=== PATIENT | female | born 1975 | race Caucasian/White ===

== ENCOUNTER 2018-05-05 20:33 | Emergency (ER) | payer MEDICAID ==
[~2018-05-05] VITALS: Ht 177.8 cm; Wt 131.5 kg
[~2018-05-05 20:33] MED LIST: AGM875T PO; AMOX-358 PO; AZAT50TA PO; CIPR-225 PO; DESO15OI TOP; DOCU100C37 PO; ERGO50006 PO; FURO80TA3 PO; FURO80TA83 PO; GABA-488 PO; HYDR-34 PO; HYDR-3714 PO; HYDR200T46 PO; IBP800T PO; IBUP-1773 PO; INSU100I10 SC; INSU100I14 SQ; INSU100V6 SQ; LABE100T2 PO; LEVE1U SQ; LIRA0.6P SQ; LISI10TA PO; LISI10TA2 PO; LISI20TA PO; LORA-405 PO; LORA10TA76 PO; METF-380 PO; METO10TA3 PO; MTP50T PO; MYCO500T3 PO; NF-NOR777T PO; OMEP-10 PO; ONDA4TAB11 PO; OXYC-12 PO; OXYC-529 PO; OXYC30TA77 PO; PANT40TA3 PO; PHEN37.555 PO; PRD20T PO; SERT50TA2 PO; SIME80TA16 PO; SPIR50TA4 PO; TR1O15 TOP; [UNRECOGNIZED DRUG - OTHER]
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
--- OUTSIDE RECORDS SUMMARY | 2018-05-05 20:55 | XMS REPORT | Encounter Summary ---
Author Author [facility] Organization [facility] Address Unknown Phone Unavailable Care Team Providers Care Fishing Vessel Mate Name Role Phone KaranMiquel Unavailable Jonatan Vázquez MD Unavailable Sandy Gonsalves MD Unavailable Estephania Breaux MD Unavailable Hugo Ta MD [id number] Khoi Kaminski MD Unavailable Ruben Dozier MD Unavailable Suzette Ramesh PHARMACIST IN CHARGE-C Unavailable Saroj Allan MD Unavailable Dana Duran PHARMACIST IN CHARGE Unavailable Geo Treviño MD Unavailable Gallito Lopez MD PCP Unavailable Iris Devine MD Unavailable Dick Hagan DO 21 Unavailable Valente Gutierrez OD Unavailable Arlin Weber PHARMACIST IN CHARGE Unavailable Evelin Youssef PHARMACIST IN CHARGE-FRAMING MECHANIC 7 Encounter Details Care Team Description Date Type Department Gala Vilchis LPN 05/03/2018 Orders Only The [facility] [address] [place] [address] Social History Date Tobacco Use Types Packs/Day Years Used Quit: 04/12/2015 Former Smoker Cigarettes 0.5 15 Smokeless Tobacco: Never Used Comments: Quit 04-12-2015 Alcohol Use Drinks/Week oz/Week Comments No 0 Standard 0.0 Heavy EtOH use during weekends for approximately drinks or 10 years in patient's 20's equivalent Sex Assigned at Date Recorded Not on file Industry Job Start Date Occupation Not on file Not on file Not on file Travel End Travel History Travel Start No recent travel history available. documented as of this encounter Functional Status Date of Assessment Functional Status Response 04/11/2018 Does the patient have a hearing impairment: No 04/11/2018 Does the patient have a visual impairment: Yes 04/11/2018 Does the patient have impaired ambulation: Yes 04/11/2018 Does the patient have an activity of daily living No (ADL) impairment: 04/11/2018 Does the patient have an instrumental activity of No daily living (IADL) impairment: Date of Assessment Cognitive Status Response 04/11/2018 Does the patient have a cognitive impairment: No documented as of this encounter Plan of Treatment Care Team Description Date Type Specialty Janelle Bell MD [address] [place] [address] [phone] Esophageal varices in cirrhosis (HCC) 05/27/2018 Hospital Encounter Janelle Bell MD [address] [address] [phone] ESOPHAGOGASTRODUODENOSCOPY 05/27/2018 Surgery documented as of this encounter Visit Diagnoses Not on filedocumented in this encounter
--- OUTSIDE RECORDS SUMMARY | 2018-05-05 20:56 | XMS REPORT | Encounter Summary ---
Author Author [facility] Organization [facility] Address Unknown Phone Unavailable Care Team Providers Care Air Transport Professionals Name Role Phone Karan Miquel Unavailable Jonatan Vázquez MD Unavailable Sandy Gonsalves MD Unavailable Estephania Breaux MD Unavailable Hugo Ta MD [id number] Khoi Kaminski MD Unavailable Ruben Dozier MD Unavailable Suzette Ramesh FREIGHT SOLICITOR-C Unavailable Saroj Allan MD Unavailable Dana Duran FREIGHT SOLICITOR Unavailable Geo Treviño MD Unavailable Gallito Lopez MD PCP Unavailable Iris Devine MD Unavailable Dick Hagan DO 21 Unavailable Valente Gutierrez OD Unavailable Arlin Weber FREIGHT SOLICITOR Unavailable Evelin Youssef FREIGHT SOLICITOR-SKIN CARE SPECIALIST 7 Reason for Visit * Reason Comments Results Encounter Details Care Team Description Date Type Department Sandy Gonsalves MD [address] [facility] [place] [address] [place] [address] [phone] Results 04/12/2018 Telephone [facility] [address] [place] [id number] Social History Date Tobacco Use Types Packs/Day [...] impairment: No documented as of this encounter Miscellaneous Notes * Telephone Encounter - Marilyn De La O LPN - 04/12/2018 8:53 AM MAINTENANCE GROUNDMAN Pt notified via [employer]. TENANCE GROUNDMAN * Telephone Encounter - Marilyn De La O LPN - 04/12/2018 8:53 AM MAINTENANCE GROUNDMAN ----- Message from Sandy Gonsalves MD sent at 04/11/2018 3:12 PM MAINTENANCE GROUNDMAN ----- Please let her know that labs are stable. TENANCE GROUNDMAN documented in this encounter Plan of Treatment Care Team Description Date Type Specialty Janelle Bell MD [address] [address] [phone] Esophageal varices in cirrhosis (HCC) 05/27/2018 Hospital Encounter Janelle Bell MD [address] [phone] ESOPHAGOGASTRODUODENOSCOPY 05/27/2018 Surgery documented as of this encounter Visit Diagnoses Not on filedocumented in this encounter
--- OUTSIDE RECORDS SUMMARY | 2018-05-05 20:56 | XMS REPORT | Encounter Summary ---
Author Author [facility] Organization [facility] Address Unknown Phone Unavailable Care Team Providers Care Hospice/Home Health Aide Name Role Phone KaranMiquel Unavailable Jonatan Vázquez MD Unavailable Sandy Gonsalves MD Unavailable Estephania Breaux MD Unavailable Hugo Ta MD [id number] Khoi Kaminski MD Unavailable Ruben Dozier MD Unavailable Suzette Ramesh DECORATOR LIGHTING FIXTURES-C Unavailable Saroj Allan MD Unavailable Dana Duran DECORATOR LIGHTING FIXTURES Unavailable Geo Treviño MD Unavailable Gallito Lopez MD PCP Unavailable Iris Devine MD Unavailable Dick Hagan DO 21 Unavailable Valente Gutierrez OD Unavailable Arlin Weber DECORATOR LIGHTING FIXTURES Unavailable Evelin Youssef DECORATOR LIGHTING FIXTURES-ASSOCIATE PRODUCER 7 Encounter Details Care Team Description Date Type Department Jackie Villa MD [address] Ortho/Med [address] [place] [address] [phone] 05/01/2018 Orders Only The [facility] [address] [place] [address] Social History Date Tobacco Use Types Packs/Day [...] Date Type Specialty Janelle Bell MD [address] [phone] Esophageal varices in cirrhosis (HCC) 05/27/2018 Hospital Encounter Janelle Bell MD [address] [phone] ESOPHAGOGASTRODUODENOSCOPY 05/27/2018 Surgery documented as of this encounter Procedures Comments Procedure Name Priority Date/Time Associated Diagnosis FERRITIN 05/01/2018 4:30 PM CDT BASIC METABOLIC PANEL 05/01/2018 4:30 PM CDT documented in this encounter Results * FERRITIN (05/01/2018 4:30 PM CDT) Pathologist [facility] Ferritin 143 10 - 232 ng/mL [facility] Comment: DIAGNOSTICS REPORT COMMENT: FASTING:NO Test Performed at: [employer] [address] [facility] [place], [id number] ARNOLDO MCGINNIS DO,MPH Performing Organization Address [facility] Phone Number [employer] [address] [place] [address] * BASIC METABOLIC PANEL (05/01/2018 4:30 PM CDT) Pathologist [facility] Glucose 343 (H) 65 - 139 mg/dL [facility] Comment: DIAGNOSTICS Non-fasting reference interval Blood Urea 20 7 - 25 mg/dL [facility] Nitrogen [facility] Creatinine 0.88 0.50 - 1.10 mg/dL [facility] eGFR Non 81 > OR=60 [facility] mL/min/1.73m2 DIAGNOSTICS [place] eGFR 94 > OR=60 [facility] [place] mL/min/1.73m2 DIAGNOSTICS BUN/Creatinine NOT APPLICABLE 6 - 22 (calc) [facility] Ratio [facility] Sodium 135 135 - 146 mmol/L [facility] Potassium 4.2 3.5 - 5.3 mmol/L [facility] Chloride 100 98 - 110 mmol/L [facility] CO2 25 20 - 32 mmol/L [facility] Calcium 8.9 8.6 - 10.2 mg/dL [facility] Comment: DIAGNOSTICS Test Performed at: [employer] [address] [facility] [place] and love and you, [id number] ARNOLDO MCGININS DO,MPH Performing Organization Address [facility] Phone Number [employer] [address] [place] [address] documented in this encounter Visit Diagnoses Not on filedocumented in this encounter
--- OUTSIDE RECORDS SUMMARY | 2018-05-05 20:56 | XMS REPORT | Encounter Summary ---
Author Author [facility] Organization [facility] Address Unknown Phone Unavailable Care Team Providers Care Shop Superintendent Name Role Phone Karan Miquel Unavailable Jonatan Vázquez MD Unavailable Sandy Gonsalves MD Unavailable Estephania Breaux MD Unavailable Hugo Ta MD [id number] Khoi Kaminski MD Unavailable Ruben Dozier MD Unavailable Suzette Ramesh REGISTERED DIETICIAN-C Unavailable Saroj Allan MD Unavailable Dana Duran REGISTERED DIETICIAN Unavailable Geo Treviño MD Unavailable Gallito Lopez MD PCP Unavailable Iris Devine MD Unavailable Dick Hagan DO 21 Unavailable Valente Gutierrez OD Unavailable Arlin Weber REGISTERED DIETICIAN Unavailable Evelin Youssef REGISTERED DIETICIAN-PLANT SAFETY ENGINEER 7 Reason for Visit * Reason Comments Medication Refill Encounter Details Care Team Description Date Type Department Geo Treviño MD [address] [facility] [place] [address] [phone] 04/18/2018 Refill The [facility] [address] [place] [phone] Social History Date Tobacco Use Types Packs/Day [...] encounter Miscellaneous Notes * Telephone Encounter - Rita Batista RN - 04/18/2018 8:55 AM CDT Pharmacy is requesting a refill of prednisone. Pt last seen 01/22/18. Last labs were drawn 04/11/18. Pt scheduled for follow up on 07/29/18. Per last OV "Continue prednisone 15mg daily for now" Routing to Dr. Treviño for approval. 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
--- OUTSIDE RECORDS SUMMARY | 2018-05-05 20:56 | XMS REPORT | Encounter Summary ---
Author Author [facility] Organization [facility] Address Unknown Phone Unavailable Care Team Providers Care Plumber Supervisor Name Role Phone Karan Miquel Unavailable Jonatan Vázquez MD Unavailable Sandy Gonsalves MD Unavailable Estephania Breaux MD Unavailable Hugo Ta MD [id number] Khoi Kaminski MD Unavailable Ruben Dozier MD Unavailable Suzette Ramesh STARS SPECIALIST-C Unavailable Saroj Allan MD Unavailable Dana Duran STARS SPECIALIST Unavailable Geo Treviño MD Unavailable Gallito Lopez MD PCP Unavailable Iris Devine MD Unavailable Dick Hagan DO 21 Unavailable Valente Gutierrez OD Unavailable Arlin Weber STARS SPECIALIST Unavailable Evelin Youssef STARS SPECIALIST-FRUIT OR NUT GROWER 7 Reason for Referral * Durable Medical Equipment Referred By Contact Referred To Contact Status Reason Specialty Diagnoses / Procedures Jackie Villa MD 1999 [facility] [address] [place] [id number] New Request Specialty Services Diagnoses Required MARLENI (obstructive sleep apnea) Reason for Visit * Reason Comments Obstructive sleep apnea * Consult, Test & Treat (Routine) Referred By Contact Referred To Contact Status Reason Specialty Diagnoses / Procedures Arlin Weber, STARS SPECIALIST 4000 [facility] [id number] [place] [address] [facility] [address] [place] [address] Closed Pulmonology Diagnoses MARLENI (obstructive sleep apnea) Encounter Details Care Team Description Date Type Department Jackie Villa MD 1999 [facility] [address] [place] [address] [id number] MARLENI (obstructive sleep apnea) (Primary Dx); PLMD (periodic limb movement disorder); Snoring; BMI 40.0-44.9, adult (HCC); Exercise-induced asthma 04/29/2018 Office Visit [facility] [address] [place] [address] Social History Date Tobacco Use Types Packs/Day [...] history available. documented as of this encounter Last Filed Vital Signs Time Taken Vital Sign Reading 04/29/2018 11:30 AM CDT Blood Pressure 121/81 04/29/2018 11:30 AM CDT Pulse 96 04/29/2018 11:30 AM CDT Temperature 36.5 C (97.7 F) 04/29/2018 11:30 AM CDT Respiratory Rate 18 04/29/2018 11:30 AM CDT Oxygen Saturation 97% - Inhaled Oxygen - Concentration 04/29/2018 11:30 AM CDT Weight 133.8 kg (295 lb) 04/29/2018 11:30 AM CDT Height 177.8 cm (5' 10") 04/29/2018 11:30 AM CDT Body Mass Index 42.33 documented in this encounter Functional Status Date of Assessment [...] impairment: No documented as of this encounter Patient Instructions * Patient Instructions* Yamileth García LPN - 04/29/2018 11:30 AM CDT A new CPAP or BiPAP machine has been ordered for you. We will send the order to a medical supply company (aka [employer] or [email or web address]). Once they received the order, they will run it through your insurance company for authorization. They will contact you once this is completed, usually 7-10 days after the order is placed. They will go over all financial information with you and schedule an appointment to get you set up with your equipment. If you have any questions, or if you don't hear from your DME within this timeframe, please call my nurse Yamileth @ [phone] Most insurances are requiring patients to meet 'CPAP compliance guidelines' which require 4 hours of use a night. This will require you to use your CPAP at least 4 hours a night over a period of 30 days. You have 90 days from the date you receive your machine to meet these guidelines. If this is the case you will also be required to have a follow-up appt within this time frame as well. If you do not meet compliance, your insurance may discontinue payment for your CPAP. Most insurance plans allow a 30 day window from date of setup to try different masks. If you need to schedule an appointment, you can call [phone]. documented in this encounter Progress Notes * Jackie Villa MD - 04/29/2018 11:30 AM CDT Subjective: History of Present Illness Sherrie Doe is a 42 y.o. female with past medical history of exercise induced asthma, lupus, diabetes mellitus, Jones, hyperlipidemia, lupus nephritis , proximal myotonic myopathy, fibromyalgia, hypertension and obesity is here to be evaluated for sleep apnea. She said her boyfriend said that she is snores and stops breathing at night. She said she has had the symptoms for several years. She does not have any choking episodes at night. She sometimes wakes up with headaches in the morning. She does not feel refreshed in the morning. She wakes up multiple times at night. She does not have any trouble falling asleep or trouble staying asleep. She goes to bed around 9:30 PM and wakes up at 6:30 AM. She said it takes 30 minutes to an hour to fall asleep. She does not take any sleep aids. She does not have any sleep paralysis. She has sleep- related hallucinations where she wakes up hearing somebody calling her name at least once or twice per month. She is gained nearly 40 pounds in October. She does not smoke or drink alcohol. She quit smoking in 2015. She said she smoked for nearly 25 years at least 1-2 packs/day. She has shortness of breath mostly with exertion. She sometimes wheezes during daytime. She does not have any chest pain. She has gastroesophageal reflux disease. She said she moves her legs often at night and. She is often. She said her feet if she does, often in the morning. Also her boyfriend complained that she kicks him often. She had a sleep study done on 10/26/2017 which showed mild sleep apnea with AHI of 5.4. Time with saturation less than or equal to 88% for 8 minutes. Periodic limb movement disorder index was 35/h with arousal index of 13/h. ESS 14/24. Review of Systems All ten systems were reviewed and negative except for those in HPI. Objective: albuterol (PROAIR HFA, VENTOLIN HFA, OR PROVENTIL HFA) 90 mcg/actuation inhaler Inhale two puffs by mouth into the lungs every 6 hours as needed for Wheezing or Shortness of Breath. Shake well before use. albuterol 0.5% (PROVENTIL; VENTOLIN) 2.5 mg/0.5 mL nebulizer solution Inhale 2.5 mg solution by nebulizer as directed every 6 hours as needed for Shortness of Breath or Wheezing. belimumab (BENLYSTA) 200 mg/mL atIn Inject 200 mg under the skin every 7 days. BIOTIN PO Take 1 tablet by mouth daily. Calcium-Cholecalciferol (D3) (CALCIUM WITH VITAMIN D) 600 mg(1,500mg) -400 unit tab Take 1 Tab by mouth daily. carvedilol (COREG) 12.5 mg tablet Take 1.5 tablets by mouth twice daily with meals. Take with food. ciprofloxacin (CIPRO) 500 mg tablet Take one tablet by mouth daily. cyclobenzaprine (FLEXERIL) 10 mg tablet Take 10 mg by mouth three times daily as needed for Muscle Cramps. diclofenac(+) (VOLTAREN) 1 % topical gel Apply to hands and knees 3-4 times daily ergocalciferol (VITAMIN D-2) 50,000 unit capsule Take 1 Cap by mouth every 7 days. Indications: VITAMIN D DEFICIENCY fish oil /omega-3 fatty acids (SEA-OMEGA) 340/1000 mg capsule Take 1 capsule by mouth daily. fluticasone (FLONASE) 50 mcg/actuation nasal spray Apply 2 sprays to each nostril as directed as Needed. Shake bottle gently before using. furosemide (LASIX) 40 mg tablet Take one tablet by mouth every 48 hours. hydrocortisone 2.5% (ANUSOL-HC) 2.5 % rectal cream Use as needed. hydroxychloroquine (PLAQUENIL) 200 mg tablet TAKE ONE TABLET BY MOUTH TWICE DAILY imiquimod(+) (ALDARA) 5 % topical cream at least 3 times/week on alternative days prior to bedtime. Remove by washing with mild soap and water.You may use a vaginal applicator insulin aspart U-100 (NOVOLOG FLEXPEN) 100 unit/mL injection PEN Up to 50 units/ day insulin glargine U-300 conc (TOUJEO MAX U-300 SOLOSTAR) 300 unit/mL (3 mL) inpn Inject 30 Units under the skin daily. lactulose 10 gram/15 mL oral solution Take 30 mL by mouth as Needed. Titrate to 3-4 bowel movements per day. Indications: HYPERAMMONEMIA, hold lactulose if >2 bowel movement/ day loratadine (CLARITIN) 10 mg tablet Take 10 mg by mouth daily. LORazepam (ATIVAN) 0.5 mg tablet Take 1 tablet by mouth every 12 hours as needed for Nausea. Magnesium Gluconate 30 mg (550 mg) tab Take 1 tablet by mouth twice daily. metFORMIN-XR(+) (GLUCOPHAGE XR) 500 mg extended release tablet Take four tablets by mouth daily with dinner. mycophenolate mofetil (CELLCEPT) 500 mg tablet Take 2 tablets by mouth twice daily. Take on an empty stomach. (Patient taking differently: Take 1,000 mg by mouth daily. Take on an empty stomach.) ondansetron hcl (ZOFRAN) 4 mg tablet Take 1 Tab by mouth every 6 hours as needed for Nausea. pantoprazole DR (PROTONIX) 40 mg tablet Take 1 tablet by mouth twice daily. (Patient taking differently: Take 40 mg by mouth daily.) pravastatin (PRAVACHOL) 20 mg tablet Take 2 tablets by mouth at bedtime daily. prednisone (DELTASONE) 5 mg tablet TAKE 3 TABLETS BY MOUTH ONCE DAILY WITH BREAKFAST rOPINIRole (REQUIP) 0.5 mg tablet Take one tablet by mouth at bedtime daily. spironolactone (ALDACTONE) 25 mg tablet Take 1 tablet by mouth twice daily. traMADol (ULTRAM) 50 mg tablet Take 100 mg by mouth every 6 hours as needed for Pain. triamcinolone acetonide (KENALOG) 0.1 % topical cream Apply to affected lower legs twice daily as directed (Patient taking differently: as Needed. Apply to affected lower legs twice daily as directed) vitamins, multiple cap Take 1 capsule by mouth daily. warfarin (COUMADIN) 5 mg tablet Take 10 mg by mouth daily. XIFAXAN 550 mg tablet TAKE ONE TABLET BY MOUTH TWICE DAILY Vitals: 04/29/18 1130 BP: 121/81 Pulse: 96 Resp: 18 Temp: 36.5 C (97.7 F) TempSrc: Oral SpO2: 97% Weight: 133.8 kg (295 lb) Height: 177.8 cm (70") Body mass index is 42.33 kg/m. Physical Exam Constitutional: She is oriented to person, place, and time. She appears well- developed. HENT: Head: Normocephalic and atraumatic. Eyes: Conjunctivae and EOM are normal. Pupils are equal, round, and reactive to light. Neck: Normal range of motion. Neck supple. Cardiovascular: Normal rate, regular rhythm, normal heart sounds and intact distal pulses. Pulmonary/Chest: Effort normal and breath sounds normal. Abdominal: Soft. Bowel sounds are normal. Musculoskeletal: Normal range of motion. Neurological: She is alert and oriented to person, place, and time. She has normal reflexes. Skin: Skin is warm and dry. Psychiatric: She has a normal mood and affect. Nursing note and vitals reviewed. Assessment and Plan: Problem Bmi 40.0-44.9, Adult (Hcc) BMI 42 Marleni (Obstructive Sleep Apnea) Witnessed apneas and daytime sleepiness. Sleep study done on 10/26/2017 which showed mild sleep apnea with AHI of 5.4. Time with saturation less than or equal to 88% for 8 minutes. Periodic limb movement disorder index was 35/h with arousal index of 13/h Exercise-Induced Asthma She wheezes and has cough with exercise. Plmd (Periodic Limb Movement Disorder) Periodic limb movement disorder index was 35/h with arousal index of 13/h. MARLENI (obstructive sleep apnea) Her symptoms are highly suspicious for obstructive [...] oral appliance in conjunction with weight loss. BMI 40.0-44.9, adult (HCC) Class I (BMI ?30 to 35), class II (BMI ?35 to 40), and class III (BMI ?40). She comes under class 111. Advised her to exercise on a regular basis and watch her diet. I educated her about the importance of losing weight. Exercise-induced asthma We will start her on albuterol MDI q 4hrs prn SOB. We will also check complete PFT's to evaluate her symptoms further. PLMD (periodic limb movement disorder) Discussed the pathophysiology of PLMD. We will check ferritin level. We will start Requip 0.5 mg qhs. RTC in 2-3 months. documented in this encounter Plan of Treatment Care Team Description Date Type Specialty Janelle Bell MD [address] [id number] Esophageal varices in cirrhosis (HCC) 05/27/2018 Hospital Encounter Janelle Bell MD [address] [id number] ESOPHAGOGASTRODUODENOSCOPY 05/27/2018 Surgery Order Schedule Name Priority Associated Diagnoses Expected: 04/29/2018 (Approximate), Expires: 04/30/2019 FERRITIN Routine PLMD (periodic limb movement disorder) Ordered: 04/29/2018 PFT COMPLETE PULM FUNCTION Routine Exercise-induced asthma Order Schedule Name Priority Associated Diagnoses Ordered: 04/29/2018 AMB REFERRAL TO HOME CARE Routine MARLENI (obstructive sleep apnea) documented as of this encounter Visit Diagnoses Diagnosis MARLENI (obstructive sleep apnea) - Primary Obstructive sleep apnea (adult) (pediatric) PLMD (periodic limb movement disorder) Periodic limb movement disorder Snoring Other dyspnea and respiratory abnormality BMI 40.0-44.9, adult (HCC) Body Mass Index 40.0-44.9, adult Exercise-induced asthma Exercise induced bronchospasm * Assessment & Plan Note - Jackie Villa MD - 04/29/2018 3:40 PM CDT Associated Problem(s): PLMD (periodic limb movement disorder) Discussed the pathophysiology of PLMD. We will check ferritin level. We will start Requip 0.5 mg qhs. * Assessment & Plan Note - Jackie Villa MD - 04/29/2018 3:38 PM CDT Associated Problem(s): Exercise-induced asthma We will start her on albuterol MDI q 4hrs prn SOB. We will also check complete PFT's to evaluate her symptoms further. * Assessment & Plan Note - Jackie Villa MD - 04/29/2018 3:35 PM CDT Associated Problem(s): BMI 40.0-44.9, adult (HCC) Class I (BMI ?30 to 35), class II (BMI ?35 to 40), and class III (BMI ?40). She comes under class 111. Advised her to exercise on a regular basis and watch her diet. I educated her about the importance of losing weight. * Assessment & Plan Note - Jackie Villa MD - 04/29/2018 3:32 PM CDT Associated Problem(s): MARLENI (obstructive sleep apnea) Her symptoms are highly suspicious for obstructive [...] oral appliance in conjunction with weight loss. documented in this encounter
--- OUTSIDE RECORDS SUMMARY | 2018-05-05 20:56 | XMS REPORT | Encounter Summary ---
Author Author [facility] Organization [facility] Address Unknown Phone Unavailable Care Team Providers Care Drywall Installer Name Role Phone Karan Miquel Unavailable Jonatan Vázquez MD Unavailable Sandy Gonsalves MD Unavailable Estephania Breaux MD Unavailable Hugo Ta MD [id number] Khoi Kaminski MD Unavailable Ruben Dozier MD Unavailable Suzette Ramesh COMMISSIONING AGENT-C Unavailable Saroj Allan MD Unavailable Dana Duran COMMISSIONING AGENT Unavailable Geo Treviño MD Unavailable Gallito Lopez MD PCP Unavailable Iris Devine MD Unavailable Dick Hagan DO 21 Unavailable Valente Gutierrez OD Unavailable Arlin Weber COMMISSIONING AGENT Unavailable Evelin Youssef COMMISSIONING AGENT-MOLDER INFLATED BALL 7 Reason for Visit * Reason Comments DME Follow Up AutoPAP set up Encounter Details Care Team Description Date Type Department Jackie Villa MD [address] [facility] [address] [place] [address] [phone] DME Follow Up (AutoPAP set up ) 04/29/2018 Telephone [facility] [address] [place] [address] Social History Date Tobacco Use Types Packs/Day [...] encounter Miscellaneous Notes * Telephone Encounter - Dafne Geronimo MA,CCC-RECEPTION CENTRE MANAGER - 04/30/2018 5:28 PM CDT New order faxed on 04/30/18 to [facility] for AutoPAP set up 5-15cm H2O. Fax confirmation received from our machine. * Telephone Encounter - Yamileth García LPN - 04/29/2018 1:14 PM CDT Order for AutoPAP 5-15cm H2O placed as discussed per office note on 04/29/18. DME: [facility] Message routed to LESLIE Leos to continue follow up and order packet given to Dafne to fax. documented in this encounter Plan of Treatment Care Team Description Date Type Specialty Janelle Bell MD [address] [place] [address] Esophageal varices in cirrhosis (HCC) 05/27/2018 Hospital Encounter Janelle Bell MD [address] [place] [address] ESOPHAGOGASTRODUODENOSCOPY 05/27/2018 Surgery documented as of this encounter Visit Diagnoses Not on filedocumented in this encounter
--- OUTSIDE RECORDS SUMMARY | 2018-05-05 20:56 | XMS REPORT | Encounter Summary ---
Author Author [facility] Organization [facility] Address Unknown Phone Unavailable Care Team Providers Care Solution Mixer Name Role Phone Karan Miquel Unavailable Jonatan Vázquez MD Unavailable Sandy Gonsalves MD Unavailable Estephania Breaux MD Unavailable Hugo Ta MD [id number] Khoi Kaminski MD Unavailable Ruben Dozier MD Unavailable Suzette Ramesh HEALTHCARE APPLICATIONS ANALYST-C Unavailable Saroj Allan MD Unavailable Dana Duran HEALTHCARE APPLICATIONS ANALYST Unavailable Geo Treviño MD Unavailable Gallito Lopez MD PCP Unavailable Iris Devine MD Unavailable Dick Hagan DO 21 Unavailable Valente Gutierrez OD Unavailable Arlin Weber HEALTHCARE APPLICATIONS ANALYST Unavailable Evelin Youssef HEALTHCARE APPLICATIONS ANALYST-CUTTER TENDER 7 Reason for Visit * Reason Comments Heart Failure 3 month follow up Encounter Details Care Team Description Date Type Department Janelle Bell MD 4000 [facility] [id number] [place] [address] [phone] Arlin Weber APRN 4000 [facility] MOA[address] [place] [address] [phone] Heart Failure (3 month follow up ) 04/29/2018 Office Visit [facility] [address] [place] [address] Social History Date Tobacco Use Types Packs/Day [...] 130/84 04/29/2018 1:17 PM CDT Pulse 82 - Temperature - - Respiratory Rate - 04/29/2018 1:17 PM CDT Oxygen Saturation 97% - Inhaled Oxygen - Concentration 04/29/2018 1:17 PM CDT Weight 133.8 kg (294 lb 14.4 oz) 04/29/2018 1:17 PM CDT Height 177.8 cm (5' 10") 04/29/2018 1:17 PM CDT Body Mass Index 42.31 documented in this encounter Functional Status Date [...] this encounter Patient Instructions * Patient Instructions* Arlin Weber APRN - 04/29/2018 1:30 PM CDT -Your home weight is up 37 lbs since we met in December. As we discussed, some of your medications make is more difficult to lose weight. Exercise alone will not accomplish weight loss, a low calorie diet will be needed. -Let's schedule a visit with our railways assistant the next time your are at . She can be seen in the heart failure clinic ([facility], 1st floor) Make an appointment at [phone], ask for a railways assistant appointment. You can also schedule a visit at the [facility]. -Have lab tests with the orders provided to recheck your potassium on the lower dose of lasix with spironolactone. You can have the ferritin for the sleep doctor as well. -We are reviewing all of your risk factors for heart disease and stroke. You do need aggressive treatment of the blood pressure, cholesterol levels, and your diabetes. Other recommendations may be made. documented in this encounter Plan of Treatment Care Team Description Date Type Specialty Janelle Bell MD [address] [address] [phone] Esophageal varices in cirrhosis (HCC) 05/27/2018 Hospital Encounter Janelle Bell MD [address] [address] [phone] ESOPHAGOGASTRODUODENOSCOPY 05/27/2018 Surgery Order Schedule Name Priority Associated Diagnoses Expected: 04/29/2018 (Approximate), Expires: 04/29/2019 BASIC METABOLIC PANEL Routine Essential hypertension CANO (nonalcoholic steatohepatitis) Dyslipidemia Poorly controlled diabetes mellitus (HCC) Mild MARLENI with increased leg movements Weight gain Pulmonary hypertension (HCC) Coronary artery calcification Cardiovascular risk factor documented as of this encounter Visit Diagnoses Diagnosis Essential hypertension - Primary Unspecified essential hypertension CANO (nonalcoholic steatohepatitis) Other chronic nonalcoholic liver disease Dyslipidemia Other and unspecified hyperlipidemia Poorly controlled diabetes mellitus (HCC) Type II or unspecified type diabetes mellitus without mention of complication , not stated as uncontrolled Mild MARLENI with increased leg movements Obstructive sleep apnea (adult) (pediatric) Weight gain Abnormal weight gain Pulmonary hypertension (HCC) Other chronic pulmonary heart diseases Coronary artery calcification Coronary atherosclerosis of unspecified type of vessel, [place] or graft Cardiovascular risk factor Other specified personal history presenting hazards to health documented in this encounter
--- OUTSIDE RECORDS SUMMARY | 2018-05-05 20:57 | XMS REPORT | Encounter Summary ---
Author Author [facility] Organization [facility] Address Unknown Phone Unavailable Care Team Providers Care Creeler Name Role Phone Karan Miquel Unavailable Jonatan Vázquez MD Unavailable Sandy Gonsalves MD Unavailable Estephania Breaux MD Unavailable Hugo Ta MD [id number] Khoi Kaminski MD Unavailable Ruben Dozier MD Unavailable Suzette Ramesh PRINTING PRESSMAN-C Unavailable Saroj Allan MD Unavailable Dana Duran PRINTING PRESSMAN Unavailable Geo Treviño MD Unavailable Gallito Lopez MD PCP Unavailable Iris Devine MD Unavailable Dick Hagan DO 21 Unavailable Valente Gutierrez OD Unavailable Arlin Weber PRINTING PRESSMAN Unavailable Evelin Youssef PRINTING PRESSMAN-TIMBER SIZER 7 Reason for Visit * Reason Comments Results Encounter Details Care Team Description Date Type Department Sandy Gonsalves MD 1999 [facility] [address] [place] [address] [phone] Results 04/10/2018 Telephone [facility] [address] [place] [phone] Social History Date Tobacco Use Types Packs/Day [...] Status Date of Assessment Functional Status Response 02/15/2018 Does the patient have a hearing impairment: No 02/15/2018 Does the patient have a visual impairment: Yes 02/15/2018 Does the patient have impaired ambulation: Yes 02/15/2018 Does the patient have an activity of daily living No (ADL) impairment: 02/15/2018 Does the patient have an instrumental activity of No daily living (IADL) impairment: Date of Assessment Cognitive Status Response 02/15/2018 Does the patient have a cognitive impairment: Yes documented as of this encounter Miscellaneous Notes * Telephone Encounter - Marilyn De La O LPN - 04/10/2018 3:09 PM PIPING DESIGN SPECIALIST Pt notified via [employer]. NG DESIGN SPECIALIST * Telephone Encounter - Marilyn De La O LPN - 04/10/2018 2:52 PM PIPING DESIGN SPECIALIST ----- Message from Sandy Gonsalves MD sent at 04/10/2018 2:06 PM PIPING DESIGN SPECIALIST ----- Please let her know urine test was okay. Rheumatology note says to decrease cellcept to 500mg twice daily after she starts the benlysta. I think she is still taking 1000mg twice daily. Please have her check with rheumatology and decrease the dose NG DESIGN SPECIALIST documented in this encounter Plan of Treatment Care Team Description Date Type Specialty Janelle Bell MD [address] [address] Esophageal varices in cirrhosis (HCC) 05/27/2018 Hospital Encounter Janelle Bell MD [address] [address] ESOPHAGOGASTRODUODENOSCOPY 05/27/2018 Surgery documented as of this encounter Visit Diagnoses Not on filedocumented in this encounter
--- OUTSIDE RECORDS SUMMARY | 2018-05-05 20:57 | XMS REPORT | Encounter Summary ---
Author Author [facility] Organization [facility] Address Unknown Phone Unavailable Care Team Providers Care Drum Stenciler Name Role Phone Karan Miquel Unavailable Jonatan Vázquez MD Unavailable Sandy Gonsalves MD Unavailable Estephania Breaux MD Unavailable [place] [id number] Khoi Kaminski MD Unavailable Ruben Dozier MD Unavailable Suzette Ramesh TAG STRINGER-C Unavailable Saroj Allan MD Unavailable Dana Duran TAG STRINGER Unavailable Geo Treviño MD Unavailable Gallito Lopez MD PCP Unavailable Iris Devine MD Unavailable Dick Hagan DO 21 Unavailable Valente Gutierrez OD Unavailable Arlin Weber TAG STRINGER Unavailable Evelin Youssef TAG STRINGER-MARKET EDITOR 7 Reason for Visit * Reason Comments Cirrhosis Encounter Details Care Team Description Date Type Department Janelle Bell MD 4000 [facility] [place] [id number] [place], [place] [id number] Cirrhosis of liver without ascites, unspecified hepatic cirrhosis type (HCC) (Primary Dx) 04/11/2018 Office Visit [facility] [address] [address] Social History Date Tobacco Use Types Packs/Day [...] Vital Signs Time Taken Vital Sign Reading 04/11/2018 10:28 AM SIGNAL REPAIRER Blood Pressure 126/80 04/11/2018 10:28 AM SIGNAL REPAIRER Pulse 88 04/11/2018 10:28 AM SIGNAL REPAIRER Temperature 36.5 C (97.7 F) 04/11/2018 10:28 AM SIGNAL REPAIRER Respiratory Rate 16 04/11/2018 10:28 AM SIGNAL REPAIRER Oxygen Saturation 95% - Inhaled Oxygen - Concentration 04/11/2018 10:28 AM SIGNAL REPAIRER Weight 130.5 kg (287 lb 9.6 oz) 04/11/2018 10:28 AM SIGNAL REPAIRER Height 177.8 cm (5' 10") 04/11/2018 10:28 AM SIGNAL REPAIRER Body Mass Index 41.27 documented in this encounter Functional Status Date [...] this encounter Patient Instructions * Patient Instructions* Abida Sheriff, RN - 04/11/2018 10:00 AM SIGNAL REPAIRER Schedule: 1. Have labs drawn Patient Information: 1. Your EGD is scheduled 05/27 at 0630. It is located in the [facility], ground floor. Stop in admissions and they will direct you to the endoscopy clinic. General Instructions: How to reach us: Please send a [email or web address] message to the General Hepatology clinic or call [phone], option 2. How to get a medication refill: Please use the [email or web address] Refill request or contact your pharmacy directly to request medication refills. Please allow 48 hours. This clinic does not prescribe pain medications. How to receive your test results: If you have signed up for [email or web address], you will receive your test results and messages from me this way. Otherwise, you will get a phone call or letter. If you are expecting results and have not heard from my office within 2 weeks of your testing, please send a [email or web address] message or call my office. Appointment Reminders on your cell phone: Make sure we have your cell phone number, and Text [facility] to [phone]. Support groups for many chronic illnesses are available through [facility]: [email or web address] or [phone]. Thank you for allowing us to participate in your care. If you have any concerns , call , option 2. Your liver team is Dr. Bell, Abida Jerome APRN MSN, RN and Isabella PACHECO. Upper GI Endoscopy During endoscopy, a long, flexible tube is used to view the inside of your upper GI tract. Upper GI endoscopy allows your healthcare provider to look directly into the beginning of your gastrointestinal (GI) tract. The esophagus, stomach, and duodenum (the first part of the small intestine) make up the upper GI tract. Before the exam Follow these and any other instructions you are given before your endoscopy. If you dont follow the healthcare providers instructions carefully, the test may need to be canceled or done over: Don't eat or drink anything after midnight the night before your exam. If your exam is in the afternoon, drink only clear liquids in the morning. Don't eat or drink anything for8 hours before the exam. In some cases, you may be able to take medicines with sips of water until 2 hours before the procedure. Speak with your healthcare provider about this. Bring your X-rays and any other test results you have. Because you will be sedated, arrange for an adult to drive you home after the exam. Tell your healthcare provider before the exam if you are taking any medicines or have any medical problems. The procedure Here is what to expect: You will lie on the endoscopy table. Usually patients lie on the left side. You will be monitored and given oxygen. Your throat may be numbed with a spray or gargle. You are given medicine through an intravenous (IV) line that will help you relax and remain comfortable. You may be awake or asleep during the procedure. The healthcare provider will put the endoscope in your mouth and down your esophagus.Itis thinner than most pieces of food that you swallow. It will not affect your breathing. The medicine helps keep you from gagging. Air is put into your GI tract to expand it. It can make you burp. During the procedure, the healthcare provider can take biopsies (tissue samples), remove abnormalities, such as polyps, or treat abnormalities through a variety of devices placed through the endoscope. You will not feel this. The endoscope carries images of your upper GI tract to a video screen. If you are awake, you may be able to look at the images. After the procedure is done, you will rest for a time. An adult must drive you home. When to call your healthcare provider Contact your healthcare provider if you have: Black or tarry stools, or blood in your stool Fever Pain in your belly that does not go away Nausea and vomiting, or vomiting blood Date Last Reviewed: 08/06/201519992685-[address] [place] [address]. All rights reserved. This information is not intended as a substitute for professional medical care. Always follow your healthcare professional's instructions. AL REPAIRER documented in this encounter Plan of Treatment Care Team Description Date Type Specialty Janelle Bell MD [address] [place] [id number] [phone] Esophageal varices in cirrhosis (HCC) 05/27/2018 Hospital Encounter Janelle Bell MD 4000 [facility] [place], [place] [id number] ESOPHAGOGASTRODUODENOSCOPY 05/27/2018 Surgery documented as of this encounter Results * PROTIME INR (PT) (04/11/2018 11:30 AM SIGNAL REPAIRER) INR 1.6 (H) 0.8 - 1.2 [facility] Specimen Blood Performing Organization Address City[facility] [address] [place] [address] * COMPREHENSIVE METABOLIC PANEL (04/11/2018 11:30 AM SIGNAL REPAIRER) Sodium 131 (L) 137 - 147 MMOL/L [...] >60 >60 mL/min [facility] Comment: Faroese The eGFR is not validated for use in drug dosing adjustments.Continue to use estimated creatinine clearance per dosing reference text.Please contact the Clinical Pharmacist for questions. eGFR >60 >60 mL/min [facility] [place]ese Comment: The eGFR is not validated for use in drug dosing adjustments.Continue to use estimated creatinine clearance per dosing reference text.Please contact the Clinical Pharmacist for questions. Specimen Blood Performing Organization Address City/[facility]/Zipcode Phone Number MAIN LAB [address] [place] [address] * 25-OH VITAMIN D (D2 + D3) (04/11/2018 11:30 AM SIGNAL REPAIRER) Vitamin 29.7 (L) 30 - 80 NG/ML MAIN [facility] D(25-OH)Total Specimen Blood Performing Organization Address City/State/Zipcode Phone Number MAIN LAB [address] [place] [address] documented in this encounter Visit Diagnoses Diagnosis Cirrhosis of liver without ascites, unspecified hepatic cirrhosis type (HCC) - Primary documented in this encounter
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
--- OUTSIDE RECORDS SUMMARY | 2018-05-05 20:57 | XMS REPORT | Encounter Summary ---
Author Author [facility] Organization [facility] Address Unknown Phone Unavailable Care Team Providers Care Freezer Tunnel Operator Name Role Phone KaranMiquel Unavailable Jonatan Vázquez MD Unavailable Sandy Gonsalves MD Unavailable Estephania Breaux MD Unavailable Hugo Ta MD [id number] Khoi Kaminski MD Unavailable Ruben Dozier MD Unavailable Suzette Ramesh BLENDING TANK TENDER HELPER-C Unavailable Saroj Allan MD Unavailable Dana Duran BLENDING TANK TENDER HELPER Unavailable Geo Treviño MD Unavailable Gallito Lopez MD PCP Unavailable Iris Devine MD Unavailable Dick Hagan DO 21 Unavailable Valente Gutierrez OD Unavailable Arlin Weber BLENDING TANK TENDER HELPER Unavailable Evelin Youssef BLENDING TANK TENDER HELPER-LINE SERVICE TECHNICIAN 7 Encounter Details Care Team Description Date Type Department Sandy Gonsalves MD 1999 [place] [facility] Lvl [address] [place] [id number] 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 [address] [address] Social History Date Tobacco Use Types Packs/Day [...] impairment: Yes documented as of this encounter Medications at Time of Discharge Start Date End Date Medication Sig Dispensed Refills albuterol 0.5% Inhale 2.5 mg 0 (PROVENTIL; VENTOLIN) 2.5 solution by mg/0.5 mL nebulizer nebulizer as solution directed every 6 hours as needed for Shortness of Breath or Wheezing. 01/22/2018 belimumab (BENLYSTA) 200 Inject 200 mg 4 mL 5 mg/mL atIn under the skin every 7 days. BIOTIN PO Take 1 tablet 0 by mouth daily. Calcium-Cholecalciferol Take 1 Tab by 0 (D3) (CALCIUM WITH mouth daily. VITAMIN D) 600 mg(1,500mg) -400 unit tab 03/07/2017 carvedilol (COREG) 12.5 Take 1.5 90 tablet 5 mg tablet tablets by mouth twice daily with meals. Take with food. cyclobenzaprine Take 10 mg by 0 (FLEXERIL) 10 mg tablet mouth three times daily as needed for Muscle Cramps. 11/09/2016 diclofenac(+) (VOLTAREN) Apply to 500 g 1 1 % topical gel hands and knees 3-4 times daily 10/01/2015 ergocalciferol (VITAMIN Take 1 Cap by 4 Cap 1 D-2) 50,000 unit capsule mouth every 7 days. Indications: VITAMIN D DEFICIENCY fish oil /omega-3 fatty Take 1 0 acids (SEA-OMEGA) capsule by 340/1000 mg capsule mouth daily. fluticasone (FLONASE) 50 Apply 2 0 mcg/actuation nasal spray sprays to each nostril as directed as Needed. Shake bottle gently before using. 04/10/2018 furosemide (LASIX) 40 mg Take one 90 tablet 3 tablet tablet by mouth every 48 hours. 10/01/2015 hydrocortisone 2.5% Use as 28.35 g 0 (ANUSOL-HC) 2.5 % rectal needed. cream 10/23/2017 hydroxychloroquine TAKE ONE 180 tablet 1 (PLAQUENIL) 200 mg tablet TABLET BY MOUTH TWICE DAILY 04/26/2017 imiquimod(+) (ALDARA) 5 % at least 3 30 packet 5 topical cream times/week on alternative days prior to bedtime. Remove by washing with mild soap and water.You may use a vaginal applicator 04/04/2018 insulin aspart U-100 Up to 50 50 mL 3 (NOVOLOG FLEXPEN) 100 units/ day unit/mL injection PENIndications: type 2 diabetes mellitus 02/27/2017 lactulose 10 gram/15 mL Take 30 mL by 946 mL 0 oral solutionIndications: mouth as hyperammonemia, hold Needed. lactulose if >2 bowel Titrate to movement/ day 3-4 bowel movements per day. Indications: HYPERAMMONEMI A, hold lactulose if >2 bowel movement/ day loratadine (CLARITIN) 10 Take 10 mg by 0 mg tablet mouth daily. LORazepam (ATIVAN) 0.5 mg Take 1 tablet 0 tablet by mouth every 12 hours as needed for Nausea. 03/07/2017 Magnesium Gluconate 30 mg Take 1 tablet 60 tablet 11 (550 mg) tab by mouth twice daily. 04/04/2018 metFORMIN-XR(+) Take four 360 tablet 3 (GLUCOPHAGE XR) 500 mg tablets by extended release mouth daily tabletIndications: type 2 with dinner. diabetes mellitus 02/27/2017 mycophenolate mofetil Take 2 120 tablet 0 (CELLCEPT) 500 mg tablet tablets by mouth twice daily. Take on an empty stomach. 10/01/2015 ondansetron hcl (ZOFRAN) Take 1 Tab by 60 Tab 0 4 mg tablet mouth every 6 hours as needed for Nausea. 02/27/[address] Take 1 tablet 60 tablet 0 (PROTONIX) 40 mg tablet by mouth twice daily. 05/28/2017 pravastatin (PRAVACHOL) Take 2 60 tablet 11 20 mg tablet tablets by mouth at bedtime daily. 05/28/2017 spironolactone Take 1 tablet 180 tablet 2 (ALDACTONE) 25 mg tablet by mouth twice daily. traMADol (ULTRAM) 50 mg Take 100 mg 0 tablet by mouth every 6 hours as needed for Pain. 10/01/2015 triamcinolone acetonide Apply to 45 g 0 (KENALOG) 0.1 % topical affected cream lower legs twice daily as directed vitamins, multiple cap Take 1 0 capsule by mouth daily. warfarin (COUMADIN) 5 mg Take 10 mg by 0 tablet mouth daily. 03/19/2018 XIFAXAN 550 mg tablet TAKE ONE 60 tablet 11 TABLET BY MOUTH TWICE DAILY 04/04/2018 05/03/2018 insulin glargine U-300 Inject 30 15 mL 3 conc (TOUJEO MAX U-300 Units under SOLOSTAR) 300 unit/mL (3 the skin mL) inpnIndications: type daily. 2 diabetes mellitus 08/10/2017 04/29/2018 prednisone (DELTASONE) 5 40 mg 2 days. 316 tablet 0 mg tablet Then 30mg 3 days. Then 20mg 3 days. Then 15mg daily. documented as of this encounter Plan of Treatment Care Team Description Date Type Specialty Janelle Bell MD [address] [address] Esophageal varices in cirrhosis (HCC) 05/27/2018 Hospital Encounter Janelle Bell MD [address] [id number] ESOPHAGOGASTRODUODENOSCOPY 05/27/2018 Surgery documented as of this encounter Procedures Comments Procedure Name Priority Date/Time Associated Diagnosis PROTEIN/CR RATIO,UR RAN Routine 04/10/2018 Lupus nephritis (HCC) 7:42 AM COMPUTER INFORMATION SCIENCE PROFESSOR documented in this encounter Results * PROTEIN/CR RATIO,UR RAN (04/10/2018 7:42 AM COMPUTER INFORMATION SCIENCE PROFESSOR) Protein, Random 15 MG/DL [facility] Creatinine, 19 MG/DL [facility] Random Protein/CR 0.8 [facility] ratio Specimen Urine - Urine Performing Organization Address City/State/Zipcode Phone Number [facility] [address] [place] [address] documented in this encounter Visit Diagnoses Diagnosis Lupus nephritis (HCC) Systemic lupus erythematosus documented in this encounter
--- OUTSIDE RECORDS SUMMARY | 2018-05-05 20:57 | XMS REPORT | Encounter Summary ---
Author Author [facility] Organization [facility] Address Unknown Phone Unavailable Care Team Providers Care Oyster Fisherman Name Role Phone KaranMiquel Unavailable Jonatan Vázquez MD Unavailable Sandy Gonsalves MD Unavailable Estephania Breaux MD Unavailable Hugo Ta MD [id number] Khoi Kaminski MD Unavailable Ruben Dozier MD Unavailable Suzette Ramesh FREELANCE COURT REPORTER-C Unavailable Saroj Allan MD Unavailable Dana Duran FREELANCE COURT REPORTER Unavailable Geo Treviño MD Unavailable Gallito Lopez MD PCP Unavailable Iris Devine MD Unavailable Dick Hagan DO 21 Unavailable Valente Gutierrez OD Unavailable Arlin Weber FREELANCE COURT REPORTER Unavailable Evelin Youssef FREELANCE COURT REPORTER-WAIST FITTER 7 Encounter Details Care Team Description Date Type Department Janelle Bell MD 4000 [facility] [id number] [place] [address] [phone] Unspecified cirrhosis of liver (HCC) 04/11/2018 [facility] [address] [address] Social History Date Tobacco Use Types Packs/Day [...] impairment: No documented as of this encounter Medications at [...] tablet 11 TABLET BY MOUTH TWICE DAILY 04/11/2018 05/03/2018 ciprofloxacin (CIPRO) 500 Take one 30 tablet 11 mg tablet tablet by mouth daily. 04/04/2018 05/03/2018 insulin glargine U-300 Inject 30 [...] Date Type Specialty Janelle Bell MD [address] [address] Esophageal varices in cirrhosis (HCC) 05/27/2018 Hospital Encounter Janelle Bell MD [address] [id number] ESOPHAGOGASTRODUODENOSCOPY 05/27/2018 Surgery documented as of this encounter Procedures Comments Procedure Name Priority Date/Time Associated Diagnosis 25-OH VITAMIN D (D2 + D3) Routine 04/11/2018 Cirrhosis of liver 11:30 AM ELECTRICAL ENGINEERING DESIGNER without ascites, unspecified hepatic cirrhosis type (HCC) PROTIME INR (PT) Routine 04/11/2018 Cirrhosis of liver 11:30 AM ELECTRICAL ENGINEERING DESIGNER without ascites, unspecified hepatic cirrhosis type (HCC) CBC AND DIFF Routine 04/11/2018 Other systemic lupus 11:30 AM ELECTRICAL ENGINEERING DESIGNER erythematosus with pericarditis (HCC) C3 COMPLEMENT 3 Routine 04/11/2018 Other systemic lupus 11:30 AM ELECTRICAL ENGINEERING DESIGNER erythematosus with pericarditis (HCC) C4 COMPLEMENT 4 Routine 04/11/2018 Other systemic lupus 11:30 AM ELECTRICAL ENGINEERING DESIGNER erythematosus with pericarditis (HCC) PHOSPHORUS Routine 04/11/2018 Other systemic lupus 11:30 AM ELECTRICAL ENGINEERING DESIGNER erythematosus with pericarditis (HCC) COMPREHENSIVE METABOLIC Routine 04/11/2018 Cirrhosis of liver PANEL 11:30 AM ELECTRICAL ENGINEERING DESIGNER without ascites, unspecified hepatic cirrhosis type (HCC) documented in this encounter Results * 25-OH VITAMIN D (D2 + D3) (04/11/2018 11:30 AM ELECTRICAL ENGINEERING DESIGNER) Vitamin 29.7 (L) 30 - 80 NG/ML [facility] D(25-OH)Total Specimen Blood Performing Organization Address City/State/Zipcode Phone Number [facility] [address] [place] [address] * COMPREHENSIVE METABOLIC PANEL (04/11/2018 11:30 AM ELECTRICAL ENGINEERING DESIGNER) Sodium 131 (L) 137 - 147 MMOL/L [...] >60 >60 mL/min [facility] Comment: [place]ian The eGFR is not validated for use in drug dosing adjustments.Continue to use estimated creatinine clearance per dosing reference text.Please contact the Clinical Pharmacist for questions. eGFR >60 >60 mL/min [facility] [place]ian Comment: The eGFR is not validated for use in drug dosing adjustments.Continue to use estimated creatinine clearance per dosing reference text.Please contact the Clinical Pharmacist for questions. Specimen Blood Performing Organization Address City/[facility]/Zipcode Phone Number [facility] [address] [place] [address] * PROTIME INR (PT) (04/11/2018 11:30 AM ELECTRICAL ENGINEERING DESIGNER) Pathologist [facility] INR 1.6 (H) 0.8 - 1.2 [facility] Specimen Blood Performing Organization Address City/[facility]/Zipcode Phone Number [facility] [address] [place] [address] * CBC AND DIFF (04/11/2018 11:30 AM ELECTRICAL ENGINEERING DESIGNER) Pathologist [facility] White Blood 7.1 4.5 - 11.0 K/UL [facility] Cells RBC 5.13 (H) 4.0 - 5.0 M/UL [facility] Hemoglobin 13.6 12.0 - 15.0 GM/DL [facility] Hematocrit 41.6 36 - 45 % MAIN LAB MCV 81.1 80 - 100 FL [facility] MCH 26.6 26 - 34 PG [facility] MCHC 32.8 32.0 - 36.0 G/DL [facility] RDW 16.8 (H) 11 - 15 [...] Basophil Count Specimen Blood Performing Organization Address City/[facility]/Zipcode Phone Number [facility] [address] [place] [address] * PHOSPHORUS (04/11/2018 11:30 AM ELECTRICAL ENGINEERING DESIGNER) Phosphorus 3.7Comment: NOTE NEW REFERENCE 2.0 - 4.5 MG/DL [facility] RANGES Specimen Blood Performing Organization Address City/[facility] Phone Number [facility] [address] [place] [address] * C3 COMPLEMENT 3 (04/11/2018 11:30 AM ELECTRICAL ENGINEERING DESIGNER) Complemnt C3 128.0 88 - 200 MG/DL [facility] Specimen Blood Performing Organization Address [facility] Phone [facility] [address] [place] [address] * C4 COMPLEMENT 4 (04/11/2018 11:30 AM ELECTRICAL ENGINEERING DESIGNER) Complemnt C4 28.0 10 - 49 MG/DL [facility] Specimen Blood Performing Organization Address [facility] Phone Number [facility] [address] [place] [address] documented in this encounter Visit Diagnoses Diagnosis Other systemic lupus erythematosus with pericarditis (HCC) Cirrhosis of liver without ascites, unspecified hepatic cirrhosis type (HCC) documented in this encounter
--- OUTSIDE RECORDS SUMMARY | 2018-05-05 20:58 | XMS REPORT | Encounter Summary ---
Author Author [facility] Organization [facility] Address Unknown Phone Unavailable Care Team Providers Care Social Media Analyst Name Role Phone Karan Miquel Unavailable Jonatan Vázquez MD Unavailable Sandy Gonsalves MD Unavailable Estephania Breaux MD Unavailable Hugo Ta MD [id number] Khoi Kaminski MD Unavailable Ruben Dozier MD Unavailable Suzette Ramesh HANSARD REPORTER-C Unavailable Saroj Allan MD Unavailable Dana Duran HANSARD REPORTER Unavailable Geo Treviño MD Unavailable Gallito Lopez MD PCP Unavailable Iris Devine MD Unavailable Dick Hagan DO 21 Unavailable Valente Gutierrez OD Unavailable Arlin Weber HANSARD REPORTER Unavailable Evelin Youssef HANSARD REPORTER-SUPERVISOR PIPE FINISHING 7 Reason for Visit * Reason Comments Medication Question Encounter Details Care Team Description Date Type Department Philly Brown APRN 1999 Count Includes [facility] [address] [place] [address] [phone] Medication Question 04/05/2018 Telephone [facility] [address] [place] [address] Social History Date Tobacco Use Types Packs/Day [...] encounter Miscellaneous Notes * Telephone Encounter - Gala Vilchis LPN - 04/05/2018 9:41 AM YARD CRANE OPERATOR Per patient authorization left message asking patient to verify whether she has an allergy to Metformin or not. CRANE OPERATOR * Telephone Encounter - Gala Vilchis LPN - 04/05/2018 7:38 AM YARD CRANE OPERATOR Received phone call from patients [facility] pharmacy that they have documented that patient is allergic to metformin, which was prescribed at last visit with Philly Brown. There is no metformin listed as allergy in O2. CRANE OPERATOR documented in this encounter Plan of Treatment Care Team Description Date Type Specialty Janelle Bell MD [address] [id number] Esophageal varices in cirrhosis (HCC) 05/27/2018 Hospital Encounter Janelle Bell MD [address] [address] [phone] ESOPHAGOGASTRODUODENOSCOPY 05/27/2018 Surgery documented as of this encounter Visit Diagnoses Not on filedocumented in this encounter
--- OUTSIDE RECORDS SUMMARY | 2018-05-05 20:58 | XMS REPORT | Encounter Summary ---
Author Author [facility] Organization [facility] Address Unknown Phone Unavailable Care Team Providers Care Electrifier Operator Name Role Phone Karan Miquel Unavailable Jonatan Vázquez MD Unavailable Sandy Gonsalves MD Unavailable Estephania Breaux MD Unavailable Hugo Ta MD [id number] Khoi Kaminski MD Unavailable Ruben oDzier MD Unavailable Suzette Ramesh CARDIAC REHABILITATION PROGRAM DIRECTOR-C Unavailable Saroj Allan MD Unavailable Dana Duran CARDIAC REHABILITATION PROGRAM DIRECTOR Unavailable Geo Treviño MD Unavailable Gallito Lopez MD PCP Unavailable Iris Devine MD Unavailable Dick Hagan DO 21 Unavailable Valente Gutierrez OD Unavailable Arlin Weber CARDIAC REHABILITATION PROGRAM DIRECTOR Unavailable Evelin Youssef CARDIAC REHABILITATION PROGRAM DIRECTOR-NUMERICAL TOOL PROGRAMMER 7 Reason for Visit * Reason Comments Appointment Question Encounter Details Care Team Description Date Type Department Janelle Bell MD [address] [address] [phone] Appointment Question 04/08/2018 Telephone [facility] [address] [address] Social History Date Tobacco Use Types Packs/Day [...] impairment: Yes documented as of this encounter Plan of Treatment Care Team Description Date Type Specialty Janelle Bell MD [address] [address] [phone] Esophageal varices in cirrhosis (HCC) 05/27/2018 Hospital Encounter Janelle Bell MD [address] [phone] ESOPHAGOGASTRODUODENOSCOPY 05/27/2018 Surgery documented as of this encounter Visit Diagnoses Not on filedocumented in this encounter
--- OUTSIDE RECORDS SUMMARY | 2018-05-05 20:58 | XMS REPORT | Encounter Summary ---
Author Author [facility] Address Unknown Phone Unavailable Care Team Providers Care Assisted Living Executive Director Name Role Phone Miquel Russo DO Unavailable Jonatan Vázquez MD Unavailable Sandy Gonsalves MD Unavailable Estephania Breaux MD Unavailable Hugo Ta MD [id number] Khoi Kaminski MD Unavailable Ruben Dozier MD Unavailable Suzette Ramesh FINANCE ASSOCIATE-C Unavailable Saroj Allan MD Unavailable Dana Duran FINANCE ASSOCIATE Unavailable Geo Treviño MD Unavailable Gallito Lopez MD PCP Unavailable Iris Devine MD Unavailable Dick Hagan DO 21 Unavailable Valente Gutierrez OD Unavailable Arlin Weber FINANCE ASSOCIATE Unavailable Evelin Youssef FINANCE ASSOCIATE-CLERICAL OFFICE 7 Encounter Details Care Team Description Date Type Department RogerDana stephens APRN 4000 [facility] [address] [place], [place] [phone] CANO (nonalcoholic steatohepatitis) (Primary Dx); Insulin-requiring or dependent type II diabetes mellitus (HCC); Immunosuppression (HCC); Cirrhosis of liver without ascites, unspecified hepatic cirrhosis type (HCC) 04/04/2018 Orders Only [facility] [address] [address] Social History Date Tobacco Use [...] Date Type Specialty Janelle Bell MD [address] [phone] Esophageal varices in cirrhosis (HCC) 05/27/2018 Hospital Encounter Janelle Bell MD [address] [place] [address] ESOPHAGOGASTRODUODENOSCOPY 05/27/2018 Surgery Order Schedule Name Priority Associated Diagnoses Expected: 04/04/2018, Expires: 04/04/2019 CBC AND DIFF Routine CANO (nonalcoholic steatohepatitis) Insulin-requiring or dependent type II diabetes mellitus (HCC) Immunosuppression (HCC) Cirrhosis of liver without ascites, unspecified hepatic cirrhosis type (HCC) Expected: 04/04/2018, Expires: 04/04/2019 COMPREHENSIVE METABOLIC PANEL Routine CANO (nonalcoholic steatohepatitis) Insulin-requiring or dependent type II diabetes mellitus (HCC) Immunosuppression (HCC) Cirrhosis of liver without ascites, unspecified hepatic cirrhosis type (HCC) Expected: 04/04/2018, Expires: 04/04/2019 PROTIME INR (PT) Routine CANO (nonalcoholic steatohepatitis) Insulin-requiring or dependent type II diabetes mellitus (HCC) Immunosuppression (HCC) Cirrhosis of liver without ascites, unspecified hepatic cirrhosis type (HCC) Expected: 04/04/2018, Expires: 04/04/2019 ALPHA FETO PROTEIN (AFP) Routine CANO (nonalcoholic steatohepatitis) Insulin-requiring or dependent type II diabetes mellitus (HCC) Immunosuppression (HCC) Cirrhosis of liver without ascites, unspecified hepatic cirrhosis type (HCC) documented as of this encounter Visit Diagnoses Diagnosis CANO (nonalcoholic steatohepatitis) - Primary Other chronic nonalcoholic liver disease Insulin-requiring or dependent type II diabetes mellitus (HCC) Type II or unspecified type diabetes mellitus without mention of complication , not stated as uncontrolled Immunosuppression (HCC) Unspecified disorder of immune mechanism Cirrhosis of liver without ascites, unspecified hepatic cirrhosis type (HCC) documented in this encounter
--- OUTSIDE RECORDS SUMMARY | 2018-05-05 20:58 | XMS REPORT | Encounter Summary ---
Author Author [facility] Organization [facility] Address Unknown Phone Unavailable Care Team Providers Care Diplomatic Officer Name Role Phone Miquel Russo DO Unavailable Jonatan Vázquez MD Unavailable Sandy Gonsalves MD Unavailable Estephania Breaux MD Unavailable Hugo Ta MD [id number] Khoi Kaminski MD Unavailable Ruben Dozier MD Unavailable Suzette Ramesh TELECOMMUNICATIONS SALES REPRESENTATIVE-C Unavailable Saroj Allan MD Unavailable Dana Duran TELECOMMUNICATIONS SALES REPRESENTATIVE Unavailable Geo Treviño MD Unavailable Gallito Lopez MD PCP Unavailable Iris Devine MD Unavailable Dick Hagan DO 21 Unavailable Valente Gutierrez OD Unavailable Arlin Weber TELECOMMUNICATIONS SALES REPRESENTATIVE Unavailable Evelin Youssef TELECOMMUNICATIONS SALES REPRESENTATIVE-BOAT CANVAS INSTALLER 7 Encounter Details Care Team Description Date Type Department Dana Duran, TELECOMMUNICATIONS SALES REPRESENTATIVE 4000 [facility] [address] [place] [address] [phone] 04/04/2018 [facility] [address] [address] Social History Date Tobacco Use Types Packs/Day [...] as Needed. Shake bottle gently before using. 10/01/2015 hydrocortisone 2.5% Use as 28.35 g [...] tablet 11 TABLET BY MOUTH TWICE DAILY 10/22/2017 04/10/2018 furosemide (LASIX) 40 mg Take one 90 tablet 3 tablet tablet by mouth every morning. 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 US [...] limitations B: Moderate limitations C: Severe limitations [email or web address] Finalized by Deja Forman M.D. on 04/04/2018 [...] Interface, Radiant Results - 04/04/2018 10:56 AM ANIMAL TECH Ultrasound of the abdomen with doppler. Clinical [...] limitations B: Moderate limitations C: Severe limitations [email or web address] Finalized by Deja Forman M.D. on 04/04/2018 10:53 AM. Dictated by Deja Forman M.D. on 04/04/2018 10:46 AM. Performing Organization Address City/State/Zipcode Phone Number [facility] RESULTS * US DOPPLER ABD PELV RETROPER COMP (04/04/2018 10:39 AM ANIMAL TECH) Impressions Performed At 1.LI-RADS US-1, negative. US [...] limitations B: Moderate limitations C: Severe limitations [email or web address]-[email or web address] Finalized by Deja Forman M.D. on 04/04/2018 [...] Interface, Radiant Results - 04/04/2018 10:56 AM ANIMAL TECH Ultrasound of the abdomen with doppler. Clinical [...] limitations B: Moderate limitations C: Severe limitations [email or web address] Finalized by Deja Forman M.D. on 04/04/2018 10:53 AM. Dictated by Deja Forman M.D. on 04/04/2018 10:46 AM. 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
--- OUTSIDE RECORDS SUMMARY | 2018-05-05 20:58 | XMS REPORT | Encounter Summary ---
Author Author [facility] Organization [facility] Address Unknown Phone Unavailable Care Team Providers Care Flower Grader Name Role Phone Karan Miquel Unavailable Jonatan Vázquez MD Unavailable Sandy Gonsalves MD Unavailable Estephania Breaux MD Unavailable Hugo Ta MD [id number] Khoi Kaminski MD Unavailable Ruben Dozier MD Unavailable Suzette Ramesh INDUSTRIAL ROOF PLUMBER-C Unavailable Saroj Allan MD Unavailable Dana Duran INDUSTRIAL ROOF PLUMBER Unavailable Geo Treviño MD Unavailable Gallito Lopez MD PCP Unavailable Iris Devine MD Unavailable Dick Hagan DO 21 Unavailable Valente Gutierrez OD Unavailable Arlin Weber INDUSTRIAL ROOF PLUMBER Unavailable Evelin Youssef INDUSTRIAL ROOF PLUMBER-SEISMOGRAPHER 7 Reason for Visit * Reason Comments Prior Authorization Tomaria elena Encounter Details Care Team Description Date Type Department Philly Brown APRN 1999 [facility] [address] [place] [address] [phone] Prior Authorization (Duarte) 04/08/2018 Telephone [facility] [address] [place] [address] Social History Date Tobacco Use Types Packs/Day [...] Telephone Encounter - Gala Vilchis LPN - 04/09/2018 9:20 AM ASSISTANT STATISTICIAN Received approval for Toujeo U-300 (4.5 mL per 31 days) for 12 months. Notified pharmacy. They were able to run the prescription. STANT STATISTICIAN * Telephone Encounter - Gala Vilchis LPN - 04/08/2018 11:48 AM ASSISTANT STATISTICIAN Completed PA for Toujeo via Cover My Meds. Received the following response: Your request has been successfully sent to [employer] for review. STANT STATISTICIAN documented in this encounter Plan of Treatment Care Team Description Date Type Specialty Janelle Bell MD [address] [address] Esophageal varices in cirrhosis (HCC) 05/27/2018 Hospital Encounter Janelle Bell MD [address] [address] ESOPHAGOGASTRODUODENOSCOPY 05/27/2018 Surgery documented as of this encounter Visit Diagnoses Not on filedocumented in this encounter
--- OUTSIDE RECORDS SUMMARY | 2018-05-05 20:58 | XMS REPORT | Encounter Summary ---
Author Author [facility] Organization [facility] Address Unknown Phone Unavailable Care Team Providers Care Help Desk Operator Name Role Phone Karan Miquel Unavailable Jonatan Vázquez MD Unavailable Sandy Gonsalves MD Unavailable Estephania Breaux MD Unavailable Hugo Ta MD [id number] Khoi Kaminski MD Unavailable Ruben Dozier MD Unavailable Suzette Ramesh STEM TEACHER-C Unavailable Saroj Allan MD Unavailable Dana Duran STEM TEACHER Unavailable Geo Treviño MD Unavailable Gallito Lopez MD PCP Unavailable Iris Devine MD Unavailable Dick Hagan DO 21 Unavailable Valente Gutierrez OD Unavailable Arlin Weber STEM TEACHER Unavailable Evelin Youssef STEM TEACHER-HEARING AID ASSEMBLY SUPERVISOR 7 Reason for Referral * Radiology Services (Routine) Referred By Contact Referred To Contact Status Reason Specialty Diagnoses / Procedures Dana Duran APRN [address] [address] New Request Radiology Diagnoses CANO (nonalcoholic steatohepatitis) Cirrhosis of liver without ascites, unspecified hepatic cirrhosis type (HCC) P rocedures MRI ABD WO/W CONTRAST Encounter Details Care Team Description Date Type Department Dana Duran APRN [address] [address] [phone] CANO (nonalcoholic steatohepatitis) (Primary Dx); Cirrhosis of liver without ascites, unspecified hepatic cirrhosis type (HCC) 04/08/2018 Orders Only The [address] [address] Social History Date Tobacco [...] Date Type Specialty Janelle Bell MD 4000 [facility] [id number] [place] [address] Esophageal varices in cirrhosis (HCC) 05/27/2018 Hospital Encounter Janelle Bell MD [address] [address] [phone] ESOPHAGOGASTRODUODENOSCOPY 05/27/2018 Surgery Order Schedule Name Priority Associated Diagnoses Expected: 10/09/2018 (Approximate), Expires: 10/10/2019 MRI ABD WO/W CONTRAST Routine CANO (nonalcoholic steatohepatitis) Cirrhosis of liver without ascites, unspecified hepatic cirrhosis type (HCC) documented as of this encounter Visit Diagnoses Diagnosis CANO (nonalcoholic steatohepatitis) - Primary Other chronic nonalcoholic liver disease Cirrhosis of liver without ascites, unspecified hepatic cirrhosis type (HCC) documented in this encounter
--- OUTSIDE RECORDS SUMMARY | 2018-05-05 20:58 | XMS REPORT | Encounter Summary ---
Author Author [facility] Organization [facility] Address Unknown Phone Unavailable Care Team Providers Care Brick Off Bearer Name Role Phone Karan Miquel Unavailable Jonatan Vázquez MD Unavailable Sandy Gonsalves MD Unavailable Estephania Breaux MD Unavailable Hugo Ta MD [id number] Khoi Kaminski MD Unavailable Ruben Dozier MD Unavailable Suzette Ramesh BLACKSMITH HAMMER OPERATOR-C Unavailable Saroj Allan MD Unavailable Dana Duran BLACKSMITH HAMMER OPERATOR Unavailable Geo Treviño MD Unavailable Gallito Lopez MD PCP Unavailable Iris Devine MD Unavailable Dick Hagan DO 21 Unavailable Valente Gutierrez OD Unavailable Arlin Weber BLACKSMITH HAMMER OPERATOR Unavailable Evelin Youssef BLACKSMITH HAMMER OPERATOR-CHIEF DEPUTY CLERK/BAILIFF 7 Reason for Visit * Reason Comments Chronic Kidney Disease Encounter Details Care Team Description Date Type Department Brina, Sri, MD 1999 [facility] [address]C [place], [place] [id number] Other systemic lupus erythematosus with pericarditis (HCC) ( Primary Dx); Lupus nephritis (HCC); Essential hypertension; CANO (nonalcoholic steatohepatitis) 04/09/2018 Office Visit The [facility] [address] [place] [address] Social History Date Tobacco Use [...] Vital Signs Time Taken Vital Sign Reading 04/09/2018 2:11 PM OVERHAULER HELPER Blood Pressure 157/100 04/09/2018 2:11 PM OVERHAULER HELPER Pulse 107 04/09/2018 2:09 PM OVERHAULER HELPER Temperature 36.4 C (97.6 F) - Respiratory Rate - - Oxygen Saturation - - Inhaled Oxygen - Concentration 04/09/2018 2:09 PM OVERHAULER HELPER Weight 130.5 kg (287 lb 9.6 oz) - Height - 04/04/2018 1:39 PM OVERHAULER HELPER Body Mass Index 41.27 documented in this [...] impairment: Yes documented as of this encounter Progress Notes * Sandy Gonsalves MD - 04/09/2018 2:20 PM OVERHAULER HELPER History CC: CHUY, hospital follow up HPI: Sherrie Doe is a 42 y.o. female with multiple comorbidities including SLE, liver disease from CANO, DM, recurrent hospitalizations here for follow up of her lupus nephritis She is doing well. She started the benlysta injections and feels like it is helping her. Medication HOME MEDS albuterol 0.5% (PROVENTIL; VENTOLIN) 2.5 mg/0.5 mL [...] daily with meals. Take with food. cyclobenzaprine (FLEXERIL) 10 mg tablet Take 10 [...] tablet Take one tablet by mouth every morning. hydrocortisone 2.5% (ANUSOL-HC) 2.5 % rectal cream [...] TAKE ONE TABLET BY MOUTH TWICE DAILY Review of Systems Constitutional: fatigue Eyes: negative Ears, nose, mouth, throat, and face: negative Respiratory: negative Cardiovascular: negative Gastrointestinal: negative Genitourinary:negative Integument/breast: negative Hematologic/lymphatic: negative Musculoskeletal:negative Neurological: negative Endocrine: negative Physical Exam Vitals: 03/05/19 1409 04/09/18 1411 BP: (!) 151/99 (!) 157/100 Pulse: 96 107 Temp: 36.4 C (97.6 F) TempSrc: Oral Weight: 130.5 kg (287 lb 9.6 oz) Body mass index is 41.27 kg/m. Gen: Alert and oriented HEENT: Sclera normal CV: no JVD, S1 and S2 normal, no rubs, murmurs or gallops Pulm: Clear to auscultation bilateral GI : non-distended, non-tender to palpation Neuro: Grossly normal, moving all extremities, speech intact Ext: no edema bilaterally Skin: no rashes Assessment and Plan Sherrie Doe is a 42 y.o. female SLE nephritis 3 - initially requiring dialysis (02/2013) had recovered and off HD 04/2013 and later with normal renal function - in the past, treated with Cellcept developed cytopenias and was changed to imuran. - patient underwent a repeat kidney biopsy in August 2015 showing class 4 lupus nephritis - was placed on cellcept, plaquenil and steroids - now on benlysta, but has not decreased the dose of cellcept to 500mg twice daily - have asked her to check with rheumatology - has no hematuria, but has proteinuria on urinalysis - no RBC casts seen on the sediment on the day of visit - urine was sent for quantitation of protein and she had 800mg of protein -have given her a requisition to do a BMP, CBC and complements -she will do them in [place] HTN -high today -she reports normal readings when she was seen at Dr. Lopez's office -have asked her to check at home and call if high DM - on insulin - has glucosuria on urinalysis -discussed better glycemic control CANO - follows with hepatology Edema - Have asked her to decrease lasix to every other day RTC 4 months Sandy Gonsalves MD Pager [phone] HAULER HELPER documented in this encounter Plan of Treatment Care Team Description Date Type Specialty Janelle Bell MD [address] [place] [address] [phone] Esophageal varices in cirrhosis (HCC) 05/27/2018 Hospital Encounter Janelle Bell MD [address] [place] [address] [phone] ESOPHAGOGASTRODUODENOSCOPY 05/27/2018 Surgery documented as of this encounter Procedures Comments Procedure Name Priority Date/Time Associated Diagnosis POC URINE DIPSTICK AUTO Routine 04/09/2018 Lupus nephritis (HCC) READ documented in this encounter Results * C4 COMPLEMENT 4 (04/11/2018 11:30 AM OVERHAULER HELPER) Complemnt C4 28.0 10 - 49 MG/DL [facility] Specimen Blood Performing Organization Address [facility] Phone Number MAIN LAB [address] [place] [address] * C3 COMPLEMENT 3 (04/11/2018 11:30 AM OVERHAULER HELPER) Complemnt C3 128.0 88 - 200 MG/DL [facility] Specimen Blood Performing Organization Address [facility] Phone Number [facility] [address] [place] [address] * PHOSPHORUS (04/11/2018 11:30 AM OVERHAULER HELPER) Phosphorus 3.7Comment: NOTE NEW REFERENCE 2.0 - 4.5 MG/DL [facility] RANGES Specimen Blood Performing Organization Address [facility] Phone Number MAIN LAB [address] [place] [address] * CBC AND DIFF (04/11/2018 11:30 AM OVERHAULER HELPER) White Blood 7.1 4.5 - 11.0 K/UL [facility] Cells RBC 5.13 (H) 4.0 - 5.0 M/UL [facility] Hemoglobin 13.6 12.0 - 15.0 GM/DL [facility] Hematocrit 41.6 36 - 45 % [facility] MCV 81.1 80 - 100 FL [facility] MCH 26.6 26 - 34 [...] Basophil Count Specimen Blood Performing Organization Address [facility] Phone Number [facility] [address] [place] [address] * PROTEIN/CR RATIO,UR RAN (04/10/2018 7:42 AM OVERHAULER HELPER) Protein, Random 15 MG/DL [facility] Creatinine, 19 MG/DL [facility] Random Protein/CR 0.8 [facility] ratio Specimen Urine - Urine Performing Organization Address [facility] Phone Number MAIN LAB [address] [place] [address] * POC URINE DIPSTICK AUTO READ (04/09/2018) Urine Glucose >1000 (A) IN CLINIC POC Urine Bilirubin neg IN CLINIC POC Urine Ketone neg IN CLINIC POC Urine Specific 1.005 IN CLINIC [place] POC Urine Blood POC trace (A) IN CLINIC Urine PH POC 6.5 IN CLINIC Urine Protein trace (A) IN CLINIC POC Urine norm IN CLINIC Urobilinogen POC Urine Nitrite neg IN CLINIC POC Urine neg IN CLINIC Leukocytes POC Color,UA IN CLINIC Turbidity,UA IN CLINIC Specimen Urine - Urine Performing Organization Address [facility] Phone Number [facility]IC documented in this encounter Visit Diagnoses Diagnosis Other systemic lupus erythematosus with pericarditis (HCC) - Primary Lupus nephritis (HCC) Systemic lupus erythematosus Essential hypertension Unspecified essential hypertension CANO (nonalcoholic steatohepatitis) Other chronic nonalcoholic liver disease documented in this encounter
--- OUTSIDE RECORDS SUMMARY | 2018-05-05 20:59 | XMS REPORT | Encounter Summary ---
Author Author [facility] Organization [facility] Address Unknown Phone Unavailable Care Team Providers Care Inspector And Hand Packager Name Role Phone Karan Miquel Unavailable Jonatan Vázquez MD Unavailable Sandy Gonsalves MD Unavailable Estephania Breaux MD Unavailable [place] [id number] Khoi Kaminski MD Unavailable Ruben Dozier MD Unavailable Suzette Ramesh STRETCH MACHINE OPERATOR-C Unavailable Saroj Allan MD Unavailable Dana Duran STRETCH MACHINE OPERATOR Unavailable Geo Treviño MD Unavailable Gallito Lopez MD PCP Unavailable Iris Devine MD Unavailable Dick Hagan DO 21 Unavailable Valente Gutierrez OD Unavailable Arlin Weber STRETCH MACHINE OPERATOR Unavailable Evelin Youssef STRETCH MACHINE OPERATOR-CLAIMS CORRESPONDENCE CLERK 7 Reason for Visit * Reason Comments Prior Authorization Encounter Details Care Team Description Date Type Department Dana Duran, STRETCH MACHINE OPERATOR [address] [id number] Prior Authorization 03/26/2018 Telephone The [facility] [address] [phone] Social History Date Tobacco Use Types Packs/Day [...] encounter Miscellaneous Notes * Telephone Encounter - Isabella Pena LPN - 03/26/2018 11:54 AM AUXILIARY POWERPLANT OPERATOR PA for Xifaxan 550mg bid approved. [facility] ran claim and approved. Pt notified. LIARY POWERPLANT OPERATOR * Telephone Encounter - Isabella Pena LPN - 03/26/2018 8:23 AM AUXILIARY POWERPLANT OPERATOR Pt called in, having trouble getting Xifaxan 550mg bid from [facility]. PA initiated on CoverMyMeds, will await decision. Also transferred pt to Endoscopy scheduling to reschedule EGD appt for today due to transportation. LIARY POWERPLANT OPERATOR documented in this encounter Plan of Treatment Care Team Description Date Type Specialty Janelle Bell MD [address] [address] Esophageal varices in cirrhosis (HCC) 05/27/2018 Hospital Encounter Janelle Bell MD [address] [address] ESOPHAGOGASTRODUODENOSCOPY 05/27/2018 Surgery documented as of this encounter Visit Diagnoses Not on filedocumented in this encounter
--- OUTSIDE RECORDS SUMMARY | 2018-05-05 20:59 | XMS REPORT | Encounter Summary ---
Author Author [facility] Organization [facility] Address Unknown Phone Unavailable Care Team Providers Care Enterprise Resource Planner Name Role Phone Karan Miquel Unavailable Jonatan Vázquez MD Unavailable Sandy Gonsalves MD Unavailable Estephania Breaux MD Unavailable Hugo Ta MD [id number] Khoi Kaminski MD Unavailable Ruben Dozier MD Unavailable Suzette Ramesh TRANSMISSION SPECIALIST-C Unavailable Saroj Allan MD Unavailable Dana Duran TRANSMISSION SPECIALIST Unavailable Geo Treviño MD Unavailable Gallito Lopez MD PCP Unavailable Iris Devine MD Unavailable Dick Hagan DO 21 Unavailable Valente Gutierrez OD Unavailable Arlin Weber TRANSMISSION SPECIALIST Unavailable Evelin Youssef TRANSMISSION SPECIALIST-VETERINARY PARASITOLOGIST 7 Reason for Visit * Reason Comments Medication Refill Encounter Details Care Team Description Date Type Department Dana Duran APRN [address] [id number] 03/19/2018 Refill The [facility] [address] [address] Social History Date Tobacco Use [...] Type Specialty Janelle Bell MD [address] [address] [phone] Esophageal varices in cirrhosis (HCC) 05/27/2018 Hospital Encounter Janelle Bell MD [address] [id number] ESOPHAGOGASTRODUODENOSCOPY 05/27/2018 Surgery documented as of this encounter Visit Diagnoses Not on filedocumented in this encounter
--- OUTSIDE RECORDS SUMMARY | 2018-05-05 20:59 | XMS REPORT | Encounter Summary ---
Author Author [facility] Organization [facility] Address Unknown Phone Unavailable Care Team Providers Care Boiling House Oiler Name Role Phone Karan Miquel Unavailable Jonatan Vázquez MD Unavailable Sandy Gonsalves MD Unavailable Estephania Breaux MD Unavailable Hugo Ta MD [id number] Khoi Kaminski MD Unavailable Ruben Dozier MD Unavailable Suzette Ramesh RAG SORTER-C Unavailable Saroj Allan MD Unavailable Dana Duran RAG SORTER Unavailable Goe Treviño MD Unavailable Gallito Lopez MD PCP Unavailable Iris Devine MD Unavailable Dick Hagan DO 21 Unavailable Valente Gutierrez OD Unavailable Arlin Weber RAG SORTER Unavailable Evelin Youssef RAG SORTER-FUEL DOCK ATTENDANT 7 Reason for Referral * Consult, Test & Treat (Routine) Referred By Contact Referred To Contact Status Reason Specialty Diagnoses / Procedures Anila Fuller APRN [address] [place] [address] New Request Specialty Services Diagnoses Required Tear of left rotator cuff, unspecified tear extent Pain in joint of left shoulder Decreased range of motion of left shoulder * Consult, Test & Treat (Routine) Referred By Contact Referred To Contact Status Reason Specialty Diagnoses / Procedures Anila Fuller APRN [address] [place] [address] New Request Specialty Services Diagnoses Required Tear of left rotator cuff, unspecified tear extent Pain in joint of left shoulder Decreased range of motion of left shoulder * Consult, Test & Treat (Routine) Referred By Contact Referred To Contact Status Reason Specialty Diagnoses / Procedures Anila Fuller APRN [address] [place] [address] Lv Petit MD [address] [facility] [address] [address] No Auth Needed Specialty Services Orthopedic Diagnoses Required Surgery Tear of left rotator cuff, unspecified tear extent Pain in joint of left shoulder Decreased range of motion of left shoulder Reason for Visit * Reason Comments Referral Physical Therapy Encounter Details Care Team Description Date Type Department Anila Fuller APRN [address] [place] [address] [phone] Referral (Physical Therapy) 02/18/2018 Telephone The [facility] [address] [place] [phone] Social History Date Tobacco Use Types Packs/Day [...] encounter Miscellaneous Notes * Telephone Encounter - Abi James RN - 03/12/2018 8:[address] MAGISTRATE Faxed referral to number provided below. T MAGISTRATE * Addendum Note - Anila Fuller APRN - 03/04/2018 6:[address] MAGISTRATE Addended by: ANILA FULLER on: 03/04/2018 06:59 AM Modules accepted: Orders T MAGISTRATE * Telephone Encounter - Anila Fuller APRN - 03/04/2018 6:[address] MAGISTRATE That is fine with me. I put in the OT referral just now. Thanks! Anila Fuller APRN, [employer] T MAGISTRATE * Telephone Encounter - Abi James RN - 03/01/2018 11:[address] MAGISTRATE Received vm from Mary with [facility] requesting an order for OT in lieu of PT as their patient's with shoulder issues are being seen with OT. Received request as well for pt's face sheet to be sent again. Routing to Little Fuller APRN for OT referral, if okay with this plan. T MAGISTRATE * Telephone Encounter - Abi James RN - 02/20/2018 11:[address] MAGISTRATE Sherrie Doe Patient Medical Advice Request Pool 13 minutes ago (11:01 AM) I went down to rehab.. their new name.is [facility]. Number is [phone] and fax for them is [phone]. [phone] lab fax. Faxed referral and lab orders to numbers given above. T MAGISTRATE * Telephone Encounter - Abi James RN - 02/19/2018 11:[address] MAGISTRATE [facility] in [place] is no longer in operation. Messaged pt where she would like to have labs and PT. Will await response. T MAGISTRATE * Telephone Encounter - Anila Fuller APRN - 02/18/2018 11:[address] MAGISTRATE I've placed the orthopedics and PT referral. It looks like the urine tests are ordered, but they are under my name and not Dr. Treviño's. Little Fuller FUEL DOCK ATTENDANT T MAGISTRATE * Telephone Encounter - Abi James RN - 02/18/2018 10:[address] MAGISTRATE Regarding: Visit Follow-Up Question Contact: ----- Message from [employer] sent at 02/18/2018 10:[address] MAGISTRATE ----- [employer] [facility] I think is what it's called. It's in the [facility]. T MAGISTRATE * Telephone Encounter - Abi James RN - 02/18/2018 10:[address] MAGISTRATE Regarding: Referral Question Contact: ----- Message from [employer] sent at 02/18/2018 10:[address] MAGISTRATE ----- Can u please send urine test order to [facility] please. Dr Treviño ordered it last month but they didn't have it ordered when I was up last week. Thanks! T MAGISTRATE * Telephone Encounter - Abi James RN - 02/18/2018 10:[address] MAGISTRATE Routing to Little Fuller APRN for PT referral. Will then fax to pt's preferred location in [facility] [place]. T MAGISTRATE * Telephone Encounter - Abi James RN - 02/18/2018 10:[address] MAGISTRATE Regarding: RE: Results Contact: ----- Message from Livia Ramos sent at 02/18/2018 10:[address] MAGISTRATE ----- That's fine w me. I would prefer physical therapy set up down in [place] though please. ----- Message ----- From: NURSE Abi Sevilla Sent: 02/15/18 9:23 AM To: Sherrie Doe Subject: Results Little Henley NP is wanting to know if you are willing to go to physical therapy and orthopedics based on your results? We can place the referral to both if you are okay with it. 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) 05/27/2018 Hospital Encounter Janelle Bell MD [address] [id number] ESOPHAGOGASTRODUODENOSCOPY 05/27/2018 Surgery Order Schedule Name Priority Associated Diagnoses Ordered: 02/18/2018 AMB REFERRAL TO ORTHOPEDICS Routine Tear of left rotator cuff, unspecified tear extent Pain in joint of left shoulder Decreased range of motion of left shoulder Ordered: 02/18/2018 AMB REFERRAL TO PHYSICAL THERAPY Routine Tear of left rotator cuff, unspecified tear extent Pain in joint of left shoulder Decreased range of motion of left shoulder Ordered: 03/04/2018 AMB REFERRAL TO OCCUPATIONAL THERAPY Routine Tear of left rotator cuff, unspecified tear extent Pain in joint of left shoulder Decreased range of motion of left shoulder documented as of this encounter Visit Diagnoses Diagnosis Tear of left rotator cuff, unspecified tear extent - Primary Pain in joint of left shoulder Pain in joint, shoulder region Decreased range of motion of left shoulder documented in this encounter
--- OUTSIDE RECORDS SUMMARY | 2018-05-05 20:59 | XMS REPORT | Encounter Summary ---
Author Author [facility] [place] [facility] Organization [facility] [place] [facility] Address Unknown Phone Unavailable Care Team Providers Care Bindery Cutter Operator Name Role Phone Karan Miquel Unavailable Jonatan Vázquez MD Unavailable Sandy Gonsalves MD Unavailable Estephania Breaux MD Unavailable Hugo Ta MD [id number] Khoi Kaminski MD Unavailable Ruben Doizer MD Unavailable Suzette Ramesh HOSPITAL PHARMACIST-C Unavailable Saroj Allan MD Unavailable Dana Duran HOSPITAL PHARMACIST Unavailable Geo Treviño MD Unavailable Gallito Lopez MD PCP Unavailable Iris Devine MD Unavailable Dikc Hagan DO 21 Unavailable Valente Gutierrez OD Unavailable Arlin Weber HOSPITAL PHARMACIST Unavailable Evelin Youssef HOSPITAL PHARMACIST-MANAGER PRICING 7 Reason for Visit * Reason Comments Diabetes Encounter Details Care Team Description Date Type Department Philly Brown APRN [address] [facility] [address] [place] [address] [phone] Insulin-requiring or dependent type II diabetes mellitus ( HCC) (Primary Dx) 04/04/2018 Office Visit [facility] [place] [facility] [address] [place] [address] Social History Date Tobacco Use [...] Vital Signs Time Taken Vital Sign Reading 04/04/2018 1:39 PM METAL PICKLING EQUIPMENT OPERATOR Blood Pressure 133/80 04/04/2018 1:39 PM METAL PICKLING EQUIPMENT OPERATOR Pulse 108 - Temperature - - Respiratory Rate - - Oxygen Saturation - - Inhaled Oxygen - Concentration 04/04/2018 1:39 PM METAL PICKLING EQUIPMENT OPERATOR Weight 134.1 kg (295 lb 9.6 oz) 04/04/2018 1:39 PM METAL PICKLING EQUIPMENT OPERATOR Height 177.8 cm (5' 10") 04/04/2018 1:39 PM METAL PICKLING EQUIPMENT OPERATOR Body Mass Index 42.41 documented in this encounter Functional Status Date [...] impairment: Yes documented as of this encounter Patient Instructions * Patient Instructions* Philly Brown APRN - 04/04/2018 2:30 PM METAL PICKLING EQUIPMENT OPERATOR It was nice to see you today! Goals we discussed today: Check blood sugar before meals and at bedtime Take metformin XR 500 mg daily with your largest meal. Avoid eating fatty or fried foods. If you are tolerating well with no nausea or diarrhea, may increase dose weekly as below until you are taking full 2000 mg daily. 2nd week, 2 tabs daily 3rd week, 3 tabs daily 4th week and beyond, 4 tabs daily Do not split these tablets in 1/2. If difficult to swallow, take with applesauce or yogurt. Start Toujeo/ Lantus 30 units each night Start taking Novolog 10 units with meals + correction scale For glucose of , take units of Novolog with meals, 4 hours apart. 70-150 0 units 151-200 2 units 201-250 4 units 251-300 6 units 301-350 8 units 351-400 10 units 401 or more 12 units Please contact [facility] for any questions or abnormal glucose values (above 300 or less than 70 repeatedly). [phone] My nurse, Mony, can be reached at [phone] Health goals for a person with diabetes to avoid complications are: Check your FingerStick blood glucose: Each time you take medications for your glucose, goals are: Fasting and pre-meal glucose: 70-130 mg/dl Bedtime blood glucose: 90-180 mg/dl LDL Cholesterol: <100 mg/dl Triglycerides: <150 mg/dl HDL >40 for men, >50 for women Blood pressure: Less than 130/90 mm HG Maintain a Healthy Weight , Exercise: 30 minutes 5 times per week Foot care: Take good care of your feet. Never cut your nails close to the tips of the toes. Promptly call your doctor if you have an infection, ulcer or cut anywhere on your feet. Wear shoes with a wide toe box and that fit comfortably. Avoid walking barefoot. Your recent lab values: Glucose, POC Date/Time Value Ref Range Status 04/04/2018 02:01 PM 368 Final Cholesterol Date/Time Value Ref Range Status 08/06/2017 04:38 AM 107 <200 MG/DL Final HDL Date/Time Value Ref Range Status 08/06/2017 04:38 AM 15 (L) >40 MG/DL Final LDL Date/Time Value Ref Range Status 08/06/2017 04:38 AM 63 <100 MG/DL Final Triglycerides Date/Time Value Ref Range Status 08/06/2017 04:38 AM 172 (H) <150 MG/DL Final Diabetes Support Group Monthly DM Support Group facilitated by MARIA LUISA. There is no fee or Registration required for attendance. Meets the first Sunday of each month from 6-7:30pm at the [facility], [address], [address], [place] [address]. [facility] Diabetes Classes and Education Opportunities To schedule Diabetes Education please call , Option 3 Contact your insurance company to determine coverage for diabetes education. L PICKLING EQUIPMENT OPERATOR documented in this encounter Progress Notes * Pihlly Brown APRN - 04/04/2018 2:30 PM METAL PICKLING EQUIPMENT OPERATOR Date of Service: 04/04/2018 Subjective: Sherrie Doe is a 42 y.o. female. History of Present Illness The patient presents to diabetes clinic for ongoing evaluation and management of diabetes mellitus. Has has a history of lupus- requiring steroids, lupus nephritis, anemia of chronic disease, stroke of unknown cause, CANO, obesity, dyslipidemia, pericardial effusion, pneumonia, cardiomyopathy, CHF, DVT and pancreatitis Type 2 Diabetes mellitus Dx: Gestational 14 years ago with son, had Type 2 dx 5 years ago prior to with daughter Current treatment: Levemir 10 at night and Novolog 2 units for every 40 > 180 Past treatment: Metformin, Toujeo, Lantus, Number of glucose checks per day: 2-3 times/ day Hyperglycemia: global Hypoglycemia: none Meals per day: 1-2 Largest meal: dinner, sandwich or piece of chicken, breakfast slim fast Snacks: no Exercise: No, does do arm raises and leg raises Shortness of breath or Chest pain with exertion: yes, has CHF DM related hospitalizations: no Complications of DM: CAD: No CVA: Yes, 3 mini strokes in 2016 PVD: No Amputations: No Retinopathy: No Gastropathy: Yes Nephropathy: No, has 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 Neuropathy: Yes, left hand Depression: Yes, takes Zoloft Chronic wounds / delayed healing: Yes DM related medications: Statin: Yes, pravastatin 20 mg SENTHIL-I: No ASA: No DM-related Routine Health Maintenance: Last dilated eye exam (recommended q 12 months): Jun, 2017 Last dental exam (recommended q 6 months): Due Last lipid panel (recommended annually): 05/25/17 Last urine microalbumin (recommended annually): Due, previously ordered has not completed Last foot exam (recommended annually): June 2017 Last meeting with museum educator (recommended annually): declined visit Last meeting with note keeper: Can the patient afford diabetes medications and supplies? Yes The patient brings self blood glucose monitoring values. These were downloaded from the meter and may be found scanned into the electronic medical record. The patient is checking at 2 different times of the day, with a total of 7 tests over the last 5 days. The mean of all blood glucose values during that time was 406, +/-150. The lowest value was 177, the highest value was 600. Based on the time of day, pre-breakfast mean was 242, and bedtime 500 The patient's BG Target is 70-180. Glucose is at goal 14% of the time. It above this range 86% of the time and in the hypoglycemic range 0% of the time. Hemoglobin A1c today is 13.3%, previously 6.8% August 2017 Fingerstick blood sugar today is 368 mg/dL. Review of Systems Positive: night sweats, hot flashes, weight gain, heat and cold sensitivity, fatigue, weakness, skin rash, excessive sweating, change in hair/nails, non healing wounds, excessive facial hair, ringing in ears, decreased hearing, neck swelling, persistent hoarseness, sore throat, SOB, chest pain/ discomfort, swelling of hands/ feet, nausea/ vomiting, rectal bleeding, chronic constipation , numbness/ tingling, memory loss, anxiety, headaches, depression, sleep disturbance, back pain, muscle cramps/ spasms, joint pain, swollen joints, often feels overwhelmed by her diseases Immunization History Administered Date(s) Administered Flu Vaccine=>3 YO (Historical) 11/11/2014 Flu Vaccine=>6 Months Quadrivalent PF 10/27/2016 Pneumococcal Vaccine(13-[facility]/immunocompromised adult) 07/13/2015 Objective: albuterol 0.5% (PROVENTIL; VENTOLIN) 2.5 mg/0.5 [...] may use a vaginal applicator insulin aspart (NOVOLOG FLEXPEN) 100 unit/mL injection PEN Inject 0-14 Units into area(s) as directed before meals and at bedtime. (Patient taking differently: Inject under the skin three times daily. Uses' sliding scale only. 2 units for every 40 mg/dL over 140 mg/dL. Inject based on sliding scale) lactulose 10 gram/15 mL oral solution Take 30 mL by mouth as Needed. Titrate to 3-4 bowel movements per day. Indications: HYPERAMMONEMIA, hold lactulose if >2 bowel movement/ day LANTUS SOLOSTAR U-100 INSULIN 100 unit/mL (3 mL) injection PEN Inject 25 Units under the skin daily. loratadine (CLARITIN) 10 mg tablet Take 10 mg by mouth daily. LORazepam (ATIVAN) 0.5 mg tablet Take 1 tablet by mouth every 12 hours as needed for Nausea. Magnesium Gluconate 30 mg (550 mg) tab Take 1 tablet by mouth twice daily. mycophenolate mofetil (CELLCEPT) 500 mg tablet Take [...] ONE TABLET BY MOUTH TWICE DAILY Vitals: 04/04/18 1339 BP: 133/80 Pulse: 108 Weight: 134.1 kg (295 lb 9.6 oz) Height: 177.8 cm (70") Body mass index is 42.41 kg/m. Physical Exam Constitutional: She is oriented to person, place, and time. She appears well- developed and well-nourished. Eyes: Pupils are equal, round, and reactive to light. Neck: Normal range of motion. Cardiovascular: Normal rate and regular rhythm. Pulses: Dorsalis pedis pulses are 2+ on the right side, and 2+ on the left side. Pulmonary/Chest: Effort normal and breath sounds normal. Abdominal: Soft. She exhibits no distension. Musculoskeletal: Right foot: There is normal range of motion. Neurological: She is alert and oriented to person, place, and time. Skin: Skin is warm. Capillary refill takes less than 2 seconds. Psychiatric: She has a normal mood and affect. Her behavior is normal. Judgment and thought content normal. Assessment and Plan: Diabetes mellitus type 2, controlled A1c 13.3% in clinic today, previously 7.3% in August 2017 Target A1c < 7% without hypoglycemia Currently on Lantus 25 units at night and Novolog 2 units for every 40 > 180 Complicated by: Nephropathy,Peripheral neuropathy, Gastropathy/Delayed gastric emptying, CVA Pt has gained 50 lbs since her last visit in Jun, 2017 at which time she was experiencing unintentional weight loss. Plan: Glucose significantly uncontrolled since her last visit with me in June 2017. Having global hyperglycemia, significantly post prandial She notes polyuria, polydipsia, and polyphagia Start metformin XR 500 mg daily after dinner, titrate to 2000 mg daily Increase Lantus then change to Toujeo, 30 units daily, reviewed treat to target, provided magnet Start taking 10 units of Novolog with meals Change correction to 2 units for every 50 > 150 I'd like to be able to transition her to an SGLT2 in the future, not safe until BG is better controlled Not a candidate for GLP1 with hx of pancreatitis Diabetic complication assessment: Annual Dilated eye exam: Due Jun, 2018 Annual labs (electrolytes and renal function): Reviewed, last done 05/25/17 Annual Urine microalbumin/Cr: Due, previously ordered but hasn't completed Foot exam / monofilament exam (recommended annually): June 2017 Supportive care for diabetes: Child Psychologist (recommended annually): declined visit, feels she understands caring for her diabetes French Binding Folder: Lipids: Hyperlipidemia Recommendations for Statin treatment in diabetes: 40-75 yo: No risk factors CVD risk factors include obesity Currently on a statin: Pravastatin 20 mg Annual fasting lipid panel due: 05/25/18 Blood pressure: Controlled SENTHIL-I or ARB: no RTC in 4 weeks Total time 40 minutes. Estimated counseling time 30 minutes. Counseled patient regarding diabetes management. Orders Placed This Encounter GLUCOSE METER DOWNLOAD TSH WITH FREE T4 REFLEX MICROALB/CR RATIO-URINE RANDOM POC GLUCOSE QUANTITATIVE BLOOD POC HEMOGLOBIN A1C insulin glargine U-300 conc (TOUJEO MAX U-300 SOLOSTAR) 300 unit/mL (3 mL) inpn metFORMIN-XR(+) (GLUCOPHAGE XR) 500 mg extended release tablet insulin aspart U-100 (NOVOLOG FLEXPEN) 100 unit/mL injection PEN Patient Instructions It was nice to see you today! Goals we discussed today: Check blood sugar before meals and at bedtime Take metformin XR 500 mg daily with your largest meal. Avoid eating fatty or fried foods. If you are tolerating well with no nausea or diarrhea, may increase dose weekly as below until you are taking full 2000 mg daily. 2nd week, 2 tabs daily 3rd week, 3 tabs daily 4th week and beyond, 4 tabs daily Do not split these tablets in 1/2. If difficult to swallow, take with applesauce or yogurt. Start Toujeo/ Lantus 30 units each night Start taking Novolog 10 units with meals + correction scale For glucose of , take units of Novolog with meals, 4 hours apart. 70-150 0 units 151-200 2 units 201-250 4 units 251-300 6 units 301-350 8 units 351-400 10 units 401 or more 12 units Please contact [facility] for any questions or abnormal glucose values (above 300 or less than 70 repeatedly). [phone] My nurse, Mony, can be reached at [phone] Health goals for a person with diabetes to avoid complications are: Check your FingerStick blood glucose: Each time you take medications for your glucose, goals are: Fasting and pre-meal glucose: 70-130 mg/dl Bedtime blood glucose: 90-180 mg/dl LDL Cholesterol: <100 mg/dl Triglycerides: <150 mg/dl HDL >40 for men, >50 for women Blood pressure: Less than 130/90 mm HG Maintain a Healthy Weight , Exercise: 30 minutes 5 times per week Foot care: Take good care of your feet. Never cut your nails close to the tips of the toes. Promptly call your doctor if you have an infection, ulcer or cut anywhere on your feet. Wear shoes with a wide toe box and that fit comfortably. Avoid walking barefoot. Your recent lab values: Glucose, POC Date/Time Value Ref Range Status 04/04/2018 02:01 PM 368 Final Cholesterol Date/Time Value Ref Range Status 08/06/2017 04:38 AM 107 <200 MG/DL Final HDL Date/Time Value Ref Range Status 08/06/2017 04:38 AM 15 (L) >40 MG/DL Final LDL Date/Time Value Ref Range Status 08/06/2017 04:38 AM 63 <100 MG/DL Final Triglycerides Date/Time Value Ref Range Status 08/06/2017 04:38 AM 172 (H) <150 MG/DL Final Diabetes Support Group Monthly DM Support Group facilitated by CDE. There is no fee or Registration required for attendance. Meets the first Sunday of each month from 6-7:30pm at the [facility], [address], [address], [place] [address]. [facility] Diabetes Classes and Education Opportunities To schedule Diabetes Education please call , Option 3 Contact your insurance company to determine coverage for diabetes education. Future Appointments Date Time Provider Department Center 04/09/2018 2:20 PM Sandy Gonsalves MD IMNEPHRO IM 04/11/2018 10:00 AM Janelle Bell MD CFT GEN HEP CFT KU 04/11/2018 12:00 PM Lv Petit MD ORTHOCL Ortho Sports 04/29/2018 11:30 AM Jackie Villa MD KUMWPUL IM 05/10/2018 10:00 AM Tasneem Munoz APRN MACHFC CVM Exam 05/10/2018 2:30 PM Philly Brown APRN QVIMDIAB IM 07/29/2018 2:00 PM Geo Treviño MD KCMORH IM 10/10/2018 10:45 AM SONOGRAPHY-[facility]B [facility] MOB Radiolog 10/10/2018 11:20 AM Khalif Pratt MD ENTCL ENT 11/28/2018 12:30 PM Dana Duran APRN CFT GEN HEP CFT KU 02/21/2019 9:30 AM Humaira Goff PA [id number] Exam L PICKLING EQUIPMENT OPERATOR * Gala Vilchis LPN - 04/04/2018 2:30 PM METAL PICKLING EQUIPMENT OPERATOR Patient brought meter for download. She's only had a couple of days. 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) 05/27/2018 Hospital Encounter Janelle Bell MD [address] [address] [phone] ESOPHAGOGASTRODUODENOSCOPY 05/27/2018 Surgery Order Schedule Name Priority Associated Diagnoses Expected: 04/04/2018 (Approximate), Expires: 04/03/2019 TSH WITH FREE T4 REFLEX Routine Insulin-requiring or dependent type II diabetes mellitus (HCC) Expected: 04/04/2018 (Approximate), Expires: 04/03/2019 MICROALB/CR RATIO-URINE RANDOM Routine Insulin-requiring or dependent type II diabetes mellitus (HCC) documented as of this encounter Procedures Comments Procedure Name Priority Date/Time Associated Diagnosis POC GLUCOSE QUANTITATIVE Routine 04/04/2018 Insulin-requiring or BLOOD 2:01 PM METAL PICKLING EQUIPMENT OPERATOR dependent type II diabetes mellitus (HCC) POC HEMOGLOBIN A1C Routine 04/04/2018 Insulin-requiring or 2:01 PM METAL PICKLING EQUIPMENT OPERATOR dependent type II diabetes mellitus (HCC) GLUCOSE METER DOWNLOAD Routine 04/04/2018 Insulin-requiring or dependent type II diabetes mellitus (HCC) documented in this encounter Results * POC HEMOGLOBIN A1C (04/04/2018 2:01 PM METAL PICKLING EQUIPMENT OPERATOR) Poc Hemoglobin 13.3 % IN CLINIC A1C Specimen Blood, capillary - Blood Performing Organization Address [facility] * POC GLUCOSE QUANTITATIVE BLOOD (04/04/2018 2:01 PM METAL PICKLING EQUIPMENT OPERATOR) Glucose, POC 368 IN CLINIC Specimen Blood, capillary Performing Organization Address City/State/Zipcode Phone Number IN CLINIC documented in this encounter Visit Diagnoses Diagnosis Insulin-requiring or dependent type II diabetes mellitus (HCC) - Primary Type II or unspecified type diabetes mellitus without mention of complication , not stated as uncontrolled documented in this encounter
--- OUTSIDE RECORDS SUMMARY | 2018-05-05 20:59 | XMS REPORT | Encounter Summary ---
Author Author [facility] Organization [facility] Address Unknown Phone Unavailable Care Team Providers Care Deputy Assessor Name Role Phone Karan Miquel Unavailable Jonatan Vázquez MD Unavailable Sandy Gonsalves MD Unavailable Estephania Breaux MD Unavailable [place] MD [id number] Khoi Kaminski MD Unavailable Ruben Dozier MD Unavailable Suzette Ramesh ADMINISTRATIVE LIBRARY ASSISTANT-C Unavailable Saroj Allan MD Unavailable Dana Duran ADMINISTRATIVE LIBRARY ASSISTANT Unavailable Geo Treviño MD Unavailable Gallito Lopez MD PCP Unavailable Iris Devine MD Unavailable Dick Hagan DO 21 Unavailable Valente Gutierrez OD Unavailable Arlin Weber ADMINISTRATIVE LIBRARY ASSISTANT Unavailable Evelin Youssef ADMINISTRATIVE LIBRARY ASSISTANT-SECTION LEADER 7 Reason for Visit * Reason Comments Results pap smear results Encounter Details Care Team Description Date Type Department Jc Miles MD [address] [facility] [place] [address] [phone] Results (pap smear results) 02/22/[address] [facility] [address] [place] [address] Social History Date Tobacco Use Types Packs/Day [...] encounter Miscellaneous Notes * Telephone Encounter - Huong Crowe RN - 02/22/2018 3:39 PM CREAM TESTER Attempted to call patient to review pap smear results over the phone. Patient did not answer. Voicemail box was full, so unable to leave a VM. Will send a [employer] message, as patient's chart indicates she is active on [employer]. 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 No change in plan. Fu 12 mths. 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
--- OUTSIDE RECORDS SUMMARY | 2018-05-05 20:59 | XMS REPORT | Encounter Summary ---
Author Author [facility] Organization [facility] Address Unknown Phone Unavailable Care Team Providers Care Lens Dotter Name Role Phone Karan Miquel Unavailable Jonatan Vázquez MD Unavailable Sandy Gonsalves MD Unavailable Estephania Breaux MD Unavailable Hugo Ta MD [id number] Khoi Kaminski MD Unavailable Ruben Dozier MD Unavailable Suzette Ramesh RESAWYER-C Unavailable Saroj Allan MD Unavailable Dana Duran RESAWYER Unavailable Geo Treviño MD Unavailable Gallito Lopez MD PCP Unavailable Iris Devine MD Unavailable Dick Hagan DO 21 Unavailable Valente Gutierrez OD Unavailable Arlin Weber RESAWYER Unavailable Evelin Youssef RESAWYER-COMMERCIAL MANAGEMENT ACCOUNTANT 7 Reason for Visit * Reason Comments Medication Follow-up Benlysta Reassessment Encounter Details Care Team Description Date Type Department Katja Tam PHARMD Medication Follow-up (Benlysta Reassessment) 03/05/2018 Telephone [facility] [id number] [place] [address] Social History Date Tobacco Use Types Packs/Day [...] as of this encounter Progress Notes * Katja Tam, RAE - 03/05/2018 4:15 PM CLINIC ASSISTANT Pharmacy Medication Reassessment Appropriateness of Therapy belimumab (Benlysta) is being used for the appropriate indication of SLE. The regimen of 200mg SC weekly is planned to continue which is appropriate for Sherrie Doe. The medication(s) have been appropriately dosed based on the patients renal and/ or hepatic function. At this time the there is no planned dose titration. Response to Therapy -Patient Assessments -Subjective clinical assessment: on a scale of 1 to 10 (1 being the worst and 10 being the best), the patient rates they are feeling 9 out of 10 while on treatment. -Subjective Quality of Life Measurement: Sherrie Doe was able to complete all normal daily activities over the past 30 days. -Disease Activity Level of disease activity: much improved Current therapy: Benlysta, HCQ, Cellcept Previous agents: none Steroid use in the last 30 days: none Additional considerations/co-morbidities: PMH of anxiety and depression As the patient is achieving therapeutic benefit from this therapy and the plan is to continue. Adverse Effects Sherrie Doe is having the following adverse effect(s) increased anxiety and depression. The following strategies were discussed with the patient to mitigate the adverse effect(s) : patient has previously been on anti-anxiety medications. Patient would prefer to stay on Benlysta because of the benefit so she will talk to her PCP about re-initiating these agents.. The adverse effect(s ) were not severe enough to interfere with adherence. Injection concerns: denies Adherence Refill and adherence history were reviewed with the patient. The patient is adherent with refills and is meeting their refill goal. They report no missed doses over the past 30 days. The patient is meeting their adherence goal. The patient was reminded about the refill process and re-educated on the importance of adherence. Medication Reconciliation A medication history and reconciliation were performed (including prescription medications, supplements, over the counter, and herbal products). The medication list was updated and the patients current medication list is included below. Home Medications Medication Sig albuterol 0.5% (PROVENTIL; VENTOLIN) 2.5 mg/0.5 mL nebulizer solution Inhale 2.5 mg solution by nebulizer as directed every 6 hours as needed for Shortness of Breath or Wheezing. amoxicillin/K clavulanate (AUGMENTIN) 875/125 mg tablet Take 1 tablet by mouth every 12 hours. Take with food. atovaquone (MEPRON) 750 mg/5 mL oral suspension Take 10 mL by mouth daily with breakfast. belimumab (BENLYSTA) 200 mg/mL atIn Inject 200 mg under the skin every 7 days. BIOTIN PO Take 1 tablet by mouth daily. Calcium-Cholecalciferol (D3) (CALCIUM WITH VITAMIN D) 600 mg(1,500mg) -400 unit tab Take 1 Tab by mouth daily. carvedilol (COREG) 12.5 mg tablet Take 1.5 tablets by mouth twice daily with meals. Take with food. diclofenac(+) (VOLTAREN) 1 % topical gel Apply [...] as directed before meals and at bedtime. Patient taking differently: Inject 15 Units under the skin three times daily. 2 units for every 40 mg/dL over 140 mg/dL. Inject based on sliding scale insulin detemir(+) (LEVEMIR FLEXTOUCH) 100 unit/mL (3 mL) injection pen Inject 20 Units under the skin at bedtime daily. lactulose 10 gram/15 mL oral solution Take 30 mL by mouth as Needed. Titrate to 3-4 bowel movements per day. Indications: HYPERAMMONEMIA, hold lactulose if >2 bowel movement/ day LANTUS SOLOSTAR U-100 INSULIN 100 unit/mL (3 mL) injection PEN Inject 20 Units under the skin daily. loratadine (CLARITIN) 10 mg tablet Take 10 mg by mouth daily. Magnesium Gluconate 30 mg (550 mg) tab Take 1 tablet by mouth twice daily. mycophenolate mofetil (CELLCEPT) 500 mg tablet Take 2 tablets by mouth twice daily. Take on an empty stomach. ondansetron hcl (ZOFRAN) 4 mg tablet Take 1 Tab by mouth every 6 hours as needed for Nausea. pantoprazole DR (PROTONIX) 40 mg tablet Take 1 tablet by mouth twice daily. Patient taking differently: Take 40 mg by mouth daily. pravastatin (PRAVACHOL) 20 mg tablet Take 2 tablets by mouth at bedtime daily. prednisone (DELTASONE) 10 mg tablet 15 mg. prednisone (DELTASONE) 5 mg tablet 40 mg 2 days. Then 30mg 3 days. Then 20mg 3 days. Then 15mg daily. Patient taking differently: 15 mg daily with breakfast. quinacrine HCl (QUINACRINE (BULK)) powd Take 100 mg by mouth daily. rifAXIMin (XIFAXAN) 550 mg tablet Take 1 tablet by mouth twice daily. Indications: HEPATIC ENCEPHALOPATHY sertraline (ZOLOFT) 100 mg tablet Take 100 mg by mouth daily. spironolactone (ALDACTONE) 25 mg tablet Take 1 tablet by mouth twice daily. traMADol (ULTRAM) 50 mg tablet Take 100 mg by mouth every 6 hours as needed for Pain. triamcinolone acetonide (KENALOG) 0.1 % topical cream Apply to affected lower legs twice daily as directed Patient taking differently: as Needed. Apply to affected lower legs twice daily as directed vitamins, multiple cap Take 1 capsule by mouth daily. warfarin (COUMADIN) 5 mg tablet Take 10 mg by mouth daily. Drug-drug and drug-food interactions between the patients specialty medication and their medication list were assessed and reviewed with the patient. The patient was instructed to speak with their health care provider before starting any new drug, including prescription or over the counter, natural / herbal products, or vitamins. No new significant drug-drug or drug-food interactions were identified. Their regimen can be taken with or without food. Allergies Allergies Allergen Reactions Latex RASH Morphine MENTAL [...] have reacted with Hives in the past. Levofloxacin HIVES Demerol [Meperidine] HIVES Fentanyl RASH Developed rash after receiving IV Fentanyl Vaccination Status Immunization History Administered Date(s) Administered Flu Vaccine=>3 YO (Historical) 11/11/2014 Flu Vaccine=>6 Months Quadrivalent PF 10/27/2016 Pneumococcal Vaccine(13-[facility]/immunocompromised adult) 07/13/2015 Vaccine history reviewed with patient. Patient reminded about the importance of receiving an annual influenza vaccine as well as the pneumococcal and shingles vaccines if indicated. Laboratory Monitoring NA status status was assessed and determined to be: Female, not of child- bearing potential: education not applicable. Risk Evaluation and Mitigation Strategy (REMS) Assessment No REMS are required for any of the prescribed medications for this patient. Follow-up Plan Sherrie Doe was given the opportunity to ask questions and did not have any questions at this time.. The patient was encouraged to call with questions. The patient will be contacted to complete another reassessment within 3 months. 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
--- OUTSIDE RECORDS SUMMARY | 2018-05-05 21:00 | XMS REPORT | Clinical Summary ---
Author Author [facility] Organization [facility] Address Unknown Phone Unavailable Care Team Providers Care Tuber Helper Name Role Phone PCP Unavailable Allergies Not on File Current Medications Not on file Active Problems Not on file Social History Tobacco Use Types Packs/Day Years Used Date Never Assessed Sex Assigned at Date Recorded Not on file Last Filed Vital Signs Not on file Plan of Treatment Not on file Results Not on filefrom Last 3 Months
--- OUTSIDE RECORDS SUMMARY | 2018-05-05 21:00 | XMS REPORT | Encounter Summary ---
Author Author [facility] Organization [facility] Address Unknown Phone Unavailable Care Team Providers Care Staff Assistant Name Role Phone Karan Miquel Unavailable Jonatan Vázquez MD Unavailable Sandy Gonsalves MD Unavailable Estephania Breaux MD Unavailable Huog Ta MD [id number] Khoi Kaminski MD Unavailable Ruben Dozier MD Unavailable Suzette Ramesh PLUMBING WAREHOUSE HELPER-C Unavailable Saroj Allan MD Unavailable Dana Duran PLUMBING WAREHOUSE HELPER Unavailable Geo Treviño MD Unavailable Gallito Lopez MD PCP Unavailable Iris Devine MD Unavailable Dick Hagan DO 21 Unavailable Valente Gutierrez OD Unavailable Arlin Weber PLUMBING WAREHOUSE HELPER Unavailable Evelin Youssef PLUMBING WAREHOUSE HELPER-ASSESSMENT SPECIALIST 7 Reason for Referral * (Routine) Referred By Contact Referred To Contact Status Reason Specialty Diagnoses / Procedures Stephan Friedman MD [address] [address] New Request Procedures REQUEST FOR CARDIOLOGY APPOINTMENT * Consult, Test & Treat (Routine) Referred By Contact Referred To Contact Status Reason Specialty Diagnoses / Procedures Arlin Weber APRN [address] [address] [place] [address] [facility] [address] [address] No Auth Needed Cardiology Procedures REQUEST FOR CARDIOLOGY APPOINTMENT Reason for Visit * Reason Comments Follow Up 2 month * Consult, Test & Treat (Routine) Referred By Contact Referred To Contact Status Reason Specialty Diagnoses / Procedures Arlin Weber APRN [address] [address] [place] [address] [facility] [address] [address] No Auth Needed Cardiology Procedures REQUEST FOR CARDIOLOGY APPOINTMENT Encounter Details Care Team Description Date Type Department Arlin Weber APRN [address] [address] [phone] Stephan Friedman MD [address] [address] [phone] Follow Up (2 month ) 02/13/2018 Office [address] [facility] [address] [place] [id number] Social History Date Tobacco Use Types Packs/Day [...] Vital Signs Time Taken Vital Sign Reading 02/13/2018 9:39 AM DEBONING TEAM LEADER Blood Pressure 122/80 02/13/2018 9:39 AM DEBONING TEAM LEADER Pulse 95 - Temperature - - Respiratory Rate - 02/13/2018 9:39 AM DEBONING TEAM LEADER Oxygen Saturation 97% - Inhaled Oxygen - Concentration 02/13/2018 9:39 AM DEBONING TEAM LEADER Weight 123.7 kg (272 lb 12.8 oz) 02/13/2018 9:39 AM DEBONING TEAM LEADER Height 177.8 cm (5' 10") 02/13/2018 9:39 AM DEBONING TEAM LEADER Body Mass Index 39.14 documented in this encounter Functional Status Date of Assessment Functional Status Response 01/22/2018 Does the patient have a hearing impairment: No 01/22/2018 Does the patient have a visual impairment: Yes 01/22/2018 Does the patient have impaired ambulation: No 01/22/2018 Does the patient have an activity of daily living No (ADL) impairment: 01/22/2018 Does the patient have an instrumental activity of No daily living (IADL) impairment: Date of Assessment Cognitive Status Response 01/22/2018 Does the patient have a cognitive impairment: No documented as of this encounter Patient Instructions * Patient Instructions* Stephan Friedman MD - 02/13/2018 9:30 AM DEBONING TEAM LEADER 1. No change in medication. 2. Follow up with Arlin Weber in 3 months. Heart Failure Education Summary You have been diagnosed with heart failure. The termheart failuresounds scary because it suggests the heart is no longer working. But it actually means the heart isn't doing its job as well as it should. Heart failure happens when your heart muscle can't keep up with your body's need for blood flow. Symptoms of heart failure can be controlled by changes in your lifestyle and by following your doctor's advice. Additional education resources are available. Please contact your nurse if you would like more information. Home care Activity Ask your health care provider about an exercise program. You can benefit from simple activities such as walking or gardening. Exercising most days of the week can make you feel better. Don't be discouraged if your progress is slow at first. Rest as needed and stop activity if you develop symptoms such as chest pain, lightheadedness, or significant shortness of breath. Diet Follow a heart healthy diet. And make sure to limit the salt (sodium) in your diet. Salt causes your body to hold water. This makes your heart work harder. Limit your salt by doing the following: Limit canned, dried, packaged, and fast foods. Don't add salt to your food. Season foods with herbs instead of salt. Watch how much liquids you drink. Drinking too much can make heart failure worse. Talk with your health care provider about how much you should drink each day. Limit the amount of alcohol you drink. It may harm your heart. Women should have no more than 1 drink a day and men should have no more than two. Tobacco If you smoke, you'll need to quit. Smoking increases your chances of having a heart attack, which makes heart failure worse. Quitting smoking is the number one thing you can do to improve your health. Enroll in a stop-smoking program to improve your chances of success. Talk with your health care providerabout medicines or nicotine replacement therapy to help you quit smoking. Medicine Take your medicines exactly as prescribed. Learn the names and purpose of each of your medicines. Keep an accurate medicine list and current dosages with you at all times. Don't skip doses. If you miss a dose of your medicine, take it as soon as you remember. If you miss a dose andit's almost time for your next dose, just wait and take your next dose at the normal time. Don't take a double dose. If you are unsure, call your doctor's office. Beta-blockers (examples: carvedilol, metoprolol XL, bisoprolol) These medicines help reduce heart rate and blood pressure. Taking a beta- hemant long-term may reduce the harmful effects of heart failure and may stop it from getting worse. Possible side effects: Fatigue, low blood pressure, dizziness, feeling lightheaded How to take: Take carvedilol (Coreg) with food. All others may be taken without regards to meals Angiotensin-converting enzyme inhibitors (SENTHIL inhibitors examples: lisinopril, ramipril, fosinopril) or Angiotensin-receptor blockers (ARBs examples: losartan, valsartan, olmesartan) They help to decrease blood pressure and block certain hormones that can put stress on the heart. Like beta-blockers, taking an SENTHIL inhibitor or an ARB may reduce the harmful effects of heart failure and may prevent heart failure from getting worse. Possible side effects: Dry cough, low blood pressure, dizziness How to take: Take captopril and moexipril on an empty stomach. All others may be taken without regards to meals. Vasodilators (examples: hydralazine, nitrates) These medicines open up blood vessels in the body. This makes it easier for the heart to pump blood. These medicines improve heart failure symptoms and may prevent your heart failure from getting worse. Hydralazine and a nitrate may be used when an SENTHIL inhibitor or ARB cannot be taken. Possible side effects: Headache, dizziness, low blood pressure How to take: Do not crush or chew. Imdur and Isordil may be cut in half. Take with a full glass of water Digoxin Digoxin is a medicine that helps the heart pump. It can help patients with heart failure stay out of the hospital. It may also help improve heart failure symptoms. Possible side effects: nausea, vomiting, blurred vision, low heart rate, dizziness How to take: Take without regards to meals. Diuretics (examples: furosemide, bumetanide, torsemide) Also known as water pills, these medications help to rid the body of extra water and salt. They can also reduce swelling. Diuretics make it easier for your heart to pump, because there is less fluid in your body that the heart has to pump. Possible side effects: Increased urination, headache, muscle cramps, dizziness, photosensitivity How to take: Take early in the day, with or without food. Aldosterone Antagonists (examples: spironolactone, eplerenone) Aldosterone antagonists work by blocking certain hormones that can put stress on the heart. Possible side effects: rash, muscle cramps, dizziness, enlarged or tender breasts How to take: Spironolactone should be taken with food to increase absorption. Eplerenone can be taken without regards to meals. Weight monitoring Weigh yourself every day. A sudden weight gain can mean your heart failure is getting worse. Weigh yourself at the same time of day and in the same kind of clothes. Ideally, weigh yourself first thing in the morning after you empty your bladder, but before you eat breakfast. Your health care provider will show you how to track your weight. He or she will also discuss with you when you should call if you have a sudden, unexpected increase in your weight. In general your health care provider may ask you to report if your weight goes up by more than3 pounds in 1 day or 5 pounds in 1 week, or whatever weight gain you were told by your doctor. This is a sign that you are retaining more fluid than you should be. Follow-up care Make a follow-up appointment as directed. Depending on the type and severity of heart failure you have, you may need follow-up as early as 7 days from hospital discharge. Keep appointments for checkups and lab tests that are needed to check your medicines and condition. Recognize that your health and even survival depend on your following medical recommendations. Symptoms Heart failure can cause a variety of symptoms, including: Shortness of breath Difficulty breathing at night Swelling in the legs and feet or in the belly (abdomen) Becoming easily fatigued Irregular or rapid heartbeat Weakness or lightheadedness It is important to know what to do if symptoms get worse or if you develop signs of worsening heart failure. When to call your doctor Call your doctor right away if you have any of these signs of worsening heart failure: Sudden weight gain (more than3 pounds in 1 day or 5pounds in 1 week, or whatever weight gain you were told to report by your doctor) Trouble breathing not related to being active New or increased swelling of your legs or ankles Swelling or pain in your abdomen Breathing trouble at night (waking up short of breath, needing more pillows to breathe) Frequent coughing that doesn't go away Feeling much more tired than usual When to seek emergency medical attention Call 911 right away if you have: Severe shortness of breath, such that you can't catch your breath even while resting Severe shortness of breath Severe chest pain that does not resolve with rest or nitroglycerin [place], foamy mucus with cough and shortness of breath A continuous rapid or irregular heartbeat Passing out or fainting Stroke symptoms such as sudden numbness or weakness on one side of your face , arm, or leg or sudden confusion, trouble speaking or vision changes Heart Failure NING TEAM LEADER documented in this encounter Progress Notes * Stephan Friedman MD - 02/13/2018 9:30 AM DEBONING TEAM LEADER Date of Service: 02/13/2018 Sherrie Doe is a 42 y.o. female. HPI 42-year-old female Ms. Doe is been a patient of Arlin Weber. She was recently admitted in the hospital for acute renal failure in the setting of lower extremity edema. Her lower extremity edema is possibly related to her previous DVT was restarted on Coumadin leg elevation She appears to have a reasonable weight with goal weight of 245 pounds or less. She continues to feel reasonably well. She reported dystonia and tardive dyskinesia on Reglan therefore that was discontinued Ms. Doe has history of lupus with stage IV lupus nephritis as well as history of cirrhosis with Jones, diabetes mellitus type 2 and history of morbid obesity now BMI in the range of 35. For her lupus she is currently on immunosuppressive therapy with Mepron 1500 mg daily also on CellCept 500 mg twice daily. In October 2016 she had diagnoses of low ejection fraction in the setting of possibly stress cardiomyopathy with pulmonary edema, she was diuresed from approximately 280 pounds and currently she is 245 pounds range. She also had history of C. 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 Regarding her cardiac failure, she has heart failure with preserved ejection fraction, she had coronary angiography without any obstructive coronary artery disease when she had low ejection fraction of 30% suggestive of stress cardiomyopathy otherwise she is being managed with 40 mg of p.o. Lasix and spironolactone of 25 mg daily. On visit on 02/13/2017 Seeing her almost a year later, she has gained some calorie weight and currently her dry weight is close to 272 pounds. She has not gained any fluid weight over the past 6 months. She was recently started on Benlysta for lupus. Vitals: 02/13/18 0939 BP: 122/80 Pulse: 95 SpO2: 97% Weight: 123.7 kg (272 lb 12.8 oz) Height: 1.778 m (5' 10") Body mass index is 39.14 kg/m. 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) 02/14/2016 Priority: High Mild MARLENI with increased leg movements 10/26/2017 10/26/17 sleep study with mild MARLENI & elevated PLMS, 260 leg movements, 35.1 per hour of sleep for a total arousal index 13.2/hr of sleep 12/20/17 Referred back to sleep specialty to address PLMS/RLS-Mouthpiece handout provided Hypoxia 08/05/2017 Thyroid nodule 06/28/2017 Tenderness of head and neck 06/28/2017 Pulmonary Artery Pressure Sensor (CardioMEMs) Primary Screening 04/16/2017 CardioMEMS Primary Screening Date: 04/16/17 Heart failure admission within last 12 months Date: -11/02/16 Yes NYHA HF Class III Yes Able [...] disease or mechanical right heart valve No OIL FURNACE INSTALLER device implanted within last 3 months? Date [...] deep vein thrombosis (DVT) of femoral vein (HCC) 02/14/2017 Idiopathic acute pancreatitis without infection or necrosis 02/14/2017 RSV (respiratory syncytial virus pneumonia) 02/12/2017 Sepsis due to undetermined organism (HCC) 02/11/2017 Epigastric pain 02/11/2017 Added automatically from request for surgery [id number] Dilated cardiomyopathy (HCC) 10/26/2016 C. difficile colitis 10/25/2016 Acute respiratory failure with hypoxemia (HCC) 10/25/2016 Varices, esophageal (HCC) 09/21/2016 Added automatically from request for surgery [id number] Chronic combined systolic and diastolic CHF (congestive heart failure) (HCC ) 01/18/2016 Essential hypertension 01/18/2016 Volume overload 10/29/2015 Paroxysmal atrial fibrillation (HCC) 10/05/2015 Pleural effusion associated with hepatic disorder 09/21/2015 Hepatic encephalopathy (HCC) 09/15/2015 Streptococcal sepsis (HCC) 09/05/2015 NSVT (nonsustained ventricular tachycardia) (HCC) 09/05/2015 Lupus (systemic lupus erythematosus) (HCC) 09/05/2015 Cirrhosis (HCC) 09/04/2015 SBP (spontaneous bacterial peritonitis) (HCC) 09/04/2015 Stroke of unknown cause (HCC) 09/01/2015 Pancytopenia (HCC) 08/25/2015 Septic shock ([facility]) 08/24/2015 Obesity (BMI 30-39.9) 06/16/2015 Insulin-requiring or dependent type II diabetes mellitus ([facility]) 06/15/2015 Pneumonia due to infectious organism 06/15/2015 Iron deficiency 05/14/2015 Anemia of chronic disease 05/14/2015 Pleural effusion, right 04/23/2015 Fibromyalgia 01/21/2015 Chronic pansinusitis 05/19/2014 CT and MRI head OK 2015; 03/06/2013 CT maxillofacial 2013 [facility] SLE (systemic lupus erythematosus) ([facility]) 06/06/2013 Poorly controlled diabetes mellitus ([facility]) 05/22/2013 Immunosuppression ([facility]) 05/22/2013 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 HENT: Negative. Eyes: Negative. Cardiovascular: Negative. Respiratory: Negative. Endocrine: Negative. Hematologic/Lymphatic: Negative. Skin: Negative. Musculoskeletal: Negative. Gastrointestinal: Negative. Genitourinary: Negative. Neurological: Negative. Psychiatric/Behavioral: Negative. Allergic/Immunologic: Negative. Physical Exam General Appearance: no acute distress Neck Veins: Neck veins are not distended Extremities: Normal bilateral pedal pulses.No pedal edema. Carotid Arteries: normal carotid upstroke bilaterally, no bruits Cardiac Rhythm: regular rhythm and normal rate Cardiac Auscultation: Normal S1 & S2, no S3 or S4, no rub, no cardiac murmurs Chest Inspection: chest is normal in appearance Auscultation/Percussion: lungs clear to auscultation, no rales, rhonchi Skin: warm, moist, no ulcers HENT: Moist oral mucosa. Eyes; Pupils are round and reactive. No icterus Abdominal Exam: soft, non-tender, no masses, bowel sounds normal no organomegaly Neurologic Exam: neurological assessment grossly intact Cardiovascular Studies Problems Addressed Today No diagnosis found. Assessment and Plan 1. History of stress cardiomyopathy with reduced ejection fraction is 35% with improvement and normal ejection fraction in October 2016 2. Systemic lupus erythematous with lupus nephritis stage IV on immunosuppressive therapy 3. 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 History of liver cirrhosis and Jones associated 5. History of DVT currently on anticoagulation 6. DM type II I Ms. Doe is doing well, her weight is stationary, she has gained weight however this calorie, I do not see any evidence of fluid. I did not make any changes in the medications at this time. She continues to remain NYHA class II-III, her kidney functions are normal currently, her fluid status is normal, if she struggles with fluid in future, cardiograms can be considered. Current Medications (including today's revisions) albuterol 0.5% (PROVENTIL; VENTOLIN) 2.5 mg/0.5 mL [...] and at bedtime. (Patient taking differently: Inject 15 Units under the skin three times daily. 2 units for every 40 mg/dL over 140 mg/dL. Inject based on sliding scale) insulin detemir(+) (LEVEMIR FLEXTOUCH) 100 unit/mL (3 [...] taking differently: 15 mg daily with breakfast.) quinacrine HCl (QUINACRINE (BULK)) powd Take 100 [...] tablet Take 10 mg by mouth daily. NING TEAM LEADER documented in this encounter Plan of Treatment Care Team Description Date Type Specialty Janelle Bell MD [address] [address] [phone] Esophageal varices in cirrhosis (HCC) 05/27/2018 Hospital Encounter Janelle Bell MD [address] [address] [phone] ESOPHAGOGASTRODUODENOSCOPY 05/27/2018 Surgery documented as of this encounter Visit Diagnoses Diagnosis Chronic combined systolic and diastolic CHF (congestive heart failure) (HCC) - Primary Chronic combined systolic and diastolic heart failure Other cirrhosis of liver (HCC) Systemic lupus erythematosus with glomerular disease, unspecified SLE type ( HCC) documented in this encounter
--- OUTSIDE RECORDS SUMMARY | 2018-05-05 21:00 | XMS REPORT | Encounter Summary ---
Author Author [facility] Organization [facility] Address Unknown Phone Unavailable Care Team Providers Care Business Info Consultant Name Role Phone Karan Miquel Unavailable Jonatan Vázquez MD Unavailable Sandy Gonsalves MD Unavailable Estephania Breaux MD Unavailable Hugo Ta MD [id number] Khoi Kmainski MD Unavailable Ruben Dozier MD Unavailable Suzette Ramesh RN ORTHOPAEDICS-C Unavailable Saroj Allan MD Unavailable Dana Duran RN ORTHOPAEDICS Unavailable Geo Treviño MD Unavailable Gallito Lopez MD PCP Unavailable Iris Devine MD Unavailable Dick Hagan DO 21 Unavailable Valente Gutierrez OD Unavailable Arlin Weber RN ORTHOPAEDICS Unavailable Evelin Youssef RN ORTHOPAEDICS-MATERIAL HANDLER 1ST SHIFT 7 Reason for Visit * Reason Comments Heme/Onc Care Encounter Details Care Team Description Date Type Department Jc Miles MD [address] 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) ( Primary Dx) 02/15/2018 Office Visit [facility] [address] [place] [address] Social History Date Tobacco Use Types Packs/Day [...] Vital Signs Time Taken Vital Sign Reading 02/15/2018 10:08 AM MANUFACTURING SCHEDULER Blood Pressure 127/79 02/15/2018 10:08 AM MANUFACTURING SCHEDULER Pulse 95 02/15/2018 10:08 AM MANUFACTURING SCHEDULER Temperature 36.3 C (97.3 F) 02/15/2018 10:08 AM MANUFACTURING SCHEDULER Respiratory Rate 16 02/15/2018 10:08 AM MANUFACTURING SCHEDULER Oxygen Saturation 97% - Inhaled Oxygen - Concentration 02/15/2018 10:08 AM MANUFACTURING SCHEDULER Weight 123.8 kg (273 lb) 02/15/2018 10:08 AM MANUFACTURING SCHEDULER Height 177.8 cm (5' 10") 02/15/2018 10:08 AM MANUFACTURING SCHEDULER Body Mass Index 39.17 documented in this encounter Functional Status Date [...] as of this encounter Progress Notes * Jc Miles MD - 02/15/2018 9:45 AM MANUFACTURING SCHEDULER Subjective GYNECOLOGIC ONCOLOGY EVALUATION Name:Sherrie Doe Date: 02/15/18 Diagnosis & Reason for Visit: VAIN II at vaginal cuff, evaluate and treat. Physician Info: ? Referring Physician: Dr. Dick Hagan PCP: Dr. Gallito Lopez Other: Nephrology, Dr. Sandy Gonsalves, rheumatology, Dr. Geo Treviño, Cardiology, Jocelyn Lou PA-C History of Present Illness: 42 y.o.with VAIN II Patient seen by NETWORK PRICING CONSULTANT on 12/02/15 for annual exam. Pap smear of vaginal cuff obtained 12/02/15 showed LGSIL, HPV effect present. 12/24/15 she then proceeded with a biopsy at 9:00 of vag cuff. After the biopsy it was noted that bowel was extruding through the biopsy site. One simple interrupted suture was used to close the site. 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 Fu pap 08/2016 VAIN I, HPV 16+ Treating with Aldara once weekly Pap 07/2017 LGSIL HPV + Today, feeling well overall. Since her last visit, she reports no significant changes in her health except for some weight gain and occasional abdominal pain. For the past three weeks, she has been experiencing sharp, sudden onset abdominal pain alternating between her right and left lower quadrants that occurs at rest and is alleviated by position changes. Denies bleeding, discharge, changes in bowel or urinary habits. Using Aldara now ~1x per week. Significant History: History of lupus with stage IV lupus nephritis as well as history of cirrhosis with Jones, diabetes mellitus type 2 and history of morbid obesity now BMI in the range of 35. In October 2016 she had diagnoses of low ejection fraction in the setting of possibly stress cardiomyopathy with pulmonary edema, she was diuresed from approximately 280 pounds Reproductive History Menstrual Hx LMP: 02/2015 Having Periods: No Age at first period: 11 History of abnormal paps: Yes, at least twice, (do not know results and when) Surgical Hx Surgery/Year: Tubal ligation 09/2011, Hysterectomy and salpingectomy 02/2015 for dysmenorrhia, x 2, 2003 and 2011. Last colonoscopy:10/2008 Last mammogram: not yet Hx: , x2 Age of first live : 28 Number of live births: 2 Number of pregnancies: 4 Did you breastfeed: No If Yes, how long? N/A Oral Control: Yes Years: < 5 years Infertility Medication: No Year/Med Name: N/A Menopausal Hx Age of last period: 40 Hormone Replacement Therapy: No Years: N/A Advanced Directive: No Health Care POA: Yes, May migdalia (sister) [phone]. Past Medical History: Past Medical History: Diagnosis Date Anxiety disorder Arthritis Asthma As child. Currently quiescent Cephalgia Cervical dysplasia s/p cryo surgery Complication of anesthesia DM (diabetes mellitus), type 2 (HCC) 2009 Insulin dependent. Dyslipidemia Enterocutaneous fistula 1997 Heart disease chronic diastolic heart failure High cholesterol HTN (hypertension) Liver disease Lumbar disc disease s/p back surg X 2 (both in 1998) Migraines Pericardial effusion 2015 PUD (peptic ulcer disease) 2010 Seasonal allergic reaction Seizure, febrile (HCC) As child. No recurrence Stroke (HCC) Surgical wound infection at lumbar back surgery site. Required second surgery and wound vac Unspecified peritonitis 10/04/11 Occurred after tubal ligation surgery Past Surgical History: Past Surgical History: Procedure Laterality Date OVARIAN CYST SURGERY 1993 HX SURGERY 1997 Repair of enteroccutaneous fistula SECTION 01/09/04 UPPER GASTROINTESTINAL ENDOSCOPY 2008 COLONOSCOPY 10/26/08 SECTION 08/03/11 TUBAL LIGATION 10/04/11 LAP CHOLECYSTECTOMY 01/06/13 HYSTERECTOMY 2016 hysterectomy with salpingectomy BACK SURGERY X 2, 1998 CERVIX LESION DESTRUCTION COLONOSCOPY EAR SURGERY HX EAR TUBES PARACENTESIS multiple times DC ESOPHAGOSCOPY FLEXIBLE TRANSORAL DIAGNOSTIC TONSIL AND ADENOIDECTOMY As child WISDOM TEETH EXTRACTION Medications: Current Outpatient Medications: albuterol 0.5% (PROVENTIL; VENTOLIN) 2.5 mg/0.5 mL nebulizer solution, Inhale 2.5 mg solution by nebulizer as directed every 6 hours as needed for Shortness of Breath or Wheezing., Disp: , Rfl: amoxicillin/K clavulanate (AUGMENTIN) 875/125 mg tablet, Take 1 tablet by mouth every 12 hours. Take with food., Disp: , Rfl: atovaquone (MEPRON) 750 mg/5 mL oral suspension, Take 10 mL by mouth daily with breakfast., Disp: 300 mL, Rfl: 1 belimumab (BENLYSTA) 200 mg/mL atIn, Inject 200 mg under the skin every 7 days., Disp: 4 mL, Rfl: 5 BIOTIN PO, Take 1 tablet by mouth daily., Disp: , Rfl: Calcium-Cholecalciferol (D3) (CALCIUM WITH VITAMIN D) 600 mg(1,500mg) -400 unit tab, Take 1 Tab by mouth daily., Disp: , Rfl: carvedilol (COREG) 12.5 mg tablet, Take 1.5 tablets by mouth twice daily with meals. Take with food., Disp: 90 tablet, Rfl: 5 diclofenac(+) (VOLTAREN) 1 % topical gel, Apply to hands and knees 3-4 times daily, Disp: 500 g, Rfl: 1 ergocalciferol (VITAMIN D-2) 50,000 unit capsule, Take 1 Cap by mouth every 7 days. Indications: VITAMIN D DEFICIENCY, Disp: 4 Cap, Rfl: 1 fish oil /omega-3 fatty acids (SEA-OMEGA) 340/1000 mg capsule, Take 1 capsule by mouth daily., Disp: , Rfl: fluticasone (FLONASE) 50 mcg/actuation nasal spray, Apply 2 sprays to each nostril as directed as Needed. Shake bottle gently before using., Disp: , Rfl: furosemide (LASIX) 40 mg tablet, Take one tablet by mouth every morning., Disp: 90 tablet, Rfl: 3 hydrocortisone 2.5% (ANUSOL-HC) 2.5 % rectal cream, Use as needed., Disp: 28.35 g, Rfl: 0 hydroxychloroquine (PLAQUENIL) 200 mg tablet, TAKE ONE TABLET BY MOUTH TWICE DAILY, Disp: 180 tablet, Rfl: 1 imiquimod(+) (ALDARA) 5 % topical cream, at least 3 times/week on alternative days prior to bedtime. Remove by washing with mild soap and water.You may use a vaginal applicator, Disp: 30 packet, Rfl: 5 insulin aspart (NOVOLOG FLEXPEN) 100 unit/mL injection PEN, Inject 0-14 Units into area(s) as directed before meals and at bedtime. (Patient taking differently: Inject 15 Units under the skin three times daily. 2 units for every 40 mg/dL over 140 mg/dL. Inject based on sliding scale), Disp: 3 Package, Rfl: 3 insulin detemir(+) (LEVEMIR FLEXTOUCH) 100 unit/mL (3 mL) injection pen, Inject 20 Units under the skin at bedtime daily., Disp: , Rfl: lactulose 10 gram/15 mL oral solution, Take 30 mL by mouth as Needed. Titrate to 3-4 bowel movements per day. Indications: HYPERAMMONEMIA, hold lactulose if >2 bowel movement/ day, Disp: 946 mL, Rfl: 0 LANTUS SOLOSTAR U-100 INSULIN 100 unit/mL (3 mL) injection PEN, Inject 20 Units under the skin daily., Disp: , Rfl: loratadine (CLARITIN) 10 mg tablet, Take 10 mg by mouth daily., Disp: , Rfl : Magnesium Gluconate 30 mg (550 mg) tab, Take 1 tablet by mouth twice daily. , Disp: 60 tablet, Rfl: 11 mycophenolate mofetil (CELLCEPT) 500 mg tablet, Take 2 tablets by mouth twice daily. Take on an empty stomach., Disp: 120 tablet, Rfl: 0 ondansetron hcl (ZOFRAN) 4 mg tablet, Take 1 Tab by mouth every 6 hours as needed for Nausea., Disp: 60 Tab, Rfl: [address] (PROTONIX) 40 mg tablet, Take 1 tablet by mouth twice daily. (Patient taking differently: Take 40 mg by mouth daily.), Disp: 60 tablet , Rfl: 0 pravastatin (PRAVACHOL) 20 mg tablet, Take 2 tablets by mouth at bedtime daily., Disp: 60 tablet, Rfl: 11 prednisone (DELTASONE) 10 mg tablet, 15 mg., Disp: , Rfl: prednisone (DELTASONE) 5 mg tablet, 40 mg 2 days. Then 30mg 3 days. Then 20mg 3 days. Then 15mg daily. (Patient taking differently: 15 mg daily with breakfast.), Disp: 316 tablet, Rfl: 0 quinacrine HCl (QUINACRINE (BULK)) powd, Take 100 mg by mouth daily., Disp : 3 g, Rfl: 2 rifAXIMin (XIFAXAN) 550 mg tablet, Take 1 tablet by mouth twice daily. Indications: HEPATIC ENCEPHALOPATHY, Disp: 60 tablet, Rfl: 11 sertraline (ZOLOFT) 100 mg tablet, Take 100 mg by mouth daily., Disp: , Rfl : spironolactone (ALDACTONE) 25 mg tablet, Take 1 tablet by mouth twice daily., Disp: 180 tablet, Rfl: 2 traMADol (ULTRAM) 50 mg tablet, Take 100 mg by mouth every 6 hours as needed for Pain., Disp: , Rfl: triamcinolone acetonide (KENALOG) 0.1 % topical cream, Apply to affected lower legs twice daily as directed (Patient taking differently: as Needed. Apply to affected lower legs twice daily as directed), Disp: 45 g, Rfl: 0 vitamins, multiple cap, Take 1 capsule by mouth daily., Disp: , Rfl: warfarin (COUMADIN) 5 mg tablet, Take 10 mg by mouth daily., Disp: , Rfl: Current Facility-Administered Medications: ACETIC ACID 0.25 % IR SOLN (Cabinet Override), , , NOW, Allergies: Allergies Allergen Reactions Latex RASH Morphine MENTAL [...] RASH Developed rash after receiving IV Fentanyl Social History: Social History Socioeconomic History Marital status: Single Spouse name: Not on file Number of children: 4 Years of education: Not on file Highest education level: Not on file Social Needs Financial resource strain: Not on file Food insecurity - worry: Not on file Food insecurity - inability: Not on file Transportation needs - medical: Not on file Transportation needs - non-medical: Not on file Occupational History Not on file Tobacco Use Smoking status: Former Smoker Packs/day: 0.50 Years: 15.00 Pack years: 7.50 Types: Cigarettes Last attempt to quit: 04/12/2015 Years since quittin.8 Smokeless tobacco: Never Used Tobacco comment: Quit 04-12-2015 Substance and Sexual Activity Alcohol use: No Alcohol/week: 0.0 oz Comment: Heavy EtOH use during weekends for approximately 10 years in patient' s 20's Drug use: Yes Comment: Past use of marijuana, meth (snorted/smoked) in patient's 20's. 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 Single with 2 children. Family History: Family History Problem Relation Age of Onset [...] Hx Cancer-Thyroid Neg Hx Cancer-Uterine Neg Hx REVIEW OF SYSTEMS: CONSTITUTIONAL: Negative unless stated in HPI EYES: Negative unless stated in HPI ENT: Negative unless stated in HPI RESPIRATORY: Negative unless stated in HPI CARDIOVASCULAR: Negative unless stated in HPI GI: Negative unless stated in HPI : Negative unless stated in HPI MUSCULO-SKELETAL: Negative unless stated in HPI SKIN: Negative unless stated in HPI ECOG 2 Physical Exam: BP 127/79 (BP Source: Arm, Left Upper, Patient Position: Sitting) | Pulse 95 | Temp 36.3 C (97.3 F) (Oral) | Resp 16 | Ht 177.8 cm (70") | Wt 123.8 kg (273 lb) | LMP 02/05/2015 | SpO2 97% | BMI 39.17 kg/m GENERAL APPEARANCE: Appears healthy. Alert; in no acute distress. Pleasant. HEENT: Unremarkable. No tenderness or masses noted. NECK: Neck supple. No tenderness. No adenopathy. LUNGS: Chest symmetrical. Good diaphragmatic excursion. Lungs clear; normal breath sounds. CARDIOVASCULAR: RRR. Heart sounds normal. ABDOMEN: Abdomen soft, non-tender. No masses or hernia. No clinical evidence of ascites. PELVIC: External genitalia,urethral meatus, urethra, bladder and vagina normal. No lesions noted at vag cuff. Cervix, uterus adnexae surgically absent. No defects noted in vaginal cuff. Anus and perineum normal. Bimanual without masses or nodularity on the pelvic floor. Exam chaperoned by nurse EXTREMITIES: Extremities normal. No joint deformities, edema, or skin discoloration. Station and gait normal. SKIN: Skin color, texture, turgor normal. Easy bruising, No rashes or lesions. LYMPH NODES: No palpable lymph nodes ASSESSMENT/PLAN: Sherrie Doe is a 42 y.o. female with history of VAIN II No evidence of cancer today, persistent low grade dysplasia Discussed treatment options of laser ablation of vag cuff vs Aldara treatment. Due to medical comorbidities, did not recommend laser ablation as it would require anesthesia. We did review that chronic immunosuppression will make it likely that the dysplasia will be a chronic condition that we will need to monitor and treat Surgical removal will not be recommended treatment as the likelihood that dysplasia will recur in another location of vagina is very high Can cont with prn Aldara use as tolerated to manage. Reviewed that her visits with myself are for VAIN screening. She still needs well women exams, but can defer pelvic exam as we are performing that. RV 12 mths for fu pap. 

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
--- OUTSIDE RECORDS SUMMARY | 2018-05-05 21:00 | XMS REPORT | Encounter Summary ---
Author Author [facility] Organization [facility] Address Unknown Phone Unavailable Care Team Providers Care Porcelain Technician Name Role Phone KaranMiquel Unavailable Jonatan Vázquez MD Unavailable Sandy Gonsalves MD Unavailable Estephania Breaux MD Unavailable Hugo Ta MD [id number] Khoi Kaminski MD Unavailable Ruben Dozier MD Unavailable Suzette Ramesh RIVET PASSER-C Unavailable Saroj Allan MD Unavailable Dana Duran RIVET PASSER Unavailable Geo Treviño MD Unavailable Gallito Lopez MD PCP Unavailable Iris Devine MD Unavailable Dick Hagan DO 21 Unavailable Valente Gutierrez OD Unavailable Arlin Weber RIVET PASSER Unavailable Evelin Youssef RIVET PASSER-SOW MANAGER 7 Encounter Details Care Team Description Date Type Department Jc Miles MD [address] [facility] [place] [place] [address] [phone] Moderate vaginal dysplasia 02/15/2018 [facility] [address] [address] Social History Date Tobacco Use Types Packs/Day [...] Description Date Type Specialty Janelle Bell MD [address] [place] [address] [phone] Esophageal varices in cirrhosis (HCC) 05/27/2018 Hospital Encounter Janelle Bell MD [address] [address] [phone] ESOPHAGOGASTRODUODENOSCOPY 05/27/2018 Surgery documented as of this encounter Procedures Comments Procedure Name Priority Date/Time Associated Diagnosis PAP THIN PREP 02/15/2018 3:21 PM MUCK OPERATOR documented in this encounter Results * PAP THIN PREP (02/15/2018 3:21 PM MUCK OPERATOR) Cytology [facility] [email or web address] Department of Pathology and Laboratory Medicine [address] [place] [address]. Office:[phone] CYTOLOGY REPORT NAME: SHERRIE DOE CYTOLOGY #: [id number] MR #: [id number] ALT ID #: BILLING #: [id number] LOCATION: [address] DATE OF PROCEDURE: 02/15/2018 15:21 AGE:42 SEX: [...] testing results. Comment HPV, High Risk: Positive Expanite Gen-Probe APTIMA HR-HPV Assay is a FDA [...] Department of Pathology and Laboratory Medicine at [facility] using Expanite Gen-PassportParkingher System. HPV, High Risk, Reflex to Genotyping: [...] conjunction with history and clinical findings.Reported using [employer] terminology. ############################## ############################## ############ Performing Organization Address City/State/Zipcode Phone Number [facility] [address] [place] [address] documented in this encounter Visit Diagnoses Not on filedocumented in this encounter
--- OUTSIDE RECORDS SUMMARY | 2018-05-05 21:01 | XMS REPORT ---
Author Author LINDA BABCOCK [facility] eClinicalWorks Address Unknown Phone Unavailable Care Team Providers Care It Teacher Name Role Phone LINDA BABCOCK Unavailable Allergies No Known Allergies Problems Problem Type Condition Code Onset Dates Condition Status Problem Renal failure N19 Active Problem Hypercholesterolemia E78.0 Active Problem Kidney failure N19 Active Problem GERD (gastroesophageal reflux disease) K21.9 Active Problem CAD (coronary artery disease) I25.10 Active Problem HTN (hypertension) I10 Active Problem Lupus M32.9 Active Problem Type 2 diabetes mellitus with other circulatory complications E11.59 Active Problem Neuropathy G62.9 Active Problem Dysfunctional uterine bleeding N93.8 Active Medications No Known Medications Results No Known Results Summary Purpose eClinicalWorks Submission
--- OUTSIDE RECORDS SUMMARY | 2018-05-05 21:01 | XMS REPORT ---
Author Author LINDA BABCOCK [facility] eClinicalWorks Address Unknown Phone Unavailable Care Team Providers Care Hot Wire Glass Tube Cutter Name Role Phone LINDA BABCOCK Unavailable Allergies No Known Allergies Problems Problem Type Condition Code Onset Dates Condition Status Problem Renal failure N19 Active Problem Hypercholesterolemia E78.0 Active Problem Kidney failure N19 Active Assessment Systemic lupus erythematosus M32.9 Active Problem GERD (gastroesophageal reflux disease) K21.9 [...]
--- OUTSIDE RECORDS SUMMARY | 2018-05-05 21:01 | XMS REPORT ---
Author Author Migration, Doctor Organization [facility] Address Unknown Phone Unavailable Care Team Providers Care Wallpaper Remover Steam Name Role Phone Migration, Doctor Unavailable Unavailable PROBLEMS Type Condition ICD9-CM Code FCM05-WE Code Onset Dates Condition Status SNOMED Code Problem Routine gynecological examination Z01.419 June, 0 [id number] Problem Hyperammonemia E72.20 Aug, 0 3416110 Problem Anemia of chronic disease D63.8 May, 0 025037734 Problem Hepatic encephalopathy K72.90 Sep, 0 00088701 Problem Morbid obesity E66.01 Sep, 0 731916166 Problem CAD (coronary artery disease) I25.10 Active 75060835 Problem Atrial fibrillation 427.31 Aug, 0 15590827 Problem HTN (hypertension) I10 Active 21975678 Problem Acute pancreatitis 577.0 Apr, 0 210976500 Problem Morbid obesity 278.01 Sep, 0 327490344 Problem Essential hypertension, benign 401.1 Sep, 0 8446440 Problem Atrial fibrillation I48.91 Aug, 0 94641295 Problem Pure hypercholesterolemia 272.0 Sep, 0 224680815 Problem Hepatic encephalopathy 572.2 Sep, 0 08331582 Problem Pleural effusion associated with hepatic disorder K76.9 Sep, 0 43657795 Problem Hepatic cirrhosis K74.60 Aug, 0 95921614 Problem Hepatic cirrhosis 571.5 Aug, 0 57525100 Problem Lupus nephritis M32.14 June, 0 82956849 Problem Lupus nephritis 710.0 June, 0 54552248 Problem Tobacco use Z72.0 Oct, 0 768602229 Problem Renal insufficiency N28.9 Feb, 0 735270356 Problem 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 Aug, 0 344196195 Problem Hypomagnesemia E83.42 Aug, 0 564519321 Problem Pleural effusion associated with hepatic disorder 511.89 Sep, 0 09057356 Problem Diabetes mellitus type 2, controlled, without complications E11.9 07 Sep, 2014 0 139390305 Problem Acute pancreatitis K85.90 11 Apr, 2013 0 369420262 Problem Moderate episode of recurrent major depressive disorder 296.32 Sep, 0 06464266 Problem Type 2 diabetes with stage 3 chronic kidney disease GFR 30-59 E11.22 07 Apr, 2017 0 038258211 Problem Type 2 diabetes with stage 3 chronic kidney disease GFR 30-59 250.40 Apr, 0 649749753 Problem Pure hypercholesterolemia E78.00 Sep, 0 952048948 Problem 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 Aug, 0 09259884 Problem Lupus L93.0 May, 0 270943086 Problem Lupus 695.4 May, 0 880444186 Problem Fibrous histiocytoma D23.9 Apr, 0 56174425 Problem Fibrous histiocytoma 216.9 Apr, 0 52696155 Problem Essential hypertension, benign I10 Sep, 0 1796796 Problem Diabetes mellitus without complication E11.9 Aug, 0 352082742 Problem Hypercholesterolemia E78.0 Active 81403969 Problem Abdominal pain, generalized R10.84 Feb, 0 976925232 Problem Lupus M32.9 Active 69679797 Problem Renal insufficiency 593.9 Feb, 0 981092495 Problem Type 2 diabetes mellitus with other circulatory complications E11.59 Active 632519367 Problem Tobacco use 305.1 Oct, 0 257338876 Problem Neuropathy G62.9 Active 974395124 Problem Abdominal pain, generalized 789.07 Feb, 0 266809876 Problem Renal failure N19 Active 38935965 Problem Routine gynecological examination V72.31 June, 0 228030758665455 Problem GERD (gastroesophageal reflux disease) K21.9 Active 750842334 Problem Thrombocytopenia D69.6 Active 973270594 Problem Leukopenia D72.819 Active 74862549 Problem CANO (nonalcoholic steatohepatitis) K75.81 Active 108558518 Problem Dermatofibroma D23.9 Apr, 0 50670260 Problem Hyperammonemia 270.6 Aug, 0 3276565 Problem Anxiety F41.9 Active 22206303 Problem Moderate episode of recurrent major depressive disorder F33.1 Sep, 0 57967192 Problem Diabetes mellitus without complication 250.00 Aug, 0 808518033 Problem Diabetes mellitus type 2, controlled, without complications 250.00 Sep, 0 711927517 Problem Menometrorrhagia N92.1 Nov, 0 526390715 Problem Menometrorrhagia 626.2 Nov, 0 698218581 Problem 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 65259552 Problem Dermatofibroma 216.9 Apr, 0 36654259 Problem Chronic pain syndrome G89.4 Active 738148023 Problem Anemia of chronic disease 285.29 May, 0 655557076 Problem Chronic lupus nephritis M32.14 Active 44213067 Problem Mild episode of recurrent major depressive disorder F33.0 Active 479682473 Problem Hypomagnesemia 275.2 Aug, 0 443011803 ALLERGIES No Information ENCOUNTERS Encounter Location Date Diagnosis [address] [address] Apr, Thrombocytopenia D69.[address] [address] Apr, Anxiety F41.[address] [address] Mar, [facility] [address] [place] [address] Mar, Thrombocytopenia D69.[address] [address] Mar, Thrombocytopenia D69.6 [facility] [address] [place] [address] Mar, Thrombocytopenia D69.6 [facility] [address] [address] Mar, [facility] [id number] [place] [address] Mar, [address] [address] Mar, Anxiety F41.9 [facility] [address] [address] Feb, [facility] [id number] [address] Jan, [facility] [address] [address] [address] Jan, [facility] [address] [address] Jan, [facility] [id number] [address] Jan, [facility] [address] [address] Dec, [facility] [address] [address] Aug, [facility] [address] [address] Aug, [facility] [address] [address] Apr, [facility] [address] [address] Mar, Chronic lupus nephritis M32.14 ; Drug rash L27.0 ; CANO ( nonalcoholic steatohepatitis) K75.81 ; Pancytopenia D61.818 ; Mild episode of recurrent major depressive disorder F33.0 ; Diabetes type 2, uncontrolled E11.65 and Chronic pain syndrome G89.4 [facility] [id number] [address] Mar, [facility] [id number] [address] Mar, Kidney failure N19 ; 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 ; Leukopenia D72.819 and Thrombocytopenia D69.6 [facility] [id number] [address] Mar, Systemic lupus erythematosus M32.9 [facility] [address] [address] Feb, [facility] [id number] [place] [address] Feb, Systemic lupus erythematosus M32.9 [facility] [id number] [place] [address] Feb, [facility] [id number] [place] [address] Feb, Lupus M32.9 ; Dysfunctional uterine bleeding N93.8 ; Hypercholesterolemia E78.0 ; Kidney failure N19 ; Renal failure N19 ; HTN ( hypertension) I10 ; CAD (coronary artery disease) I25.10 ; GERD ( gastroesophageal reflux disease) K21.9 ; Neuropathy G62.9 ; Type 2 diabetes mellitus with other circulatory complications E11.59 and Anxiety F41.9 [facility] [id number] [place] [address] Feb, Sinusitis J32.9 [facility] [id number] [place] [address] 14 May, 2014 [facility] [id number] [place] [address] May, [facility] [address] [address] Apr, [facility] [id number] [place] [address]- [address] 15 Apr, 2012 [facility] [id number] [place] [address]- [address] 14 Apr, 2012 [facility] [id number] [place] [address]- [address] 19 Mar, 2012 [facility] [id number] [place] [address]- [address] 18 Mar, 2012 [facility] [id number] [address] Mar, [facility] [address] [id number] [place] [address] Feb, [facility] [address] [id number] [place] [address] 5056 Feb, [facility] [address] [id number] [place] [address]- 8[address] Jan, [facility] [address] [id number] [place] [address]- 3585 Jan, [facility] [address] [id number] [place] [address]- 7852 Jan, [facility] [address] [id number] [place] [address]- 9335 Jan, [facility] [address] [id number] [place] [address]- 0402 Jan, [facility] [address] [id number] [place] [address]- 2013 Dec, [facility] [address] [id number] [place] [address]- 7992 Dec, [facility] [address] [id number] [place] [address]- 2715 Dec, [facility] [address] [id number] [place] [address]- 9985 Dec, [facility] [address] [id number] [place] [address]- 5855 Dec, [facility] [place] [facility] [address] [id number] [place] [address]- 2470 Dec, [facility] [address] [id number] [place] [address]- 6704 Dec, [facility] [address] [id number] [place] [address]- 1028 Dec, [facility] [place] [facility] [address] [id number] [place] [address]- 0621 15 Nov, 2011 [facility] [place] [facility] [address] [id number] [place] [address]- 2786 15 Nov, 2011 [facility] [place] [facility] [address] [id number] [place] [address]- 3778 Nov, [facility] [place] [facility] [address] [id number] [place] [address]- 1093 Nov, [facility] [place] [facility] [address] [id number] [place] [address]- 1892 Nov, [facility] [place] [facility] [address] [id number] [place] [address]- 4796 Nov, [facility] [place] [facility] [address] [id number] [place] [address]- 1676 Nov, [facility] [place] [facility] [address] [id number] [place] [address]- 0601 Apr, [facility] [place] [facility] [address] [id number] [place] [address]- 0577 Mar, [facility] [place] [facility] [address] [id number], [place] [address]- 1626 Feb, [facility] [place] [facility] [address] [id number], [place] [address]- 5648 Feb, [facility] [place] [facility] [address] [id number] [address]- 2719 Feb, [facility] [place] [facility] [address] [id number] [place] [address]- 2961 Feb, [facility] [place] [facility] [address] [id number], [place] [address]- 0486 Feb, [facility] [place] [facility] [address] [facility] [id number], [place] [address]- 4266 Feb, [facility] [place] [facility] [address] [id number], [place] [address]- 6162 03 Feb, 2011 [facility] [address] [id number] [place] [address]- 5431 31 Jan, 2011 [facility] [address] [id number] [place] [address]- 2836 30 Jan, 2011 [facility] [address] [id number] [place] [address]- 3196 29 Jan, 2011 [facility] [address] [id number] [place] [address]- 8038 23 Jan, 2011 [facility] [address] [id number] [place] [address]- 7877 22 Jan, 2011 [facility] [address] [id number] [place] [address]- 0530 21 Jan, 2011 [facility] [address] [id number] [place] [address]- 7076 20 Jan, 2011 [facility] [address] [id number] [place] [address]- 8377 19 Jan, 2011 [facility] [address] [id number] [place] [address]- 6972 19 Jan, 2011 [facility] [address] [id number] [place] [address]- 3521 16 Jan, 2011 [facility] [address] [id number] [place] [address]- 5079 16 Jan, 2011 [facility] [place] [facility] [address] [id number] [place] [address]- 3183 14 Jan, 2011 [facility] [place] [facility] [address] [id number] [place] [address]- 3752 13 Jan, 2011 [facility] [place] [facility] [address] [id number] [place] [address]- 1533 12 Jan, 2011 [facility] [place] [facility] [address] [facility] [id number] [place] [address]- 5573 09 Jan, 2011 [facility] [place] [facility] [address] [id number] [place] [address]- 2979 Jan, [facility] [place] [facility] [address] [id number] [place] [address]- 7051 Jan, [facility] [place] [facility] [address] [id number] [place] [address]- 2546 Jan, [facility] [place] [facility] [address] [id number] [place] [address]- 4594 Dec, [facility] [place] [facility] [address] [id number] [place] [address]- 9894 Dec, [facility] [place] [facility] [address] [id number] [place] [address]- 7190 Dec, [facility] [place] [facility] [address] [id number] [place] [address]- 8227 Dec, [facility] [place] [facility] [address] [id number] [place] [address]- 1762 Dec, [facility] [place] [facility] [address] [id number] [place] [address]- 8890 Dec, [facility] [place] [facility] [address] [id number] [place] [address]- 2708 Dec, [facility] [place] [facility] [address] [id number] [place] [address]- 8904 Dec, [facility] [place] [facility] [address] [id number] [place] [address]- 2921 Dec, [facility] [place] [facility] [address] [id number] [place] [address]- 2542 Dec, [facility] [place] [facility] [address] [id number] [place] [address]- 3694 Dec, [facility] [place] [facility] [address] [id number] [place] [address]- 2549 16 Dec, 2010 [facility] [place] [facility] [address] [id number] [place] [address]- 4870 Dec, [facility] [address] [facility] [id number], [place] [address]- 8291 Dec, [facility] [address] [facility] [id number], [place] [address]- 3170 Dec, [facility] [address] [facility] [id number], [place] [address]- 6956 Dec, [facility] [address] [facility] [id number], [place] [address]- 2721 Dec, [facility] [address] [facility] [id number], [place] [address]- 4488 Dec, [facility] [address] [facility] [id number], [place] [address]- 4313 Dec, [facility] [address] [facility] [id number], [place] [address]- 4466 Dec, [facility] [address] [facility] [id number], [place] [address]- 2339 Dec, [facility] [address] [facility] [id number], [place] [address]- 8106 Nov, [facility] [address] [facility] [id number], [place] [address]- 4297 Nov, [facility] [address] [facility] [id number], [place] [address]- 9485 Nov, [facility] [address] [facility] [id number], [place] [address]- 7813 Nov, [facility] [address] [facility] [id number], [place] [address]- 3392 Nov, [facility] [address] [facility] [id number], [place] [address]- 6419 Nov, [facility] [address] [facility] [id number], [place] [address]- 3952 June, IMMUNIZATIONS No Known Immunizations SOCIAL HISTORY Never Assessed REASON FOR VISIT EMR-[facility] PLAN OF CARE VITAL SIGNS MEDICATIONS Unknown Medications RESULTS No Results PROCEDURES No Known procedures INSTRUCTIONS MEDICATIONS ADMINISTERED No Known Medications MEDICAL (GENERAL) HISTORY Type Description Date Medical History diabetes type II Medical History Lupus Medical History fibromyalgia Medical History migraines Medical History CANO Surgical History back x 2 Surgical History tonsillectomy and adnoidectomy Surgical History tubal ligation Surgical History cysts on ovaries Surgical History umbilica fiscula Surgical History fluid removal from body for kidney and liver failure Surgical History cholecystecomy Surgical History x 2 Surgical History hysterectomy 2015 Hospitalization History multi-system failure([facility]) Hospitalization History surgeries Hospitalization History Lupus [facility] 03/2015
--- OUTSIDE RECORDS SUMMARY | 2018-05-05 21:01 | XMS REPORT ---
Author Author LINDA BABCOCK Organization [employer] Address Unknown Phone Unavailable Care Team Providers Care Production Team Member Name Role Phone LINDA BABCOCK CP Unavailable Allergies, Adverse Reactions, Alerts Substance Reaction Event Type Latex Info Not Available Drug Allergy Morphine Sulfate Info Not Available Drug Allergy Demerol Info Not Available Drug Allergy Benadryl Info Not Available Drug Allergy IV contrast Info Not Available Non Drug Allergy Problems Problem Type Condition Code Onset Dates Condition Status Problem Type 2 diabetes mellitus with other circulatory complications E11.59 Active Problem Hypercholesterolemia E78.0 Active Problem Lupus M32.9 Active Assessment Sinusitis J32.9 Active Problem Kidney failure N19 Active Problem Renal failure N19 Active Medications Medication Code System Code Instructions Start Date End Date Status Dosage Mucinex D [facility] [address]-91 120-1200 MG Orally every 12 hrs Feb 17, 2015 1 tablet as needed Augmentin [facility] [address]-12 875-125 MG Orally every 12 hrs Feb 17, 2015 Feb 27, 2015 1 tablet Lisinopril [facility] [address]-49 10 MG Orally 1 TAB orally once a day Dec 14, 2011 1 tablet by Oral route 1 time per day Flonase NDC 0 50 mcg/actuation 2 spray(s) intranasally 2 times a day Mar 01, 2012 1 sprays by Nasal route 2 times per dayin each nostril Levemir Flexpen NDC 0 100 unit/mL subcutaneous twice a day Mar 26, 2012 25 Units by Subcutaneous route 1 time per day Procedures Procedure Coding System Code Date Office Visit, Est Pt., Level 3 CPT-4 36404 Feb 17, 2015 Vital Signs Date/Time: Feb 17, 2015 Temperature 97.3 F Weight 250 lbs Height 70 in BMI 35.87 Index Blood Pressure Diastolic 88 mmHg Blood Pressure Systolic 148 mmHg Cardiac Monitoring Heart Rate 88 bpm Results No Known Results Summary Purpose [employer]Clinical[employer] Submission
--- OUTSIDE RECORDS SUMMARY | 2018-05-05 21:01 | XMS REPORT ---
Author Author LIDNA BABCOCK [facility] [employer] Address Unknown Phone Unavailable Care Team Providers Care Social Group Worker Name Role Phone LINDA BABCOCK Unavailable Allergies No Known Allergies Problems Problem Type Condition Code Onset Dates Condition Status Problem CAD (coronary artery disease) I25.10 Active Problem HTN (hypertension) I10 Active Problem GERD (gastroesophageal reflux disease) K21.9 Active Problem CANO (nonalcoholic steatohepatitis) K75.81 Active Problem Mild episode of recurrent major depressive disorder F33.0 Active Problem Chronic lupus nephritis M32.14 Active Problem Leukopenia D72.819 Active Problem Thrombocytopenia D69.6 Active Problem Chronic pain syndrome G89.4 Active 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
--- OUTSIDE RECORDS SUMMARY | 2018-05-05 21:04 | XMS REPORT | Continuity of Care Document ---
Author Author Formerly [facility] Address Unknown Phone Unavailable Allergies Active Description Code Type Severity Reaction Onset Reported/Identified Relationship to Patient Clinical Status Yes Benadryl Drug Allergy 06/16/2008 Yes Demerol Drug Allergy 06/16/2008 Yes morphine Drug Allergy 06/16/2008 Yes diphenhydramine HCl [id number] Drug Allergy Unknown N/A 10/06/2011 Yes latex [id number] Drug Allergy Unknown N/A 10/06/2011 Yes meperidine HCl [id number] Drug Allergy Unknown N/A 10/06/2011 Yes morphine [id number] Drug Allergy Unknown N/A 10/06/2011 Yes vancomycin [id number] Drug Allergy Unknown N/A 10/06/2011 Yes fentanyl [id number] Drug Allergy Unknown N/A 03/04/2015 Medications There is no data. Problems Date Dx Coded Attending Type Code Diagnosis Diagnosed By 06/16/2008 GABRIEL RILEY DO 719.47 Ankle Joint Pain 06/16/2008 GABRIEL RILEY DO 719.47 Ankle Joint Pain 06/16/2008 719.47 Ankle Joint Pain 06/16/2008 GABRIEL RILEY DO 719.47 Ankle Joint Pain 06/16/2008 IGOR HERRERA PA-C 719.47 Ankle Joint Pain 10/25/2010 GABRIEL RILEY DO 112.3 Candidiasis Of The Skin 10/25/2010 GABRIEL RILEY DO 250.02 DIABETES MELLITUS TYPE 2 - UNCOMPLICATED, UNCONTROLLED 10/25/2010 GARBIEL RILEY DO 461.9 Sinusitis Acute 10/25/2010 GABRIEL RILEY DO 112.3 Candidiasis Of The Skin 10/25/2010 GABRIEL RILEY DO 250.02 DIABETES MELLITUS TYPE 2 - UNCOMPLICATED, UNCONTROLLED 10/25/2010 GABRIEL RILEY DO 461.9 Sinusitis Acute 10/25/2010 112.3 Candidiasis Of The Skin 10/25/2010 250.02 DIABETES MELLITUS TYPE 2 - UNCOMPLICATED, UNCONTROLLED 10/25/2010 461.9 Sinusitis Acute 10/25/2010 RILEY DO, GABRIEL K 112.3 Candidiasis Of The Skin 10/25/2010 RILEY DO, GABRIEL K 250.02 DIABETES MELLITUS TYPE 2 - UNCOMPLICATED, UNCONTROLLED 10/25/2010 RILEY DO, GABRIEL K 461.9 Sinusitis Acute 10/25/2010 IGOR HERRERA PA-C 112.3 Candidiasis Of The Skin 10/25/2010 IGOR HERRERA PA-C 250.02 DIABETES MELLITUS TYPE 2 - UNCOMPLICATED, UNCONTROLLED 10/25/2010 IGOR HERRERA PA-C 461.9 Sinusitis Acute 11/15/2010 RILEY DO, GABRIEL K V04.81 Flu Dx (3 Yrs And Above, Im) 11/15/2010 RILEY DO, GABRIEL K V04.81 Flu Dx (3 Yrs And Above, Im) 11/15/2010 V04.81 Flu Dx (3 Yrs And Above, Im) 11/15/2010 RILEY DO, GABRIEL K V04.81 Flu Dx (3 Yrs And Above, Im) 11/15/2010 IGOR HERRERA PA-C V04.81 Flu Dx (3 Yrs And Above, Im) 11/25/2010 RILEY DO, GABRIEL K 401.1 HYPERTENSION, BENIGN ESSENTIAL 11/25/2010 RILEY DO, GABRIEL K 782.3 Edema 11/25/2010 RILEY DO, GABRIEL K V03.82 Ppv23 (pneumovax) Dx 11/25/2010 RILEY DO, GABRIEL K 401.1 HYPERTENSION, BENIGN ESSENTIAL 11/25/2010 RILEY DO, GABRIEL K 782.3 Edema 11/25/2010 RILEY DO, GABRIEL K V03.82 Ppv23 (pneumovax) Dx 11/25/2010 401.1 HYPERTENSION, BENIGN ESSENTIAL 11/25/2010 782.3 Edema 11/25/2010 V03.82 Ppv23 ( pneumovax) Dx 11/25/2010 RILEY DO, GABREIL K 401.1 HYPERTENSION, BENIGN ESSENTIAL 11/25/2010 RILEY DO, GABRIEL K 782.3 Edema 11/25/2010 RILEY DO, GABRIEL K V03.82 Ppv23 (pneumovax) Dx 11/25/2010 IGOR HERRERA PA-C 401.1 HYPERTENSION, BENIGN ESSENTIAL 11/25/2010 IGOR HERRERA PA-C 782.3 Edema 11/25/2010 IGOR HERRERA PA-C V03.82 Ppv23 (pneumovax) Dx 12/01/2010 AINSLEY RILEY DOA K 250.00 DIABETES MELLITUS TYPE 2 12/01/2010 RILEY DO, GABRIEL K 724.2 Lumbago 12/01/2010 RILEY DO, GABRIEL K 250.00 DIABETES MELLITUS TYPE 2 12/01/2010 RILEY DO, GABRIEL K 724.2 Lumbago 12/01/2010 250.00 DIABETES MELLITUS TYPE 2 12/01/2010 724.2 Lumbago 12/01/2010 RILEY DO, GABRIEL K 250.00 DIABETES MELLITUS TYPE 2 12/01/2010 RILEY DO, GABRIEL K 724.2 Lumbago 12/01/2010 IGOR HERRERA PA-C 250.00 DIABETES MELLITUS TYPE 2 12/01/2010 IGOR HERRERA PA-C 724.2 Lumbago 12/14/2010 AINSLEY RILEY DOA K 788.1 Dysuria 12/14/2010 AINSLEY RILEY DOA K 788.1 Dysuria 12/14/2010 788.1 Dysuria 12/14/2010 RILEY DO, GABRIEL K 788.1 Dysuria 12/14/2010 IGOR HERRERA PA-C 788.1 Dysuria 12/21/2010 GABRIEL RILEY DO V23.82 Supervision Of High-risk With Elderly Multigravida 12/21/2010 GABRIEL RILEY DO V72.42 Examination Or Test Positive Result 12/21/2010 GABRIEL RILEY DO V23.82 Supervision Of High-risk With Elderly Multigravida 12/21/2010 GABRIEL RILEY DO V72.42 Examination Or Test Positive Result 12/21/2010 V23.82 Supervision Of High-risk With Elderly Multigravida 12/21/2010 V72.42 Examination Or Test Positive Result 12/21/2010 GABRIEL RILEY DO V23.82 Supervision Of High-risk With Elderly Multigravida 12/21/2010 GABRIEL RILEY DO V72.42 Examination Or Test Positive Result 12/21/2010 IGOR HERRERA PA-C V23.82 Supervision Of High-risk With Elderly Multigravida 12/21/2010 IGOR HERRERA PA-C V72.42 Examination Or Test Positive Result 01/02/2011 GABRIEL RILEY DO 642.00 BENIGN ESSENTIAL HYPERTENSION COMPLICATING CHILDBIRTH AND THE PUERPERIUM UNSPECIFIED TO EPISODE OF CARE 01/02/2011 GABRIEL RILEY DO 646.60 Compl Of - Uti 01/02/2011 GABRIEL RILEY DO 648.00 DIABETES MELLITUS OF MOTHER COMPLICATING CHILDBIRTH OR THE PUERPERIUM UNSPECIFIED TO EPISODE OF CARE 01/02/2011 GABRIEL RILEY DO 642.00 BENIGN ESSENTIAL HYPERTENSION COMPLICATING CHILDBIRTH AND THE PUERPERIUM UNSPECIFIED TO EPISODE OF CARE 01/02/2011 GABRIEL RILEY DO 646.60 Compl Of - Uti 01/02/2011 GABRIEL RILEY DO 648.00 DIABETES MELLITUS OF MOTHER COMPLICATING CHILDBIRTH OR THE PUERPERIUM UNSPECIFIED TO EPISODE OF CARE 01/02/2011 642.00 BENIGN ESSENTIAL HYPERTENSION COMPLICATING CHILDBIRTH AND THE PUERPERIUM UNSPECIFIED TO EPISODE OF CARE 01/02/2011 646.60 Compl Of - Uti 01/02/2011 648.00 DIABETES MELLITUS OF MOTHER COMPLICATING CHILDBIRTH OR THE PUERPERIUM UNSPECIFIED TO EPISODE OF CARE 01/02/2011 GABRIEL RILEY DO 642.00 BENIGN ESSENTIAL HYPERTENSION COMPLICATING CHILDBIRTH AND THE PUERPERIUM UNSPECIFIED TO EPISODE OF CARE 01/02/2011 GABRIEL RILEY DO 646.60 Compl Of - Uti 01/02/2011 GABRIEL RILEY DO 648.00 DIABETES MELLITUS OF MOTHER COMPLICATING CHILDBIRTH OR THE PUERPERIUM UNSPECIFIED TO EPISODE OF CARE 01/02/2011 IGOR HERRERA PA-C 642.00 BENIGN ESSENTIAL HYPERTENSION COMPLICATING CHILDBIRTH AND THE PUERPERIUM UNSPECIFIED TO EPISODE OF CARE 01/02/2011 IGOR HERRERA PA-C 646.60 Compl Of - Uti 01/02/2011 IGOR HERRERA PA-C 648.00 DIABETES MELLITUS OF MOTHER COMPLICATING CHILDBIRTH OR THE PUERPERIUM UNSPECIFIED TO EPISODE OF CARE 01/04/2011 GABRIEL RILEY DO 786.50 Chest Pain 01/04/2011 GABRIEL RILEY DO 786.50 Chest Pain 01/04/2011 786.50 Chest Pain 01/04/2011 GABRIEL RILEY DO 786.50 Chest Pain 01/04/2011 IGOR HERRERA PA-C 786.50 Chest Pain 01/13/2011 RILEY GABRIEL ZELAYA 641.90 Compl Of - Bleeding 01/13/2011 ROSEMARY GABRIEL ZELAYA V61.10 Rl Relation Couns 01/13/2011 ROSEMARY ZELAYAGABRIEL 641.90 Compl Of - Bleeding 01/13/2011 ROSEMARY ZELAYAGABRIEL V61.10 Rl Relation Couns 01/13/2011 641.90 Compl Of - Bleeding 01/13/2011 V61.10 Rl Relation Couns 01/13/2011 GABRIEL RILEY DO 641.90 Compl Of - Bleeding 01/13/2011 GABRIEL RILEY DO V61.10 Rl Relation Couns 01/13/2011 IGOR HERRERA PA-C 641.90 Compl Of - Bleeding 01/13/2011 IGOR HERRERA PA-C V61.10 Rl Relation Couns 02/13/2011 GABRIEL RILEY DO K 112.3 Candidiasis Of Skin And Nails 02/13/2011 GABRIEL RILEY DO 599.0 Urinary Tract Infection 02/13/2011 GABRIEL RILEY DO 112.3 Candidiasis Of Skin And Nails 02/13/2011 GABRIEL RILEY DO 599.0 Urinary Tract Infection 02/13/2011 112.3 Candidiasis Of Skin And Nails 02/13/2011 599.0 Urinary Tract Infection 02/13/2011 GABRIEL RILEY DO 112.3 Candidiasis Of Skin And Nails 02/13/2011 GABRIEL RILEY DO 599.0 Urinary Tract Infection 02/13/2011 IGOR HERRERA PA-C 112.3 Candidiasis Of Skin And Nails 02/13/2011 IGOR HERRERA PA-C 599.0 Urinary Tract Infection 10/08/2011 Ot 250.00 10/08/2011 Ot 401.9 10/08/2011 Ot 682.2 10/08/2011 Ot 998.59 11/20/2011 GABRIEL RILEY DO 461.9 Sinusitis Acute 11/20/2011 GABRIEL RILEY DO 682.9 Cellulitis And Abscess Of Unspecified Sites 11/20/2011 GABRIEL RILEY DO 461.9 Sinusitis Acute 11/20/2011 GABRIEL RILEY DO 682.9 Cellulitis And Abscess Of Unspecified Sites 11/20/2011 461.9 Sinusitis Acute 11/20/2011 682.9 Cellulitis And Abscess Of Unspecified Sites 11/20/2011 GABRIEL RILEY DO 461.9 Sinusitis Acute 11/20/2011 RILEY GABRIEL ZELAYA 682.9 Cellulitis And Abscess Of Unspecified Sites 11/20/2011 IGOR HERRERA PA-C 461.9 Sinusitis Acute 11/20/2011 IGOR HERRERA PA-C 682.9 Cellulitis And Abscess Of Unspecified Sites 12/14/2011 GABRIEL RILEY DO 787.02 NAUSEA ALONE 12/14/2011 GABRIEL RILEY DO K 787.91 DIARRHEA 12/14/2011 GABRIEL RILEY DO K 789.00 ABDOMINAL PAIN UNSPECIFIED SITE 12/14/2011 GABRIEL RILEY DO K 787.02 NAUSEA ALONE 12/14/2011 GABRIEL RILEY DO K 787.91 DIARRHEA 12/14/2011 GABRIEL RILEY DO K 789.00 ABDOMINAL PAIN UNSPECIFIED SITE 12/14/2011 787.02 NAUSEA ALONE 12/14/2011 787.91 DIARRHEA 12/14/2011 789.00 ABDOMINAL PAIN UNSPECIFIED SITE 12/14/2011 GABRIEL RILEY DO K 787.02 NAUSEA ALONE 12/14/2011 RILEY GABRIEL ZELAYA K 787.91 DIARRHEA 12/14/2011 GABRIEL RILEY DO 789.00 ABDOMINAL PAIN UNSPECIFIED SITE 12/14/2011 IGOR HERRERA PA-C 787.02 NAUSEA ALONE 12/14/2011 IGOR HERRERA PA-C 787.91 DIARRHEA 12/14/2011 IGOR HERRERA PA-C 789.00 ABDOMINAL PAIN UNSPECIFIED SITE 01/22/2012 GABRIEL RILEY DO 461.9 SINUSITIS ACUTE 01/22/2012 GABRIEL RILEY DO 599.0 URINARY TRACT INFECTION 01/22/2012 461.9 SINUSITIS ACUTE 01/22/2012 599.0 URINARY TRACT INFECTION 01/22/2012 GABRIEL RILEY DO 461.9 SINUSITIS ACUTE 01/22/2012 RILEY DO, GABRIEL K 599.0 URINARY TRACT INFECTION 01/22/2012 IGOR HERRERA PA-C 461.9 SINUSITIS ACUTE 01/22/2012 IGOR HERRERA PA-C 599.0 URINARY TRACT INFECTION 02/07/2012 Ot 535.50 UNSP GASTRITIS GASTRODUODENITIS W/O ME 02/07/2012 Ot 789.06 ABDOMINAL PAIN, EPIGASTRIC 03/01/2012 ROSEMARY ZELAYAGABRIEL K 461.9 SINUSITIS ACUTE 03/01/2012 ROSEMARY ZELAYAGABRIEL K 530.81 GERD 03/01/2012 ROSEMARY ZELAYAGABRIEL K 599.0 URINARY TRACT INFECTION 03/01/2012 IGOR HERRERA PA-C 461.9 SINUSITIS ACUTE 03/01/2012 IGOR HERRERA PA-C 530.81 GERD 03/01/2012 GIOR HERRERA PA-C 599.0 URINARY TRACT INFECTION 04/18/2012 IGOR HERRERA PA-C 790.4 ABNORMAL LFT (ELEVATED) 02/16/2015 Ot V28.89 02/16/2015 Ot 648.63 02/16/2015 Ot 786.50 02/16/2015 Ot 640.03 02/16/2015 Ot 641.93 02/16/2015 Ot 789.00 02/16/2015 Ot 789.06 02/16/2015 Ot V72.84 02/16/2015 Ot V28.89 02/16/2015 Ot 648.63 02/16/2015 Ot 786.50 02/16/2015 Ot 640.03 02/16/2015 Ot 641.93 02/16/2015 Ot 789.00 02/16/2015 Ot 789.06 02/16/2015 Ot V72.84 03/03/2015 FENECH DO, EL S Ot N92.0 03/03/2015 FENECH DO, EL S Ot R10.2 03/05/2015 FENECH DO, EL S Ot F17.210 03/05/2015 FENECH DO, EL S Ot I10 03/05/2015 FENECH DO, EL S Ot L93.0 03/05/2015 FENECH DO, EL S Ot N80.3 03/05/2015 FENECH DO, EL S Ot N87.9 03/10/2015 FENECH DO, EL S Ot M32.9 03/10/2015 FENECH DO, EL S Ot N94.6 03/10/2015 FENECH DO, EL S Ot Z01.812 03/10/2015 FENECH DO, EL S Ot Z11.2 03/13/2015 RIAN TORRES, IGOR T Ot E11.9 03/13/2015 RIAN TORRES, IGOR T Ot G89.18 03/13/2015 RIAN TORRES, IGOR T Ot K76.0 03/13/2015 RIAN TORRES, IGOR T Ot N39.0 03/13/2015 RIAN TORRES, IGOR T Ot R16.1 03/13/2015 RIAN TORRES, IGOR T Ot R50.82 03/13/2015 RIAN TORRES, IGOR T Ot Z79.4 03/13/2015 RIAN TORRES, IGOR T Ot Z90.710 03/18/2015 Ot V28.89 03/18/2015 Ot 648.63 03/18/2015 Ot 786.50 03/18/2015 Ot 640.03 03/18/2015 Ot 641.93 03/18/2015 Ot 789.00 03/18/2015 Ot 789.06 03/18/2015 Ot V72.84 03/18/2015 FENECH DO, EL S Ot N92.0 03/18/2015 FENECH DO, EL S Ot R10.2 03/18/2015 FENECH DO, EL S Ot M32.9 03/18/2015 FENECH DO, EL S Ot N94.6 03/18/2015 FENECH DO, EL S Ot Z01.812 03/18/2015 FENECH DO, EL S Ot Z11.2 03/18/2015 TING TORRES, ALFREDO Villareal Ot D72.810 03/18/2015 TING TORRES, ALFREDO Villareal Ot K75.81 03/18/2015 TING TORRES, ALFREDO Villareal Ot L93.0 03/18/2015 TING TORRES, ALFREDO Villareal Ot M79.7 03/18/2015 TING TORRES, ALFREDO Villareal Ot N39.0 03/18/2015 TING TORRES, ALFREDO Villareal Ot R16.1 03/18/2015 TING TORRES, ALFREDO Villareal Ot Z79.899 03/18/2015 LUIS MIGUEL TORRES, BHUPENDRA Villareal Ot F17.210 03/18/2015 LUIS MIGUEL TORRES, BHUPENDRA Villareal Ot M32.9 03/18/2015 LUIS MIGUEL TORRES, BHUPENDRA Villareal Ot R21 03/18/2015 LUIS MIGUEL TORRES, BHUPENDRA Villareal Ot Z79.899 03/18/2015 LUIS MIGUEL TORRES, BHUPENDRA Villareal Ot Z98.89 04/21/2015 TING TORRES, ALFREDO Villareal Ot D72.810 04/21/2015 TING TORRES, ALFREDO Villareal Ot K75.81 04/21/2015 TING TORRES, ALFREDO Villareal Ot L93.0 04/21/2015 TING TORRES, ALFREDO Villareal Ot M79.7 04/21/2015 TING TORRES, ALFREDO Villareal Ot N39.0 04/21/2015 TING TORRES, ALFREDO Villareal Ot R16.1 04/21/2015 TING TORRES, ALFREDO Villareal Ot Z79.899 04/22/2015 Ot V28.89 04/22/2015 Ot 648.63 04/22/2015 Ot 786.50 04/22/2015 Ot 640.03 04/22/2015 Ot 641.93 04/22/2015 Ot 789.00 04/22/2015 Ot 789.06 04/22/2015 Ot V72.84 04/22/2015 FENECH DO, EL S Ot N92.0 04/22/2015 FENECH DO, EL S Ot R10.2 04/22/2015 FENECH DO, EL Cisneros Ot M32.9 04/22/2015 FENECH DO, EL S Ot N94.6 04/22/2015 FENECH DO, EL S Ot Z01.812 04/22/2015 FENECH DO, EL S Ot Z11.2 04/22/2015 TING TORRES, ALFREDO Villareal Ot D72.810 04/22/2015 TING TORRES, ALFREDO Villareal Ot K75.81 04/22/2015 TING TORRES, ALFREDO Villareal Ot L93.0 04/22/2015 TING TORRES, ALFREDO Villareal Ot M79.7 04/22/2015 TING TORRES, ALFREDO Villareal Ot N39.0 04/22/2015 TING TORRES, ALFREDO Villareal Ot R16.1 04/22/2015 TING TORRES, ALFREDO Villareal Ot Z79.899 04/23/2015 KEISHA TORRES, BILL Urias Ot A41.9 SEPSIS, UNSPECIFIED ORGANISM 04/23/2015 BILL VALDES MD Ot D69.6 THROMBOCYTOPENIA, UNSPECIFIED 04/23/2015 BILL VALDES MD Ot E11.9 TYPE 2 DIABETES MELLITUS WITHOUT COMPLIC 04/23/2015 BILL VALDES MD Ot E83.42 HYPOMAGNESEMIA 04/23/2015 BILL VALDES MD Ot F17.210 NICOTINE DEPENDENCE, CIGARETTES, UNCOMPL 04/23/2015 BILL VALDES MD Ot F32.9 MAJOR DEPRESSIVE DISORDER, SINGLE EPISOD 04/23/2015 BILL VALDES MD Ot F41.9 ANXIETY DISORDER, UNSPECIFIED 04/23/2015 BILL VALDES MD Ot G89.29 OTHER CHRONIC PAIN 04/23/2015 BILL VALDES MD Ot I12.9 HYPERTENSIVE CHRONIC KIDNEY DISEASE W ST 04/23/2015 BILL VALDES MD Ot I48.91 UNSPECIFIED ATRIAL FIBRILLATION 04/23/2015 BILL VALDES MD Ot I48.92 UNSPECIFIED ATRIAL FLUTTER 04/23/2015 BILL VALDES MD Ot I50.9 HEART FAILURE, UNSPECIFIED 04/23/2015 BILL VALDES MD Ot J18.9 PNEUMONIA, UNSPECIFIED ORGANISM 04/23/2015 BILL VALDES MD Ot J44.9 CHRONIC OBSTRUCTIVE PULMONARY DISEASE, U 04/23/2015 BILL VALDES MD Ot J96.01 ACUTE RESPIRATORY FAILURE WITH HYPOXIA 04/23/2015 BILL VALDES MD Ot K72.90 HEPATIC FAILURE, UNSPECIFIED WITHOUT COM 04/23/2015 BILL VALDES MD Ot K75.81 NONALCOHOLIC STEATOHEPATITIS (CANO) 04/23/2015 BILL VALDES MD Ot 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 SYSTEMIC LUPUS SARITHA 04/23/2015 BILL VALDES MD Ot N17.9 ACUTE KIDNEY FAILURE, UNSPECIFIED 04/23/2015 BILL VALDES MD Ot N18.9 CHRONIC KIDNEY DISEASE, UNSPECIFIED 04/23/2015 BILL VALDES MD Ot N39.0 URINARY TRACT INFECTION, SITE NOT SPECIF 04/23/2015 BILL VALDES MD Ot R65.20 SEVERE SEPSIS WITHOUT SEPTIC SHOCK 04/23/2015 IBLL VALDES MD Ot Z79.4 PENITENTIARY (CURRENT) USE OF INSULIN 06/14/2015 ALFREDO MAGUIRE MD, Ot D72.810 LYMPHOCYTOPENIA 06/14/2015 ALFREDO MAGUIRE MD, Ot K75.81 NONALCOHOLIC STEATOHEPATITIS (CANO) 06/14/2015 ALFREDO MAGUIRE MD, Ot 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 06/14/2015 ALFREDO MAGUIRE MD, Ot M79.7 FIBROMYALGIA 06/14/2015 ALFREDO MAGUIRE MD, Ot N39.0 URINARY TRACT INFECTION, SITE NOT SPECIF 06/14/2015 ALFREDO MAGUIRE MD, Ot R16.1 SPLENOMEGALY, NOT ELSEWHERE CLASSIFIED 06/14/2015 ALFREDO MAGUIRE MD, Ot Z79.899 OTHER PENITENTIARY (CURRENT) DRUG THERAPY Procedures Code Description [place] [address] HIDA SCAN 12/14/2011 Solomon Wright 12/14/2011 31434 H PYLORI (IN-HOUSE) 12/14/2011 53321 US GALLBLADDER 01/08/2012 64713 US GALLBLADDER 02/19/2012 31692 UA W/ CULTURE IF INDICATED 03/01/2012 45417 ROUTINE VENIPUNCTURE 04/18/2012 12392 MICRO ALBUMIN-IN HOUSE 04/18/2012 07810 A1C (IN-HOUSE) 04/18/2012 43044 CMP 04/19/2012 [id number] GFR CALC (RESULT ONLY) 04/19/2012 60417 MICROALBUMIN 04/19/2012 [id number] 04/22/2015 [id number] 04/22/2015 Results There is no data. Encounters ACCT No. Visit Date/Time Discharge Status Pt. Type Provider Facility Loc./Unit Complaint [id number] 04/18/2012 17:30:00 04/18/2012 23:59:59 CLS Outpatient IGOR HERRERA PA-C [id number] 03/01/2012 16:27:00 03/01/2012 23:59:59 CLS Outpatient GABRIEL RILEY DO [id number] 02/19/2012 10:21:00 02/19/2012 23:59:59 CLS Outpatient [id number] 01/22/2012 18:24:00 01/22/2012 23:59:59 [place] [id number] 12/14/2011 07:55:00 12/14/2011 23:59:59 CLS Outpatient GABRIEL RILEY DO [id number] 06/15/2015 00:08:00 06/15/2015 23:59:59 CLS Preadmit TING TORRES, ALFREDO Villareal [facility] ONC [id number] 04/09/2015 10:47:00 06/14/2015 00:01:00 DIS Outpatient ALFREDO MAGUIRE MD [facility] ONC [id number] 04/22/2015 05:00:00 04/23/2015 12:20:00 DIS Inpatient KEISHA TORRES, BILL Urias [facility] ICU [id number] 03/18/2015 11:26:00 03/18/2015 18:15:00 DIS Emergency LUIS MIGUEL TORRES, BHUPENDRA Villareal [facility] ER [id number] 03/12/2015 22:17:00 03/13/2015 02:53:00 DIS Emergency RIAN TORRES, IGOR Lombardo [facility] ER [id number] 03/04/2015 06:12:00 03/05/2015 10:25:00 DIS Outpatient EL SWIFT DO S [facility] SDC [id number] 02/24/2015 11:38:00 02/24/2015 23:59:59 CLS Outpatient EL SWIFT DO S [facility] PREOP [id number] 02/16/2015 13:11:00 02/16/2015 23:59:59 CLS Outpatient EL SWIFT DO S [facility] RAD [id number] 02/07/2012 12:13:00 Document Registration [id number] 02/01/2012 07:20:00 Document Registration [id number] 01/09/2012 08:23:00 Document Registration [id number] 12/18/2011 08:09:00 Document Registration [id number] 10/06/2011 13:19:00 Document Registration [id number] 02/06/2011 13:00:00 Document Registration [id number] 01/18/2011 15:56:00 Document Registration [id number] 01/11/2011 08:56:00 Document Registration [id number] 12/23/2010 14:13:00 Document Registration [id number] 04/29/2018 16:45:00 04/29/2018 23:59:59 [facility] Out[facility]
--- NOTE | 2018-05-05 21:19 | ED Lower Extremity ---
General Chief Complaint: Lower Extremity Stated Complaint: RIGHT LEG PAIN Source: patient Exam Limitations: no limitations History of Present Illness Date Seen by Provider: May 05, 2018 Time Seen by Provider: 09:07 Initial Comments 42-year-old insulin dependent diabetic presents with some inflamed lesions on her right calf. She's been somewhat fatigued today. No other systemic symptoms. No fever or chills reported. She does not recall any injury to the affected area. Works her blood sugars been fairly well controlled for her having been in the low 200s. No respiratory other associated complaints. Allergies and Home Medications Allergies Coded Allergies: diphenhydramine HCl (Verified Allergy, Unknown, 10/06/11) fentanyl (Verified Allergy, Unknown, 03/04/15) latex (Verified Allergy, Unknown, 10/06/11) meperidine HCl (Verified Allergy, Unknown, 10/06/11) morphine (Verified Allergy, Unknown, 10/06/11) vancomycin (Verified Allergy, Unknown, 10/06/11) Home Medications Desonide 15 Gm Oint...g., TOP BID, (Reported) APPLY TO FACE Ergocalciferol (Vitamin D2) 50,000 Unit Capsule, 50,000 UNITS PO WEEKLY, ( Reported) Furosemide 80 Mg Tablet, 40 MG PO BID, (Reported) TAKES 1/2 (80MG) TABLET Hydroxychloroquine Sulfate 200 Mg Tablet, 200 MG PO BID, (Reported) Insulin Glargine,Hum.rec.anlog 100 Unit/1 Ml Insuln.pen, 28 UNITS SC HS, ( Reported) Lisinopril 10 Mg Tablet, 20 MG PO BID, (Reported) TAKES 2 (10MG) TABLETS Lorazepam 1 Mg Tablet, 1 MG PO Q6H PRN for ANXIETY, (Reported) Mycophenolate Mofetil 500 Mg Tablet, PO UD, (Reported) FILLED #180 03-27-15 TAKE 1 (500MG) TABLET DAILY UNTIL 03-30-15 THEN TAKE 1 TWICE DAILY X 7 DAYS THEN TAKE 2 AM AND 1 EVENING X 7 DAYS THEN TAKE 2 TWICE DAILY X 7 DAYS THEN TAKE 3 AM AND 2 EVENING X 7 DAYS THEN TAKE 3 TWICE DAILY Ondansetron 4 Mg Tab.rapdis, 4 MG PO Q8H PRN for NAUSEA, (Reported) Oxycodone HCl 5 Mg Tablet, 5 MG PO Q6H PRN for PAIN, (Reported) Oxycodone HCl 30 Mg Tab.er.12h, 30 MG PO BID, (Reported) Pantoprazole Sodium 40 Mg Tablet.dr, 40 MG PO DAILY, (Reported) Prednisone 20 Mg Tab, PO UD, (Reported) TAKE 3 (20MG) TABLETS DAILY X 14 DAYS THEN TAKE 2.5 (20MG) TABLETS DAILY X 14 DAYS THEN TAKE 1 (20MG) TABLET DAILY X 28 DAYS FILLED #77 03-26-15 - FILLED AGAIN 04-19-15 BUT HAS NOT PICKED UP YET Triamcinolone Acet 15 Gm Oint, TOP BID, (Reported) Patient Home Medication List Home Medication List Reviewed: Yes Review of Systems Constitutional: malaise EENTM: no symptoms reported Respiratory: no symptoms reported Cardiovascular: no symptoms reported Gastrointestinal: no symptoms reported Genitourinary: no symptoms reported Musculoskeletal: no symptoms reported Skin: see HPI Psychiatric/Neurological: No Symptoms Reported Past Hcihzit-Fetfmu-Ezuzuj Hx Past Med/Social Hx: Reviewed Nursing Past Med/Soc Hx Patient Social History Recent Foreign Travel: No Contact w/Someone Who Travel: No Immunizations Up To Date Date of Pneumonia Vaccine: Feb 24, 2013 Date of Influenza Vaccine: Nov 24, 2014 Seasonal Allergies Seasonal Allergies: No Past Medical History Abdominal, Gallbladder, Hysterectomy, Orthopedic, Tonsillectomy, Tubal Ligation Currently Using CPAP: No Currently Using BIPAP: No Hypertension Headaches /Migraines Reproductive Disorders: Yes Female Reproductive Disorders: Menstrual Problems, Endometriosis, Ovarian Cyst 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 Heart Disease, Cancer, Diabetes, Hypertension Physical Exam Vital Signs Vital Signs - First Documented 05/05/18 21:07 Temp 98.9 Pulse 125 Resp 20 B/P (MAP) 169/106 (127) Pulse Ox 96 O2 Delivery Room Air Capillary Refill : Height, Weight, BMI Height: 5'10.00" Weight: 289lbs. 0.0oz. [id number]; 40.03 BMI Method:Estimated General Appearance: WD/WN, no apparent distress HEENT: PERRL/EOMI, normal ENT inspection Neck: non-tender, full range of motion, supple, normal inspection Cardiovascular: regular rate, rhythm, no gallop, no murmur Respiratory: chest non-tender, lungs clear, normal breath sounds, no respiratory distress, no accessory muscle use Gastrointestinal: normal bowel sounds, non tender, soft Back: no CVA tenderness Hips: bilateral hip non-tender, bilateral hip normal inspection, bilateral hip normal range of motion Legs: left leg non-tender, left leg normal inspection; right leg normal range of motion; left leg other (small red lesions noted lateral right calf. No vesicles are seen. Does not appear to be in a dermatomal pattern.) Knees: bilateral knee non-tender, bilateral knee normal inspection, bilateral knee normal range of motion Ankles: bilateral ankle non-tender, bilateral ankle normal inspection, bilateral ankle normal range of motion Feet: bilateral foot non-tender, bilateral foot normal inspection, bilateral foot normal range of motion Neurologic/Tendon: normal sensation, normal motor functions Neurologic/Psychiatric: no motor/sensory deficits, alert, oriented x 3 Skin: normal color, warm/dry, rash (we'll follicular-appearing lesions on right lower leg. No dermatomal pattern. No vesicles seen. The lesions on the lateral posterior calf are tender to palpation without surrounding induration. No venous cords are present.) Lymphatic: no adenopathy Progress/Results/Core Measures Results/Orders Lab Results Laboratory Tests Test 05/05/18 21:35 Range/Units Sodium Level 134 L 135-145 MMOL/L Potassium Level 4.0 3.6-5.0 MMOL/L Chloride Level 96 L 98-107 MMOL/L Carbon Dioxide Level 23 21-32 MMOL/L Anion Gap 15 H 5-14 MMOL/L Blood Urea Nitrogen 10 7-18 MG/DL Creatinine 0.74 0.60-1.30 MG/DL Estimat Glomerular Filtration Rate > 60 BUN/Creatinine Ratio 14 Glucose Level 436 *H 70-105 MG/DL Calcium Level 8.9 8.5-10.1 MG/DL My Orders Orders - ALBERT FERMIN MD Basic Metabolic Panel (05/05/18 21:14) Cbc With Automated Diff (05/05/18 21:14) Vital Signs/I&O 05/05/18 21:07 Temp 98.9 Pulse 125 Resp 20 B/P (MAP) 169/106 (127) Pulse Ox 96 O2 Delivery Room Air Progress Progress Note : Time: 22:07 Progress Note We discussed her lab results including her blood sugar 436. She states she is very comfortable managing that at home without any intervention here. She understands the risks associated with her decision. We'll place on antibiotics, both topical and systemic. Follow-up with primary care. Departure Impression Primary Impression: Diabetes mellitus Qualified Codes: E10.9 - Type 1 diabetes mellitus without complications Additional Impression: Folliculitis Disposition: 01 HOME, SELF-CARE Condition: Stable Departure-Patient Inst. Decision time for Depature: 22:10 Referrals: [facility] [place] (PCP/Family) Primary Care Physician 1-2 days Patient Instructions: Folliculitis (DC) Add. Discharge Instructions: Please manage your blood sugar with extra insulin as you state that you have been instructed. Return to the ER if you have worsening or other concerns. All discharge instructions reviewed with patient and/or family. Voiced understanding. Scripts Cephalexin (Keflex) 500 Mg Capsule 500 MG PO TID, #30 CAP Prov: ALBERT FERMIN MD 05/05/18 ALBERT FERMIN MD May 05, 2018 21:18
[2018-05-05 22:00] LABS: BUN/CREATININE RATIO 14; CARBON DIOXIDE 23 MMOL/L (21-32); CHLORIDE 96 MMOL/L (98-107); CREATININE SERUM 0.74 MG/DL (0.60-1.30); GFR ESTIMATED > 60; SODIUM 134 MMOL/L (135-145)
[2018-05-05 22:01] LABS: CALCIUM 8.9 MG/DL (8.5-10.1); GLUCOSE 436 MG/DL (70-105)
[2018-05-05] MEDS ORDERED: CEPH-507 PO (22:13)
[2018-05-05] MEDS ORDERED: CEPHALEXIN 250 MG (KEFLEX) CAP PO ONE ×2 (22:15→22:16)
[2018-05-05] MEDS ORDERED: MUPIROCIN 2% OINT 22 GM (BACTROBAN) TUBE ONE (22:16)
[2018-05-05 22:19] LABS: HEMATOCRIT 44 % (35-52); MEAN CORPUSCULAR HEMOGLOBIN 26 PG (25-34); MEAN CORPUSCULAR HGB CONC 32 G/DL (32-36); MEAN CORPUSCULAR VOLUME 83 FL (80-99); PLATELET COUNT 187 10^3/uL (130-400); RED CELL DISTRIBUTION WIDTH 14.3 % (10.0-14.5); WHITE BLOOD COUNT 4.3 10^3/uL (4.3-11.0)
[2018-05-05 22:20] LABS: BASOPHILS % (AUTO) 1 % (0-10); EOSINOPHILS # (AUTO) 0.1 10^3/uL (0.0-0.3); EOSINOPHILS % (AUTO) 2 % (0-10); LYMPHOCYTES # (AUTO) 0.9 X 10^3 (1.0-4.0); LYMPHOCYTES % (AUTO) 20 % (12-44); MONOCYTES # (AUTO) 0.2 X 10^3 (0.0-1.0); MONOCYTES % (AUTO) 6 % (0-12); NEUTROPHILS # (AUTO) 3.1 X 10^3 (1.8-7.8); NEUTROPHILS % (AUTO) 71 % (42-75)
[2018-05-05 22:24] VITALS: BP 128/92
[2018-05-06] MEDS ORDERED: MUPIROCIN 2% OINT 22 GM (BACTROBAN) TUBE NSEACH SCH (09:00)
== END 2018-05-05 22:24 | disposition home or self-care (01) ==
LOC: EDUNIT# 20:33 → ER FS 20:36
DX: E11.22 Type 2 diabetes mellitus with diabetic chronic kidney disease (principal); I12.0 Hypertensive chronic kidney disease with stage 5 chronic kidney disease or end stage renal disease; N18.6 End stage renal disease; L73.9 Follicular disorder, unspecified; K21.9 Gastro-esophageal reflux disease without esophagitis; G43.909 Migraine, unspecified, not intractable, without status migrainosus; M32.9 Systemic lupus erythematosus, unspecified; F41.9 Anxiety disorder, unspecified; F32.9 Major depressive disorder, single episode, unspecified; K58.9 Irritable bowel syndrome, unspecified; Z87.440 Personal history of urinary (tract) infections; Z82.49 Family history of ischemic heart disease and other diseases of the circulatory system; Z87.19 Personal history of other diseases of the digestive system; Z99.2 Dependence on renal dialysis; Z79.4 Long term (current) use of insulin; Z88.8 Allergy status to other drugs, medicaments and biological substances; Z91.040 Latex allergy status; Z88.5 Allergy status to narcotic agent; Z88.1 Allergy status to other antibiotic agents; Z79.52 Long term (current) use of systemic steroids; Z90.89 Acquired absence of other organs; Z98.51 Tubal ligation status; Z98.890 Other specified postprocedural states
CPT/HCPCS: 36415; 80048; 85025; 99283

== ENCOUNTER 2018-05-19 14:07 | Emergency (ER) | payer MEDICAID ==
[~2018-05-19] VITALS: Ht 177.8 cm; Wt 136.1 kg
[~2018-05-19 14:07] MED LIST changes: +CEPH-507 PO
--- NOTE | 2018-05-19 14:19 | ED General ---
General Stated Complaint: NECK PAIN/SWOLLEN - BUG BITES ON ARM/NECK History of Present Illness Date Seen by Provider: May 19, 2018 Time Seen by Provider: 14:19 Initial Comments Patient presenting to ED for evaluation of neck pain, swelling sensation, stiffness, headache, n,v, fevers, chills. She says that the pain and swelling sensation started appx 24 hours ago. The n,v started today, appx 3 episodes. Pain is primarly on R posterior neck but radiates to the L and to the head as well. Fever not measured at home. Afebrile here. She is able to put her chin to her chest but she says it hurts to do so. She says she has had the exact same pain before in the past that was diagnosed as lymphadenopathy. She has some further testing with an ENT and then was cleared. She has a quite very complex medical history including lupus, DM, morbid obesity, afib (on coumadin) , liver disease. renal insufficiency, anemia, tobacco use(quit 3 years ago). She is in nad with normal VS, other than slight tachycardia at this time. Allergies and Home Medications Allergies Coded Allergies: diphenhydramine HCl (Verified Allergy, Unknown, 10/06/11) fentanyl (Verified Allergy, Unknown, 03/04/15) latex (Verified Allergy, Unknown, 10/06/11) meperidine HCl (Verified Allergy, Unknown, 10/06/11) morphine (Verified Allergy, Unknown, 10/06/11) vancomycin (Verified Allergy, Unknown, 10/06/11) iodine (Unverified Adverse Reaction, Intermediate, rash from IV contrast, 05/19/18) clindamycin (Unverified Adverse Reaction, Unknown, 05/19/18) gabapentin (Unverified Adverse Reaction, Unknown, 05/19/18) levofloxacin (Unverified Adverse Reaction, Unknown, 05/19/18) metformin (Unverified Adverse Reaction, Unknown, 05/19/18) metoclopramide (Unverified Adverse Reaction, Unknown, 05/19/18) Home Medications Cephalexin 500 Mg Capsule, 500 MG PO TID Prescribed by: ALBERT FERMIN on 05/05/18 2215 Desonide 15 Gm Oint...g., TOP BID, (Reported) APPLY TO FACE Ergocalciferol (Vitamin D2) 50,000 Unit Capsule, 50,000 UNITS PO WEEKLY, ( Reported) Furosemide 80 Mg Tablet, 40 MG PO BID, (Reported) TAKES 1/2 (80MG) TABLET Hydroxychloroquine Sulfate 200 Mg Tablet, 200 MG PO BID, (Reported) Insulin Glargine,Hum.rec.anlog 100 Unit/1 Ml Insuln.pen, 28 UNITS SC HS, ( Reported) Lisinopril 10 Mg Tablet, 20 MG PO BID, (Reported) TAKES 2 (10MG) TABLETS Lorazepam 1 Mg Tablet, 1 MG PO Q6H PRN for ANXIETY, (Reported) Mycophenolate Mofetil 500 Mg Tablet, PO UD, (Reported) FILLED #180 03-27-15 TAKE 1 (500MG) TABLET DAILY UNTIL 03-30-15 THEN TAKE 1 TWICE DAILY X 7 DAYS THEN TAKE 2 AM AND 1 EVENING X 7 DAYS THEN TAKE 2 TWICE DAILY X 7 DAYS THEN TAKE 3 AM AND 2 EVENING X 7 DAYS THEN TAKE 3 TWICE DAILY Ondansetron 4 Mg Tab.rapdis, 4 MG PO Q8H PRN for NAUSEA, (Reported) Oxycodone HCl 5 Mg Tablet, 5 MG PO Q6H PRN for PAIN, (Reported) Oxycodone HCl 30 Mg Tab.er.12h, 30 MG PO BID, (Reported) Pantoprazole Sodium 40 Mg Tablet.dr, 40 MG PO DAILY, (Reported) Prednisone 20 Mg Tab, PO UD, (Reported) TAKE 3 (20MG) TABLETS DAILY X 14 DAYS THEN TAKE 2.5 (20MG) TABLETS DAILY X 14 DAYS THEN TAKE 1 (20MG) TABLET DAILY X 28 DAYS FILLED #77 03-26-15 - FILLED AGAIN 04-19-15 BUT HAS NOT PICKED UP YET Triamcinolone Acet 15 Gm Oint, TOP BID, (Reported) Patient Home Medication List Home Medication List Reviewed: Yes Review of Systems Review of Systems Constitutional: chills, fever EENTM: ear pain Respiratory: No cough, No short of breath Cardiovascular: No chest pain Gastrointestinal: No abdominal pain, No diarrhea; nausea, other Genitourinary: No dysuria Musculoskeletal: neck pain Skin: other (bites on R forearm) Psychiatric/Neurological: Headache; Denies Numbness, Denies Paresthesia All Other Systems Reviewed Negative Unless Noted: Yes Past Ftjejwu-Ydqbfe-Cwlirc Hx Patient Social History Recent Foreign Travel: No (N) Contact w/Someone Who Travel: No (N) Immunizations Up To Date Date of Pneumonia Vaccine: Feb 24, 2013 Date of Influenza Vaccine: Nov 24, 2014 Seasonal Allergies Seasonal Allergies: No Past Medical History Abdominal, Gallbladder, Hysterectomy, Orthopedic, Tonsillectomy, Tubal Ligation Currently Using CPAP: No Currently Using BIPAP: No Hypertension Headaches /Migraines Reproductive Disorders: Yes Female Reproductive Disorders: Menstrual Problems, Endometriosis, Ovarian Cyst 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 Heart Disease, Cancer, Diabetes, Hypertension Physical Exam Vital Signs Vital Signs - First Documented 05/19/18 14:12 Temp 98.2 Pulse 113 Resp 20 B/P (MAP) 124/102 (109) Pulse Ox 95 O2 Delivery Room Air Capillary Refill : Height, Weight, BMI Height: 5'10.00" Weight: 290lbs. 0oz. [id number]; 40.03 BMI Method:Stated General Appearance: No Apparent Distress, Chronically ill HEENT: PERRL/EOMI, TMs Normal, Normal ENT Inspection, Pharynx Normal Neck: Other (BL posterior paraspinal ttp. No obvious swelling, erythema, skin changes to suggest cellulitis or abscess. Mild cervical adenopathy with ttp noted. ) Respiratory: Chest Non Tender, Lungs Clear Cardiovascular: Irregularly Irregular, Tachycardia Gastrointestinal: Non Tender Neurologic/Psychiatric: Alert, Oriented x3, No Motor/Sensory Deficits Skin: Normal Color, Warm/Dry Progress/Results/Core Measures Suspected Sepsis SIRS Temperature: Pulse: Respiratory Rate: Laboratory Tests 05/19/18 14:35: White Blood Count 4.8 Blood Pressure / Mean: Laboratory Tests 05/19/18 14:35: Creatinine 0.76, INR Comment 3.1H, Platelet Count 223, Total Bilirubin 0.3 Results/Orders Lab Results Laboratory Tests Test 05/19/18 14:35 Range/Units White Blood Count 4.8 4.3-11.0 10^3/uL Red Blood Count 5.01 4.35-5.85 10^6/uL Hemoglobin 13.5 11.5-16.0 G/DL Hematocrit 41 35-52 % Mean Corpuscular Volume 82 80-99 FL Mean Corpuscular Hemoglobin 27 25-34 PG Mean Corpuscular Hemoglobin Concent 33 32-36 G/DL Red Cell Distribution Width 14.5 10.0-14.5 % Platelet Count 223 130-400 10^3/uL Mean Platelet Volume 9.6 7.4-10.4 FL Neutrophils (%) (Auto) 67 42-75 % Lymphocytes (%) (Auto) 25 12-44 % Monocytes (%) (Auto) 6 0-12 % Eosinophils (%) (Auto) 2 0-10 % Basophils (%) (Auto) 0 0-10 % Neutrophils # (Auto) 3.2 1.8-7.8 X 10^3 Lymphocytes # (Auto) 1.2 1.0-4.0 X 10^3 Monocytes # (Auto) 0.3 0.0-1.0 X 10^3 Eosinophils # (Auto) 0.1 0.0-0.3 10^3/uL Basophils # (Auto) 0.0 0.0-0.1 10^3/uL Prothrombin Time 33.1 H 12.2-14.7 SEC INR Comment 3.1 H 0.8-1.4 Activated Partial Thromboplast Time 73 H 24-35 SEC Sodium Level 136 135-145 MMOL/L Potassium Level 4.2 3.6-5.0 MMOL/L Chloride Level 97 L 98-107 MMOL/L Carbon Dioxide Level 22 21-32 MMOL/L Anion Gap 17 H 5-14 MMOL/L Blood Urea Nitrogen 12 7-18 MG/DL Creatinine 0.76 0.60-1.30 MG/DL Estimat Glomerular Filtration Rate > 60 BUN/Creatinine Ratio 16 Glucose Level 221 H 70-105 MG/DL Calcium Level 8.9 8.5-10.1 MG/DL Corrected Calcium 9.1 8.5-10.1 MG/DL Total Bilirubin 0.3 0.1-1.0 MG/DL Aspartate Amino Transf (AST/SGOT) 24 5-34 U/L Alanine Aminotransferase (ALT/SGPT) 18 0-55 U/L Alkaline Phosphatase 69 40-136 U/L Total Protein 7.1 6.4-8.2 GM/DL Albumin 3.7 3.2-4.5 GM/DL My Orders Orders - BRITTNI PLASENCIA DO Cbc With Automated Diff (05/19/18 14:27) Comprehensive Metabolic Panel (05/19/18 14:27) Ondansetron Injection (Zofran Injectio (05/19/18 14:30) Hydrocodone/Apap 5/325 Tablet (Lortab 5 (05/19/18 14:30) Ceftriaxone For Iv Use (Rocephin For I (05/19/18 14:30) Protime With Inr (05/19/18 14:39) Partial Thromboplastin Time (05/19/18 14:39) Ondansetron Injection (Zofran Injectio (05/19/18 15:30) Medications Given in ED Current Medications Medications Dose Ordered Sig/Lo Route Start Time Stop Time Status Last Admin Dose Admin Acetaminophen/ Hydrocodone Bitart 2 tab ONCE ONCE PO 05/19/18 14:30 05/19/18 14:32 DC 05/19/18 14:42 2 TAB Ceftriaxone Sodium 2000 mg/ Sterile Water 20 ml @ 240 mls/hr ONCE ONCE IV 05/19/18 14:30 05/19/18 14:34 DC 05/19/18 14:45 240 MLS/HR Ondansetron HCl 4 mg ONCE ONCE IVP 05/19/18 14:30 05/19/18 14:32 DC 05/19/18 14:42 4 MG Vital Signs/I&O 05/19/18 14:12 Temp 98.2 Pulse 113 Resp 20 B/P (MAP) 124/102 (109) Pulse Ox 95 O2 Delivery Room Air Capillary Refill : Progress Note : Progress Note With constellation of symptoms she presents with meningitis has to be considered. She does not appear acutely ill but she is quite complex medically. With her morbid obesity and coagulopathy as she is on coumadin I told her that I am not comfortable doing an LP here as complication rate could be quite high and would need to transfer her to another hospital to obtain proper workup. She says she does not want to do that at this time. She wants to try being put on abx as she was when she had lymphadenopathy last time. She is A+Ox3 and can make her own medical decisions. I told her that she could have high morbidity and mortality from meningitis and she verbalized understanding and accepted these risks by not getting full workup. Patient's labs ok, spoke to her again about getting full workup. Daughter has awards ceremony at 4, very much wanting to leave. Patient will follow primary care provider within 1-2 days and come back to the ED sooner if worsening pain fevers vomiting vaginal concerns. Patient aware and agreeable with plan for discharge and verbalized understanding of the above instructions. She'll be discharged on Augmentin Zofran Williams. Patient released in stable condition and she emanated out of the emergency department under her own power. Departure Impression Primary Impression: Neck pain Additional Impression: Nausea & vomiting Disposition: 01 HOME, SELF-CARE Condition: Stable Departure-Patient Inst. Decision time for Depature: 15:21 Referrals: SHRUTI CLEANING MD (PCP/Family) Primary Care Physician Patient Instructions: Lymphadenitis (DC), Nausea and Vomiting, Adult (DC) Scripts Hydrocodone/Acetaminophen (Williams 5-325 Tablet) 1 Each Tablet 1 TAB PO Q6H for Pain MDD 10 TABS, #10 TAB Prov: BRITTNI PLASENCIA DO 05/19/18 Ondansetron (Ondansetron Odt) 4 Mg Tab.rapdis 4 MG PO TID PRN for NAUSEA/VOMITING-1ST LINE, #14 TAB Prov: BRITTNI PLASENCIA DO 05/19/18 Amoxicillin/Potassium Clav (Augmentin 875-125 Tablet) 1 Each Tablet 1 EACH PO BID, #14 TAB 0 Refills Prov: BRITTNI PLASENCIA DO 05/19/18 BRITTNI PLASENCIA DO May 19, 2018 14:19
[2018-05-19] MEDS ORDERED: cefTRIAXone FOR IV USE 2,000 MG in WATER (STERILE) FOR INJECTION 20 ML IV ONE (14:30)
[2018-05-19] MEDS ORDERED: ONDANSETRON 4 MG/2 ML (SDV) Z0FRAN IVP ONE ×2 (14:30→15:30)
[2018-05-19] MEDS ORDERED: HYDROcodone/APAP 5 MG/325 MG (LORTAB) TAB PO ONE (14:30)
[2018-05-19 14:49] LABS: BASOPHILS % (AUTO) 0 % (0-10); EOSINOPHILS % (AUTO) 2 % (0-10); HEMATOCRIT 41 % (35-52); HEMOGLOBIN 13.5 G/DL (11.5-16.0); MEAN CORPUSCULAR HEMOGLOBIN 27 PG (25-34); MEAN CORPUSCULAR HGB CONC 33 G/DL (32-36); MEAN CORPUSCULAR VOLUME 82 FL (80-99); MEAN PLATELET VOLUME 9.6 FL (7.4-10.4); MONOCYTES % (AUTO) 6 % (0-12); PLATELET COUNT 223 10^3/uL (130-400); RED CELL DISTRIBUTION WIDTH 14.5 % (10.0-14.5); WHITE BLOOD COUNT 4.8 10^3/uL (4.3-11.0)
[2018-05-19 14:50] LABS: EOSINOPHILS # (AUTO) 0.1 10^3/uL (0.0-0.3); LYMPHOCYTES # (AUTO) 1.2 X 10^3 (1.0-4.0); LYMPHOCYTES % (AUTO) 25 % (12-44); MONOCYTES # (AUTO) 0.3 X 10^3 (0.0-1.0); NEUTROPHILS # (AUTO) 3.2 X 10^3 (1.8-7.8); NEUTROPHILS % (AUTO) 67 % (42-75)
[2018-05-19 15:03] LABS: INR 3.1 (0.8-1.4); PROTHROMBIN TIME PATIENT 33.1 SEC (12.2-14.7)
[2018-05-19 15:12] LABS: ALANINE AMINOTRANSFERASE 18 U/L (0-55); ALBUMIN 3.7 GM/DL (3.2-4.5); ALKALINE PHOSPHATASE 69 U/L (40-136); BILIRUBIN,TOTAL 0.3 MG/DL (0.1-1.0); BUN/CREATININE RATIO 16; CALCIUM 8.9 MG/DL (8.5-10.1); CARBON DIOXIDE 22 MMOL/L (21-32); CHLORIDE 97 MMOL/L (98-107); CREATININE SERUM 0.76 MG/DL (0.60-1.30); GFR ESTIMATED > 60; GLUCOSE 221 MG/DL (70-105); POTASSIUM 4.2 MMOL/L (3.6-5.0); SODIUM 136 MMOL/L (135-145); TOTAL PROTEIN 7.1 GM/DL (6.4-8.2)
[2018-05-19] MEDS ORDERED: BELI200A (15:20)
[2018-05-19] MEDS ORDERED: INSU300I (15:20)
[2018-05-19] MEDS ORDERED: LORA0.5T (15:20)
[2018-05-19] MEDS ORDERED: METF500T8 (15:20)
[2018-05-19] MEDS ORDERED: INSU100I14 (15:20)
[2018-05-19] MEDS ORDERED: PRAV20TA3 (15:20)
[2018-05-19] MEDS ORDERED: LORA10TA7 (15:20)
[2018-05-19] MEDS ORDERED: WARF10TA44 (15:20)
[2018-05-19] MEDS ORDERED: ROPI0.5T2 (15:20)
[2018-05-19] MEDS ORDERED: RIFA550T (15:20)
[2018-05-19] MEDS ORDERED: ONDA4TAB11 PO (15:22)
[2018-05-19] MEDS ORDERED: AMOX-358 PO (15:22)
[2018-05-19] MEDS ORDERED: HYDR-4226 PO (15:22)
[2018-05-19 15:25] VITALS: BP 116/98
--- NOTE | 2018-05-19 15:25 | NUR ---
Pt discharged ambulatory after verbalization of home instructions reviewed with her.
== END 2018-05-19 15:25 | disposition home or self-care (01) ==
LOC: EDUNIT# 14:07 → ER FS 14:09
DX: M54.2 Cervicalgia (principal); R11.2 Nausea with vomiting, unspecified; E66.01 Morbid (severe) obesity due to excess calories; I48.91 Unspecified atrial fibrillation; D64.9 Anemia, unspecified; G43.909 Migraine, unspecified, not intractable, without status migrainosus; E11.22 Type 2 diabetes mellitus with diabetic chronic kidney disease; I12.0 Hypertensive chronic kidney disease with stage 5 chronic kidney disease or end stage renal disease; N18.6 End stage renal disease; M32.9 Systemic lupus erythematosus, unspecified; K21.9 Gastro-esophageal reflux disease without esophagitis; F41.9 Anxiety disorder, unspecified; F32.9 Major depressive disorder, single episode, unspecified; M79.7 Fibromyalgia; K58.9 Irritable bowel syndrome, unspecified; Z87.448 Personal history of other diseases of urinary system; Z87.891 Personal history of nicotine dependence; Z87.19 Personal history of other diseases of the digestive system; Z79.01 Long term (current) use of anticoagulants; Z82.49 Family history of ischemic heart disease and other diseases of the circulatory system; Z88.8 Allergy status to other drugs, medicaments and biological substances; Z91.040 Latex allergy status; Z88.5 Allergy status to narcotic agent; Z88.1 Allergy status to other antibiotic agents; Z79.4 Long term (current) use of insulin; Z79.52 Long term (current) use of systemic steroids; Z90.710 Acquired absence of both cervix and uterus; Z98.890 Other specified postprocedural states; Z98.51 Tubal ligation status; W57.XXXA Bitten or stung by nonvenomous insect and other nonvenomous arthropods, initial encounter
CPT/HCPCS: 36415; 80053; 85025; 85610; 85730; 96374; 96375; 96376

== ENCOUNTER 2019-02-05 11:42 | Emergency (ER) | payer MEDICAID ==
[~2019-02-05] VITALS: Ht 175 cm; Wt 149.0 kg
[~2019-02-05 11:42] MED LIST changes: +BELI200A; +HYDR-4226 PO; +INSU100I14; +INSU300I; +LORA0.5T; +LORA10TA7; +METF500T8; +PRAV20TA3; +RIFA550T; +ROPI0.5T2; +WARF10TA44
--- NOTE | 2019-02-05 12:07 | ED Lower Extremity ---
General Chief Complaint: Foreign Body Stated Complaint: LT FOOT FOREIGN OBJECT Nursing Triage Note: pt states one month ago started having some foot pain on bottom of left foot and thought she had stepped on something. The pain got better, and then started having more severe pain last night and can barely walk on her foot this morning. Has small calloused area on bottom of left foot that she points to as the source of her pain. Source: patient Exam Limitations: no limitations History of Present Illness Date Seen by Provider: Feb 05, 2019 Time Seen by Provider: 11:50 Initial Comments 43-year-old female presents with concern for something in the bottom of her left foot. She reports that about a month ago she had some pain like she stepped on something that got better. She reports that last night got worse and that she started having difficulty bearing weight because of the pain. She does have a small area which they feel like this may be a piece of glass or some other foreign body in it. She has no other injuries or complaints at this time Allergies and Home Medications Allergies Coded Allergies: diphenhydramine HCl (Verified Allergy, Unknown, 10/06/11) fentanyl (Verified Allergy, Unknown, 03/04/15) latex (Verified Allergy, Unknown, 10/06/11) meperidine HCl (Verified Allergy, Unknown, 10/06/11) morphine (Verified Allergy, Unknown, 10/06/11) vancomycin (Verified Allergy, Unknown, 10/06/11) iodine (Unverified Adverse Reaction, Intermediate, rash from IV contrast, 05/19/18) clindamycin (Unverified Adverse Reaction, Unknown, 05/19/18) gabapentin (Unverified Adverse Reaction, Unknown, 05/19/18) levofloxacin (Unverified Adverse Reaction, Unknown, 05/19/18) metformin (Unverified Adverse Reaction, Unknown, 05/19/18) metoclopramide (Unverified Adverse Reaction, Unknown, 05/19/18) Home Medications Amoxicillin/Potassium Clav 1 Each Tablet, 1 EACH PO BID Prescribed by: BRITTNI PLASENCIA on 05/19/18 1522 Desonide 15 Gm Oint...g., TOP BID, (Reported) APPLY TO FACE Ergocalciferol (Vitamin D2) 50,000 Unit Capsule, 50,000 UNITS PO WEEKLY, (Reported) Furosemide 80 Mg Tablet, 40 MG PO BID, (Reported) TAKES 1/2 (80MG) TABLET Hydrocodone/Acetaminophen 1 Each Tablet, 1 TAB PO Q6H Prescribed by: BRITTNI PLASENCIA on 05/19/18 1522 Hydroxychloroquine Sulfate 200 Mg Tablet, 200 MG PO BID, (Reported) Insulin Glargine,Hum.rec.anlog 100 Unit/1 Ml Insuln.pen, 28 UNITS SC HS, (Repo rted) Lisinopril 10 Mg Tablet, 20 MG PO BID, (Reported) TAKES 2 (10MG) TABLETS Lorazepam 1 Mg Tablet, 1 MG PO Q6H PRN for ANXIETY, (Reported) Mycophenolate Mofetil 500 Mg Tablet, PO UD, (Reported) FILLED #180 03-27-15 TAKE 1 (500MG) TABLET DAILY UNTIL 03-30-15 THEN TAKE 1 TWICE DAILY X 7 DAYS THEN TAKE 2 AM AND 1 EVENING X 7 DAYS THEN TAKE 2 TWICE DAILY X 7 DAYS THEN TAKE 3 AM AND 2 EVENING X 7 DAYS THEN TAKE 3 TWICE DAILY Ondansetron 4 Mg Tab.rapdis, 4 MG PO Q8H PRN for NAUSEA, (Reported) Ondansetron 4 Mg Tab.rapdis, 4 MG PO TID PRN for NAUSEA/VOMITING-1ST LINE Prescribed by: BRITTNI PLASENCIA on 05/19/18 152 Oxycodone HCl 5 Mg Tablet, 5 MG PO Q6H PRN for PAIN, (Reported) Oxycodone HCl 30 Mg Tab.er.12h, 30 MG PO BID, (Reported) Pantoprazole Sodium 40 Mg Tablet.dr, 40 MG PO DAILY, (Reported) Triamcinolone Acet 15 Gm Oint, TOP BID, (Reported) Patient Home Medication List Home Medication List Reviewed: Yes Review of Systems Constitutional: No chills, No fever, No weakness Respiratory: no symptoms reported Cardiovascular: no symptoms reported Gastrointestinal: no symptoms reported Musculoskeletal: see HPI Skin: see HPI Past Tmysaox-Nzoddu-Mhxlwn Hx Patient Social History Alcohol Use: Denies Use Recreational Drug Use: No Smoking Status: Former Smoker Type Used: Cigarettes Former Smoker, Quit: Apr 06, 2015 2nd Hand Smoke Exposure: No Recent Foreign Travel: No Recent Hopitalizations: No Physical Abuse: No Sexual Abuse: No Mistreated: No Fear: No Immunizations Up To Date Date of Pneumonia Vaccine: Feb 24, 2013 Date of Influenza Vaccine: Nov 24, 2017 Seasonal Allergies Seasonal Allergies: No Past Medical History Surgeries: Yes (PARACENTESIS, BACK SURGERY, C/S X 2, COLONOSCOPY, LAPAROTOMY) Abdominal, Section, Gallbladder, Hysterectomy, Orthopedic, Tonsillectomy, Tubal Ligation Respiratory: Yes (? MARLENI, ) Asthma Currently Using CPAP: No Currently Using BIPAP: No 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)) Atrial Fibrillation, High Cholesterol, Hypertension, Irregular Heartbeat Neurological: Yes (febrile seizures as child, hx hepatic encephalopathy) Headaches /Migraines Reproductive Disorders: Yes Female Reproductive Disorders: Menstrual Problems, Endometriosis, Ovarian Cyst MEDIA JOB TITLES History: Hysterectomy Sexually Transmitted Disease: No HIV/AIDS: No Genitourinary: Yes (CKD Stage 3, Lupus nephritis, Renal insufficiency) Renal Failure, Dialysis Gastrointestinal: Yes (CANO-(nonalcoholic steatohepatitis)) Gastroesophageal Reflux, Liver Disease/Jaundice, Pancreatitis, Irritable Bowel Musculoskeletal: Yes Arthritis, Fibromyalgia, Chronic Back Pain Endocrine: Yes (Hypomagnesium Hx) Diabetes, Insulin dep, Lupus HEENT: Yes (has glasses) Loss of Vision: Bilateral Hearing Impairment: Denies Cancer: No Psychosocial: Yes Anxiety, Depression Integumentary: Yes (reports bug bites) Recent Skin Changes Blood Disorders: No Adverse Reaction/Blood Tranf: No Family Medical History Patient reports no known family medical history. Heart Disease, Cancer, Diabetes, Hypertension Physical Exam Vital Signs Capillary Refill : Height, Weight, BMI Height: 5'10.00" Weight: 300lbs. 0oz. [id number]; 40.03 BMI Method:Stated General Appearance: WD/WN Cardiovascular: normal peripheral pulses, regular rate, rhythm Respiratory: lungs clear, normal breath sounds Feet: left foot soft tissue tenderness Skin: other (small area that appears be like a callus or small abscess with what appears to be a small black foreign bodies such as a small splinter superficially) Procedures/Interventions I&D : Blade Size: 18-gauge needle I & D Procedure: betadine prep Progress A small black foreign body that appears to be splinter was removed with a small amount of purulent discharge. Patient tolerated well. It was superficial. Patient had no immediate complications Departure Impression Primary Impression: Superficial foreign body of left foot Qualified Codes: S90.852A - Superficial foreign body, left foot, initial encounter Disposition: 01 HOME, SELF-CARE Condition: Stable Departure-Patient Inst. Referrals: SHRUTI CLEANING MD (PCP/Family) Primary Care Physician Patient Instructions: Foreign Body in Skin Add. Discharge Instructions: Keep clean with warm soapy water Epson salt soak Emergency department focuses on treating and ruling out life-threatening diseases. Whenever possible, a diagnosis is given. However, most patients are given an impression based on their history, physical exam, and workup during your brief time in the ER. Information about probable diagnosis and other educational material has been provided. Please take the time to read and understand this information. It is very important that you follow up with a physician as discussed during the visit today. Failure to adhere to your follow-up instructions may lead to severe disability, injury, or so please make sure to keep your appointments or obtain one as requested. Please keep in mind the emergency department is not designed to your primary care or "family doctor" and nonurgent issues are best evaluated by an outpatient physician All discharge instructions reviewed with patient and/or family. Voiced understanding. CARLOS ABARCA DO Feb 05, 2019 12:07
[2019-02-05 12:13] VITALS: BP 159/83
== END 2019-02-05 12:20 | disposition home or self-care (01) ==
LOC: EDUNIT# 11:42 → ER FS 11:43
DX: S90.852A Superficial foreign body, left foot, initial encounter (principal); J45.909 Unspecified asthma, uncomplicated; I48.91 Unspecified atrial fibrillation; E78.00 Pure hypercholesterolemia, unspecified; E11.22 Type 2 diabetes mellitus with diabetic chronic kidney disease; I12.9 Hypertensive chronic kidney disease with stage 1 through stage 4 chronic kidney disease, or unspecified chronic kidney disease; N18.3 Chronic kidney disease, stage 3 (moderate); F41.9 Anxiety disorder, unspecified; F32.9 Major depressive disorder, single episode, unspecified; G43.909 Migraine, unspecified, not intractable, without status migrainosus; K21.9 Gastro-esophageal reflux disease without esophagitis; K58.9 Irritable bowel syndrome, unspecified; M79.7 Fibromyalgia; Z88.5 Allergy status to narcotic agent; Z99.2 Dependence on renal dialysis; Z91.040 Latex allergy status; Z88.8 Allergy status to other drugs, medicaments and biological substances; Z88.1 Allergy status to other antibiotic agents; Z79.4 Long term (current) use of insulin; Z87.891 Personal history of nicotine dependence; Z90.710 Acquired absence of both cervix and uterus; Z90.89 Acquired absence of other organs; Z98.51 Tubal ligation status; Z82.49 Family history of ischemic heart disease and other diseases of the circulatory system; W45.8XXA Other foreign body or object entering through skin, initial encounter

== ENCOUNTER → 2019-02-26 | Outpatient (CLI) | payer MEDICAID ==
[~2019-02-26] MED LIST changes: +METF500T19; -METF500T8
--- NOTE | 2019-02-26 14:19 | Diagnostic Imaging Report ---
INDICATION: Left foot pain 3 views of left foot show no fracture or dislocation. There is a small linear radiopaque object 4 mm in length projecting over the soft tissues in the pad of the foot. It resembles a fractured needle. IMPRESSION: There is a small metal fragment in the soft tissues of the heel pad. This is approximately 5 mm from the skin surface. Dictated by: Dictated on workstation # [id number]
== END ==
LOC: RAD FS 14:04
PROVIDERS: ATTEND Family Medicine
DX: M79.672 Pain in left foot (principal)
CPT/HCPCS: 73630

== ENCOUNTER → 2019-06-02 | Outpatient (CLI) | payer MEDICAID ==
[~2019-06-02] MED LIST changes: -OXYC-529 PO; +OXYC5TAB96 PO; -ROPI0.5T2; +ROPI0.5T4
[2019-06-02 12:15] LABS: INR 1.5 (0.8-1.4); PROTHROMBIN TIME PATIENT 18.3 SEC (12.2-14.7)
== END ==
LOC: LAB FS 11:38
PROVIDERS: ATTEND Family Medicine
DX: E11.22 Type 2 diabetes mellitus with diabetic chronic kidney disease (principal); D69.6 Thrombocytopenia, unspecified; E11.59 Type 2 diabetes mellitus with other circulatory complications; N18.9 Chronic kidney disease, unspecified
CPT/HCPCS: 36415; 82947; 84156; 84681; 85610

== ENCOUNTER → 2019-06-02 | Outpatient (CLI) | payer MEDICAID ==
[2019-06-02 11:58] LABS: HEMATOCRIT 42 % (35-52); HEMOGLOBIN 13.3 G/DL (11.5-16.0); LYMPHOCYTES % (AUTO) 30 % (12-44); MEAN CORPUSCULAR HEMOGLOBIN 26 PG (25-34); MEAN CORPUSCULAR HGB CONC 31 G/DL (32-36); MEAN CORPUSCULAR VOLUME 82 FL (80-99); MEAN PLATELET VOLUME 10.3 FL (7.4-10.4); NEUTROPHILS % (AUTO) 58 % (42-75); PLATELET COUNT 165 10^3/uL (130-400); RED CELL DISTRIBUTION WIDTH 14.1 % (10.0-14.5); WHITE BLOOD COUNT 4.6 10^3/uL (4.3-11.0)
[2019-06-02 11:59] LABS: BASOPHILS % (AUTO) 0 % (0-10); EOSINOPHILS # (AUTO) 0.2 10^3/uL (0.0-0.3); EOSINOPHILS % (AUTO) 4 % (0-10); LYMPHOCYTES # (AUTO) 1.4 X 10^3 (1.0-4.0); MONOCYTES # (AUTO) 0.4 X 10^3 (0.0-1.0); MONOCYTES % (AUTO) 8 % (0-12); NEUTROPHILS # (AUTO) 2.7 X 10^3 (1.8-7.8)
[2019-06-02 12:41] LABS: ALANINE AMINOTRANSFERASE 20 U/L (0-55); ALBUMIN 3.7 GM/DL (3.2-4.5); ALKALINE PHOSPHATASE 76 U/L (40-136); BILIRUBIN,TOTAL 0.3 MG/DL (0.1-1.0); BUN/CREATININE RATIO 14; CALCIUM 8.6 MG/DL (8.5-10.1); CARBON DIOXIDE 25 MMOL/L (21-32); CHLORIDE 103 MMOL/L (98-107); CREATININE SERUM 0.66 MG/DL (0.60-1.30); GFR ESTIMATED > 60; GLUCOSE 178 MG/DL (70-105); POTASSIUM 3.7 MMOL/L (3.6-5.0); SODIUM 141 MMOL/L (135-145); TOTAL PROTEIN 6.8 GM/DL (6.4-8.2)
== END ==
LOC: LAB FS 11:00
PROVIDERS: ATTEND Nurse Practitioner Family
DX: Z00.00 Encounter for general adult medical examination without abnormal findings (principal); K75.81 Nonalcoholic steatohepatitis (NASH); K74.60 Unspecified cirrhosis of liver; E66.01 Morbid (severe) obesity due to excess calories; Z68.41 Body mass index [BMI] 40.0-44.9, adult
CPT/HCPCS: 36415; 80053; 82105; 85025

== ENCOUNTER 2019-11-22 13:42 | Emergency (ER) | payer MEDICARE, MEDICAID ==
[~2019-11-22 13:42] MED LIST changes: +METF-865; -METF500T19; +OXC5T PO; -OXYC5TAB96 PO; -PANT40TA3 PO; +PANT40TA52 PO; -WARF10TA44; +WRF10T
[2019-11-22] MEDS ORDERED: ONDANSETRON 4 MG (ZOFRAN) ORAL DISSOLVE TAB PO STA (14:11)
[2019-11-22] MEDS ORDERED: ACET/BUTAL/CAFF (FIORICET) TAB PO STA (14:12)
[2019-11-22] MEDS ORDERED: HYDROcodone/APAP 10 MG/325 MG (LORTAB) TAB PO ONE (14:15)
--- NOTE | 2019-11-22 14:26 | ED Headache ---
General Chief Complaint: Head/Cervical Problems Stated Complaint: HEADACHE, SINUS INFECTION FOR 2-3 WKS Nursing Triage Note: Got medication for a sinus infection yesterday from pcp. States she got a steroid shot, prednisone and z-pack. Headache has worsened overnight. Has taken tylenol for pain with no relief. Pain is located on the R side of forehead and rated at 9/10. Nursing Sepsis Screen: No Definite Risk Source: patient Exam Limitations: no limitations History of Present Illness Date Seen by Provider: Nov 22, 2019 Time Seen by Provider: 13:45 Initial Comments Patient is a 44-year-old female who presents to the emergency room today with a chief complaint of right-sided headache. Patient states that she has been having a sinus infection for the last 2 weeks. She saw her primary care p chad yesterday was started on a Medrol Dosepak, got a steroid shot in the office and started on antibiotics. She states after her steroid shot she felt okay but her headache gradually came on and increased in severity last night. Patient states her head hurt so bad that she could not sleep last night. She presents to the emergency department holding the right side of her head stating that it is a throbbing headache. Laying down makes her head hurt worse. she has photophobia. No nausea or vomiting. She currently rates her headache as "a 9". She denies fever. She complains of runny nose, congestion, sinus infection symptoms. Patient has a history of lupus, remote history of kidney and liver failure as well as a stroke. She is a diabetic. All other review of systems reviewed negative except as stated. Timing/Duration: 24 hours Severity/Quality: severe, achy, pressure, throbbing Location: frontal, temporal (right) Prior Headaches/Recent Trauma: occasional headaches Associated Symptoms: facial pain, nasal congestion, nasal drainage, sinus infection Allergies and Home Medications Allergies Coded Allergies: diphenhydramine HCl (Verified Allergy, Unknown, 10/06/11) fentanyl (Verified Allergy, Unknown, 03/04/15) latex (Verified Allergy, Unknown, 10/06/11) meperidine HCl (Verified Allergy, Unknown, 10/06/11) morphine (Verified Allergy, Unknown, 10/06/11) vancomycin (Verified Allergy, Unknown, 10/06/11) iodine (Unverified Adverse Reaction, Intermediate, rash from IV contrast, 05/19/18) clindamycin (Unverified Adverse Reaction, Unknown, 05/19/18) gabapentin (Unverified Adverse Reaction, Unknown, 05/19/18) levofloxacin (Unverified Adverse Reaction, Unknown, 05/19/18) metformin (Unverified Adverse Reaction, Unknown, 05/19/18) metoclopramide (Unverified Adverse Reaction, Unknown, 05/19/18) Home Medications Amoxicillin/Potassium Clav 1 Each Tablet, 1 EACH PO BID Prescribed by: BRITTNI PLASENCIA on 05/19/181521 Desonide 15 Gm Oint...g., TOP BID, (Reported) APPLY TO FACE Ergocalciferol (Vitamin D2) 50,000 Unit Capsule, 50,000 UNITS PO WEEKLY, (Reported) Furosemide 80 Mg Tablet, 40 MG PO BID, (Reported) TAKES 1/2 (80MG) TABLET Hydrocodone/Acetaminophen 1 Each Tablet, 1 TAB PO Q6H Prescribed by: BRITTNI PLASENCIA on 05/19/181521 Hydroxychloroquine Sulfate 200 Mg Tablet, 200 MG PO BID, (Reported) Insulin Glargine,Hum.rec.anlog 100 Unit/1 Ml Insuln.pen, 28 UNITS SC HS, (Reported) Lisinopril 10 Mg Tablet, 20 MG PO BID, (Reported) TAKES 2 (10MG) TABLETS Lorazepam 1 Mg Tablet, 1 MG PO Q6H PRN for ANXIETY, (Reported) Mycophenolate Mofetil 500 Mg Tablet, PO UD, (Reported) FILLED #180 03-27-15 TAKE 1 (500MG) TABLET DAILY UNTIL 03-30-15 THEN TAKE 1 TWICE DAILY X 7 DAYS THEN TAKE 2 AM AND 1 EVENING X 7 DAYS THEN TAKE 2 TWICE PIERRE LY X 7 DAYS THEN TAKE 3 AM AND 2 EVENING X 7 DAYS THEN TAKE 3 TWICE DAILY Ondansetron 4 Mg Tab.rapdis, 4 MG PO Q8H PRN for NAUSEA, (Reported) Ondansetron 4 Mg Tab.rapdis, 4 MG PO TID PRN for NAUSEA/VOMITING-1ST LINE Prescribed by: BRITTNI PLASENCIA on 05/19/181521 Oxycodone HCl 30 Mg Tab.er.12h, 30 MG PO BID, (Reported) Oxycodone Hcl 5 Mg Tablet, 5 MG PO Q6H PRN for PAIN, (Reported) Pantoprazole Sodium 40 Mg Tablet.dr, 40 MG PO DAILY, (Reported) Triamcinolone Acet 15 Gm Oint, TOP BID, (Reported) Patient Home Medication List Home Medication List Reviewed: Yes Review of Systems Review of Systems Constitutional: malaise Eyes: Photophobia Ears, Nose, Mouth, Throat: nose discharge, epistaxis (reported last night) Respiratory: cough (Occasional); No short of breath Gastrointestinal: no symptoms reported Genitourinary: no symptoms reported Musculoskeletal: no symptoms reported Skin: no symptoms reported Psychiatric/Neurological: Headache; Denies Numbness, Denies Weakness All Other Systems Reviewed Negative Unless Noted: Yes Past Nglsuhs-Koktjl-Ptaevo Hx Patient Social History Alcohol Use: Denies Use Recreational Drug Use: No Smoking Status: Former Smoker Type Used: Cigarettes Former Smoker, Quit: Apr 06, 2015 2nd Hand Smoke Exposure: No Recent Foreign Travel: No Contact w/Someone Who Travel: No Recent Infectious Disease Expo: No Recent Hopitalizations: No Immunizations Up To Date Date of Pneumonia Vaccine: Feb 24, 2013 Date of Influenza Vaccine: Nov 24, 2017 Seasonal Allergies Seasonal Allergies: No Past Medical History Surgeries: Yes (PARACENTESIS, BACK SURGERY, C/S X 2, COLONOSCOPY, LAPAROTOMY) Abdominal, Section, Gallbladder, Hysterectomy, Orthopedic, Tonsillectomy, Tubal Ligation Respiratory: Yes (? 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 Sexually Transmitted Disease: No HIV/AIDS: No Genitourinary: Yes (CKD Stage 3, Lupus nephritis, Renal insufficiency) Renal Failure, Dialysis Gastrointestinal: Yes (CANO-(nonalcoholic steatohepatitis)) Gastroesophageal Reflux, Liver Disease/Jaundice, Pancreatitis, Irritable Bowel Musculoskeletal: Yes Arthritis, Fibromyalgia, Chronic Back Pain Endocrine: Yes (Hypomagnesium Hx) Diabetes, Insulin dep, Lupus HEENT: Yes (has glasses) Loss of Vision: Bilateral Hearing Impairment: Denies Cancer: No Psychosocial: Yes Anxiety, Depression Integumentary: No Recent Skin Changes Blood Disorders: No Adverse Reaction/Blood Tranf: No Family Medical History Patient reports no known family medical history. Heart Disease, Cancer, Diabetes, Hypertension Physical Exam Vital Signs Vital Signs - First Documented 11/22/19 13:50 Temp 36.6 Pulse 84 Resp 18 B/P (MAP) 184/115 (138) Pulse Ox 98 Capillary Refill : Less Than 3 Seconds Height, Weight, BMI Height: 5'10.00" Weight: 300lbs. 0oz. 136.605152qd; 48.00 BMI Method:Stated General Appearance: WD/WN, moderate distress HEENT: PERRL/EOMI, pharynx normal, TM abnormal (R) (Effusion noted) Neck: non-tender, full range of motion, supple, normal inspection, other (No meningismus) Cardiovascular: regular rate, rhythm, no murmur Respiratory: chest non-tender, no respiratory distress, no accessory muscle use Extremities: normal range of motion, normal inspection, no pedal edema Psychiatric: alert, oriented x 3 Crainal Nerves: normal hearing, normal speech, PERRL Motor/Sensory: no motor deficit, no sensory deficit Skin: normal color, warm/dry Lymphatic: no adenopathy Progress/Results/Core Measures Results/Orders My Orders Orders - KING CONN MD Ondansetron Oral Dissolve Tab (Zofran (11/22/19 14:11) Hydrocodone/Apap 10/325 Tablet (Lortab 1 (11/22/19 14:15) Butalbital/Apap/Caffeine Tab (Fioricet T (11/22/19 14:12) Vital Signs/I&O 11/22/19 13:50 Temp 36.6 Pulse 84 Resp 18 B/P (MAP) 184/115 (138) Pulse Ox 98 Blood Pressure Mean: 138 Progress Progress Note : Time: 14:28 Progress Note Patient seen and examined by me, 44-year-old with a chief complaint of right- sided headache. Onset 24 hours prior. Patient states headache was not thunderclap in origin. Has gradually worsened throughout the night and day. No nausea or vomiting. She does have photophobia. Currently being treated for si nusitis. Low index of suspicion for acute subarachnoid hemorrhage however it would be on the differential. Patient has no evidence of meningismus. I do not think that the patient has meningitis. She is not febrile, she is not toxic appearing. Patient has intolerance to NSAIDs therefore Toradol not be given for her headache which she says has worked before. I am going to treat her with some Zofran and some Fioricet and watch her for about 30 minutes to see if she starts getting some relief. The patient is comfortable with this plan of care. All questions are sought and answered 1509 experiencing some relief and is eager for discharge. Departure Impression Primary Impression: Migraine Qualified Codes: G43.009 - Migraine without aura, not intractable, without status migrainosus Disposition: HOME, SELF-CARE Condition: Stable Departure-Patient Inst. Referrals: SHRUTI CLEANING MD (PCP/Family) Primary Care Physician Add. Discharge Instructions: Drink plenty of fluids to stay well hydrated. You can continue to take tylenol as needed for headache/ pain. Follow up with your Primary Care doctor this next week. Return to the Emergency Room for any worsening symptoms, new concerns. All discharge instructions reviewed with patient and/or family. Voiced understanding. Scripts Butalb/Acetaminophen/Caffeine (Uerwignm-Wjtbbiltrdjel-Bxct Cp) 1 Each Capsule 1 EACH PO Q8H PRN for headache, #10 CAP Prov: KING CONN MD 11/22/19 Ondansetron (Ondansetron Odt) 4 Mg Tab.rapdis 4 MG PO Q8H PRN for nausea, #10 TAB Prov: KING CONN MD 11/22/19 KING CONN MD Nov 22, 2019 14:26
[2019-11-22] MEDS ORDERED: ONDA4TAB11 PO (15:14)
[2019-11-22 15:16] VITALS: BP 151/100
[2019-11-22] MEDS ORDERED: BUTA1CAP37 PO (15:16)
== END 2019-11-22 15:16 | disposition home or self-care (01) ==
LOC: EDUNIT# 13:42 → ER FS 13:44
DX: G43.909 Migraine, unspecified, not intractable, without status migrainosus (principal); E11.22 Type 2 diabetes mellitus with diabetic chronic kidney disease; I12.9 Hypertensive chronic kidney disease with stage 1 through stage 4 chronic kidney disease, or unspecified chronic kidney disease; N18.30 Chronic kidney disease, stage 3 unspecified; K21.9 Gastro-esophageal reflux disease without esophagitis; F41.9 Anxiety disorder, unspecified; J45.909 Unspecified asthma, uncomplicated; G89.29 Other chronic pain; M54.9 Dorsalgia, unspecified; Z79.4 Long term (current) use of insulin; Z82.49 Family history of ischemic heart disease and other diseases of the circulatory system; Z83.3 Family history of diabetes mellitus; Z80.9 Family history of malignant neoplasm, unspecified; Z87.891 Personal history of nicotine dependence; Z91.040 Latex allergy status; Z88.5 Allergy status to narcotic agent; Z91.041 Radiographic dye allergy status; Z88.1 Allergy status to other antibiotic agents; Z88.8 Allergy status to other drugs, medicaments and biological substances; Z79.891 Long term (current) use of opiate analgesic
CPT/HCPCS: 99283

== ENCOUNTER → 2020-06-04 | Outpatient (CLI) | payer MEDICARE, MEDICAID ==
[~2020-06-04] MED LIST changes: +ACHD5005 PO; +BACL10TA PO; +BUTA1CAP37 PO; -LISI10TA2 PO; +LISI10TA25 PO
--- NOTE | 2020-06-04 18:05 | Diagnostic Imaging Report ---
INDICATION: Left foot pain. AP, oblique, and lateral views of the left foot are obtained and compared with 02/26/2019. No fracture or acute bony abnormality seen. Joint spaces are unremarkable. There is plantar calcaneal spurring. IMPRESSION: Negative left foot. The small foreign body in the soft tissues seen on the prior study of 02/26/2019 is no longer apparent. Dictated by: Dictated on workstation # [id number]
== END ==
LOC: RAD FS 16:18
PROVIDERS: ATTEND Nurse Practitioner Family
DX: S99.922A Unspecified injury of left foot, initial encounter (principal)
CPT/HCPCS: 73630

== ENCOUNTER 2020-07-07 16:31 | Emergency (ER) | payer MEDICARE, MEDICAID ==
[~2020-07-07] VITALS: Ht 177 cm; Wt 125.0 kg
--- NOTE | 2020-07-07 16:47 | ED Abdominal Pain ---
General Chief Complaint: Abdominal/GI Problems Stated Complaint: LLQ PAIN History of Present Illness Date Seen by Provider: Jul 07, 2020 Time Seen by Provider: 16:42 Initial Comments 45-year-old female presents with left-sided abdominal pain. She reports that started this morning. She describes it as a throbbing pain, and the pain has been constant since it started.. It gets better if she lays on her left side. She has some mild radiation of the pain into the right side. The pain is in the mid abdomen. She denies any nausea or vomiting. She denies any urinary symptoms. No reports of fevers or chills. Allergies and Home Medications Allergies Coded Allergies: diphenhydramine HCl (Verified Allergy, Unknown, 10/06/11) fentanyl (Verified Allergy, Unknown, 03/04/15) latex (Verified Allergy, Unknown, 10/06/11) meperidine HCl (Verified Allergy, Unknown, 10/06/11) morphine (Verified Allergy, Unknown, 10/06/11) vancomycin (Verified Allergy, Unknown, 10/06/11) iodine (Unverified Adverse Reaction, Intermediate, rash from IV contrast, 05/19/18) clindamycin (Unverified Adverse Reaction, Unknown, 05/19/18) gabapentin (Unverified Adverse Reaction, Unknown, 05/19/18) levofloxacin (Unverified Adverse Reaction, Unknown, 05/19/18) metformin (Unverified Adverse Reaction, Unknown, 05/19/18) metoclopramide (Unverified Adverse Reaction, Unknown, 05/19/18) Home Medications Amoxicillin/Potassium Clav 1 Each Tablet, 1 EACH PO BID Prescribed by: BRITTNI PLASENCIA on 05/19/18 1522 Baclofen 10 Mg Tablet, 10 MG PO TID PRN for MUSCLE SPASMS Prescribed by: SEBASTIÁN COX on 02/20/20 0050 Butalb/Acetaminophen/Caffeine 1 Each Capsule, 1 EACH PO Q8H PRN for headache Prescribed by: KING CONN on 11/22/19 1516 Desonide 15 Gm Oint...g., TOP BID, (Reported) APPLY TO FACE Ergocalciferol (Vitamin D2) 50,000 Unit Capsule, 50,000 UNITS PO WEEKLY, (Reported) Furosemide 80 Mg Tablet, 40 MG PO BID, (Reported) TAKES 1/2 (80MG) TABLET Hydrocodone/Acetaminophen 1 Each Tablet, 1 TAB PO Q6H Prescribed by: BRITTNI PLASENCIA on 05/19/18 1522 Hydrocodone/Acetaminophen 1 Each Tablet, 1 EACH PO Q4H PRN for PAIN-SEVERE (8- 10) Prescribed by: SEBASTIÁN COX on 02/20/20 0051 Hydroxychloroquine Sulfate 200 Mg Tablet, 200 MG PO BID, (Reported) Insulin Glargine,Hum.rec.anlog 100 Unit/1 Ml Insuln.pen, 28 UNITS SC HS, (Reported) Lisinopril 10 Mg Tablet, 20 MG PO BID, (Reported) TAKES 2 (10MG) TABLETS Lorazepam 1 Mg Tablet, 1 MG PO Q6H PRN for ANXIETY, (Reported) Mycophenolate Mofetil 500 Mg Tablet, PO UD, (Reported) FILLED #180 03-27-15 TAKE 1 (500MG) TABLET DAILY UNTIL 03-30-15 THEN TAKE 1 TWICE DAILY X 7 DAYS THEN TAKE 2 AM AND 1 EVENING X 7 DAYS THEN TAKE 2 TWICE DAILY X 7 DAYS THEN TAKE 3 AM AND 2 EVENING X 7 DAYS THEN TAKE 3 TWICE DAILY Ondansetron 4 Mg Tab.rapdis, 4 MG PO Q8H PRN for NAUSEA, (Reported) Ondansetron 4 Mg Tab.rapdis, 4 MG PO TID PRN for NAUSEA/VOMITING-1ST LINE Prescribed by: BRITTNI PLASENCIA on 05/19/18 152 Ondansetron 4 Mg Tab.rapdis, 4 MG PO Q8H PRN for nausea Prescribed by: KING CONN on 11/22/19 1514 Oxycodone HCl 30 Mg Tab.er.12h, 30 MG PO BID, (Reported) Oxycodone Hcl 5 Mg Tablet, 5 MG PO Q6H PRN for PAIN, (Reported) Pantoprazole Sodium 40 Mg Tablet.dr, 40 MG PO DAILY, (Reported) Triamcinolone Acet 15 Gm Oint, TOP BID, (Reported) Patient Home Medication List Home Medication List Reviewed: Yes Review of Systems Review of Systems Constitutional: No chills, No fever EENTM: No Symptoms Reported Respiratory: Denies Cough, Denies Shortness of Air Cardiovascular: Denies Chest Pain, Denies Irregular Heart Rate, Denies Lightheadedness Gastrointestinal: Abdominal Pain; Denies Diarrhea, Denies Nausea, Denies Vo miting Genitourinary: Denies Burning Musculoskeletal: no symptoms reported Skin: no symptoms reported Psychiatric/Neurological: No Symptoms Reported Endocrine: No Symptoms Reported Past Cxaevwp-Kylvqj-Dbqzby Hx Past Med/Social Hx: Reviewed Nursing Past Med/Soc Hx Patient Social History Type Used: Cigarettes Former Smoker, Quit: Apr 06, 2015 2nd Hand Smoke Exposure: No Recent Hopitalizations: No Immunizations Up To Date Date of Pneumonia Vaccine: Feb 24, 2013 Date of Influenza Vaccine: Nov 24, 2017 Seasonal Allergies Seasonal Allergies: No Past Medical History Surgeries: Yes (PARACENTESIS, BACK SURGERY, C/S X 2, COLONOSCOPY, LAPAROTOMY) Abdominal, Section, Gallbladder, Hysterectomy, Orthopedic, Tonsillectomy, Tubal Ligation Respiratory: Yes Asthma Currently Using CPAP: No Currently Using BIPAP: No 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)) Atrial Fibrillation, High Cholesterol, Hypertension, Irregular Heartbeat Neurological: Yes (febrile seizures as child, hx hepatic encephalopathy) Headaches /Migraines Reproductive Disorders: Yes Female Reproductive Disorders: Menstrual Problems, Endometriosis, Ovarian Cyst 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 Sexually Transmitted Disease: No HIV/AIDS: No Genitourinary: Yes (CKD Stage 3, Lupus nephritis, Renal insufficiency) Renal Failure, Dialysis Gastrointestinal: Yes (CANO-(nonalcoholic steatohepatitis)) Gastroesophageal Reflux, Liver Disease/Jaundice, Pancreatitis, Irritable Bowel Musculoskeletal: Yes Arthritis, Fibromyalgia, Chronic Back Pain Endocrine: Yes (Hypomagnesium Hx) Diabetes, Insulin dep, Lupus HEENT: Yes (has glasses) Loss of Vision: Bilateral Hearing Impairment: Denies Cancer: No Psychosocial: Yes Anxiety, Depression Integumentary: No Recent Skin Changes Blood Disorders: No Adverse Reaction/Blood Tranf: No Family Medical History Patient reports no known family medical history. Heart Disease, Cancer, Diabetes, Hypertension Physical Exam Vital Signs Vital Signs - First Documented 07/07/20 16:54 Temp 35.6 Pulse 98 Resp 20 B/P (MAP) 159/118 (132) Pulse Ox 97 O2 Delivery Room Air Capillary Refill : Height/Weight/BMI Height: 5'10.00" Weight: 300lbs. 0oz. 136.367149ho; 48.00 BMI Method:Stated General Appearance: mild distress, obese HEENT: PERRL/EOMI Neck: full range of motion Respiratory: lungs clear, normal breath sounds Cardiovascular: normal peripheral pulses, regular rate, rhythm Gastrointestinal: soft, tenderness (Mid left abdomen) Extremities: normal inspection, no pedal edema Back: CVA tenderness (L) Neurologic/Psychiatric: alert, normal mood/affect, oriented x 3 Skin: normal color, warm/dry Progress/Results/Core Measures Results/Orders Lab Results Laboratory Tests Test 07/07/20 16:43 07/07/20 16:50 Range/Units Urine Color YELLOW Urine Clarity CLEAR Urine pH 6.0 5-9 Urine Specific [place] <=1.005 1.016-1.022 Urine Protein 1+ H NEGATIVE Urine Glucose (UA) 3+ H NEGATIVE Urine Ketones NEGATIVE NEGATIVE Urine Nitrite NEGATIVE NEGATIVE Urine Bilirubin NEGATIVE NEGATIVE Urine Urobilinogen 0.2 < = 1.0 MG/DL Urine Leukocyte Esterase NEGATIVE NEGATIVE Urine RBC (Auto) TRACE H NEGATIVE Urine RBC 0-2 /HPF Urine WBC RARE /HPF Urine Squamous Epithelial Cells 0-2 /HPF Urine Crystals NONE /LPF Urine Bacteria NEGATIVE /HPF Urine Casts NONE /LPF Urine Mucus NEGATIVE /LPF Urine Culture Indicated NO Urine Test NEGATIVE NEGATIVE White Blood Count 5.2 4.3-11.0 10^3/uL Red Blood Count 5.12 4.35-5.85 10^6/uL Hemoglobin 13.7 11.5-16.0 G/DL Hematocrit 42 35-52 % Mean Corpuscular Volume 82 80-99 FL Mean Corpuscular Hemoglobin 27 25-34 PG Mean Corpuscular Hemoglobin Concent 33 32-36 G/DL Red Cell Distribution Width 14.1 10.0-14.5 % Platelet Count 209 130-400 10^3/uL Mean Platelet Volume 10.3 7.4-10.4 FL Immature Granulocyte % (Auto) 1 % Neutrophils (%) (Auto) 68 42-75 % Lymphocytes (%) (Auto) 21 12-44 % Monocytes (%) (Auto) 8 0-12 % Eosinophils (%) (Auto) 1 0-10 % Basophils (%) (Auto) 0 0-10 % Neutrophils # (Auto) 3.5 1.8-7.8 X 10^3 Lymphocytes # (Auto) 1.1 1.0-4.0 X 10^3 Monocytes # (Auto) 0.4 0.0-1.0 X 10^3 Eosinophils # (Auto) 0.1 0.0-0.3 10^3/uL Basophils # (Auto) 0.0 0.0-0.1 10^3/uL Immature Granulocyte # (Auto) 0.0 0.0-0.1 10^3/uL Sodium Level 135 135-145 MMOL/L Potassium Level 3.4 L 3.6-5.0 MMOL/L Chloride Level 102 98-107 MMOL/L Carbon Dioxide Level 23 21-32 MMOL/L Anion Gap 10 5-14 MMOL/L Blood Urea Nitrogen 6 L 7-18 MG/DL Creatinine 0.64 0.60-1.30 MG/DL Estimat Glomerular Filtration Rate > 60 BUN/Creatinine Ratio 9 Glucose Level 304 H 70-105 MG/DL Calcium Level 8.7 8.5-10.1 MG/DL Corrected Calcium 9.0 8.5-10.1 MG/DL Total Bilirubin 0.3 0.1-1.0 MG/DL Aspartate Amino Transf (AST/SGOT) 34 5-34 U/L Alanine Aminotransferase (ALT/SGPT) 22 0-55 U/L Alkaline Phosphatase 71 40-136 U/L C-Reactive Protein 2.04 H <0.50 MG/DL Total Protein 6.6 6.4-8.2 GM/DL Albumin 3.6 3.2-4.5 GM/DL Lipase 25 8-78 U/L My Orders Orders - ABARCA,CARLOS L DO Cbc With Automated Diff (07/07/20 16:48) Comprehensive Metabolic Panel (07/07/20 16:48) Hcg,Qualitative Urine (07/07/20 16:48) Lipase (07/07/20 16:48) Ua Culture If Indicated (07/07/20 16:48) Crp Fs (07/07/20 16:48) Ct Abdomen/Pelvis Wo (07/07/20 16:48) Ketorolac Injection (Toradol Injection) (07/07/20 16:48) Orphenadrine Inj (Ed Only) (Norflex Inje (07/07/20 17:30) Pepcid 20 Mg Iv (07/07/20 17:32) Vital Signs/I&O 07/07/20 16:54 Temp 35.6 Pulse 98 Resp 20 B/P (MAP) 159/118 (132) Pulse Ox 97 O2 Delivery Room Air Progress Progress Note : Progress Note Patient with negative CT exam. Patient with significant lab abnormalities. Patient does have elevated blood sugar and is noted to have elevated blood sugar. She has a slightly elevated CRP but negative white count I once again no CT findings. Discussed with her that if her symptoms continue she needs to follow-up with her primary care provider and possibly see a GI specialist. Patient should use Tylenol and ibuprofen as needed for pain. Patient stable and discharged Diagnostic Imaging Diagonstic Imaging: CT Plain Films/CT/US/NM/MRI: abdomen Comments Date of Exam:07/07/20 CT ABDOMEN/PELVIS WO PROCEDURE: CT abdomen and pelvis without contrast. TECHNIQUE: Multiple contiguous axial images were obtained through the abdomen and pelvis without the use of intravenous contrast. Auto Exposure Controls were utilized during the CT exam to meet ALARA standards for radiation dose reduction. INDICATION: Left flank pain. FINDINGS: The lung bases are clear. The liver is normal in size and without focal lesions. The gallbladder is surgically absent. There is no biliary ductal dilatation. The spleen is normal. The pancreas and adrenal glands are unremarkable. The kidneys are normal in appearance. The aorta is nonaneurysmal. There is no evidence of nephrolithiasis or obstructive uropathy. The bowel gas pattern is nonspecific. There is no free air. There is no ascites. There are no focal inflammatory changes. Bladder is normal. There is no pelvic mass, adenopathy or free fluid. There are degenerative changes in the spine. IMPRESSION: No evidence of nephrolithiasis or obstructive uropathy. Gallbladder is surgically absent. There is no CT evidence of appendicitis. Additionally there are no focal inflammatory changes. Reviewed: Reviewed/Discussed Departure Impression Primary Impression: Abdominal pain Qualified Codes: R10.32 - Left lower quadrant pain Disposition: 01 HOME, SELF-CARE Condition: Stable Departure-Patient Inst. Referrals: SHRUTI CLEANING MD (PCP/Family) Primary Care Physician Patient Instructions: Severe Abdominal Pain, Adult (DC), Gastritis (DC) Add. Discharge Instructions: Tylenol or ibuprofen as needed for pain Follow-up with your primary care provider in 1 to 2 days if symptoms or not improving and consider evaluation by GI specialist All discharge instructions reviewed with patient and/or family. Voiced understanding. CARLOS ABARCA DO Jul 07, 2020 16:47
[2020-07-07] MEDS ORDERED: KETOROLAC 30 MG/ML VIAL IVP STA (16:48)
[2020-07-07 17:06] LABS: WHITE BLOOD COUNT 5.2 10^3/uL (4.3-11.0)
[2020-07-07 17:07] LABS: BASOPHILS % (AUTO) 0 % (0-10); EOSINOPHILS % (AUTO) 1 % (0-10); HEMATOCRIT 42 % (35-52); HEMOGLOBIN 13.7 G/DL (11.5-16.0); LYMPHOCYTES # (AUTO) 1.1 X 10^3 (1.0-4.0); LYMPHOCYTES % (AUTO) 21 % (12-44); MEAN CORPUSCULAR HEMOGLOBIN 27 PG (25-34); MEAN CORPUSCULAR HGB CONC 33 G/DL (32-36); MEAN CORPUSCULAR VOLUME 82 FL (80-99); MEAN PLATELET VOLUME 10.3 FL (7.4-10.4); MONOCYTES % (AUTO) 8 % (0-12); NEUTROPHILS # (AUTO) 3.5 X 10^3 (1.8-7.8); NEUTROPHILS % (AUTO) 68 % (42-75); PLATELET COUNT 209 10^3/uL (130-400)
[2020-07-07 17:08] LABS: EOSINOPHILS # (AUTO) 0.1 10^3/uL (0.0-0.3); MONOCYTES # (AUTO) 0.4 X 10^3 (0.0-1.0)
--- NOTE | 2020-07-07 17:13 | Diagnostic Imaging Report ---
PROCEDURE: CT abdomen and pelvis without contrast. TECHNIQUE: Multiple contiguous axial images were obtained through the abdomen and pelvis without the use of intravenous contrast. Auto Exposure Controls were utilized during the CT exam to meet ALARA standards for radiation dose reduction. INDICATION: Left flank pain. FINDINGS: The lung bases are clear. The liver is normal in size and without focal lesions. The gallbladder is surgically absent. There is no biliary ductal dilatation. The spleen is normal. The pancreas and adrenal glands are unremarkable. The kidneys are normal in appearance. The aorta is nonaneurysmal. There is no evidence of nephrolithiasis or obstructive uropathy. The bowel gas pattern is nonspecific. There is no free air. There is no ascites. There are no focal inflammatory changes. Bladder is normal. There is no pelvic mass, adenopathy or free fluid. There are degenerative changes in the spine. IMPRESSION: No evidence of nephrolithiasis or obstructive uropathy. Gallbladder is surgically absent. There is no CT evidence of appendicitis. Additionally there are no focal inflammatory changes. Dictated by: Dictated on workstation # [id number]
[2020-07-07 17:16] LABS: CLARITY,URINE CLEAR; COLOR,URINE YELLOW; GLUCOSE, URINE (UA) 3+ (NEGATIVE); PROTEIN,URINE 1+ (NEGATIVE)
[2020-07-07 17:17] LABS: BACTERIA,URINE NEGATIVE /HPF; BILIRUBIN,URINE NEGATIVE (NEGATIVE); KETONES,URINE NEGATIVE (NEGATIVE); LEUKOCYTE ESTERASE ,URINE NEGATIVE (NEGATIVE); NITRITE,URINE NEGATIVE (NEGATIVE); RBC,URINE 0-2 /HPF; SQUAMOUS EPITHELIAL CELL,UR 0-2 /HPF; WBC,URINE RARE /HPF
[2020-07-07 17:19] LABS: ALANINE AMINOTRANSFERASE 22 U/L (0-55); ALKALINE PHOSPHATASE 71 U/L (40-136); BILIRUBIN,TOTAL 0.3 MG/DL (0.1-1.0); BUN/CREATININE RATIO 9; CALCIUM 8.7 MG/DL (8.5-10.1); CARBON DIOXIDE 23 MMOL/L (21-32); CHLORIDE 102 MMOL/L (98-107); CREATININE SERUM 0.64 MG/DL (0.60-1.30); GFR ESTIMATED > 60; GLUCOSE 304 MG/DL (70-105); POTASSIUM 3.4 MMOL/L (3.6-5.0); SODIUM 135 MMOL/L (135-145); TOTAL PROTEIN 6.6 GM/DL (6.4-8.2)
[2020-07-07 17:20] LABS: ALBUMIN 3.6 GM/DL (3.2-4.5); LIPASE 25 U/L (8-78)
[2020-07-07] MEDS ORDERED: ORPHENADRINE 60 MG/2 ML (NORFLEX) AMP (ED ONLY) IV ONE (17:30)
[2020-07-07] MEDS ORDERED: FAMOTIDINE 20MG/2ML IV (PEPCID) IV STA (17:32)
[2020-07-07 17:41] VITALS: BP 134/72
== END 2020-07-07 17:42 | disposition home or self-care (01) ==
LOC: EDUNIT# 16:31 → ER FS 16:32
DX: R10.32 Left lower quadrant pain (principal); I12.9 Hypertensive chronic kidney disease with stage 1 through stage 4 chronic kidney disease, or unspecified chronic kidney disease; E11.22 Type 2 diabetes mellitus with diabetic chronic kidney disease; N18.30 Chronic kidney disease, stage 3 unspecified; J45.909 Unspecified asthma, uncomplicated; G89.29 Other chronic pain; M54.9 Dorsalgia, unspecified; M79.7 Fibromyalgia; K21.9 Gastro-esophageal reflux disease without esophagitis; E66.9 Obesity, unspecified; Z87.891 Personal history of nicotine dependence; Z68.42 Body mass index [BMI] 45.0-49.9, adult; Z99.2 Dependence on renal dialysis; Z79.891 Long term (current) use of opiate analgesic; Z79.4 Long term (current) use of insulin; Z79.899 Other long term (current) drug therapy
CPT/HCPCS: 36415; 74176; 80053; 81000; 83690; 84703; 85025; 86141

== ENCOUNTER 2020-09-11 10:41 | Emergency (ER) | payer MEDICARE, MEDICAID ==
[~2020-09-11] VITALS: Ht 175.2 cm; Wt 155.5 kg
[2020-09-11] MEDS ORDERED: TRAM50TA3 (10:56)
[2020-09-11] MEDS ORDERED: methylPREDNISolone 125 MG (Solu-MEDROL) VIAL IM ONE (11:00)
[2020-09-11] MEDS ORDERED: ACHD5005 PO (11:00)
[2020-09-11] MEDS ORDERED: CYCL10TA9 PO (11:00)
--- NOTE | 2020-09-11 11:01 | ED Back Pain ---
General Chief Complaint: Back Problems Stated Complaint: LOW BACK/LEG PAIN Source of Information: Patient History of Present Illness Date Seen by Provider: Sep 11, 2020 Time Seen by Provider: 10:55 Initial Comments 45-year-old female with past medical history significant for chronic back pain, fibromyalgia, lupus and degenerative disc disease......... presents with what she calls a "flare of her lupus" having pain all over including her back. States she has had similar episodes in the past without any precipitating cause. Denies any injury or fall. Denies any loss of bowel or bladder control, weakness of lower extremities or paresthesia. Allergies and Home Medications Allergies Coded Allergies: diphenhydramine HCl (Verified Allergy, Unknown, 10/06/11) fentanyl (Verified Allergy, Unknown, 03/04/15) latex (Verified Allergy, Unknown, 10/06/11) meperidine HCl (Verified Allergy, Unknown, 10/06/11) morphine (Verified Allergy, Unknown, 10/06/11) vancomycin (Verified Allergy, Unknown, 10/06/11) iodine (Unverified Adverse Reaction, Intermediate, rash from IV contrast, 05/19/18) clindamycin (Unverified Adverse Reaction, Unknown, 05/19/18) gabapentin (Unverified Adverse Reaction, Unknown, 05/19/18) levofloxacin (Unverified Adverse Reaction, Unknown, 05/19/18) metformin (Unverified Adverse Reaction, Unknown, 05/19/18) metoclopramide (Unverified Adverse Reaction, Unknown, 05/19/18) Home Medications Amoxicillin/Potassium Clav 1 Each Tablet, 1 EACH PO BID Prescribed by: BRITTNI PLASENCIA on 05/19/18 1522 Baclofen 10 Mg Tablet, 10 MG PO TID PRN for MUSCLE SPASMS Prescribed by: SEBASTIÁN COX on 02/20/20 0050 Butalb/Acetaminophen/Caffeine 1 Each Capsule, 1 EACH PO Q8H PRN for headache Prescribed by: KING CONN on 11/22/19 1516 Cyclobenzaprine HCl 10 Mg Tablet, 10 MG PO Q8H PRN for SPASMS Prescribed by: KATIA GARCIA on 09/11/20 1100 Desonide 15 Gm Oint...g., TOP BID, (Reported) APPLY TO FACE Ergocalciferol (Vitamin D2) 50,000 Unit Capsule, 50,000 UNITS PO WEEKLY, (Reported) Furosemide 80 Mg Tablet, 40 MG PO BID, (Reported) TAKES 1/2 (80MG) TABLET Hydrocodone/Acetaminophen 1 Each Tablet, 1 EACH PO Q4H Prescribed by: KATIA GARCIA on 09/11/20 1101 Hydroxychloroquine Sulfate 200 Mg Tablet, 200 MG PO BID, (Reported) Insulin Glargine,Hum.rec.anlog 100 Unit/1 Ml Insuln.pen, 28 UNITS SC HS, (Repor jeanette) Lisinopril 10 Mg Tablet, 20 MG PO BID, (Reported) TAKES 2 (10MG) TABLETS Lorazepam 1 Mg Tablet, 1 MG PO Q6H PRN for ANXIETY, (Reported) Mycophenolate Mofetil 500 Mg Tablet, PO UD, (Reported) FILLED #180 03-27-15 TAKE 1 (500MG) TABLET DAILY UNTIL 03-30-15 THEN TAKE 1 TWICE DAILY X 7 DAYS THEN TAKE 2 AM AND 1 EVENING X 7 DAYS THEN TAKE 2 TWICE DAILY X 7 DAYS THEN TAKE 3 AM AND 2 EVENING X 7 DAYS THEN TAKE 3 TWICE DAILY Ondansetron 4 Mg Tab.rapdis, 4 MG PO Q8H PRN for NAUSEA, (Reported) Ondansetron 4 Mg Tab.rapdis, 4 MG PO TID PRN for NAUSEA/VOMITING-1ST LINE Prescribed by: BRITTNI PLASENCIA on 05/19/18 1522 Ondansetron 4 Mg Tab.rapdis, 4 MG PO Q8H PRN for nausea Prescribed by: KING CONN on 11/22/19 1514 Oxycodone HCl 30 Mg Tab.er.12h, 30 MG PO BID, (Reported) Oxycodone Hcl 5 Mg Tablet, 5 MG PO Q6H PRN for PAIN, (Reported) Pantoprazole Sodium 40 Mg Tablet.dr, 40 MG PO DAILY, (Reported) Triamcinolone Acet 15 Gm Oint, TOP BID, (Reported) Patient Home Medication List Home Medication List Reviewed: Yes Review of Systems Constitutional: see HPI; No chills, No fever; malaise; No weakness Respiratory: no symptoms reported Cardiovascular: no symptoms reported Gastrointestinal: No abdominal pain, No constipation, No diarrhea, No loss of appetite, No nausea, No vomiting Musculoskeletal: see HPI, back pain, muscle pain, muscle stiffness, muscle cramps; No muscle weakness Skin: No change in color Psychiatric/Neurological: Denies Numbness, Denies Paresthesia, Denies Tingling, Denies Tremors, Denies Weakness Past Cmmhwel-Fwslmh-Qkzurr Hx Patient Social History Tobacco Use?: No Seasonal Allergies Seasonal Allergies: No Past Medical History Surgeries: Yes (PARACENTESIS, BACK SURGERY, C/S X 2, COLONOSCOPY, LAPAROTOMY) Abdominal, Section, Gallbladder, Hysterectomy, Orthopedic, Tonsillectomy, Tubal Ligation Respiratory: Yes Asthma Currently Using CPAP: No Currently Using BIPAP: No 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)) Atrial Fibrillation, High Cholesterol, Hypertension, Irregular Heartbeat Neurological: Yes (febrile seizures as child, hx hepatic encephalopathy) Headaches /Migraines Reproductive Disorders: Yes Female Reproductive Disorders: Menstrual Problems, Endometriosis, 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 Sexually Transmitted Disease: No HIV/AIDS: No Genitourinary: Yes (CKD Stage 3, Lupus nephritis, Renal insufficiency) Renal Failure, Dialysis Gastrointestinal: Yes (CANO-(nonalcoholic steatohepatitis)) Gastroesophageal Reflux, Liver Disease/Jaundice, Pancreatitis, Irritable Bowel Musculoskeletal: Yes Arthritis, Fibromyalgia, Chronic Back Pain Endocrine: Yes (Hypomagnesium Hx) Diabetes, Insulin dep, Lupus HEENT: Yes (has glasses) Loss of Vision: Bilateral Hearing Impairment: Denies Cancer: No Psychosocial: Yes Anxiety, Depression Integumentary: No Recent Skin Changes Blood Disorders: No Adverse Reaction/Blood Tranf: No Family Medical History Patient reports no known family medical history. Heart Disease, Cancer, Diabetes, Hypertension Physical Exam Vital Signs Capillary Refill : Height, Weight, BMI Height: 5'10.00" Weight: 300lbs. 0oz. 136.496433ss; 39.00 BMI Method:Stated General Appearance: No Apparent Distress, WD/WN Cardiovascular: Regular Rate, Rhythm, No Edema Respiratory: Chest Non Tender, Lungs Clear Gastrointestinal: Non Tender, Soft Back: Normal Inspection, No Vertebral Tenderness, Decreased Range of Motion, Muscle Spasm (all over, no matter where she it touched on her back) Progress/Results/Core Measures Results/Orders My Orders Orders - ROVENSTINE,KATIA L DO Methylprednisolone Sod Succ (Solu-Medrol (09/11/20 11:00) Departure Impression Primary Impression: Back strain Qualified Codes: S39.012A - Strain of muscle, fascia and tendon of lower back, initial encounter Additional Impression: Chronic back pain Qualified Codes: M54.5 - Low back pain; G89.29 - Other chronic pain Disposition: 01 HOME, SELF-CARE Condition: Stable Departure-Patient Inst. Decision time for Depature: 10:58 Referrals: SHRUTI CLEANING MD (PCP/Family) Primary Care Physician Patient Instructions: Back Muscle Strain (DC), MANAGING YOUR CHRONIC PAIN Add. Discharge Instructions: Follow up with Dr Cleaning in 3 to 5 days. All discharge instructions reviewed with patient and/or family. Voiced understanding. Scripts Hydrocodone/Acetaminophen (Hydrocodone-Acetamin 5-325 mg) 1 Each Tablet 1 EACH PO Q4H for Abdominal Pain, #10 TAB Prov: KATIA GARCIA DO 09/11/20 Cyclobenzaprine HCl (Cyclobenzaprine HCl) 10 Mg Tablet 10 MG PO Q8H PRN for SPASMS, #15 TAB 0 Refills Prov: KATIA GARCIA DO 09/11/20 KATIA GARCIA DO Sep 11, 2020 11:01
[2020-09-11] MEDS ORDERED: methylPREDNISolone 125 MG (Solu-MEDROL) VIAL ONE (11:07)
== END 2020-09-11 11:10 | disposition home or self-care (01) ==
LOC: EDUNIT# 10:41 → ER FS 10:44
DX: S39.012A Strain of muscle, fascia and tendon of lower back, initial encounter (principal); G89.29 Other chronic pain; J45.909 Unspecified asthma, uncomplicated; I10 Essential (primary) hypertension; K21.9 Gastro-esophageal reflux disease without esophagitis; F41.9 Anxiety disorder, unspecified; E11.9 Type 2 diabetes mellitus without complications; Z79.891 Long term (current) use of opiate analgesic; Z79.899 Other long term (current) drug therapy; Z79.4 Long term (current) use of insulin; X58.XXXA Exposure to other specified factors, initial encounter
CPT/HCPCS: 96372; 99284

== ENCOUNTER 2020-09-27 16:04 | Emergency (ER) | payer MEDICARE, MEDICAID ==
[~2020-09-27] VITALS: Ht 175.2 cm; Wt 149.3 kg
[~2020-09-27 16:04] MED LIST changes: +CYCL10TA9 PO; +TRAM50TA3
[2020-09-27] MEDS ORDERED: ONDANSETRON 4 MG (ZOFRAN) ORAL DISSOLVE TAB SL STA (16:28)
[2020-09-27] MEDS ORDERED: DIPHENOXYLATE/ATROPINE 2.5MG/0.025MG (LOMOTIL) TAB PO STA (16:28)
--- NOTE | 2020-09-27 16:31 | ED Abdominal Pain ---
General Chief Complaint: Abdominal/GI Problems Stated Complaint: UNCONTROLLABLE BOWEL MOVEMENTS,FEVER Source of Information: Patient Exam Limitations: No Limitations History of Present Illness Date Seen by Provider: Sep 27, 2020 Time Seen by Provider: 16:08 Initial Comments 45-year-old female coming in due to 2 days of fever and nonbloody diarrhea. She states she is constantly on the toilet having diarrhea. She has not taken any antibiotics recently. Unsure if she has been around anyone Covid positive, but is not vaccinated. Denies any chest pain, shortness of breath, abdominal pain, weakness, numbness, or any other concerns. Is endorsing some nausea without vomiting. Allergies and Home Medications Allergies Coded Allergies: diphenhydramine HCl (Verified Allergy, Unknown, 10/06/11) fentanyl (Verified Allergy, Unknown, 03/04/15) latex (Verified Allergy, Unknown, 10/06/11) meperidine HCl (Verified Allergy, Unknown, 10/06/11) morphine (Verified Allergy, Unknown, 10/06/11) vancomycin (Verified Allergy, Unknown, 10/06/11) iodine (Unverified Adverse Reaction, Intermediate, rash from IV contrast, 05/19/18) clindamycin (Unverified Adverse Reaction, Unknown, 05/19/18) gabapentin (Unverified Adverse Reaction, Unknown, 05/19/18) levofloxacin (Unverified Adverse Reaction, Unknown, 05/19/18) metformin (Unverified Adverse Reaction, Unknown, 05/19/18) metoclopramide (Unverified Adverse Reaction, Unknown, 05/19/18) Home Medications Amoxicillin/Potassium Clav 1 Each Tablet, 1 EACH PO BID Prescribed by: BRITTNI PLASENCIA on 05/19/18 1522 Baclofen 10 Mg Tablet, 10 MG PO TID PRN for MUSCLE SPASMS Prescribed by: SEBASTIÁN COX on 02/20/20 0050 Butalb/Acetaminophen/Caffeine 1 Each Capsule, 1 EACH PO Q8H PRN for headache Prescribed by: KING CONN on 11/22/19 1516 Cyclobenzaprine HCl 10 Mg Tablet, 10 MG PO Q8H PRN for SPASMS Prescribed by: KATIA GARCIA on 09/11/20 1100 Desonide 15 Gm Oint...g., TOP BID, (Reported) APPLY TO FACE Ergocalciferol (Vitamin D2) 50,000 Unit Capsule, 50,000 UNITS PO WEEKLY, (Reported) Furosemide 80 Mg Tablet, 40 MG PO BID, (Reported) TAKES 1/2 (80MG) TABLET Hydrocodone/Acetaminophen 1 Each Tablet, 1 EACH PO Q4H Prescribed by: KATIA GARCIA on 09/11/20 1101 Hydroxychloroquine Sulfate 200 Mg Tablet, 200 MG PO BID, (Reported) Insulin Glargine,Hum.rec.anlog 100 Unit/1 Ml Insuln.pen, 28 UNITS SC HS, (Reported) Lisinopril 10 Mg Tablet, 20 MG PO BID, (Reported) TAKES 2 (10MG) TABLETS Lorazepam 1 Mg Tablet, 1 MG PO Q6H PRN for ANXIETY, (Reported) Mycophenolate Mofetil 500 Mg Tablet, PO UD, (Reported) FILLED #180 03-27-15 TAKE 1 (500MG) TABLET DAILY UNTIL 03-30-15 THEN TAKE 1 TWICE DAILY X 7 DAYS THEN TAKE 2 AM AND 1 EVENING X 7 DAYS THEN TAKE 2 TWICE DAILY X 7 DAYS THEN TAKE 3 AM AND 2 EVENING X 7 DAYS THEN TAKE 3 TWICE DAILY Ondansetron 4 Mg Tab.rapdis, 4 MG PO Q8H PRN for NAUSEA, (Reported) Ondansetron 4 Mg Tab.rapdis, 4 MG PO TID PRN for NAUSEA/VOMITING-1ST LINE Prescribed by: BRITTNI PLASENCIA on 05/19/18 1522 Ondansetron 4 Mg Tab.rapdis, 4 MG PO Q8H PRN for nausea Prescribed by: KING CONN on 11/22/19 1514 Ondansetron 4 Mg Tab.rapdis, 4 MG PO Q6H PRN for NAUSEA/VOMITING Prescribed by: ELENA FARMER on 09/27/20 1720 Oxycodone HCl 30 Mg Tab.er.12h, 30 MG PO BID, (Reported) Oxycodone Hcl 5 Mg Tablet, 5 MG PO Q6H PRN for PAIN, (Reported) Pantoprazole Sodium 40 Mg Tablet.dr, 40 MG PO DAILY, (Reported) Triamcinolone Acet 15 Gm Oint, TOP BID, (Reported) Patient Home Medication List Home Medication List Reviewed: Yes Review of Systems Review of Systems Constitutional: fever EENTM: No Blurred Vision Respiratory: Denies Cough, Denies Shortness of Air Cardiovascular: Denies Chest Pain Gastrointestinal: Denies Abdominal Pain; Diarrhea, Nausea; Denies Vomiting Genitourinary: Denies Discharge Musculoskeletal: No back pain Skin: No rash Psychiatric/Neurological: Denies Anxiety, Denies Depressed Endocrine: No Symptoms Reported Hematologic/Lymphatic: No Symptoms Reported All Other Systems Reviewed Negative Unless Noted: Yes Past [id number]-[id number] Hx Patient Social History Tobacco Use?: No Seasonal Allergies Seasonal Allergies: No Past Medical History Surgery/Hospitalization HX: Back surgery x2, DDD, Lupus, DM, Fibromyalgia Surgeries: Yes (PARACENTESIS, BACK SURGERY, C/S X 2, COLONOSCOPY, LAPAROTOMY) Abdominal, Section, Gallbladder, Hysterectomy, Orthopedic, Tonsillectomy, Tubal Ligation Respiratory: Yes Asthma Currently Using CPAP: No Currently Using BIPAP: No 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)) Atrial Fibrillation, High Cholesterol, Hypertension, Irregular Heartbeat Neurological: Yes (febrile seizures as child, hx hepatic encephalopathy) Headaches /Migraines Reproductive Disorders: Yes Female Reproductive Disorders: Menstrual Problems, Endometriosis, Ovarian Cyst [employer]ATE History: Hysterectomy Sexually Transmitted Disease: No HIV/AIDS: No Genitourinary: Yes (CKD Stage 3, Lupus nephritis, Renal insufficiency) Renal Failure, Dialysis Gastrointestinal: Yes (CANO-(nonalcoholic steatohepatitis)) Gastroesophageal Reflux, Liver Disease/Jaundice, Pancreatitis, Irritable Bowel Musculoskeletal: Yes Arthritis, Fibromyalgia, Chronic Back Pain Endocrine: Yes (Hypomagnesium Hx) Diabetes, Insulin dep, Lupus HEENT: Yes (has glasses) Loss of Vision: Bilateral Hearing Impairment: Denies Cancer: No Psychosocial: Yes Anxiety, Depression Integumentary: No Recent Skin Changes Blood Disorders: No Adverse Reaction/Blood Tranf: No Family Medical History Patient reports no known family medical history. Heart Disease, Cancer, Diabetes, Hypertension Physical Exam Vital Signs Capillary Refill : Height/Weight/BMI Height: 5'10.00" Weight: 300lbs. 0oz. 136.866039ha; 50.00 BMI Method:Stated General Appearance: WD/WN, no apparent distress HEENT: PERRL/EOMI, normal ENT inspection, pharynx normal Neck: non-tender, full range of motion, supple, normal inspection Respiratory: chest non-tender, lungs clear, normal breath sounds, no respiratory distress, no accessory muscle use Cardiovascular: regular rate, rhythm, no edema, no murmur Gastrointestinal: normal bowel sounds, non tender, soft; No distended, No guarding, No rebound; other (When I push on the patient's stomach hard with a stethoscope she does not have any pain) Extremities: normal range of motion, non-tender, normal inspection, no pedal edema, normal capillary refill Back: normal inspection Neurologic/Psychiatric: no motor/sensory deficits, alert, normal mood/affect Skin: normal color, warm/dry Lymphatic: no adenopathy Progress/Results/Core Measures Results/Orders Lab Results Laboratory Tests Test 09/27/20 16:32 Range/Units My Orders Orders - ELENA FARMER MD Covid 19 Inhouse Test (09/27/20 16:28) Ondansetron Oral Dissolve Tab (Zofran (09/27/20 16:28) Diphenoxylate/Atropine Tablet (Lomotil T (09/27/20 16:28) Progress Progress Note : Progress Note 45-year-old female with above history coming in due to diarrhea and fever. ABCs were intact and vitals were stable on presentation. Physical exam reassuring with no tenderness present specifically on pushing with the stethoscope hard on her abdomen. If I brushed my hand against her abdominal skin afterwards, she says that hurts. I believe her exam is more consistent with not having any true abdominal pain. Her abdomen is also soft and has no rebound or peritoneal sign s. Vitals are stable. She appears euvolemic. She took an oral Zofran and tolerated Lomotil as well with fluids orally. She has no risk factors for C. difficile and I believe this is unlikely. Covid is much more likely given the current community prevalence. Test was sent and is pending at this time. I recommended she isolate until the results. 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 She was sent home with strict return precautions. If the Covid test is negative and she is having worsening diarrhea or it becomes bloody, then she definitely needs to call her PCP or come back to the ER. Departure Impression Primary Impression: Person under investigation for COVID-19 Additional Impressions: Diarrhea Qualified Codes: R19.7 - Diarrhea, unspecified Nausea Disposition: 01 HOME, SELF-CARE Condition: Stable Departure-Patient Inst. Decision time for Depature: 17:18 Referrals: SHRUTI CLEANING MD (PCP/Family) Primary Care Physician Patient Instructions: COVID-19 ED, Nausea and Vomiting, Adult ED Add. Discharge Instructions: You were seen in the emergency department for diarrhea and fever. You can take over the counter Lomotil for your diarrhea. We will write a prescription for your nausea called Jas. You can pick it up at [facility] and call and have them bring in outside since you have a pending Covid test and are potentially positive. The test should come back within the next day or so. In that time please isolate. Continue to take sips of water, and this will absorb and keep you hydrated. If you have any concerns and please come back to the emergency department. All discharge instructions reviewed with patient and/or family. Voiced understanding. Scripts Ondansetron (Ondansetron Odt) 4 Mg Tab.rapdis 4 MG PO Q6H PRN for NAUSEA/VOMITING for 5 Days, #20 TAB 0 Refills Prov: ELENA FARMER MD 09/27/20 ELENA FARMER MD Sep 27, 2020 16:31
[2020-09-27] MEDS ORDERED: ONDA4TAB11 PO (17:20)
[2020-09-27 17:37] VITALS: BP 159/91
== END 2020-09-27 17:37 | disposition home or self-care (01) ==
LOC: EDUNIT# 16:04 → ER FS 16:06
DX: Z20.822 Contact with and (suspected) exposure to COVID-19 (principal); R19.7 Diarrhea, unspecified; R11.0 Nausea; J45.909 Unspecified asthma, uncomplicated; I10 Essential (primary) hypertension; F41.9 Anxiety disorder, unspecified; K21.9 Gastro-esophageal reflux disease without esophagitis; G89.29 Other chronic pain; M54.9 Dorsalgia, unspecified; E11.9 Type 2 diabetes mellitus without complications; Z79.4 Long term (current) use of insulin; Z79.899 Other long term (current) drug therapy; Z79.891 Long term (current) use of opiate analgesic
CPT/HCPCS: 87636; 99283

== ENCOUNTER → 2020-10-01 | Outpatient (CLI) | payer MEDICARE, MEDICAID ==
--- NOTE | 2020-10-01 10:01 | Diagnostic Imaging Report ---
INDICATION: Abdominal pain x1 week. PA chest, supine and upright abdominal images are obtained. Lungs are clear. There is no intraperitoneal free air. Gallbladder appears to be surgically absent. Bowel gas pattern is normal. There are no pathologic masses calcifications. IMPRESSION: No acute abnormalities in the abdomen. Dictated by: Dictated on workstation # [id number]
== END ==
LOC: RAD FS 09:10
PROVIDERS: ATTEND Family Medicine
DX: R19.7 Diarrhea, unspecified (principal); R10.9 Unspecified abdominal pain
CPT/HCPCS: 74022

== ENCOUNTER → 2020-10-28 | Outpatient (CLI) | payer MEDICARE, MEDICAID ==
--- NOTE | 2020-10-28 16:44 | Diagnostic Imaging Report ---
EXAMINATION: CT abdomen and pelvis without contrast. TECHNIQUE: Multiple contiguous axial images were obtained through the abdomen and pelvis without the use of intravenous contrast. All CT scans use one or more of the following dose optimizing techniques: automated exposure control, MA and/or KvP adjustment based on patient size and exam type or iterative reconstruction. HISTORY: Epigastric pain COMPARISON: 07/07/2020 FINDINGS: Lung bases: The lung bases are clear. Solid organs: Diffuse hypoattenuation of the liver compatible with hepatic steatosis. There is a calcified granuloma within the liver. The gallbladder is surgically absent. There is no biliary ductal dilation. Pancreas is normal. Spleen is normal. Adrenal glands are normal. The kidneys are normal without visualized calculus or hydronephrosis. Bowel: The stomach and small bowel are normal without obstruction. The colon and appendix are normal. Peritoneum: There is no intraperitoneal free fluid or free air. No suspicious lymphadenopathy. Vasculature: Normal without aneurysm. Musculoskeletal: Degenerative changes of the spine without suspicious osseous lesion or compression fracture. Stable prominent Schmorl's note or compression deformity of the L1 vertebral body. There is a fat-containing ventral abdominal wall hernia through a 1.9 cm defect. Pelvis: The uterus is surgically absent. No adnexal mass. The urinary bladder is normal. IMPRESSION: 1. No acute abnormality in the abdomen or pelvis. 2. Hepatic steatosis. Dictated by: Dictated on workstation # [id number]
== END ==
LOC: RAD FS 12:56
PROVIDERS: ATTEND Family Medicine
DX: K76.0 Fatty (change of) liver, not elsewhere classified (principal)
CPT/HCPCS: 74176

== ENCOUNTER 2020-12-29 11:37 | Emergency (ER) | payer MEDICARE, MEDICAID ==
[~2020-12-29] VITALS: Ht 175.2 cm; Wt 147.0 kg
[~2020-12-29 11:37] MED LIST changes: +CYCL10TA25 PO; -CYCL10TA9 PO
--- NOTE | 2020-12-29 11:56 | ED Abdominal Pain ---
General Chief Complaint: Abdominal/GI Problems Stated Complaint: VOMITING; DIARRHEA Source of Information: Patient Exam Limitations: No Limitations History of Present Illness Date Seen by Provider: Dec 29, 2020 Time Seen by Provider: 11:40 Initial Comments 45-year-old female with past medical history of lupus, DM, hypertension, hyperl ipidemia, previous clot on warfarin, and history of pancreatitis coming in due to upper abdominal pain with nausea and nonbloody diarrhea. Has not been vomiting yet. Pain started this morning when she woke up. She says that sharp, constant, moderate to severe. She says it feels similar to previous episodes of pancreatitis. She is unsure why she gets pancreatitis. She says she does not drink alcohol and she does not have her gallbladder. She is otherwise denying any chest pain, shortness of breath, cough, weakness, numbness, dysuria, rash, or any other concerns. Allergies and Home Medications Allergies Coded Allergies: diphenhydramine HCl (Verified Allergy, Unknown, 10/06/11) fentanyl (Verified Allergy, Unknown, 03/04/15) latex (Verified Allergy, Unknown, 10/06/11) meperidine HCl (Verified Allergy, Unknown, 10/06/11) morphine (Verified Allergy, Unknown, 10/06/11) vancomycin (Verified Allergy, Unknown, 10/06/11) iodine (Unverified Adverse Reaction, Intermediate, rash from IV contrast, 05/19/18) clindamycin (Unverified Adverse Reaction, Unknown, 05/19/18) gabapentin (Unverified Adverse Reaction, Unknown, 05/19/18) levofloxacin (Unverified Adverse Reaction, Unknown, 05/19/18) metformin (Unverified Adverse Reaction, Unknown, 05/19/18) metoclopramide (Unverified Adverse Reaction, Unknown, 05/19/18) Patient Home Medication List Home Medication List Reviewed: Yes Amoxicillin/Potassium Clav (Augmentin 875-125 Tablet) 1 Each Tablet, 1 EACH PO BID Prescribed by: BRITTNI PLASENCIA on 05/19/18 1522 Baclofen (Baclofen) 10 Mg Tablet, 10 MG PO TID PRN for MUSCLE SPASMS Prescribed by: SEBASTIÁN COX on 02/20/20 0050 Belimumab (Benlysta) 200 Mg/1 Ml Auto.injct, (Reported) Entered as Reported by: FREDY HSU on 05/19/18 1520 Butalb/Acetaminophen/Caffeine (Hhbjjmey-Gsbskqfgultaa-Wmyz Cp) 1 Each Capsule, 1 EACH PO Q8H PRN for headache Prescribed by: KING CONN on 11/22/19 1516 Cyclobenzaprine HCl (Cyclobenzaprine HCl) 10 Mg Tablet, 10 MG PO Q8H PRN for SPASMS Prescribed by: KATIA GARCIA on 09/11/20 1100 Desonide (Desonide) 15 Gm Oint...g., TOP BID, (Reported) Entered as Reported by: JADE KAT on 04/22/15 1009 Ergocalciferol (Vitamin D2) (Vitamin D2) 50,000 Unit Capsule, 50,000 UNITS PO WEEKLY, (Reported) Entered as Reported by: JADE KAT on 04/22/15 0837 Furosemide (Furosemide) 80 Mg Tablet, 40 MG PO BID, (Reported) Entered as Reported by: JADE KAT on 04/22/15 0837 Hydrocodone/Acetaminophen (Hydrocodone-Acetamin 5-325 mg) 1 Each Tablet, 1 EACH PO Q4H Prescribed by: KATIA LEONGSTANGELES on 09/11/20 1101 Hydroxychloroquine Sulfate (Hydroxychloroquine Sulfate) 200 Mg Tablet, 200 MG PO BID, (Reported) Entered as Reported by: JADE KAT on 04/22/15 0837 Insulin Aspart (Novolog Flexpen) 300 Units/3 Ml Solution, (Reported) Entered as Reported by: FREDY HSU on 05/19/18 1520 Insulin Glargine,Hum.rec.anlog (Lantus Solostar) 100 Unit/1 Ml Insuln.pen, 28 UNITS SC HS, (Reported) Entered as Reported by: JADE KAT on 04/22/15 1009 Insulin Glargine,Hum.rec.anlog (Toujeo Solostar) 300 Unit/1 Ml Insuln.pen, (Reported) Entered as Reported by: FREDY HSU on 05/19/18 1520 Lisinopril (Lisinopril) 10 Mg Tablet, 20 MG PO BID, (Reported) Entered as Reported by: JADE KAT on 04/22/15 0837 Loratadine (Loratadine) 10 Mg Tablet, (Reported) Entered as Reported by: FREDY HSU on 05/19/18 1520 Lorazepam (Ativan) 1 Mg Tablet, 1 MG PO Q6H PRN for ANXIETY, (Reported) Entered as Reported by: RENETTA LATIF on 02/24/15 1157 Lorazepam (Lorazepam) 0.5 Mg Tablet, (Reported) Entered as Reported by: FREDY HSU on 05/19/18 1520 Metformin HCl (Metformin HCl ER) 500 Mg Tab.er.24h, (Reported) Entered as Reported by: FREDY HSU on 05/19/18 1520 Mycophenolate Mofetil (Mycophenolate Mofetil) 500 Mg Tablet, PO UD, (Reported) Entered as Reported by: JADE KAT on 04/22/15 1009 Ondansetron (Ondansetron Odt) 4 Mg Tab.rapdis, 4 MG PO Q8H PRN for NAUSEA, (Reported) Entered as Reported by: JADE KAT on 04/22/15 1009 Ondansetron (Ondansetron Odt) 4 Mg Tab.rapdis, 4 MG PO TID PRN for NAUSEA/VOMITING-1ST LINE Prescribed by: BRITTNI PLASENCIA on 05/19/18 1522 Ondansetron (Ondansetron Odt) 4 Mg Tab.rapdis, 4 MG PO Q8H PRN for nausea Prescribed by: KING CONN on 11/22/19 1514 Ondansetron (Ondansetron Odt) 4 Mg Tab.rapdis, 4 MG PO Q6H PRN for NAUSEA/VOMITING Prescribed by: ELENA FARMER on 09/27/20 1720 Oxycodone HCl (Oxycontin) 30 Mg Tab.er.12h, 30 MG PO BID, (Reported) Entered as Reported by: JADE KAT on 04/22/15 1009 Oxycodone Hcl (Oxyir Tablet) 5 Mg Tablet, 5 MG PO Q6H PRN for PAIN, (Reported) Entered as Reported by: JADE KAT on 04/22/15 1009 Pantoprazole Sodium (Pantoprazole Sodium) 40 Mg Tablet.dr, 40 MG PO DAILY, (Reported) Entered as Reported by: GRADY CAICEDO on 03/04/15 0635 Pravastatin Sodium (Pravastatin Sodium) 20 Mg Tablet, (Reported) Entered as Reported by: FREDY HSU on 05/19/18 1520 Rifaximin (Xifaxan) 550 Mg Tablet, (Reported) Entered as Reported by: FREDY HSU on 05/19/18 152 Ropinirole HCl (Ropinirole HCl) 0.5 Mg Tablet, (Reported) Entered as Reported by: FREDY HSU on 05/19/18 152 Tramadol HCl (Tramadol HCl) 50 Mg Tablet, (Reported) Entered as Reported by: FREDY HSU on 09/11/20 1056 Triamcinolone Acet (Triamcinolone Acetonide 0.1% Ointment) 15 Gm Oint, TOP BID, (Reported) Entered as Reported by: JADE KAT on 04/22/15 1009 Warfarin Sodium (Warfarin Sodium) 10 Mg Tablet, (Reported) Entered as Reported by: FREDY HSU on 05/19/18 1520 Review of Systems Review of Systems Constitutional: No chills, No fever EENTM: No Blurred Vision Respiratory: Denies Cough, Denies Shortness of Air Cardiovascular: Denies Chest Pain, Denies Palpitations Gastrointestinal: Abdominal Pain, Diarrhea, Nausea; Denies Vomiting Genitourinary: Denies Burning Musculoskeletal: no symptoms reported Skin: no symptoms reported Psychiatric/Neurological: No Symptoms Reported Endocrine: No Symptoms Reported Hematologic/Lymphatic: No Symptoms Reported All Other Systems Reviewed Negative Unless Noted: Yes Past [place]-Ktozrf-Eybsah Hx Patient Social History Tobacco Use?: No Use of E-Cig and/or Vaping dev: No Substance use?: No Alcohol Use?: No Pt feels they are or have been: No Seasonal Allergies Seasonal Allergies: No Past Medical History Surgery/Hospitalization HX: Back surgery x2, DDD, Lupus, DM, Fibromyalgia Surgeries: Yes (PARACENTESIS, BACK SURGERY, C/S X 2, COLONOSCOPY, LAPAROTOMY) Abdominal, Section, Gallbladder, Hysterectomy, Orthopedic, Tonsillectomy, Tubal Ligation Respiratory: Yes Asthma Currently Using CPAP: No Currently Using BIPAP: No 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)) Atrial Fibrillation, High Cholesterol, Hypertension, Irregular Heartbeat Neurological: Yes (febrile seizures as child, hx hepatic encephalopathy) Headaches /Migraines Reproductive Disorders: Yes Female Reproductive Disorders: Menstrual Problems, Endometriosis, Ovarian 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 Sexually Transmitted Disease: No HIV/AIDS: No Genitourinary: Yes (CKD Stage 3, Lupus nephritis, Renal insufficiency) Renal Failure, Dialysis Gastrointestinal: Yes (CANO-(nonalcoholic steatohepatitis)) Gastroesophageal Reflux, Liver Disease/Jaundice, Pancreatitis, Irritable Bowel Musculoskeletal: Yes Arthritis, Fibromyalgia, Chronic Back Pain Endocrine: Yes (Hypomagnesium Hx) Diabetes, Insulin dep, Lupus HEENT: Yes (has glasses) Loss of Vision: Bilateral Hearing Impairment: Denies Cancer: No Psychosocial: Yes Anxiety, Depression Integumentary: No Recent Skin Changes Blood Disorders: No Adverse Reaction/Blood Tranf: No Family Medical History Patient reports no known family medical history. Heart Disease, Cancer, Diabetes, Hypertension Physical Exam Vital Signs Vital Signs - First Documented 12/29/20 11:48 Temp 36.9 Pulse 86 Resp 18 B/P (MAP) 167/89 (115) Pulse Ox 99 O2 Delivery Room Air Capillary Refill : Height/Weight/BMI Height: 5'10.00" Weight: 300lbs. 0oz. [id number]; 48.00 BMI Method:Stated General Appearance: WD/WN, no apparent distress HEENT: PERRL/EOMI, normal ENT inspection, pharynx normal Neck: non-tender, full range of motion, supple, normal inspection Respiratory: chest non-tender, lungs clear, normal breath sounds, no respiratory distress, no accessory muscle use Cardiovascular: regular rate, rhythm, no edema, no murmur Gastrointestinal: normal bowel sounds, soft; No distended, No guarding, No rebound; tenderness Extremities: normal range of motion, non-tender, normal inspection, no pedal edema, no calf tenderness, normal capillary refill Back: normal inspection, no CVA tenderness, no vertebral tenderness Neurologic/Psychiatric: no motor/sensory deficits, alert, normal mood/affect Skin: normal color, warm/dry Lymphatic: no adenopathy Progress/Results/Core Measures Results/Orders Lab Results Laboratory Tests Test 12/29/20 11:47 Range/Units White Blood Count 6.1 4.3-11.0 10^3/uL Red Blood Count 5.24 H 3.80-5.11 10^6/uL Hemoglobin 13.6 11.5-16.0 g/dL Hematocrit 43 35-52 % Mean Corpuscular Volume 81 80-99 fL Mean Corpuscular Hemoglobin 26 25-34 pg Mean Corpuscular Hemoglobin Concent 32 32-36 g/dL Red Cell Distribution Width 15.2 H 10.0-14.5 % Platelet Count 248 130-400 10^3/uL Mean Platelet Volume 10.3 9.0-12.2 fL Immature Granulocyte % (Auto) 0 % Neutrophils (%) (Auto) 70 42-75 % Lymphocytes (%) (Auto) 20 12-44 % Monocytes (%) (Auto) 8 0-12 % Eosinophils (%) (Auto) 2 0-10 % Basophils (%) (Auto) 0 0-10 % Neutrophils # (Auto) 4.3 1.8-7.8 X 10^3 Lymphocytes # (Auto) 1.2 1.0-4.0 X 10^3 Monocytes # (Auto) 0.5 0.0-1.0 X 10^3 Eosinophils # (Auto) 0.1 0.0-0.3 10^3/uL Basophils # (Auto) 0.0 0.0-0.1 10^3/uL Immature Granulocyte # (Auto) 0.0 0.0-0.1 10^3/uL Prothrombin Time 16.0 H 12.2-14.7 SEC INR Comment 1.2 0.8-1.4 Sodium Level 134 L 135-145 MMOL/L Potassium Level 3.8 3.6-5.0 MMOL/L Chloride Level 102 98-107 MMOL/L Carbon Dioxide Level 20 L 21-32 MMOL/L Anion Gap 12 5-14 MMOL/L Blood Urea Nitrogen 12 7-18 MG/DL Creatinine 0.70 0.60-1.30 MG/DL Estimat Glomerular Filtration Rate 90 BUN/Creatinine Ratio 17 Glucose Level 220 H 70-105 MG/DL Calcium Level 9.2 8.5-10.1 MG/DL Corrected Calcium 9.3 8.5-10.1 MG/DL Total Bilirubin 0.3 0.1-1.0 MG/DL Aspartate Amino Transf (AST/SGOT) 54 H 5-34 U/L Alanine Aminotransferase (ALT/SGPT) 29 0-55 U/L Alkaline Phosphatase 92 40-136 U/L Total Protein 7.4 6.4-8.2 GM/DL Albumin 3.9 3.2-4.5 GM/DL Lipase 29 8-78 U/L My Orders Orders - ELENA FARMER MD Cbc With Automated Diff (12/29/20 11:50) Comprehensive Metabolic Panel (12/29/20 11:50) Lipase (12/29/20 11:50) Protime With Inr (12/29/20 11:50) Ondansetron Injection (Zofran Injectio (12/29/20 12:00) Hyoscyamine Sl Tablet (Levsin Sl Tablet) (12/29/20 12:00) Ed Iv/Invasive Line Start (12/29/20 11:50) Tramadol Tablet (Ultram Tablet) (12/29/20 12:00) Medications Given in ED Current Medications Medications Dose Ordered Sig/Lo Route Start Time Stop Time Status Last Admin Dose Admin Hyoscyamine Sulfate 0.125 mg ONCE ONCE SL 12/29/20 12:00 12/29/20 12:01 DC 12/29/20 11:57 0.125 MG Ondansetron HCl 4 mg ONCE ONCE IVP 12/29/20 12:00 12/29/20 12:01 DC 12/29/20 11:57 4 MG Tramadol HCl 50 mg ONCE ONCE PO 12/29/20 12:00 12/29/20 12:01 DC 12/29/20 11:57 50 MG Vital Signs/I&O 12/29/20 11:48 Temp 36.9 Pulse 86 Resp 18 B/P (MAP) 167/89 (115) Pulse Ox 99 O2 Delivery Room Air Progress Progress Note : Progress Note 45-year-old female with above history coming in due to upper abdominal pain that she says is consistent with pancreatitis. ABCs were intact and vitals were stable on presentation. Physical exam with some upper abdominal tenderness but no signs of peritonitis. Pancreatitis is on differential as well as peptic ulcer disease versus gastroenteritis versus some other etiology. She does not have a gallbladder which takes stones at other differential. Basic labs were obtained including LFTs. Lipase is normal and AST and ALT are normal. Her INR is 1.2, and she says she is often not therapeutic because she does not take the dose she is supposed to. She says she does this because she is not able to follow-up like she should to get her INR regularly drawn so she is careful to not get too high. I discussed with the patient that this could be really early and just does not have a lipase elevation right now for pancreatitis, but that she is well-appearing. Repeat abdominal exam reassuring. She did get some oral tramadol which she would take at home as well as IV Zofran which did help with her pain and nausea. I believe she is stable for discharge with outpatient follow-up. She was sent home with strict return precautions. Departure Impression Primary Impression: Epigastric pain Additional Impressions: Nausea Diarrhea Qualified Codes: R19.7 - Diarrhea, unspecified Disposition: HOME, SELF-CARE Condition: Stable Departure-Patient Inst. Decision time for Depature: 12:46 Referrals: SHRUTI CLEANING MD (PCP/Family) Primary Care Physician Patient Instructions: Diarrhea, Adult ED, Nausea and Vomiting, Adult ED Add. Discharge Instructions: You were seen in the emergency department for upper abdominal pain, nausea, and diarrhea. Your labs today do not look like you are having pancreatitis, but it is always possible this is too early. This could be an infection that is causing the symptoms. Typically just drinking plenty of fluids will flush this out and it improves in time. You can take Lomotil as needed for diarrhea, but be careful with your liver disease. You still need to have at least 3 bowel movements a day to help keep your ammonia levels and control. Please follow-up with your regular doctor in the next couple days, especially if you are still having symptoms. Scripts Hydrocodone Bit/Acetaminophen (HYDROcodone/APAP 5 MG/325 MG TAB) 1 Tab Tab 1 TAB PO Q8H PRN for PAIN-SEVERE (8-10) for 3 Days, #9 TAB 0 Refills Prov: ELENA FARMER MD 12/29/20 Ondansetron (Ondansetron Odt) 4 Mg Tab.rapdis 4 MG PO Q6H PRN for NAUSEA-1ST LINE for 5 Days, #20 TAB Prov: ELENA FARMER MD 12/29/20 ELENA FARMER MD Dec 29, 2020 11:56
[2020-12-29] MEDS ORDERED: ONDANSETRON 4 MG/2 ML (SDV) Z0FRAN IVP ONE (12:00)
[2020-12-29] MEDS ORDERED: HYOSCYAMINE 0.125 MG (LEVSIN) TAB SL ONE (12:00)
[2020-12-29 12:16] LABS: INR 1.2 (0.8-1.4)
[2020-12-29 12:17] LABS: BASOPHILS % (AUTO) 0 % (0-10); EOSINOPHILS % (AUTO) 2 % (0-10); HEMATOCRIT 43 % (35-52); HEMOGLOBIN 13.6 g/dL (11.5-16.0); LYMPHOCYTES % (AUTO) 20 % (12-44); MEAN CORPUSCULAR HEMOGLOBIN 26 pg (25-34); MEAN CORPUSCULAR HGB CONC 32 g/dL (32-36); MEAN CORPUSCULAR VOLUME 81 fL (80-99); MEAN PLATELET VOLUME 10.3 fL (9.0-12.2); MONOCYTES % (AUTO) 8 % (0-12); NEUTROPHILS # (AUTO) 4.3 X 10^3 (1.8-7.8); NEUTROPHILS % (AUTO) 70 % (42-75); PLATELET COUNT 248 10^3/uL (130-400); WHITE BLOOD COUNT 6.1 10^3/uL (4.3-11.0)
[2020-12-29 12:18] LABS: EOSINOPHILS # (AUTO) 0.1 10^3/uL (0.0-0.3); LYMPHOCYTES # (AUTO) 1.2 X 10^3 (1.0-4.0); MONOCYTES # (AUTO) 0.5 X 10^3 (0.0-1.0)
[2020-12-29 12:30] LABS: CREATININE SERUM 0.7 MG/DL (0.60-1.30); POTASSIUM 3.8 MMOL/L (3.6-5.0)
[2020-12-29 12:31] LABS: ALBUMIN 3.9 GM/DL (3.2-4.5); BILIRUBIN,TOTAL 0.3 MG/DL (0.1-1.0); CALCIUM 9.2 MG/DL (8.5-10.1); TOTAL PROTEIN 7.4 GM/DL (6.4-8.2)
[2020-12-29] MEDS ORDERED: ONDA4TAB11 PO (12:48)
[2020-12-29] MEDS ORDERED: ACHD5005 PO (12:48)
[2020-12-29 12:54] VITALS: BP 167/89
== END 2020-12-29 12:53 | disposition home or self-care (01) ==
LOC: EDUNIT# 11:37 → ER FS 11:38
DX: R10.13 Epigastric pain (principal); R11.0 Nausea; R19.7 Diarrhea, unspecified; J45.909 Unspecified asthma, uncomplicated; I10 Essential (primary) hypertension; I48.91 Unspecified atrial fibrillation; E78.00 Pure hypercholesterolemia, unspecified; K21.9 Gastro-esophageal reflux disease without esophagitis; G89.29 Other chronic pain; M54.9 Dorsalgia, unspecified; E11.9 Type 2 diabetes mellitus without complications; F41.9 Anxiety disorder, unspecified; Z79.01 Long term (current) use of anticoagulants; Z79.891 Long term (current) use of opiate analgesic; Z79.899 Other long term (current) drug therapy; Z79.4 Long term (current) use of insulin
CPT/HCPCS: 36415; 80053; 83690; 85025; 85610

== ENCOUNTER 2021-07-10 21:42 | Emergency (ER) | payer MEDICARE, MEDICAID ==
[~2021-07-10] VITALS: Ht 175.2 cm; Wt 149.6 kg
--- NOTE | 2021-07-10 21:45 | ED General ---
General Stated Complaint: TROUBLE BREATHING/CHEST PAIN History of Present Illness Date Seen by Provider: Jul 10, 2021 Time Seen by Provider: 09:46 Initial Comments 46-year-old female with PMH of insulin-dependent diabetes mellitus 2/HTN/CVA 2008, is here with complaints of chest pain. Patient states the chest pain hurts more when she presses on that area.Pain is 8/10 and increases on movement. Denies fever, URI, abdominal pain, shortness of breath, diarrhea, nausea and vomiting. Patient has not taken her insulin tonight. Patient states she always has stress and this could be a possible trigger for her. Patient is also highly anxious. Allergies and Home Medications Allergies Coded Allergies: diphenhydramine HCl (Verified Allergy, Unknown, 10/06/11) fentanyl (Verified Allergy, Unknown, 03/04/15) latex (Verified Allergy, Unknown, 10/06/11) meperidine HCl (Verified Allergy, Unknown, 10/06/11) morphine (Verified Allergy, Unknown, 10/06/11) vancomycin (Verified Allergy, Unknown, 10/06/11) iodine (Unverified Adverse Reaction, Intermediate, rash from IV contrast, 05/19/18) clindamycin (Unverified Adverse Reaction, Unknown, 05/19/18) gabapentin (Unverified Adverse Reaction, Unknown, 05/19/18) levofloxacin (Unverified Adverse Reaction, Unknown, 05/19/18) metformin (Unverified Adverse Reaction, Unknown, 05/19/18) metoclopramide (Unverified Adverse Reaction, Unknown, 05/19/18) Patient Home Medication List Home Medication List Reviewed: Yes Amoxicillin/Potassium Clav (Augmentin 875-125 Tablet) 1 Each Tablet, 1 EACH PO BID Prescribed by: BRITTNI PLASENCIA on 05/19/18 1522 Baclofen (Baclofen) 10 Mg Tablet, 10 MG PO TID PRN for MUSCLE SPASMS Prescribed by: SEBASTIÁN COX on 02/20/20 0050 Belimumab (Benlysta) 200 Mg/1 Ml Auto.injct, (Reported) Entered as Reported by: FREDY HSU on 05/19/18 1520 Butalb/Acetaminophen/Caffeine (Mkcjdjom-Agvclhpzhhsnk-Etfi Cp) 1 Each Capsule, 1 EACH PO Q8H PRN for headache Prescribed by: KING CONN on 11/22/19 1516 Cyclobenzaprine HCl (Cyclobenzaprine HCl) 10 Mg Tablet, 10 MG PO Q8H PRN for SPASMS Prescribed by: KATIA GARCIA on 09/11/20 1100 Desonide (Desonide) 15 Gm Oint...g., TOP BID, (Reported) Entered as Reported by: JADE KAT on 04/22/15 1009 Ergocalciferol (Vitamin D2) (Vitamin D2) 50,000 Unit Capsule, 50,000 UNITS PO WEEKLY, (Reported) Entered as Reported by: JADE KAT on 04/22/15 0837 Furosemide (Furosemide) 80 Mg Tablet, 40 MG PO BID, (Reported) Entered as Reported by: JADE KAT on 04/22/15 0837 Hydrocodone Bit/Acetaminophen (HYDROcodone/APAP 5 MG/325 MG TAB) 1 Tab Tab, 1 TAB PO Q8H PRN for PAIN-SEVERE (8-10) Prescribed by: ELENA FARMER on 12/29/20 1248 Hydrocodone/Acetaminophen (Hydrocodone-Acetamin 5-325 mg) 1 Each Tablet, 1 EACH PO Q4H Prescribed by: KATIA GARCIA on 09/11/20 1101 Hydroxychloroquine Sulfate (Hydroxychloroquine Sulfate) 200 Mg Tablet, 200 MG PO BID, (Reported) Entered as Reported by: JAED KAT on 04/22/15 0837 Insulin Aspart (Novolog Flexpen) 300 Units/3 Ml Solution, (Reported) Entered as Reported by: FREDY HSU on 05/19/18 1520 Insulin Glargine,Hum.rec.anlog (Lantus Solostar) 100 Unit/1 Ml Insuln.pen, 28 UNITS SC HS, (Reported) Entered as Reported by: JADE KAT on 04/22/15 1009 Insulin Glargine,Hum.rec.anlog (Toujeo Solostar) 300 Unit/1 Ml Insuln.pen, (Reported) Entered as Reported by: FREDY HSU on 05/19/18 1520 Lisinopril (Lisinopril) 10 Mg Tablet, 20 MG PO BID, (Reported) Entered as Reported by: JADE AKT on 04/22/15 0837 Loratadine (Loratadine) 10 Mg Tablet, (Reported) Entered as Reported by: FREDY HSU on 05/19/18 1520 Lorazepam (Ativan) 1 Mg Tablet, 1 MG PO Q6H PRN for ANXIETY, (Reported) Entered as Reported by: RENETTA LATIF on 02/24/15 1157 Lorazepam (Lorazepam) 0.5 Mg Tablet, (Reported) Entered as Reported by: FREDY HSU on 05/19/18 1520 Metformin HCl (Metformin HCl ER) 500 Mg Tab.er.24h, (Reported) Entered as Reported by: FREDY HSU on 05/19/18 1520 Mycophenolate Mofetil (Mycophenolate Mofetil) 500 Mg Tablet, PO UD, (Reported) Entered as Reported by: JADE KAT on 04/22/15 1009 Ondansetron (Ondansetron Odt) 4 Mg Tab.rapdis, 4 MG PO Q8H PRN for NAUSEA, (Reported) Entered as Reported by: JADE KAT on 04/22/15 1009 Ondansetron (Ondansetron Odt) 4 Mg Tab.rapdis, 4 MG PO TID PRN for NAUSEA/VOMITING-1ST LINE Prescribed by: BRITTNI PLASENCIA on 05/19/18 1522 Ondansetron (Ondansetron Odt) 4 Mg Tab.rapdis, 4 MG PO Q8H PRN for nausea Prescribed by: KING CONN on 11/22/19 1514 Ondansetron (Ondansetron Odt) 4 Mg Tab.rapdis, 4 MG PO Q6H PRN for NAUSEA/VOMITING Prescribed by: ELENA FARMER on 09/27/20 1720 Ondansetron (Ondansetron Odt) 4 Mg Tab.rapdis, 4 MG PO Q6H PRN for NAUSEA-1ST LINE Prescribed by: ELENA FARMER on 12/29/20 1248 Oxycodone HCl (Oxycontin) 30 Mg Tab.er.12h, 30 MG PO BID, (Reported) Entered as Reported by: JADE KAT on 04/22/15 1009 Oxycodone Hcl (Oxyir Tablet) 5 Mg Tablet, 5 MG PO Q6H PRN for PAIN, (Reported) Entered as Reported by: JADE KAT on 04/22/15 1009 Pantoprazole Sodium (Pantoprazole Sodium) 40 Mg Tablet.dr, 40 MG PO DAILY, (Reported) Entered as Reported by: GRADY CAICEDO on 03/04/15 0635 Pravastatin Sodium (Pravastatin Sodium) 20 Mg Tablet, (Reported) Entered as Reported by: FREDY HSU on 05/19/18 1520 Rifaximin (Xifaxan) 550 Mg Tablet, (Reported) Entered as Reported by: FREDY HSU on 05/19/18 1520 Ropinirole HCl (Ropinirole HCl) 0.5 Mg Tablet, (Reported) Entered as Reported by: FREDY HSU on 05/19/18 1520 Tramadol HCl (Tramadol HCl) 50 Mg Tablet, (Reported) Entered as Reported by: FREDY HSU on 09/11/20 1056 Triamcinolone Acet (Triamcinolone Acetonide 0.1% Ointment) 15 Gm Oint, TOP BID, (Reported) Entered as Reported by: JADE KAT on 04/22/15 1009 Warfarin Sodium (Warfarin Sodium) 10 Mg Tablet, (Reported) Entered as Reported by: FREDY HSU on 05/19/18 1520 Review of Systems Review of Systems Constitutional: no symptoms reported EENTM: no symptoms reported Respiratory: no symptoms reported Cardiovascular: chest pain Gastrointestinal: no symptoms reported Genitourinary: no symptoms reported Musculoskeletal: no symptoms reported Skin: no symptoms reported Psychiatric/Neurological: Anxiety Hematologic/Lymphatic: No Symptoms Reported Immunological/Allergic: no symptoms reported Physical Exam Vital Signs Vital Signs - First Documented 07/10/21 21:44 Temp 36.9 Pulse 96 Resp 18 B/P (MAP) 200/100 (133) Pulse Ox 98 O2 Delivery Room Air Capillary Refill : Height, Weight, BMI Height: '" Weight: lbs. oz. kg; BMI Method: General Appearance: Anxious HEENT: PERRL/EOMI Neck: Full Range of Motion Respiratory: Lungs Clear, Normal Breath Sounds, No Accessory Muscle Use Cardiovascular: Regular Rate, Rhythm, Normal Peripheral Pulses, Other (Point tenderness over the third fourth fifth left-sided costochondral junctions. Pt has bilateral pitting edema, 2+) Gastrointestinal: Normal Bowel Sounds, Non Tender, Soft Back: Normal Inspection, No CVA Tenderness Neurologic/Psychiatric: Alert, Oriented x3, No Motor/Sensory Deficits, Normal Mood/Affect Progress/Results/Core Measures Suspected Sepsis SIRS Temperature: Pulse: Respiratory Rate: Laboratory Tests 07/10/21 21:50: White Blood Count 5.9 Blood Pressure / Mean: Laboratory Tests 07/10/21 21:50: Creatinine 0.63, INR Comment 1.0, Platelet Count 203, Total Bilirubin 0.3 Results/Orders Lab Results Laboratory Tests Test 07/10/21 21:50 07/10/21 22:31 07/10/21 22:39 Range/Units White Blood Count 5.9 4.3-11.0 10^3/uL Red Blood Count 5.28 H 3.80-5.11 10^6/uL Hemoglobin 13.4 11.5-16.0 g/dL Hematocrit 41 35-52 % Mean Corpuscular Volume 77 L 80-99 fL Mean Corpuscular Hemoglobin 25 25-34 pg Mean Corpuscular Hemoglobin Concent 33 32-36 g/dL Red Cell Distribution Width 15.1 H 10.0-14.5 % Platelet Count 203 130-400 10^3/uL Mean Platelet Volume 9.8 9.0-12.2 fL Immature Granulocyte % (Auto) 1 % Neutrophils (%) (Auto) 60 42-75 % Lymphocytes (%) (Auto) 25 12-44 % Monocytes (%) (Auto) 10 0-12 % Eosinophils (%) (Auto) 2 0-10 % Basophils (%) (Auto) 1 0-10 % Neutrophils # (Auto) 3.6 1.8-7.8 10^3/uL Lymphocytes # (Auto) 1.5 1.0-4.0 10^3/uL Monocytes # (Auto) 0.6 0.0-1.0 10^3/uL Eosinophils # (Auto) 0.1 0.0-0.3 10^3/uL Basophils # (Auto) 0.0 0.0-0.1 10^3/uL Immature Granulocyte # (Auto) 0.1 0.0-0.1 10^3/uL Prothrombin Time 13.5 12.2-14.7 SEC INR Comment 1.0 0.8-1.4 Activated Partial Thromboplast Time 25 24-35 SEC D-Dimer 0.24 0.00-0.49 UG/ML Sodium Level 134 L 135-145 MMOL/L Potassium Level 3.9 3.6-5.0 MMOL/L Chloride Level 102 98-107 MMOL/L Carbon Dioxide Level 20 L 21-32 MMOL/L Anion Gap 12 5-14 MMOL/L Blood Urea Nitrogen 11 7-18 MG/DL Creatinine 0.63 0.60-1.30 MG/DL Estimat Glomerular Filtration Rate 111 BUN/Creatinine Ratio 17 Glucose Level 445 *H 70-105 MG/DL Calcium Level 8.9 8.5-10.1 MG/DL Corrected Calcium 9.0 8.5-10.1 MG/DL Magnesium Level 1.6 1.6-2.4 MG/DL Total Bilirubin 0.3 0.1-1.0 MG/DL Aspartate Amino Transf (AST/SGOT) 14 5-34 U/L Alanine Aminotransferase (ALT/SGPT) 14 0-55 U/L Alkaline Phosphatase 116 40-136 U/L Troponin I < 0.30 < 0.30 <0.30 NG/ML Pro-B-Type Natriuretic Peptide 209.6 H <75.0 PG/ML Total Protein 7.1 6.4-8.2 GM/DL Albumin 3.9 3.2-4.5 GM/DL Urine Opiates Screen NEGATIVE NEGATIVE Urine Oxycodone Screen NEGATIVE NEGATIVE Urine Methadone Screen NEGATIVE NEGATIVE Urine Propoxyphene Screen NEGATIVE NEGATIVE Urine Barbiturates Screen NEGATIVE NEGATIVE Ur Tricyclic Antidepressants Screen NEGATIVE NEGATIVE Urine Phencyclidine Screen NEGATIVE NEGATIVE Urine Amphetamines Screen NEGATIVE NEGATIVE Urine Methamphetamines Screen NEGATIVE NEGATIVE Urine Benzodiazepines Screen NEGATIVE NEGATIVE Urine Cocaine Screen NEGATIVE NEGATIVE Urine Cannabinoids Screen NEGATIVE NEGATIVE My Orders Orders - NEFTALY SMITH MD Cbc With Automated Diff (07/10/21 21:52) Magnesium (07/10/21 21:52) Chest 1 View Ap/Pa Only (07/10/21 21:52) Ekg Tracing (07/10/21 21:52) Comprehensive Metabolic Panel (07/10/21 21:52) Protime With Inr (07/10/21 21:52) Partial Thromboplastin Time (07/10/21 21:52) O2 (07/10/21 21:52) Monitor-Rhythm Ecg Trace Only (07/10/21 21:52) Aspirin Chewable Tablet (Baby Aspirin Ch (07/10/21 22:00) Ed Iv/Invasive Line Start (07/10/21 21:52) Fibrin Degradation Products (07/10/21 21:52) Troponin I Fs (07/10/21 21:52) Probnp Fs (07/10/21 21:52) Drug Screen Stat (Urine) (07/10/21 21:53) Insulin (Regular) Human (Novolin R (Per (07/10/21 22:24) Ed Iv/Invasive Line Start (07/10/21 22:27) Ns Iv 1000 Ml (Sodium Chloride 0.9%) (07/10/21 22:30) Troponin I Fs (07/10/21 22:46) Ekg Tracing (07/10/21 22:46) Medications Given in ED Current Medications Medications Dose Ordered Sig/Lo Route Start Time Stop Time Status Last Admin Dose Admin Aspirin 324 mg ONCE ONCE PO 07/10/21 22:00 07/10/21 22:01 DC 07/10/21 22:42 324 MG Vital Signs/I&O 07/10/21 21:44 Temp 36.9 Pulse 96 Resp 18 B/P (MAP) 200/100 (133) Pulse Ox 98 O2 Delivery Room Air Capillary Refill : Progress Note : Progress Note 1. CHEST PAIN/ ACUTE COSTOCHONDRITIS/ ANXIETY: - CXR: normal - Troponin x 2 negative/ EKG shows PVC's - Labs unremarkable - ASA 324mg STAT - Ativan 0.5mg STAT - Chest pain has resolved except when pt presses the area - OTC lidoderm patches, tylenol for pain, or voltarin gel - Follow up with Cardiology and PCP within 5 to 7 days -The patient was seen in the ED, and treated appropriately to presentation at a specific point in time. Patient is informed that there is a possibility that disease and illness can evolve and change in acuity rapidly or slowly after patient is discharged from the ER. Precautionary advice given to the patient for immediate return to ER if symptoms worsen or do not resolve, and to seek emergency care sooner rather than later. Pt also advised on the importance of PCP follow up and compliance with management and follow up plan with PCP and/or specialist, as this is part of the management plan. Pt verbally expressed understanding. 2. HYPERGLYCEMIA: - Blood sugar is 445, improved to 325 - Regular insulin 5 units STAT - NS IVF bolus STAT Diagnostic Imaging Diagonstic Imaging: Xray Plain Films/CT/US/NM/MRI: chest Comments [facility] [place], [place] NAME: KALA VANEGAS [facility] REC#: [id number] PT STATUS: REG ER : 1975 PHYSICIAN: NEFTALY SMITH MD ADMIT DATE: 07/10/21/ER FS Signed Date of Exam:07/10/21 CHEST 1 VIEW AP/PA ONLY INDICATION: Chest pain. EXAMINATION: Portable chest at 9:56 PM. Heart size and pulmonary vascularity are normal. Lungs are clear. There are no effusions or pneumothoraces. IMPRESSION: Negative chest. Dictated by: Dictated on workstation # [id number] Dict: 07/10/212202 Trans: 07/10/212207 [id number] Interpreted by: HAKEEM MCCLOUD MD Electronically signed by: HAKEEM MCCLOUD MD 07/10/212207 Departure Impression Primary Impression: Acute costochondritis Additional Impressions: Anxiety Hyperglycemia due to diabetes mellitus Disposition: HOME, SELF-CARE Condition: Stable Departure-Patient Inst. Patient Instructions: Guide to Eating When You Have Diabetes, Heart Disease in Diabetics (DC), Heart Healthy Diet, Costochondritis (DC) Add. Discharge Instructions: - OTC lidoderm patches, tylenol for pain, or voltarin gel -Follow-up with cardiology and PCP within the next 5 to 7 days -Return to ER symptoms worsen or continue without relief - NEFTALY SMITH MD Jul 10, 2021 21:45
[2021-07-10 21:57] LABS: BASOPHILS % (AUTO) 1 % (0-10); EOSINOPHILS # (AUTO) 0.1 10^3/uL (0.0-0.3); EOSINOPHILS % (AUTO) 2 % (0-10); HEMATOCRIT 41 % (35-52); HEMOGLOBIN 13.4 g/dL (11.5-16.0); LYMPHOCYTES # (AUTO) 1.5 10^3/uL (1.0-4.0); LYMPHOCYTES % (AUTO) 25 % (12-44); MEAN CORPUSCULAR HEMOGLOBIN 25 pg (25-34); MEAN CORPUSCULAR HGB CONC 33 g/dL (32-36); MEAN CORPUSCULAR VOLUME 77 fL (80-99); MEAN PLATELET VOLUME 9.8 fL (9.0-12.2); MONOCYTES # (AUTO) 0.6 10^3/uL (0.0-1.0); MONOCYTES % (AUTO) 10 % (0-12); NEUTROPHILS # (AUTO) 3.6 10^3/uL (1.8-7.8); NEUTROPHILS % (AUTO) 60 % (42-75); PLATELET COUNT 203 10^3/uL (130-400); WHITE BLOOD COUNT 5.9 10^3/uL (4.3-11.0)
[2021-07-10] MEDS ORDERED: ASPIRIN 81 MG CHEW (CHILDREN'S ASA) PO ONE (22:00)
[2021-07-10 22:02] LABS: PROTHROMBIN TIME PATIENT 13.5 SEC (12.2-14.7)
--- NOTE | 2021-07-10 22:05 | Diagnostic Imaging Report ---
INDICATION: Chest pain. EXAMINATION: Portable chest at 9:56 PM. Heart size and pulmonary vascularity are normal. Lungs are clear. There are no effusions or pneumothoraces. IMPRESSION: Negative chest. Dictated by: Dictated on workstation # [id number]
[2021-07-10 22:14] LABS: CREATININE SERUM 0.63 MG/DL (0.60-1.30); POTASSIUM 3.9 MMOL/L (3.6-5.0)
[2021-07-10 22:15] LABS: ALBUMIN 3.9 GM/DL (3.2-4.5); BILIRUBIN,TOTAL 0.3 MG/DL (0.1-1.0); CALCIUM 8.9 MG/DL (8.5-10.1); MAGNESIUM 1.6 MG/DL (1.6-2.4); TOTAL PROTEIN 7.1 GM/DL (6.4-8.2)
[2021-07-10] MEDS ORDERED: inSUlin (REGULAR) HUMAN 1 UNIT/0.01 ML (CHARGE PER UNIT) SC STA (22:24)
[2021-07-10] MEDS ORDERED: NS IV 1000 ML 1,000 ML IV SCH (22:30)
[2021-07-10 22:50] LABS: AMPHETAMINE SCREEN, URINE NEGATIVE (NEGATIVE); BARBITURATE SCREEN URINE NEGATIVE (NEGATIVE); BENZODIAZEPINES SCREEN URINE NEGATIVE (NEGATIVE); CANNABINOID SCREEN, URINE NEGATIVE (NEGATIVE); COCAINE SCREEN URINE NEGATIVE (NEGATIVE); METHADONE STAT NEGATIVE (NEGATIVE); OPIATE SCREEN URINE NEGATIVE (NEGATIVE); OXYCODONE STAT NEGATIVE (NEGATIVE); PROPOXYPHENE STAT NEGATIVE (NEGATIVE); TRICYCLIC ANTIDEPRESSANTS SCRE NEGATIVE (NEGATIVE)
[2021-07-11 00:08] VITALS: BP 141/73
[2021-07-11] MEDS ORDERED: LORazepam 0.5 MG (ATIVAN) TABLET PO STA (00:12)
== END 2021-07-11 00:25 | disposition home or self-care (01) ==
LOC: EDUNIT# 21:42 → ER FS 21:45
DX: E11.65 Type 2 diabetes mellitus with hyperglycemia (principal); M94.0 Chondrocostal junction syndrome [Tietze]; F41.9 Anxiety disorder, unspecified; T38.3X6A Underdosing of insulin and oral hypoglycemic [antidiabetic] drugs, initial encounter; Z79.4 Long term (current) use of insulin; Z91.14 Patient's other noncompliance with medication regimen
CPT/HCPCS: 36415; 71045; 80053; 80306; 82947; 83735; 83880; 84484; 85025; 85379; 85610; 85730; 93005; 93041

== ENCOUNTER 2021-09-30 13:33 | Emergency (ER) | payer MEDICARE, MEDICAID ==
[~2021-09-30] VITALS: Ht 175.3 cm; Wt 151.0 kg
--- NOTE | 2021-09-30 14:09 | ED Lower Extremity ---
General Chief Complaint: Upper Extremity Stated Complaint: RT GROIN PAIN Nursing Triage Note: Patient reports she began having pain last night in her right grion that radiates down her right leg to her right knee. She states she was recently diagnosed with a cyst/mass on her right ovary, states she has a follow up appointment at in 2 months. Source: patient Exam Limitations: no limitations History of Present Illness Date Seen by Provider: Sep 30, 2021 Time Seen by Provider: 13:36 Initial Comments 46-year-old female with past medical history of SLE, DM, hypertension, hyperlipidemia, previous DVT on Warfarin coming in due to right hip/groin pain. Started last night, constant, severe, sharp, worse with movement, better with rest. Took Tylenol which did not seem to take much pain away. Has never had pain like this before. Denies any trauma, fall, twisting it. Denies any leg swelling or redness. Has not missed any doses of her warfarin and they recently upped her dose last week. Is otherwise denying any other acute complaints including chest pain, shortness of breath, abdominal pain, nausea, vomiting, diarrhea, fever, chills, weakness, numbness, flank pain, dysuria, hematuria, vaginal discharge or bleeding, or any other concerns Allergies and Home Medications Allergies Coded Allergies: diphenhydramine HCl (Verified Allergy, Unknown, 10/06/11) fentanyl (Verified Allergy, Unknown, 03/04/15) latex (Verified Allergy, Unknown, 10/06/11) meperidine HCl (Verified Allergy, Unknown, 10/06/11) morphine (Verified Allergy, Unknown, 10/06/11) vancomycin (Verified Allergy, Unknown, 10/06/11) iodine (Unverified Adverse Reaction, Intermediate, rash from IV contrast, 05/19/18) clindamycin (Unverified Adverse Reaction, Unknown, 05/19/18) gabapentin (Unverified Adverse Reaction, Unknown, 05/19/18) levofloxacin (Unverified Adverse Reaction, Unknown, 05/19/18) metformin (Unverified Adverse Reaction, Unknown, 05/19/18) metoclopramide (Unverified Adverse Reaction, Unknown, 05/19/18) Patient Home Medication List Home Medication List Reviewed: Yes Amoxicillin/Potassium Clav (Augmentin 875-125 Tablet) 1 Each Tablet, 1 EACH PO BID Prescribed by: BRITTNI PLASENCIA on 05/19/18 1522 Baclofen (Baclofen) 10 Mg Tablet, 10 MG PO TID PRN for MUSCLE SPASMS Prescribed by: SEBASTIÁN COX on 02/20/20 0050 Belimumab (Benlysta) 200 Mg/1 Ml Auto.injct, (Reported) Entered as Reported by: FREDY HSU on 05/19/18 1520 Butalb/Acetaminophen/Caffeine (Qtxsejti-Tltjewbhjfski-Biff Cp) 1 Each Capsule, 1 EACH PO Q8H PRN for headache Prescribed by: KING CONN on 11/22/19 1516 Cyclobenzaprine HCl (Cyclobenzaprine HCl) 10 Mg Tablet, 10 MG PO Q8H PRN for SPASMS Prescribed by: KATIA GARCIA on 09/11/20 1100 Desonide (Desonide) 15 Gm Oint...g., TOP BID, (Reported) Entered as Reported by: JADE KAT on 04/22/15 1009 Ergocalciferol (Vitamin D2) (Vitamin D2) 50,000 Unit Capsule, 50,000 UNITS PO WEEKLY, (Reported) Entered as Reported by: JADE KAT on 04/22/15 0837 Furosemide (Furosemide) 80 Mg Tablet, 40 MG PO BID, (Reported) Entered as Reported by: JADE KAT on 04/22/15 0837 Hydrocodone Bit/Acetaminophen (HYDROcodone/APAP 5 MG/325 MG TAB) 1 Tab Tab, 1 TAB PO Q8H PRN for PAIN-SEVERE (8-10) Prescribed by: ELENA FARMER on 12/29/20 1248 Hydrocodone Bit/Acetaminophen (HYDROcodone/APAP 5 MG/325 MG TAB) 1 Tab Tab, 1 TAB PO Q6H Prescribed by: ELENA FARMER on 09/30/21 1453 Hydrocodone/Acetaminophen (Hydrocodone-Acetamin 5-325 mg) 1 Each Tablet, 1 EACH PO Q4H Prescribed by: KATIA GARCIA on 09/11/20 1101 Hydroxychloroquine Sulfate (Hydroxychloroquine Sulfate) 200 Mg Tablet, 200 MG PO BID, (Reported) Entered as Reported by: JADE KAT on 04/22/15 0837 Insulin Aspart (Novolog Flexpen) 300 Units/3 Ml Solution, (Reported) Entered as Reported by: FREDY HSU on 05/19/18 1520 Insulin Glargine,Hum.rec.anlog (Lantus Solostar) 100 Unit/1 Ml Insuln.pen, 28 UNITS SC HS, (Reported) Entered as Reported by: JADE KAT on 04/22/15 1009 Insulin Glargine,Hum.rec.anlog (Toujeo Solostar) 300 Unit/1 Ml Insuln.pen, (Reported) Entered as Reported by: FREDY HSU on 05/19/18 1520 Lisinopril (Lisinopril) 10 Mg Tablet, 20 MG PO BID, (Reported) Entered as Reported by: JADE KAT on 04/22/15 0837 Loratadine (Loratadine) 10 Mg Tablet, (Reported) Entered as Reported by: FREDY HSU on 05/19/18 1520 Lorazepam (Ativan) 1 Mg Tablet, 1 MG PO Q6H PRN for ANXIETY, (Reported) Entered as Reported by: RENETTA LATIF on 02/24/15 1157 Lorazepam (Lorazepam) 0.5 Mg Tablet, (Reported) Entered as Reported by: FREDY HSU on 05/19/18 1520 Metformin HCl (Metformin HCl ER) 500 Mg Tab.er.24h, (Reported) Entered as Reported by: FREDY HSU on 05/19/18 1520 Mycophenolate Mofetil (Mycophenolate Mofetil) 500 Mg Tablet, PO UD, (Reported) Entered as Reported by: JADE KAT on 04/22/15 1009 Ondansetron (Ondansetron Odt) 4 Mg Tab.rapdis, 4 MG PO Q8H PRN for NAUSEA, (Reported) Entered as Reported by: JADE KAT on 04/22/15 1009 Ondansetron (Ondansetron Odt) 4 Mg Tab.rapdis, 4 MG PO TID PRN for NAUSEA/VOMITING-1ST LINE Prescribed by: BRITTNI PLASENCIA on 05/19/18 1522 Ondansetron (Ondansetron Odt) 4 Mg Tab.rapdis, 4 MG PO Q8H PRN for nausea Prescribed by: KING CONN on 11/22/19 1514 Ondansetron (Ondansetron Odt) 4 Mg Tab.rapdis, 4 MG PO Q6H PRN for NAUSEA/VOMITING Prescribed by: ELENA FARMER on 09/27/20 1720 Ondansetron (Ondansetron Odt) 4 Mg Tab.rapdis, 4 MG PO Q6H PRN for NAUSEA-1ST LINE Prescribed by: ELENA FARMER on 12/29/20 1248 Oxycodone HCl (Oxycontin) 30 Mg Tab.er.12h, 30 MG PO BID, (Reported) Entered as Reported by: JADE KAT on 04/22/15 1009 Oxycodone Hcl (Oxyir Tablet) 5 Mg Tablet, 5 MG PO Q6H PRN for PAIN, (Reported) Entered as Reported by: JADE KAT on 04/22/15 1009 Pantoprazole Sodium (Pantoprazole Sodium) 40 Mg Tablet.dr, 40 MG PO DAILY, (Reported) Entered as Reported by: GRADY CAICEDO on 03/04/15 0635 Pravastatin Sodium (Pravastatin Sodium) 20 Mg Tablet, (Reported) Entered as Reported by: FREDY HSU on 05/19/18 1520 Rifaximin (Xifaxan) 550 Mg Tablet, (Reported) Entered as Reported by: FREDY HSU on 05/19/18 1520 Ropinirole HCl (Ropinirole HCl) 0.5 Mg Tablet, (Reported) Entered as Reported by: FREDY HSU on 05/19/18 1520 Tramadol HCl (Tramadol HCl) 50 Mg Tablet, (Reported) Entered as Reported by: FREDY HSU on 09/11/20 1056 Triamcinolone Acet (Triamcinolone Acetonide 0.1% Ointment) 15 Gm Oint, TOP BID, (Reported) Entered as Reported by: JADE KAT on 04/22/15 1009 Warfarin Sodium (Warfarin Sodium) 10 Mg Tablet, (Reported) Entered as Reported by: FREDY HSU on 05/19/18 1520 Review of Systems Constitutional: No fever EENTM: No blurred vision Respiratory: no symptoms reported Cardiovascular: no symptoms reported Gastrointestinal: no symptoms reported Genitourinary: no symptoms reported : No Musculoskeletal: see HPI Skin: no symptoms reported Psychiatric/Neurological: No Symptoms Reported All Other Systems Reviewed Negative Unless Noted: Yes Past Kwznqfa-Cqemfl-Gsukwc Hx Patient Social History Tobacco Use?: No Substance use?: No Alcohol Use?: No Pt feels they are or have been: No Seasonal Allergies Seasonal Allergies: No Past Medical History Surgery/Hospitalization HX: Back surgery x2, DDD, Lupus, DM, Fibromyalgia Surgeries: Yes (PARACENTESIS, BACK SURGERY, C/S X 2, COLONOSCOPY, LAPAROTOMY) Abdominal, Section, Gallbladder, Hysterectomy, Orthopedic, Tonsillect rivka, Tubal Ligation Respiratory: Yes Asthma Currently Using CPAP: No Currently Using BIPAP: No 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)) Atrial Fibrillation, High Cholesterol, Hypertension, Irregular Heartbeat Neurological: Yes (febrile seizures as child, hx hepatic encephalopathy) Headaches /Migraines Reproductive Disorders: Yes Female Reproductive Disorders: Menstrual Problems, Endometriosis, Ovarian Cyst 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 Sexually Transmitted Disease: No HIV/AIDS: No Genitourinary: Yes (CKD Stage 3, Lupus nephritis, Renal insufficiency) Renal Failure, Dialysis Gastrointestinal: Yes (CANO-(nonalcoholic steatohepatitis)) Gastroesophageal Reflux, Liver Disease/Jaundice, Pancreatitis, Irritable Bowel Musculoskeletal: Yes Arthritis, Fibromyalgia, Chronic Back Pain Endocrine: Yes (Hypomagnesium Hx) Diabetes, Insulin dep, Lupus HEENT: Yes (has glasses) Loss of Vision: Bilateral Hearing Impairment: Denies Cancer: No Psychosocial: Yes Anxiety, Depression Integumentary: No Recent Skin Changes Blood Disorders: No Adverse Reaction/Blood Tranf: No Family Medical History Patient reports no known family medical history. Heart Disease, Cancer, Diabetes, Hypertension Physical Exam Vital Signs Vital Signs - First Documented 09/30/21 13:42 Temp 36.1 Pulse 76 Resp 18 B/P (MAP) 202/97 (132) Pulse Ox 100 O2 Delivery Room Air Capillary Refill : Less Than 3 Seconds Height, Weight, BMI Height: 5'10.00" Weight: 300lbs. 0oz. 136.427780si; 49.00 BMI Method:Stated General Appearance: WD/WN, no apparent distress HEENT: PERRL/EOMI, normal ENT inspection, pharynx normal Neck: non-tender, full range of motion, supple, normal inspection Cardiovascular: regular rate, rhythm, no edema, no murmur Respiratory: chest non-tender, lungs clear, normal breath sounds, no respiratory distress, no accessory muscle use Gastrointestinal: normal bowel sounds, non tender, soft; No distended, No guarding, No rebound Back: normal inspection, no CVA tenderness Hips: left hip non-tender; bilateral hip normal inspection, bilateral hip no evidence of injury; right hip other (Pain along the lateral aspect of the right hip along the greater trochanter, pain with logroll, she does have full range of motion but it is painful, normal strength and distal sensation, normal DP and PT pulses) Neurologic/Tendon: normal sensation, normal motor functions Neurologic/Psychiatric: no motor/sensory deficits, alert, normal mood/affect Skin: normal color, warm/dry Lymphatic: no adenopathy Progress/Results/Core Measures Results/Orders My Orders Orders - ELENA FARMER MD Pelvis With Right Hip 2-3 View (09/30/21 14:02) Hydrocodone/Apap 5/325 Tablet (Lortab 5 (09/30/21 14:15) Medications Given in ED Current Medications Medications Dose Ordered Sig/Lo Route Start Time Stop Time Status Last Admin Dose Admin Acetaminophen/ Hydrocodone Bitart 1 ea ONCE ONCE PO 09/30/21 14:15 09/30/21 14:16 DC 09/30/21 14:08 1 EA Vital Signs/I&O 09/30/21 13:42 Temp 36.1 Pulse 76 Resp 18 B/P (MAP) 202/97 (132) Pulse Ox 100 O2 Delivery Room Air Blood Pressure Mean: 132 Progress Progress Note : Progress Note 46-year-old female with above history coming in due to right hip/groin pain. ABCs were intact and vitals were stable on presentation. Physical exam with exquisite tenderness even to light touch around her right hip even superficially. There are no skin changes that would be concerning for DVT. I did a [id number] ultrasound and she has compressible veins from the groin all the way to the popliteal vein with no obvious DVT. She is also on warfarin which would make this unlikely. Ultrasound of the right hip including the joint capsule with no distention from any fluid, so it is negative for effusion making septic hip joint unlikely. X-ray with possible avascular necrosis and arthritis. She has been on chronic steroids, but the case appears mild on x- ray. I will have her follow-up with orthopedics as an outpatient. Diagnostic Imaging Diagonstic Imaging: Xray Comments [facility]. [place], [place] NAME: KALA VANEGAS [facility] REC#: [id number] PT STATUS: REG ER : 1975 PHYSICIAN: ELENA FARMER MD ADMIT DATE: 09/30/21/ER FS Draft Date of Exam:09/30/21 PELVIS WITH RIGHT HIP 2-3 VIEW CLINICAL INDICATION: Patient with pain, no injury. Patient has history of steroid use. EXAM: X-ray of the pelvis AP view and x-rays of the right hip, AP and frog-leg views. COMPARISON: CT scan of the abdomen and pelvis without contrast dated 10/28/2020. FINDINGS: There is slight sclerotic appearance of the upper aspect of the left femoral head which appears similar to the prior CT scan. There is very subtle sclerosis involving the upper aspect of the right femoral head seen on the prior CT scan, which is not well delineated on this exam. These findings may be related to AVN. There is no acute fracture or dislocation. There is enthesopathy of the greater trochanter regions. Sacroiliac joints and sacrum show no significant abnormality. There are degenerative spurs involving the visualized lower lumbar spine. IMPRESSION: 1: There is no acute fracture or dislocation. 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 Dictated on workstation # [id number] Dict: 09/30/21 1425 Trans: 09/30/21 1434 [facility] [id number] Interpreted by: MALENA SESAY MD Electronically signed by: Departure Impression Primary Impression: Right hip pain Disposition: 01 HOME, SELF-CARE Condition: Stable Departure-Patient Inst. Decision time for Depature: 14:50 Referrals: SHRUTI LCEANING MD (PCP) Primary Care Physician RUBI CARRILLO MD Patient Instructions: Hip Pain Add. Discharge Instructions: It does appear like you have some arthritic changes to your right hip as well as some breakdown of the bone which is possible from the longstanding steroids that you are on. We do not see any evidence of blood clot or infection in the area. Typically this gets better with time. I recommend following up with an orthopedic surgeon of your choosing. Dr. Carrillo is one you could see if you do not have anyone you know, and his number is in the paperwork. A short course of pain medicines were sent to your pharmacy, but if you need more beyond that then you should follow-up with your regular doctor. You can of course take Tylenol or naproxen as needed. Scripts Hydrocodone Bit/Acetaminophen (HYDROcodone/APAP 5 MG/325 MG TAB) 1 Tab Tab 1 TAB PO Q6H for Pain for 2 Days, #8 TAB 0 Refills Prov: ELENA FARMER MD 09/30/21 Work/School Note: Work Release Form Date Seen in the Emergency Department: Sep 30, 2021 Return to Work: Oct 03, 2021 Restrictions: No Restrictions ELENA FARMER MD Sep 30, 2021 14:09
[2021-09-30] MEDS ORDERED: HYDROcodone/APAP 5 MG/325 MG (LORTAB) TAB PO ONE (14:15)
--- NOTE | 2021-09-30 14:34 | Diagnostic Imaging Report ---
CLINICAL INDICATION: Patient with pain, no injury. Patient has history of steroid use. EXAM: X-ray of the pelvis AP view and x-rays of the right hip, AP and frog-leg views. COMPARISON: CT scan of the abdomen and pelvis without contrast dated 10/28/2020. FINDINGS: There is slight sclerotic appearance of the upper aspect of the left femoral head which appears similar to the prior CT scan. There is very subtle sclerosis involving the upper aspect of the right femoral head seen on the prior CT scan, which is not well delineated on this exam. These findings may be related to AVN. There is no acute fracture or dislocation. There is enthesopathy of the greater trochanter regions. Sacroiliac joints and sacrum show no significant abnormality. There are degenerative spurs involving the visualized lower lumbar spine. IMPRESSION: 1: There is no acute fracture or dislocation. 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 Dictated by: Dictated on workstation # [id number]
[2021-09-30] MEDS ORDERED: ACHD5005 PO (14:53)
[2021-09-30 15:00] VITALS: BP 181/116
== END 2021-09-30 15:00 | disposition home or self-care (01) ==
LOC: EDUNIT# 13:33 → ER FS 13:34
DX: M25.551 Pain in right hip (principal); E11.22 Type 2 diabetes mellitus with diabetic chronic kidney disease; I12.9 Hypertensive chronic kidney disease with stage 1 through stage 4 chronic kidney disease, or unspecified chronic kidney disease; N18.30 Chronic kidney disease, stage 3 unspecified; Z99.2 Dependence on renal dialysis; Z86.718 Personal history of other venous thrombosis and embolism; Z91.040 Latex allergy status; Z28.310 Unvaccinated for COVID-19; Z79.01 Long term (current) use of anticoagulants; Z79.4 Long term (current) use of insulin
CPT/HCPCS: 73502

== ENCOUNTER 2021-11-17 12:54 | Emergency (ER) | payer MEDICARE, MEDICAID ==
[2021-11-17 13:11] VITALS: BP 119/62
[2021-11-17] MEDS ORDERED: KETOROLAC 30 MG/ML VIAL IVP STA (13:13)
[2021-11-17] MEDS ORDERED: DICYCLOMINE 10 MG/ML (BENTYL) 2 ML AMP IM STA (13:13)
[2021-11-17 13:16] LABS: BILIRUBIN,URINE NEGATIVE (NEGATIVE); CLARITY,URINE SL CLOUDY; COLOR,URINE YELLOW; GLUCOSE, URINE (UA) 3+ (NEGATIVE); KETONES,URINE NEGATIVE (NEGATIVE); LEUKOCYTE ESTERASE ,URINE NEGATIVE (NEGATIVE); NITRITE,URINE POSITIVE (NEGATIVE); PROTEIN,URINE NEGATIVE (NEGATIVE)
[2021-11-17 13:22] LABS: BACTERIA,URINE LARGE /HPF; YEAST,URINE FEW /HPF
--- NOTE | 2021-11-17 13:22 | ED Abdominal Pain ---
General Chief Complaint: Abdominal/GI Problems Stated Complaint: ABD PAIN Nursing Triage Note: Patient complains of lower right side abd - the pain started last night and has worsened all of today. She did tylenol for her pain at about 1100 this morning. She reports some burning with urination today. Source of Information: Patient History of Present Illness Date Seen by Provider: Nov 17, 2021 Time Seen by Provider: 12:57 Initial Comments 46-year-old female presenting with complaints of right lower quadrant and pelvic pain that started last night. She has had this pain worsening throughout the day and rates it as severe. She had imaging a few months ago that showed ovarian cyst and a mass in the area of her ovary on the right side. She states that she has had some pain intermittently but it has not been this severe. She is scheduled to have a transvaginal ultrasound to evaluate the ovarian cyst and mass tomorrow however her pain was so severe today that she had gone to the urgent care to be evaluated. They sent her to the emergency department. She has not taken anything for pain. She states that in the past nothing that really helped when the pain flares up. 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 She reports some burning with urination. She has not had any nausea or vomiting. She denies any change in her bowels. She did take some Tylenol around 11 AM with little to no improvement. Timing/Duration: 1-2 Days Severity/Quality: Severe, Sharp Location: RLQ Radiation: RLQ Activities at Onset: None Modifying Factors: Worsens With Movement, Worsens With Palpation Associated Symptoms: No Back Pain, No Chest Pain, No Diaphoresis, No Fever/Chills, No Fatigue, No Headache, No Heartburn, No Nausea/Vomiting, No Rash, No Shortness of Air, No Swelling/Mass in Abdomen, No Syncope, No Weakness Allergies and Home Medications Allergies Coded Allergies: diphenhydramine HCl (Verified Allergy, Unknown, 10/06/11) fentanyl (Verified Allergy, Unknown, 03/04/15) latex (Verified Allergy, Unknown, 10/06/11) meperidine HCl (Verified Allergy, Unknown, 10/06/11) morphine (Verified Allergy, Unknown, 10/06/11) vancomycin (Verified Allergy, Unknown, 10/06/11) iodine (Unverified Adverse Reaction, Intermediate, rash from IV contrast, 05/19/18) clindamycin (Unverified Adverse Reaction, Unknown, 05/19/18) gabapentin (Unverified Adverse Reaction, Unknown, 05/19/18) levofloxacin (Unverified Adverse Reaction, Unknown, 05/19/18) metformin (Unverified Adverse Reaction, Unknown, 05/19/18) metoclopramide (Unverified Adverse Reaction, Unknown, 05/19/18) Patient Home Medication List Home Medication List Reviewed: Yes Amoxicillin/Potassium Clav (Augmentin 875-125 Tablet) 1 Each Tablet, 1 EACH PO BID Prescribed by: BRITTNI PLASENCIA on 05/19/18 1522 Baclofen (Baclofen) 10 Mg Tablet, 10 MG PO TID PRN for MUSCLE SPASMS Prescribed by: SEBASTIÁN COX on 02/20/20 0050 Belimumab (Benlysta) 200 Mg/1 Ml Auto.injct, (Reported) Entered as Reported by: FREDY HSU on 05/19/18 1520 Butalb/Acetaminophen/Caffeine (Xfaufyxe-Qrycprbuchigh-Hgft Cp) 1 Each Capsule, 1 EACH PO Q8H PRN for headache Prescribed by: KING CONN on 11/22/19 1516 Cyclobenzaprine HCl (Cyclobenzaprine HCl) 10 Mg Tablet, 10 MG PO Q8H PRN for SPASMS Prescribed by: KATIA GARCIA on 09/11/20 1100 Desonide (Desonide) 15 Gm Oint...g., TOP BID, (Reported) Entered as Reported by: JADE KAT on 04/22/15 1009 Ergocalciferol (Vitamin D2) (Vitamin D2) 50,000 Unit Capsule, 50,000 UNITS PO WEEKLY, (Reported) Entered as Reported by: JADE KAT on 04/22/15 0837 Furosemide (Furosemide) 80 Mg Tablet, 40 MG PO BID, (Reported) Entered as Reported by: JADE KAT on 04/22/15 0837 Hydrocodone Bit/Acetaminophen (HYDROcodone/APAP 5 MG/325 MG TAB) 1 Tab Tab, 1 TAB PO Q8H PRN for PAIN-SEVERE (8-10) Prescribed by: ELENA FARMER on 12/29/20 1248 Hydrocodone Bit/Acetaminophen (HYDROcodone/APAP 5 MG/325 MG TAB) 1 Tab Tab, 1 TAB PO Q6H Prescribed by: ELENA FARMER on 09/30/21 1453 Hydrocodone/Acetaminophen (Hydrocodone-Acetamin 5-325 mg) 1 Each Tablet, 1 EACH PO Q4H Prescribed by: KATIA GARCIA on 09/11/20 1101 Hydrocodone/Acetaminophen (Hydrocodone-Acetamin 5-325 mg) 5 Mg-325 Mg Tablet, 1 TAB PO Q4H PRN for PAIN-SEVERE (8-10) Prescribed by: SEBASTIÁN COX on 11/17/21 1456 Hydroxychloroquine Sulfate (Hydroxychloroquine Sulfate) 200 Mg Tablet, 200 MG PO BID, (Reported) Entered as Reported by: JADE KAT on 04/22/15 0837 Insulin Aspart (Novolog Flexpen) 300 Units/3 Ml Solution, (Reported) Entered as Reported by: FREDY HSU on 05/19/18 1520 Insulin Glargine,Hum.rec.anlog (Lantus Solostar) 100 Unit/1 Ml Insuln.pen, 28 UNITS SC HS, (Reported) Entered as Reported by: JADE KAT on 04/22/15 1009 Insulin Glargine,Hum.rec.anlog (Toujeo Solostar) 300 Unit/1 Ml Insuln.pen, (Reported) Entered as Reported by: FREDY HSU on 05/19/18 1520 Lisinopril (Lisinopril) 10 Mg Tablet, 20 MG PO BID, (Reported) Entered as Reported by: JADE KAT on 04/22/15 0837 Loratadine (Loratadine) 10 Mg Tablet, (Reported) Entered as Reported by: FREDY HSU on 05/19/18 1520 Lorazepam (Ativan) 1 Mg Tablet, 1 MG PO Q6H PRN for ANXIETY, (Reported) Entered as Reported by: RENETTA LATIF on 02/24/15 1157 Lorazepam (Lorazepam) 0.5 Mg Tablet, (Reported) Entered as Reported by: FREDY HSU on 05/19/18 1520 Metformin HCl (Metformin HCl ER) 500 Mg Tab.er.24h, (Reported) Entered as Reported by: FREDY HSU on 05/19/18 1520 Mycophenolate Mofetil (Mycophenolate Mofetil) 500 Mg Tablet, PO UD, (Reported) Entered as Reported by: JADE KAT on 04/22/15 1009 Nitrofurantoin Monohyd/M-Cryst (Macrobid 100 mg Capsule) 100 Mg Capsule, 1 TAB PO BID Prescribed by: SEBASTIÁN COX on 11/17/21 1455 Ondansetron (Ondansetron Odt) 4 Mg Tab.rapdis, 4 MG PO Q8H PRN for NAUSEA, (Reported) Entered as Reported by: JADE KAT on 04/22/15 1009 Ondansetron (Ondansetron Odt) 4 Mg Tab.rapdis, 4 MG PO TID PRN for NAUSEA/VOMITING-1ST LINE Prescribed by: BRITTNI PLASENCIA on 05/19/18 1522 Ondansetron (Ondansetron Odt) 4 Mg Tab.rapdis, 4 MG PO Q8H PRN for nausea Prescribed by: KING CONN on 11/22/19 1514 Ondansetron (Ondansetron Odt) 4 Mg Tab.rapdis, 4 MG PO Q6H PRN for NAUSEA/VOMITING Prescribed by: ELENA FARMER on 09/27/20 1720 Ondansetron (Ondansetron Odt) 4 Mg Tab.rapdis, 4 MG PO Q6H PRN for NAUSEA-1ST LINE Prescribed by: ELENA FARMER on 12/29/20 1248 Oxycodone HCl (Oxycontin) 30 Mg Tab.er.12h, 30 MG PO BID, (Reported) Entered as Reported by: JADE KAT on 04/22/15 1009 Oxycodone Hcl (Oxyir Tablet) 5 Mg Tablet, 5 MG PO Q6H PRN for PAIN, (Reported) Entered as Reported by: JADE KAT on 04/22/15 1009 Pantoprazole Sodium (Pantoprazole Sodium) 40 Mg Tablet.dr, 40 MG PO DAILY, (Repo rted) Entered as Reported by: GRADY CAICEDO on 03/04/15 0635 Phenazopyridine HCl (Azo Urinary Pain Relief) 99.5 Mg Tablet, 99.5 MG PO TID PRN for flank pain/urinary pain Prescribed by: SEBASTIÁN COX on 11/17/21 1455 Pravastatin Sodium (Pravastatin Sodium) 20 Mg Tablet, (Reported) Entered as Reported by: FREDY HSU on 05/19/18 1520 Rifaximin (Xifaxan) 550 Mg Tablet, (Reported) Entered as Reported by: FREDY HSU on 05/19/18 1520 Ropinirole HCl (Ropinirole HCl) 0.5 Mg Tablet, (Reported) Entered as Reported by: FREDY HSU on 05/19/18 1520 Tramadol HCl (Tramadol HCl) 50 Mg Tablet, (Reported) Entered as Reported by: FREDY HSU on 09/11/20 1056 Triamcinolone Acet (Triamcinolone Acetonide 0.1% Ointment) 15 Gm Oint, TOP BID, (Reported) Entered as Reported by: JADE KAT on 04/22/15 1009 Warfarin Sodium (Warfarin Sodium) 10 Mg Tablet, (Reported) Entered as Reported by: FREDY HSU on 05/19/18 1520 Review of Systems Review of Systems Constitutional: No chills, No fever EENTM: No Symptoms Reported Respiratory: No Symptoms Reported Cardiovascular: No Symptoms Reported Gastrointestinal: See HPI Genitourinary: See HPI Musculoskeletal: no symptoms reported Skin: No change in color, No rash Psychiatric/Neurological: No Symptoms Reported Endocrine: No Symptoms Reported Past Eospimb-Iuijhr-Hfolqu Hx Patient Social History Tobacco Use?: No Use of E-Cig and/or Vaping dev: No Substance use?: No Alcohol Use?: No Seasonal Allergies Seasonal Allergies: No Past Medical History Surgery/Hospitalization HX: Back surgery x2, DDD, Lupus, DM, Fibromyalgia Surgeries: Yes (PARACENTESIS, BACK SURGERY, C/S X 2, COLONOSCOPY, LAPAROTOMY) Abdominal, Section, Gallbladder, Hysterectomy, Orthopedic, Tonsillectomy, Tubal Ligation Respiratory: Yes Asthma Currently Using CPAP: No Currently Using BIPAP: No 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)) Atrial Fibrillation, High Cholesterol, Hypertension, Irregular Heartbeat Neurological: Yes (febrile seizures as child, hx hepatic encephalopathy) Headaches /Migraines Reproductive Disorders: Yes Female Reproductive Disorders: Menstrual Problems, Endometriosis, Ovarian Cyst 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 Sexually Transmitted Disease: No HIV/AIDS: No Genitourinary: Yes (CKD Stage 3, Lupus nephritis, Renal insufficiency) Renal Failure, Dialysis Gastrointestinal: Yes (CANO-(nonalcoholic steatohepatitis)) Gastroesophageal Reflux, Liver Disease/Jaundice, Pancreatitis, Irritable Bowel Musculoskeletal: Yes Arthritis, Fibromyalgia, Chronic Back Pain Endocrine: Yes (Hypomagnesium Hx) Diabetes, Insulin dep, Lupus HEENT: Yes (has glasses) Loss of Vision: Bilateral Hearing Impairment: Denies Cancer: No Psychosocial: Yes Anxiety, Depression Integumentary: No Recent Skin Changes Blood Disorders: No Adverse Reaction/Blood Tranf: No Family Medical History Patient reports no known family medical history. Heart Disease, Cancer, Diabetes, Hypertension Physical Exam Vital Signs Vital Signs - First Documented 11/17/21 13:11 Temp 35.7 Pulse 77 Resp 18 B/P (MAP) 119/62 (81) Pulse Ox 99 O2 Delivery Room Air Capillary Refill : Height/Weight/BMI Height: 5'10.00" Weight: 300lbs. 0oz. 136.007927vy; 49.00 BMI Method:Stated General Appearance: mild distress, obese HEENT: PERRL/EOMI, pharynx normal Neck: non-tender, full range of motion, supple, normal inspection Respiratory: chest non-tender, lungs clear, normal breath sounds, no respiratory distress, no accessory muscle use Cardiovascular: normal peripheral pulses, regular rate, rhythm Gastrointestinal: normal bowel sounds, soft, no pulsatile mass; No distended; guarding; No rebound; tenderness (RLQ) Rectal: deferred Extremities: normal range of motion, non-tender, normal capillary refill Neurologic/Psychiatric: alert, oriented x 3 Skin: normal color, warm/dry Images 1 - RLQ abdominal pain with palpation Progress/Results/Core Measures Results/Orders Lab Results Laboratory Tests Test 11/17/21 13:00 11/17/21 13:18 Range/Units Urine Color YELLOW Urine Clarity SL CLOUDY Urine pH 6.0 5-9 Urine Specific [place] 1.025 H 1.016-1.022 Urine Protein NEGATIVE NEGATIVE Urine Glucose (UA) 3+ H NEGATIVE Urine Ketones NEGATIVE NEGATIVE Urine Nitrite POSITIVE H NEGATIVE Urine Bilirubin NEGATIVE NEGATIVE Urine Urobilinogen 0.2 < = 1.0 MG/DL Urine Leukocyte Esterase NEGATIVE NEGATIVE Urine RBC (Auto) NEGATIVE NEGATIVE Urine RBC NONE /HPF Urine WBC 10-25 H /HPF Urine Squamous Epithelial Cells 10-25 H /HPF Urine Crystals NONE /LPF Urine Bacteria LARGE H /HPF Urine Casts NONE /LPF Urine Mucus NEGATIVE /LPF Urine Yeast FEW H /HPF Urine Culture Indicated YES Urine Opiates Screen NEGATIVE NEGATIVE Urine Oxycodone Screen NEGATIVE NEGATIVE Urine Methadone Screen NEGATIVE NEGATIVE Urine Propoxyphene Screen NEGATIVE NEGATIVE Urine Barbiturates Screen NEGATIVE NEGATIVE Ur Tricyclic Antidepressants Screen NEGATIVE NEGATIVE Urine Phencyclidine Screen NEGATIVE NEGATIVE Urine Amphetamines Screen NEGATIVE NEGATIVE Urine Methamphetamines Screen NEGATIVE NEGATIVE Urine Benzodiazepines Screen NEGATIVE NEGATIVE Urine Cocaine Screen NEGATIVE NEGATIVE Urine Cannabinoids Screen NEGATIVE NEGATIVE White Blood Count 6.1 4.3-11.0 10^3/uL Red Blood Count 5.61 H 3.80-5.11 10^6/uL Hemoglobin 14.3 11.5-16.0 g/dL Hematocrit 44 35-52 % Mean Corpuscular Volume 78 L 80-99 fL Mean Corpuscular Hemoglobin 26 25-34 pg Mean Corpuscular Hemoglobin Concent 33 32-36 g/dL Red Cell Distribution Width 15.7 H 10.0-14.5 % Platelet Count 253 130-400 10^3/uL Mean Platelet Volume 10.7 9.0-12.2 fL Immature Granulocyte % (Auto) 0 % Neutrophils (%) (Auto) 62 42-75 % Lymphocytes (%) (Auto) 28 12-44 % Monocytes (%) (Auto) 9 0-12 % Eosinophils (%) (Auto) 1 0-10 % Basophils (%) (Auto) 0 0-10 % Neutrophils # (Auto) 3.7 1.8-7.8 10^3/uL Lymphocytes # (Auto) 1.7 1.0-4.0 10^3/uL Monocytes # (Auto) 0.5 0.0-1.0 10^3/uL Eosinophils # (Auto) 0.1 0.0-0.3 10^3/uL Basophils # (Auto) 0.0 0.0-0.1 10^3/uL Immature Granulocyte # (Auto) 0.0 0.0-0.1 10^3/uL Sodium Level 139 135-145 MMOL/L Potassium Level 3.7 3.6-5.0 MMOL/L Chloride Level 104 98-107 MMOL/L Carbon Dioxide Level 21 21-32 MMOL/L Anion Gap 14 5-14 MMOL/L Blood Urea Nitrogen 14 7-18 MG/DL Creatinine 0.91 0.60-1.30 MG/DL Estimat Glomerular Filtration Rate 79 BUN/Creatinine Ratio 15 Glucose Level 143 H 70-105 MG/DL Calcium Level 8.8 8.5-10.1 MG/DL Corrected Calcium 8.9 8.5-10.1 MG/DL Total Bilirubin 0.4 0.1-1.0 MG/DL Aspartate Amino Transf (AST/SGOT) 30 5-34 U/L Alanine Aminotransferase (ALT/SGPT) 25 0-55 U/L Alkaline Phosphatase 84 40-136 U/L Total Protein 7.0 6.4-8.2 GM/DL Albumin 3.9 3.2-4.5 GM/DL Lipase 29 8-78 U/L My Orders Orders - SEBASTIÁN COX MD Ua Culture If Indicated (11/17/21 12:58) Drug Screen Stat (Urine) (11/17/21 12:58) Comprehensive Metabolic Panel (11/17/21 13:13) Lipase (11/17/21 13:13) Ed Iv/Invasive Line Start (11/17/21 13:13) Cbc With Automated Diff (11/17/21 13:13) Ketorolac Injection (Toradol Injection) (11/17/21 13:13) Dicyclomine Injection (Bentyl Injection) (11/17/21 13:13) Us Non Ob Pelvis Comp/Transvag (11/17/21 13:13) Urine Culture (11/17/21 13:00) Ceftriaxone 1 Gm Pre-Mix (Rocephin 1 Gm (11/17/21 14:56) Hydrocodone/Apap 5/325 Tablet (Lortab 5 (11/17/21 14:56) Vital Signs/I&O 11/17/21 13:11 Temp 35.7 Pulse 77 Resp 18 B/P (MAP) 119/62 (81) Pulse Ox 99 O2 Delivery Room Air Blood Pressure Mean: 81 Progress Progress Note #1: Progress Note Obtain basic labs and urinalysis. Order a ultrasound of her pelvis and transva ginal area to evaluate for possible ovarian cyst versus worsening mass versus hemorrhagic cyst versus torsion. She has multiple allergies to medications from reviewing her medical records. Will administer dose of Toradol as she has had that previously without reaction. Progress Note #2: Progress Note Labs are stable with no acute significant normality on CBC or chemistry. Her urinalysis is positive for nitrates and white blood cells with bacteria so is consistent with a urinary tract infection. A culture will be reflexed. Her ultrasound multiple cysts on bilateral ovaries but she had good blood flow and there was no sign of torsion or mass. Advised patient on findings and will treat for UTI as well as write for a few pain pills of hydrocodone. She is limited on what pain medicine she can take as she is on a chronic blood thinner and they do not want her on anti-inflammatories. Advised to follow-up with primary clinic as well as gynecology about results. Take the full course of antibiotics and try Pyridium to help with pain to see if that might make a d ifference as well. Encourage fluids and hydration to help flush out the urine infection. Diagnostic Imaging Diagonstic Imaging: Ultrasound Plain Films/CT/US/NM/MRI: pelvis (and transvaginal) Comments [facility], [place] NAME: KALA VANEGAS [facility] REC#: [id number] PT STATUS: DEP ER : 1975 PHYSICIAN: SEBASTIÁN COX MD ADMIT DATE: 11/17/21/ER FS Signed Date of Exam:11/17/21 US NON OB PELVIS COMP/TRANSVAG PROCEDURE: Pelvic comp/transvaginal sonogram. TECHNIQUE: Complete transabdominal and transvaginal pelvic ultrasound was performed. In addition, limited pelvic Doppler was performed. INDICATION: Right lower quadrant pain and pelvic pain. FINDINGS: The uterus is surgically absent. Right ovary measures 5.0 x 2.6 x 3.2 cm and the left ovary measures 5.7 x 2.8 x 3.0 cm. Both ovaries contain follicles and cysts. Largest cyst on the right is approximately 18 mm. Largest cyst on the left is 24 mm. There is blood flow to the ovaries. No free fluid is detected. IMPRESSION: 1. Status post hysterectomy. 2. Bilateral ovarian cysts. Dictated by: Dictated on workstation # [id number] Dict: 11/17/21 1422 Trans: 11/17/21 0480 [id number] [id number] Interpreted by: ADIEL LO MD Electronically signed by: ADIEL LO MD 11/17/21 1613 Departure Impression Primary Impression: Acute cystitis without hematuria Additional Impressions: Right flank pain Acute abdominal pain in right lower quadrant Bilateral ovarian cysts Disposition: 01 HOME, SELF-CARE Condition: Stable Departure-Patient Inst. Decision time for Depature: 14:51 Referrals: SHRUTI CLEANING MD (PCP/Family) Primary Care Physician Patient Instructions: Ovarian Cyst ED, Flank Pain ED, Urinary Tract Infection, Adult ED Add. Discharge Instructions: Stay well hydrated and drink plenty of water and cranberry juice to help flush out urine infection. Pyridium will help with pain from urinary tract but will make your urine an orange-red color while you take it. Take the full course of antibiotics for UTI. Follow up with Gynecology for the ovarian cysts and increased pain. All discharge instructions reviewed with patient and/or family. Voiced understanding. Scripts Hydrocodone/Acetaminophen (Hydrocodone-Acetamin 5-325 mg) 5 Mg-325 Mg Tablet 1 TAB PO Q4H PRN for PAIN-SEVERE (8-10) for 5 Days, #30 TAB 0 Refills Prov: SEBASTIÁN COX MD 11/17/21 Phenazopyridine HCl (Azo Urinary Pain Relief) 99.5 Mg Tablet 99.5 MG PO TID PRN for flank pain/urinary pain for 2 Days, #6 TAB 0 Refills Prov: SEBASTIÁN COX MD 11/17/21 Nitrofurantoin Monohyd/M-Cryst (Macrobid 100 mg Capsule) 100 Mg Capsule 1 TAB PO BID for UTI for 7 Days, #14 CAP 0 Refills Prov: SEBASTIÁN COX MD 11/17/21 SEBASTIÁN COX MD Nov 17, 2021 13:22
[2021-11-17 13:34] LABS: BASOPHILS % (AUTO) 0 % (0-10); EOSINOPHILS # (AUTO) 0.1 10^3/uL (0.0-0.3); EOSINOPHILS % (AUTO) 1 % (0-10); HEMATOCRIT 44 % (35-52); HEMOGLOBIN 14.3 g/dL (11.5-16.0); LYMPHOCYTES # (AUTO) 1.7 10^3/uL (1.0-4.0); LYMPHOCYTES % (AUTO) 28 % (12-44); MEAN CORPUSCULAR HEMOGLOBIN 26 pg (25-34); MEAN CORPUSCULAR HGB CONC 33 g/dL (32-36); MEAN CORPUSCULAR VOLUME 78 fL (80-99); MEAN PLATELET VOLUME 10.7 fL (9.0-12.2); MONOCYTES # (AUTO) 0.5 10^3/uL (0.0-1.0); MONOCYTES % (AUTO) 9 % (0-12); NEUTROPHILS # (AUTO) 3.7 10^3/uL (1.8-7.8); NEUTROPHILS % (AUTO) 62 % (42-75); PLATELET COUNT 253 10^3/uL (130-400); WHITE BLOOD COUNT 6.1 10^3/uL (4.3-11.0)
[2021-11-17 13:36] LABS: AMPHETAMINE SCREEN, URINE NEGATIVE (NEGATIVE); BARBITURATE SCREEN URINE NEGATIVE (NEGATIVE); BENZODIAZEPINES SCREEN URINE NEGATIVE (NEGATIVE); CANNABINOID SCREEN, URINE NEGATIVE (NEGATIVE); COCAINE SCREEN URINE NEGATIVE (NEGATIVE); METHADONE STAT NEGATIVE (NEGATIVE); OPIATE SCREEN URINE NEGATIVE (NEGATIVE); OXYCODONE STAT NEGATIVE (NEGATIVE); PROPOXYPHENE STAT NEGATIVE (NEGATIVE); TRICYCLIC ANTIDEPRESSANTS SCRE NEGATIVE (NEGATIVE)
[2021-11-17 13:47] LABS: ALBUMIN 3.9 GM/DL (3.2-4.5); BILIRUBIN,TOTAL 0.4 MG/DL (0.1-1.0); CALCIUM 8.8 MG/DL (8.5-10.1); CREATININE SERUM 0.91 MG/DL (0.60-1.30); POTASSIUM 3.7 MMOL/L (3.6-5.0)
--- NOTE | 2021-11-17 14:28 | Diagnostic Imaging Report ---
PROCEDURE: Pelvic comp/transvaginal sonogram. TECHNIQUE: Complete transabdominal and transvaginal pelvic ultrasound was performed. In addition, limited pelvic Doppler was performed. INDICATION: Right lower quadrant pain and pelvic pain. FINDINGS: The uterus is surgically absent. Right ovary measures 5.0 x 2.6 x 3.2 cm and the left ovary measures 5.7 x 2.8 x 3.0 cm. Both ovaries contain follicles and cysts. Largest cyst on the right is approximately 18 mm. Largest cyst on the left is 24 mm. There is blood flow to the ovaries. No free fluid is detected. IMPRESSION: 1. Status post hysterectomy. 2. Bilateral ovarian cysts. Dictated by: Dictated on workstation # [id number]
[2021-11-17] MEDS ORDERED: PHEN99.5 PO (14:55)
[2021-11-17] MEDS ORDERED: NITR-65 PO (14:55)
[2021-11-17] MEDS ORDERED: ACHD5005 PO (14:55)
[2021-11-17] MEDS ORDERED: HYDROcodone/APAP 5 MG/325 MG (LORTAB) TAB PO STA (14:56)
[2021-11-17] MEDS ORDERED: cefTRIAXone 1 GM PRE-MIX 50 ML IV STA (14:56)
== END 2021-11-17 15:30 | disposition home or self-care (01) ==
LOC: EDUNIT# 12:54 → ER FS 12:56
DX: N30.00 Acute cystitis without hematuria (principal); N83.202 Unspecified ovarian cyst, left side; N83.201 Unspecified ovarian cyst, right side; E11.22 Type 2 diabetes mellitus with diabetic chronic kidney disease; I12.9 Hypertensive chronic kidney disease with stage 1 through stage 4 chronic kidney disease, or unspecified chronic kidney disease; N18.30 Chronic kidney disease, stage 3 unspecified; Z99.2 Dependence on renal dialysis; Z90.710 Acquired absence of both cervix and uterus; Z91.040 Latex allergy status; Z79.4 Long term (current) use of insulin
CPT/HCPCS: 36415; 76830; 76856; 80053; 80306; 81000; 83690; 85025; 87077; 87088; 87186

== ENCOUNTER 2022-06-22 16:32 | Emergency (ER) | payer MEDICARE, MEDICAID ==
[~2022-06-22] VITALS: Ht 175 cm; Wt 146.0 kg
[~2022-06-22 16:32] MED LIST changes: +NITR-65 PO; +PHEN99.5 PO
[2022-06-22 16:42] VITALS: BP 126/66
--- NOTE | 2022-06-22 17:02 | ED General ---
General Chief Complaint: Lower Extremity Stated Complaint: PAIN IN BOTH LEGS Nursing Triage Note: Patient has presented to ER with cc of bilateral leg pain. Patient reports pain in her legs from her hip to her feet - the pain is bilateral. She denies any known or recent trauma. She reports that she was at Dr. Cleaning's office on and he started her on antibiotics, she was seen at on Sunday and she had lab work but they couldn't do the ultra sound then and schedualed her ultra sound on July 19. She states that she was sent her by to get and ultra sound of her legs. She has been taking tylenol arthritis for her pain. Source of Information: Patient Exam Limitations: No Limitations History of Present Illness Date Seen by Provider: June 22, 2022 Time Seen by Provider: 16:40 Initial Comments This 46-year-old woman presents to the emergency room with complaints of pain, erythema, and swelling in both of her legs for about a week. She has been on Bactrim due to suspicion for cellulitis. However, she is concerned about possible DVT and states one of her doctors suggested she present for lower extremity Dopplers. Legs are equally affected bilaterally. She is sensitive to light touch. She was recently told by her nutritional assistant that she has neuropathy. She has numerous chronic health problems including proximal myotonic myopathy, poorly controlled diabetes, chronic kidney disease, liver disease, lupus, congestive heart failure, fibromyalgia, and hypertension. She is on warfarin and is supposed to have INR checked weekly. She generally gets it checked about every other week. She is afebrile. Allergies and Home Medications Allergies Coded Allergies: diphenhydramine HCl (Verified Allergy, Unknown, 10/06/11) fentanyl (Verified Allergy, Unknown, 03/04/15) latex (Verified Allergy, Unknown, 10/06/11) meperidine HCl (Verified Allergy, Unknown, 10/06/11) morphine (Verified Allergy, Unknown, 10/06/11) vancomycin (Verified Allergy, Unknown, 10/06/11) iodine (Unverified Adverse Reaction, Intermediate, rash from IV contrast, 05/19/18) clindamycin (Unverified Adverse Reaction, Unknown, 05/19/18) gabapentin (Unverified Adverse Reaction, Unknown, 05/19/18) levofloxacin (Unverified Adverse Reaction, Unknown, 05/19/18) metformin (Unverified Adverse Reaction, Unknown, 05/19/18) metoclopramide (Unverified Adverse Reaction, Unknown, 05/19/18) Patient Home Medication List Home Medication List Reviewed: Yes Amoxicillin/Potassium Clav (Augmentin 875-125 Tablet) 1 Each Tablet, 1 EACH PO BID Prescribed by: BRITTNI PLASENCIA on 05/19/18 1522 Baclofen (Baclofen) 10 Mg Tablet, 10 MG PO TID PRN for MUSCLE SPASMS Prescribed by: SEBASTIÁN COX on 02/20/20 0050 Belimumab (Benlysta) 200 Mg/1 Ml Auto.injct, (Reported) Entered as Reported by: FREDY HSU on 05/19/18 1520 Butalb/Acetaminophen/Caffeine (Gpmeqwnk-Fclikeodpovfi-Emzd Cp) 1 Each Capsule, 1 EACH PO Q8H PRN for headache Prescribed by: KING CONN on 11/22/19 1516 Cyclobenzaprine HCl (Cyclobenzaprine HCl) 10 Mg Tablet, 10 MG PO Q8H PRN for SPASMS Prescribed by: KATIA GARCIA on 09/11/20 1100 Desonide (Desonide) 15 Gm Oint...g., TOP BID, (Reported) Entered as Reported by: JADE KAT on 04/22/15 1009 Ergocalciferol (Vitamin D2) (Vitamin D2) 50,000 Unit Capsule, 50,000 UNITS PO WEEKLY, (Reported) Entered as Reported by: JADE KAT on 04/22/15 0837 Furosemide (Furosemide) 80 Mg Tablet, 40 MG PO BID, (Reported) Entered as Reported by: JADE KAT on 04/22/15 0837 Hydrocodone Bit/Acetaminophen (HYDROcodone/APAP 5 MG/325 MG TAB) 1 Tab Tab, 1 TAB PO Q8H PRN for PAIN-SEVERE (8-10) Prescribed by: ELENA FARMER on 12/29/20 1248 Hydrocodone Bit/Acetaminophen (HYDROcodone/APAP 5 MG/325 MG TAB) 1 Tab Tab, 1 TAB PO Q6H Prescribed by: ELENA FARMER on 09/30/21 1453 Hydrocodone/Acetaminophen (Hydrocodone-Acetamin 5-325 mg) 1 Each Tablet, 1 EACH PO Q4H Prescribed by: KATIA GARCIA on 09/11/20 1101 Hydrocodone/Acetaminophen (Hydrocodone-Acetamin 5-325 mg) 5 Mg-325 Mg Tablet, 1 TAB PO Q4H PRN for PAIN-SEVERE (8-10) Prescribed by: SEBASTIÁN COX on 11/17/21 1456 Hydrocodone/Acetaminophen (Hydrocodone-Acetamin 5-325 mg) 5 Mg-325 Mg Tablet, 1 TAB PO Q4H PRN for PAIN-MODERATE (5-7) Prescribed by: IGOR MADERA on 06/22/22 1843 Hydroxychloroquine Sulfate (Hydroxychloroquine Sulfate) 200 Mg Tablet, 200 MG PO BID, (Reported) Entered as Reported by: JADE KAT on 04/22/15 0837 Insulin Aspart (Novolog Flexpen) 300 Units/3 Ml Solution, (Reported) Entered as Reported by: FREDY HSU on 05/19/18 1520 Insulin Glargine,Hum.rec.anlog (Lantus Solostar) 100 Unit/1 Ml Insuln.pen, 28 UNITS SC HS, (Reported) Entered as Reported by: JADE KAT on 04/22/15 1009 Insulin Glargine,Hum.rec.anlog (Toujeo Solostar) 300 Unit/1 Ml Insuln.pen, (Reported) Entered as Reported by: FREDY HSU on 05/19/18 1520 Lisinopril (Lisinopril) 10 Mg Tablet, 20 MG PO BID, (Reported) Entered as Reported by: JADE KAT on 04/22/15 0837 Loratadine (Loratadine) 10 Mg Tablet, (Reported) Entered as Reported by: FREDY HSU on 05/19/18 1520 Lorazepam (Ativan) 1 Mg Tablet, 1 MG PO Q6H PRN for ANXIETY, (Reported) Entered as Reported by: RENETTA LATIF on 02/24/15 1157 Lorazepam (Lorazepam) 0.5 Mg Tablet, (Reported) Entered as Reported by: FREDY HSU on 05/19/18 1520 Metformin HCl (Metformin HCl ER) 500 Mg Tab.er.24h, (Reported) Entered as Reported by: FREDY HSU on 05/19/18 1520 Mycophenolate Mofetil (Mycophenolate Mofetil) 500 Mg Tablet, PO UD, (Reported) Entered as Reported by: JADE KAT on 04/22/15 1009 Nitrofurantoin Monohyd/M-Cryst (Macrobid 100 mg Capsule) 100 Mg Capsule, 1 TAB PO BID Prescribed by: SEBASTIÁN COX on 11/17/21 1455 Ondansetron (Ondansetron Odt) 4 Mg Tab.rapdis, 4 MG PO Q8H PRN for NAUSEA, (Reported) Entered as Reported by: JADE KAT on 04/22/15 1009 Ondansetron (Ondansetron Odt) 4 Mg Tab.rapdis, 4 MG PO TID PRN for NAUSEA/VOMITING-1ST LINE Prescribed by: BRITTNI PLASENCIA on 05/19/18 1522 Ondansetron (Ondansetron Odt) 4 Mg Tab.rapdis, 4 MG PO Q8H PRN for nausea Prescribed by: KING CONN on 11/22/19 1514 Ondansetron (Ondansetron Odt) 4 Mg Tab.rapdis, 4 MG PO Q6H PRN for NAUSEA/VOMITING Prescribed by: ELENA FARMER on 09/27/20 1720 Ondansetron (Ondansetron Odt) 4 Mg Tab.rapdis, 4 MG PO Q6H PRN for NAUSEA-1ST LINE Prescribed by: ELENA FARMER on 12/29/20 1248 Oxycodone HCl (Oxycontin) 30 Mg Tab.er.12h, 30 MG PO BID, (Reported) Entered as Reported by: JADE KAT on 04/22/15 1009 Oxycodone Hcl (Oxyir Tablet) 5 Mg Tablet, 5 MG PO Q6H PRN for PAIN, (Reported) Entered as Reported by: JADE KAT on 04/22/15 1009 Pantoprazole Sodium (Pantoprazole Sodium) 40 Mg Tablet.dr, 40 MG PO DAILY, (Reported) Entered as Reported by: GRADY CAICEDO on 03/04/15 0635 Phenazopyridine HCl (Azo Urinary Pain Relief) 99.5 Mg Tablet, 99.5 MG PO TID PRN for flank pain/urinary pain Prescribed by: SEBASTIÁN COX on 11/17/21 1455 Pravastatin Sodium (Pravastatin Sodium) 20 Mg Tablet, (Reported) Entered as Reported by: FREDY HSU on 05/19/18 1520 Rifaximin (Xifaxan) 550 Mg Tablet, (Reported) Entered as Reported by: FREDY HSU on 05/19/18 1520 Ropinirole HCl (Ropinirole HCl) 0.5 Mg Tablet, (Reported) Entered as Reported by: FREDY HSU on 05/19/18 1520 Tramadol HCl (Tramadol HCl) 50 Mg Tablet, (Reported) Entered as Reported by: FREDY HSU on 09/11/20 1056 Triamcinolone Acet (Triamcinolone Acetonide 0.1% Ointment) 15 Gm Oint, TOP BID, (Reported) Entered as Reported by: JADE KAT on 04/22/15 1009 Warfarin Sodium (Warfarin Sodium) 10 Mg Tablet, (Reported) Entered as Reported by: FREDY HSU on 05/19/18 1520 Review of Systems Review of Systems Constitutional: no symptoms reported EENTM: no symptoms reported Respiratory: no symptoms reported Cardiovascular: see HPI Gastrointestinal: no symptoms reported Genitourinary: no symptoms reported : No Musculoskeletal: see HPI Skin: see HPI Psychiatric/Neurological: See HPI Hematologic/Lymphatic: No Symptoms Reported Immunological/Allergic: no symptoms reported Past Hpqdsmh-Dxmlig-Geefsl Hx Patient Social History Tobacco Use?: No Use of E-Cig and/or Vaping dev: No Substance use?: No Alcohol Use?: No Seasonal Allergies Seasonal Allergies: No Past Medical History Surgery/Hospitalization HX: Back surgery x2, DDD, Lupus, DM, Fibromyalgia Surgeries: Yes (PARACENTESIS, BACK SURGERY, C/S X 2, COLONOSCOPY, LAPAROTOMY) Abdominal, Section, Gallbladder, Hysterectomy, Orthopedic, Tonsillectomy, Tubal Ligation Respiratory: Yes Asthma, Sleep Apnea Currently Using CPAP: No Currently Using BIPAP: No 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)) Atrial Fibrillation, High Cholesterol, Hypertension, Irregular Heartbeat Neurological: Yes (febrile seizures as child, hx hepatic encephalopathy) Headaches /Migraines Reproductive Disorders: Yes Female Reproductive Disorders: Menstrual Problems, Endometriosis, Ovarian Cyst 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 Sexually Transmitted Disease: No HIV/AIDS: No Genitourinary: Yes (CKD Stage 3, Lupus nephritis, Renal insufficiency) Renal Failure, Dialysis Gastrointestinal: Yes (CANO-(nonalcoholic steatohepatitis)) Gastroesophageal Reflux, Liver Disease/Jaundice (portal hypertension), Pancreatitis, Irritable Bowel Musculoskeletal: Yes (Proximal myotonic myopathy) Arthritis, Fibromyalgia, Chronic Back Pain Endocrine: Yes (Hypomagnesium Hx) Diabetes, Insulin dep, Lupus HEENT: Yes (has glasses, chronic sinusitis) Loss of Vision: Bilateral Hearing Impairment: Denies Cancer: Yes (VAIN II, Hx of duodenal carcinoid) Psychosocial: Yes Anxiety, Depression Integumentary: No Recent Skin Changes Blood Disorders: No Adverse Reaction/Blood Tranf: No Family Medical History Patient reports no known family medical history. Heart Disease, Cancer, Diabetes, Hypertension Physical Exam Vital Signs Vital Signs - First Documented 06/22/22 16:42 Temp 36.8 Pulse 81 Resp 18 B/P (MAP) 126/66 (86) Pulse Ox 99 O2 Delivery Room Air Capillary Refill : Height, Weight, BMI Height: 5'10.00" Weight: 300lbs. 0oz. 136.530121jm; 47.00 BMI Method:Stated General Appearance: No Apparent Distress, WD/WN HEENT: PERRL/EOMI, Normal ENT Inspection Neck: Normal Inspection Respiratory: Lungs Clear, Normal Breath Sounds, No Accessory Muscle Use Cardiovascular: Regular Rate, Rhythm, No Murmur, Other (Mild LE edema) Extremity: Other (Mild slightly pitting edema of the lower extremities equal bilaterally including the lower legs, ankles, and feet. There is mild associated erythema. No heat associated with it. Skin is slightly erythematous. There is tenderness even to light touch including the anterior lower leg.) Progress/Results/Core Measures Suspected Sepsis SIRS Temperature: Pulse: 81 Respiratory Rate: 18 Laboratory Tests 06/22/22 17:02: White Blood Count 6.0 Blood Pressure 126 /66 Mean: 86 Laboratory Tests 06/22/22 17:02: Creatinine 0.89, INR Comment 2.3H, Platelet Count 215 Results/Orders Lab Results Laboratory Tests Test 06/22/22 17:02 Range/Units White Blood Count 6.0 4.3-11.0 10^3/uL Red Blood Count 5.62 H 3.80-5.11 10^6/uL Hemoglobin 14.4 11.5-16.0 g/dL Hematocrit 45 35-52 % Mean Corpuscular Volume 79 L 80-99 fL Mean Corpuscular Hemoglobin 26 25-34 pg Mean Corpuscular Hemoglobin Concent 32 32-36 g/dL Red Cell Distribution Width 15.8 H 10.0-14.5 % Platelet Count 215 130-400 10^3/uL Mean Platelet Volume 10.7 9.0-12.2 fL Immature Granulocyte % (Auto) 0 % Neutrophils (%) (Auto) 59 42-75 % Lymphocytes (%) (Auto) 30 12-44 % Monocytes (%) (Auto) 9 0-12 % Eosinophils (%) (Auto) 1 0-10 % Basophils (%) (Auto) 1 0-10 % Neutrophils # (Auto) 3.6 1.8-7.8 10^3/uL Lymphocytes # (Auto) 1.8 1.0-4.0 10^3/uL Monocytes # (Auto) 0.5 0.0-1.0 10^3/uL Eosinophils # (Auto) 0.1 0.0-0.3 10^3/uL Basophils # (Auto) 0.0 0.0-0.1 10^3/uL Immature Granulocyte # (Auto) 0.0 0.0-0.1 10^3/uL Erythrocyte Sedimentation Rate 9 0-20 MM/HR Prothrombin Time 26.0 H 12.2-14.7 SEC INR Comment 2.3 H 0.8-1.4 D-Dimer < 0.27 0.00-0.49 UG/ML Sodium Level 135 135-145 MMOL/L Potassium Level 4.4 3.6-5.0 MMOL/L Chloride Level 103 98-107 MMOL/L Carbon Dioxide Level 22 21-32 MMOL/L Anion Gap 10 5-14 MMOL/L Blood Urea Nitrogen 12 7-18 MG/DL Creatinine 0.89 0.60-1.30 MG/DL Estimat Glomerular Filtration Rate 81 BUN/Creatinine Ratio 13 Glucose Level 168 H 70-105 MG/DL Calcium Level 9.0 8.5-10.1 MG/DL C-Reactive Protein 0.87 H <0.50 MG/DL Pro-B-Type Natriuretic Peptide 134.3 H <125.0 PG/ML My Orders Julianna - IGOR MODI MD Basic Metabolic Panel (06/22/22 16:54) Cbc With Automated Diff (06/22/22 16:54) Creatine Kinase (06/22/22 16:54) Protime With Inr (06/22/22 16:54) Probnp Fs (06/22/22 16:54) Crp Fs (06/22/22 16:54) Erythrocyte Sedimentation Rate (06/22/22 16:56) Fibrin Degradation Products (06/22/22 17:39) Rx-Hydrocodone/Apap 5-325 Mg (Rx-Vicodin (06/22/22 18:45) Vital Signs/I&O 06/22/22 16:42 Temp 36.8 Pulse 81 Resp 18 B/P (MAP) 126/66 (86) Pulse Ox 99 O2 Delivery Room Air Capillary Refill : Blood Pressure Mean: 86 Progress Note #1: Time: 17:07 Progress Note Patient was interviewed and examined. Labs are pending including CBC, BMP, BMP, magnesium, CK, INR, CRP, and ESR. These labs should help us sort out the source of her pain. Progress Note #2: Progress Note INR was within therapeutic range. Inflammatory markers (CRP and ESR) were unremarkable suggesting against infection or inflammatory process. CBC and BMP were unremarkable. CK was pending. D-dimer was negative. I suspect patient is experiencing progressive neuropathy. I have suggested that she increase Cymbalta or Lyrica after discussion with her primary care provider. In the m eantime, she is being provided with a small quantity of hydrocodone to help her get some rest and relief. A take-home pack was provided prior to discharge. Departure Impression Primary Impression: Lower extremity edema Additional Impression: Leg pain Qualified Codes: M79.604 - Pain in right leg; M79.605 - Pain in left leg Disposition: 01 HOME, SELF-CARE Condition: Stable Departure-Patient Inst. Referrals: SHRUTI CLEANING MD (PCP/Family) Primary Care Physician Patient Instructions: Diabetic Neuropathy Add. Discharge Instructions: The exact cause of your leg pain is uncertain. It does not appear to be related to blood clot as your D-dimer screening test for blood clot was normal. It also does not appear to be related to uncontrolled infection as your vital signs and labs did not suggest infection. Pain may be related to neuropathy. Continue your usual medications as previously prescribed. Elevate your feet to the level of your heart when possible to help reduce swelling. Discuss increasing either duloxetine (Cymbalta) or Lyrica with your primary care provider. Increasing these medications may significantly improve your pain. In the meantime, you may use hydrocodone as prescribed. Hydrocodone may cause drowsiness so use with caution. Do not operate machinery, drive a car, or make important decisions while on this medication. Hydrocodone may also cause constipation, so you may wish to use a stool softener such as Colace while on this medication. There is one lab value called creatinine kinase that is still pending. This lab is sent to the [facility] and will not be available until Sunday afternoon. Please call the ER afternoon tomorrow to receive the value of this test. Return to care if you have worsening symptoms despite following these instructions. All discharge instructions reviewed with patient and/or family. Voiced understanding. Scripts Hydrocodone/Acetaminophen (Hydrocodone-Acetamin 5-325 mg) 5 Mg-325 Mg Tablet 1 TAB PO Q4H PRN for PAIN-MODERATE (5-7), #10 TAB Prov: IGOR MODI MD 06/22/22 Copy Copies To 1: SHRUTI CLEANING MD, JOSHUA T MD June 22, 2022 17:02
[2022-06-22 17:07] LABS: BASOPHILS % (AUTO) 1 % (0-10); EOSINOPHILS # (AUTO) 0.1 10^3/uL (0.0-0.3); EOSINOPHILS % (AUTO) 1 % (0-10); HEMATOCRIT 45 % (35-52); HEMOGLOBIN 14.4 g/dL (11.5-16.0); LYMPHOCYTES # (AUTO) 1.8 10^3/uL (1.0-4.0); LYMPHOCYTES % (AUTO) 30 % (12-44); MEAN CORPUSCULAR HEMOGLOBIN 26 pg (25-34); MEAN CORPUSCULAR HGB CONC 32 g/dL (32-36); MEAN CORPUSCULAR VOLUME 79 fL (80-99); MEAN PLATELET VOLUME 10.7 fL (9.0-12.2); MONOCYTES # (AUTO) 0.5 10^3/uL (0.0-1.0); MONOCYTES % (AUTO) 9 % (0-12); NEUTROPHILS # (AUTO) 3.6 10^3/uL (1.8-7.8); NEUTROPHILS % (AUTO) 59 % (42-75); PLATELET COUNT 215 10^3/uL (130-400)
[2022-06-22 17:22] LABS: INR 2.3 (0.8-1.4)
[2022-06-22 17:25] LABS: ERYTHROCYTE SEDIMENTATION RATE 9 MM/HR (0-20)
[2022-06-22 17:40] LABS: CREATININE SERUM 0.89 MG/DL (0.60-1.30); POTASSIUM 4.4 MMOL/L (3.6-5.0)
[2022-06-22] MEDS ORDERED: ACHD5005 PO (18:43)
== END 2022-06-22 18:55 | disposition home or self-care (01) ==
LOC: EDUNIT# 16:32 → ER FS 16:34
DX: R60.0 Localized edema (principal); M79.662 Pain in left lower leg; M79.661 Pain in right lower leg; E11.22 Type 2 diabetes mellitus with diabetic chronic kidney disease; I13.0 Hypertensive heart and chronic kidney disease with heart failure and stage 1 through stage 4 chronic kidney disease, or unspecified chronic kidney disease; I50.9 Heart failure, unspecified; N18.30 Chronic kidney disease, stage 3 unspecified; Z99.2 Dependence on renal dialysis; Z79.4 Long term (current) use of insulin; Z91.040 Latex allergy status; Z88.5 Allergy status to narcotic agent; Z79.01 Long term (current) use of anticoagulants
CPT/HCPCS: 36415; 80048; 82550; 83880; 85025; 85379; 85610; 85652; 86141

== ENCOUNTER 2022-09-17 09:50 | Emergency (ER) | payer MEDICARE, MEDICAID ==
[~2022-09-17] VITALS: Ht 175 cm; Wt 145.0 kg
[~2022-09-17 09:50] MED LIST changes: -HYDR200T46 PO; +HYDR200T71 PO
[2022-09-17] MEDS ORDERED: dexAMETHasone INJ 10 MG/ML 1 ML VIAL IM STA (09:59)
[2022-09-17] MEDS ORDERED: ORPHENADRINE 60 MG/2 ML (NORFLEX) AMP (ED ONLY) IM STA (09:59)
--- NOTE | 2022-09-17 10:04 | ED Hip Pain/Injury ---
General Chief Complaint: Hip/Pelvic Problems Stated Complaint: LT HIP PAIN Nursing Triage Note: PT REPORTS LEFT HIP PAIN THAT RADIATES INTO THE THIGH THAT STARTED YESTERDAY. Source: patient History of Present Illness Date Seen by Provider: Sep 17, 2022 Time Seen by Provider: 09:50 Initial Comments 47-year-old female presenting with complaints of 2 days of left hip pain. She states it feels like a pinched nerve. She had similar pains on the right side in the past and cannot remember what they did to help with that. She denies any acute injury or trauma. She had no fever or chills. She does have a history of fibromyalgia, chronic pain, neuropathy from poorly controlled diabetes. Timing/Duration: yesterday Severity: severe Location: hip (L) Method of Injury: unknown Modifying Factors: Worse With Movement Associated Symptoms: No fatigue, No fever, No groin pain, No insomnia, No lumps, No muscle aches, No pain radiating to knees; trouble walking (Due to shanika n) Allergies and Home Medications Allergies Coded Allergies: diphenhydramine HCl (Verified Allergy, Unknown, 10/06/11) fentanyl (Verified Allergy, Unknown, 03/04/15) latex (Verified Allergy, Unknown, 10/06/11) meperidine HCl (Verified Allergy, Unknown, 10/06/11) morphine (Verified Allergy, Unknown, 10/06/11) vancomycin (Verified Allergy, Unknown, 10/06/11) iodine (Unverified Adverse Reaction, Intermediate, rash from IV contrast, 05/19/18) clindamycin (Unverified Adverse Reaction, Unknown, 05/19/18) gabapentin (Unverified Adverse Reaction, Unknown, 05/19/18) levofloxacin (Unverified Adverse Reaction, Unknown, 05/19/18) metformin (Unverified Adverse Reaction, Unknown, 05/19/18) metoclopramide (Unverified Adverse Reaction, Unknown, 05/19/18) Patient Home Medication List Home Medication List Reviewed: Yes Amoxicillin/Potassium Clav (Augmentin 875-125 Tablet) 1 Each Tablet, 1 EACH PO BID Prescribed by: BRITTNI PLASENCIA on 05/19/18 1522 Baclofen (Baclofen) 10 Mg Tablet, 10 MG PO TID PRN for MUSCLE SPASMS Prescribed by: SEBASTIÁN COX on 02/20/20 0050 Belimumab (Benlysta) 200 Mg/1 Ml Auto.injct, (Reported) Entered as Reported by: FREDY HSU on 05/19/18 1520 Butalb/Acetaminophen/Caffeine (Ncfmsdnq-Kjvkswshgylnj-Ucdx Cp) 1 Each Capsule, 1 EACH PO Q8H PRN for headache Prescribed by: KING CONN on 11/22/19 1516 Cyclobenzaprine HCl (Cyclobenzaprine HCl) 10 Mg Tablet, 10 MG PO Q8H PRN for SPASMS Prescribed by: KATIA GARCIA on 09/11/20 1100 Desonide (Desonide) 15 Gm Oint...g., TOP BID, (Reported) Entered as Reported by: JADE KAT on 04/22/15 1009 Ergocalciferol (Vitamin D2) (Vitamin D2) 50,000 Unit Capsule, 50,000 UNITS PO WEEKLY, (Reported) Entered as Reported by: JADE KAT on 04/22/15 0837 Furosemide (Furosemide) 80 Mg Tablet, 40 MG PO BID, (Reported) Entered as Reported by: JADE KAT on 04/22/15 0837 Hydrocodone Bit/Acetaminophen (HYDROcodone/APAP 5 MG/325 MG TAB) 1 Tab Tab, 1 TAB PO Q8H PRN for PAIN-SEVERE (8-10) Prescribed by: ELENA FARMER on 12/29/20 1248 Hydrocodone Bit/Acetaminophen (HYDROcodone/APAP 5 MG/325 MG TAB) 1 Tab Tab, 1 TAB PO Q6H Prescribed by: ELENA FARMER on 09/30/21 1453 Hydrocodone/Acetaminophen (Hydrocodone-Acetamin 5-325 mg) 1 Each Tablet, 1 EACH PO Q4H Prescribed by: KATIA GARCIA on 09/11/20 1101 Hydrocodone/Acetaminophen (Hydrocodone-Acetamin 5-325 mg) 5 Mg-325 Mg Tablet, 1 TAB PO Q4H PRN for PAIN-SEVERE (8-10) Prescribed by: SEBASTIÁN OCX on 11/17/21 1456 Hydrocodone/Acetaminophen (Hydrocodone-Acetamin 5-325 mg) 5 Mg-325 Mg Tablet, 1 TAB PO Q4H PRN for PAIN-MODERATE (5-7) Prescribed by: IGOR MADERA on 06/22/22 1843 Hydrocodone/Acetaminophen (Hydrocodone-Acetamin 5-325 mg) 5 Mg-325 Mg Tablet, 1 TAB PO Q4H PRN for PAIN SEVERE Prescribed by: SEBASTIÁN COX on 09/17/22 1047 Hydroxychloroquine Sulfate (Hydroxychloroquine Sulfate) 200 Mg Tablet, 200 MG PO BID, (Reported) Entered as Reported by: JADE KAT on 04/22/15 0837 Insulin Aspart (Novolog Flexpen) 300 Units/3 Ml Solution, (Reported) Entered as Reported by: FREDY HSU on 05/19/18 1520 Insulin Glargine,Hum.rec.anlog (Lantus Solostar) 100 Unit/1 Ml Insuln.pen, 28 UNITS SC HS, (Reported) Entered as Reported by: JADE KAT on 04/22/15 1009 Insulin Glargine,Hum.rec.anlog (Toujeo Solostar) 300 Unit/1 Ml Insuln.pen, (Reported) Entered as Reported by: FREDY HSU on 05/19/18 1520 Lisinopril (Lisinopril) 10 Mg Tablet, 20 MG PO BID, (Reported) Entered as Reported by: JADE KAT on 04/22/15 0837 Loratadine (Loratadine) 10 Mg Tablet, (Reported) Entered as Reported by: FREDY HSU on 05/19/18 1520 Lorazepam (Ativan) 1 Mg Tablet, 1 MG PO Q6H PRN for ANXIETY, (Reported) Entered as Reported by: RENETTA LATIF on 02/24/15 1157 Lorazepam (Lorazepam) 0.5 Mg Tablet, (Reported) Entered as Reported by: FREDY HSU on 05/19/18 1520 Metformin HCl (Metformin HCl ER) 500 Mg Tab.er.24h, (Reported) Entered as Reported by: FREDY HSU on 05/19/18 1520 Mycophenolate Mofetil (Mycophenolate Mofetil) 500 Mg Tablet, PO UD, (Reported) Entered as Reported by: JADE KAT on 04/22/15 1009 Nitrofurantoin Monohyd/M-Cryst (Macrobid 100 mg Capsule) 100 Mg Capsule, 1 TAB PO BID Prescribed by: SEBASTIÁN COX on 11/17/21 1455 Ondansetron (Ondansetron Odt) 4 Mg Tab.rapdis, 4 MG PO Q8H PRN for NAUSEA, (Reported) Entered as Reported by: JADE KAT on 04/22/15 1009 Ondansetron (Ondansetron Odt) 4 Mg Tab.rapdis, 4 MG PO TID PRN for NAUSEA/VOMITING-1ST LINE Prescribed by: BRITTNI PLASENCIA on 05/19/18 1522 Ondansetron (Ondansetron Odt) 4 Mg Tab.rapdis, 4 MG PO Q8H PRN for nausea Prescribed by: KING CONN on 11/22/19 1514 Ondansetron (Ondansetron Odt) 4 Mg Tab.rapdis, 4 MG PO Q6H PRN for NAUSEA/VOMITING Prescribed by: ELENA FARMER on 09/27/20 1720 Ondansetron (Ondansetron Odt) 4 Mg Tab.rapdis, 4 MG PO Q6H PRN for NAUSEA-1ST LINE Prescribed by: ELENA FARMER on 12/29/20 1248 Oxycodone HCl (Oxycontin) 30 Mg Tab.er.12h, 30 MG PO BID, (Reported) Entered as Reported by: JADE KAT on 04/22/15 1009 Oxycodone Hcl (Oxyir Tablet) 5 Mg Tablet, 5 MG PO Q6H PRN for PAIN, (Reported) Entered as Reported by: JADE KAT on 04/22/15 1009 Pantoprazole Sodium (Pantoprazole Sodium) 40 Mg Tablet.dr, 40 MG PO DAILY, (Reported) Entered as Reported by: GRADY CAICEDO on 03/04/15 0635 Phenazopyridine HCl (Azo Urinary Pain Relief) 99.5 Mg Tablet, 99.5 MG PO TID PRN for flank pain/urinary pain Prescribed by: SEBASTIÁN COX on 11/17/21 1455 Pravastatin Sodium (Pravastatin Sodium) 20 Mg Tablet, (Reported) Entered as Reported by: FREDY HSU on 05/19/18 1520 Rifaximin (Xifaxan) 550 Mg Tablet, (Reported) Entered as Reported by: FREDY HSU on 05/19/18 1520 Ropinirole HCl (Ropinirole HCl) 0.5 Mg Tablet, (Reported) Entered as Reported by: FREDY HSU on 05/19/18 1520 Tramadol HCl (Tramadol HCl) 50 Mg Tablet, (Reported) Entered as Reported by: FREDY HSU on 09/11/20 1056 Triamcinolone Acet (Triamcinolone Acetonide 0.1% Ointment) 15 Gm Oint, TOP BID, (Reported) Entered as Reported by: JADE KAT on 04/22/15 1009 Warfarin Sodium (Warfarin Sodium) 10 Mg Tablet, (Reported) Entered as Reported by: FREDY HSU on 05/19/18 1520 Review of Systems Constitutional: No chills, No fever EENTM: no symptoms reported Respiratory: no symptoms reported Cardiovascular: no symptoms reported Gastrointestinal: no symptoms reported Genitourinary: no symptoms reported Musculoskeletal: see HPI Skin: No change in color Psychiatric/Neurological: Anxiety Past Fztnsqm-Phhyua-Dfvwdf Hx Patient Social History Tobacco Use?: No Use of E-Cig and/or Vaping dev: No Substance use?: No Alcohol Use?: No Pt feels they are or have been: No Seasonal Allergies Seasonal Allergies: No Past Medical History Surgery/Hospitalization HX: Back surgery x2, DDD, Lupus, DM, Fibromyalgia Surgeries: Yes (PARACENTESIS, BACK SURGERY, C/S X 2, COLONOSCOPY, LAPAROTOMY) Abdominal, Section, Gallbladder, Hysterectomy, Orthopedic, Tonsillectomy, Tubal Ligation Respiratory: Yes Asthma, Sleep Apnea Currently Using CPAP: No Currently Using BIPAP: No 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)) Atrial Fibrillation, High Cholesterol, Hypertension, Irregular Heartbeat Neurological: Yes (febrile seizures as child, hx hepatic encephalopathy) Headaches /Migraines Reproductive Disorders: Yes Female Reproductive Disorders: Menstrual Problems, Endometriosis, Ovarian Cyst [employer]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 History: Hysterectomy Sexually Transmitted Disease: No HIV/AIDS: No Genitourinary: Yes (CKD Stage 3, Lupus nephritis, Renal insufficiency) Renal Failure, Dialysis Gastrointestinal: Yes (CANO-(nonalcoholic steatohepatitis)) Gastroesophageal Reflux, Liver Disease/Jaundice, Pancreatitis, Irritable Bowel Musculoskeletal: Yes (Proximal myotonic myopathy) Arthritis, Fibromyalgia, Chronic Back Pain Endocrine: Yes (Hypomagnesium Hx) Diabetes, Insulin dep, Lupus HEENT: Yes (has glasses, chronic sinusitis) Loss of Vision: Bilateral Hearing Impairment: Denies Cancer: Yes (VAIN II, Hx of duodenal carcinoid) Psychosocial: Yes Anxiety, Depression Integumentary: No Recent Skin Changes Blood Disorders: No Adverse Reaction/Blood Tranf: No Family Medical History Patient reports no known family medical history. Heart Disease, Cancer, Diabetes, Hypertension Physical Exam Vital Signs Vital Signs - First Documented 09/17/22 09:50 Temp 36.5 Pulse 90 Resp 16 B/P (MAP) 136/82 (100) Pulse Ox 97 O2 Delivery Room Air Capillary Refill : Less Than 3 Seconds Height, Weight, BMI Height: 5'10.00" Weight: 300lbs. 0oz. 136.902003rb; 47.00 BMI Method:Stated General Appearance: Mild Distress, Obese Cardiovascular: Normal Peripheral Pulses Extremity: Normal Capillary Refill, No Calf Tenderness, No Pedal Edema, Other (Tender to palpation on the left external hip. Increased pain with movement.) Neurologic/Psychiatric: Alert, Oriented x3 Skin: Normal Color, Warm/Dry Progress/Results/Core Measures Results/Orders My Orders Orders - SEBASTIÁN COX MD Pelvis With Left Hip 2-3 View (09/17/22 09:59) Dexamethasone Injection (Dexamethasone (09/17/22 09:59) Orphenadrine Inj (Ed Only) (Norflex Inje (09/17/22 09:59) Vital Signs/I&O 09/17/22 09/17/22 09:50 10:49 Temp 36.5 36.5 Pulse 90 90 Resp 16 16 B/P (MAP) 136/82 (100) 136/82 Pulse Ox 97 97 O2 Delivery Room Air Room Air Blood Pressure Mean: 100 Progress Progress Note #1: Progress Note Potential diagnosis of arthritis of hip, sciatica, pinched nerve, fibromyalgia. Obtain x-rays of the pelvis and left hip. Ordered a dose of dexamethasone 10 mg IM along with Norflex 60 mg IM to try and help from pain, inflammation, possible muscle spasm standpoint. Progress Note #2: Time: 10:40 Progress Note I reviewed the radiologist interpretation on the pelvis and left hip x-rays. They felt that there was no acute process of the left hip to account for her complaint of pain. She does have evidence of bilateral changes to the hips consistent with possible avascular necrosis. This was seen on previous imaging a year ago when she was evaluated for the right hip pain. Will review findings with the patient and previously she had been treated with a short course of hydrocodone for severe pain. Counseled on follow-up with primary care and o rthopedics about her possible avascular necrosis. Diagnostic Imaging Diagonstic Imaging: Xray Plain Films/CT/US/NM/MRI: pelvis, hip Comments [facility], [place] NAME: KALA VANEGAS [facility] REC#: [id number] PT STATUS: REG ER : 1975 PHYSICIAN: SEBASTIÁN COX MD ADMIT DATE: 09/17/22/ER FS Draft Date of Exam:09/17/22 PELVIS WITH LEFT HIP 2-3 VIEW INDICATION: Woke up with severe left hip pain, no known injury. TECHNIQUE: AP pelvis along with 2 views left hip, 10:14 AM. CORRELATION STUDY: 09/30/2021. FINDINGS: The pelvis demonstrates no evidence for acute fracture. The pectineal lines and obturator rings are maintained. Pubic symphysis and SI joints are unremarkable. Right hip minimal joint space narrowing. Left hip has minimal joint space narrowing and overhanging osteophyte. As seen on prior imaging, there is minimal sclerosis of the femoral heads, left greater than right, questioning very early potential AVN. No appreciable volume loss. IMPRESSION: Negative for acute bony abnormality of the pelvis with attention to left hip. Question potential very early AVN of both hips, left greater than right. Dictated on workstation # [id number] Dict: 09/17/22 1019 Trans: 09/17/22 1025 [id number] Interpreted by: WILFRIDO CLAUDIO DO Electronically signed by: Reviewed: Reviewed by Me Departure Impression Primary Impression: Pain of left hip joint Additional Impressions: Avascular necrosis of bone of left hip Avascular necrosis of bone of right hip Disposition: 01 HOME, SELF-CARE Condition: Stable Departure-Patient Inst. Decision time for Depature: 10:43 Referrals: SHRUTI CLEANING MD (PCP/Family) Primary Care Physician HAY POWELL MD Patient Instructions: Hip Pain ED, Opioids for Short-Term Treatment of Pain ED, Avascular Necrosis of the Hip (DC) Add. Discharge Instructions: Try taking the hydrocodone for severe pain. Check back with the clinic as you may need to be referred to orthopedics for your hip pain. The x-rays from today as well as previous visits have shown findings for possible avascular necrosis. This is a condition where the hip joint may not be getting all the blood flow that it needs in the bone has started to show some signs of deterioration. This can cause pain as well as advanced arthritic changes. All discharge instructions reviewed with patient and/or family. Voiced understanding. Scripts Hydrocodone/Acetaminophen (Hydrocodone-Acetamin 5-325 mg) 5 Mg-325 Mg Tablet 1 TAB PO Q4H PRN for PAIN SEVERE for 3 Days, #18 TAB 0 Refills Prov: SEBASTIÁN COX MD 09/17/22 SEBASTIÁN COX MD Sep 17, 2022 10:04
--- NOTE | 2022-09-17 10:27 | Diagnostic Imaging Report ---
INDICATION: Woke up with severe left hip pain, no known injury. TECHNIQUE: AP pelvis along with 2 views left hip, 10:14 AM. CORRELATION STUDY: 09/30/2021. FINDINGS: The pelvis demonstrates no evidence for acute fracture. The pectineal lines and obturator rings are maintained. Pubic symphysis and SI joints are unremarkable. Right hip minimal joint space narrowing. Left hip has minimal joint space narrowing and overhanging osteophyte. As seen on prior imaging, there is minimal sclerosis of the femoral heads, left greater than right, questioning very early potential AVN. No appreciable volume loss. IMPRESSION: Negative for acute bony abnormality of the pelvis with attention to left hip. Question potential very early AVN of both hips, left greater than right. Dictated by: Dictated on workstation # [id number]
[2022-09-17] MEDS ORDERED: ACHD5005 PO (10:45)
[2022-09-17 10:49] VITALS: BP 136/82
== END 2022-09-17 10:49 | disposition home or self-care (01) ==
LOC: ER FS 09:51
DX: M87.852 Other osteonecrosis, left femur (principal); M87.851 Other osteonecrosis, right femur; E11.22 Type 2 diabetes mellitus with diabetic chronic kidney disease; I12.9 Hypertensive chronic kidney disease with stage 1 through stage 4 chronic kidney disease, or unspecified chronic kidney disease; N18.30 Chronic kidney disease, stage 3 unspecified; Z79.4 Long term (current) use of insulin; Z91.040 Latex allergy status; Z88.5 Allergy status to narcotic agent; Z28.310 Unvaccinated for COVID-19
CPT/HCPCS: 73502

== ENCOUNTER 2022-09-22 17:58 | Emergency (ER) | payer MEDICARE, MEDICAID ==
[~2022-09-22] VITALS: Ht 175 cm; Wt 142.0 kg
[2022-09-22] MEDS ORDERED: ACHD5005 PO (18:30)
[2022-09-22] MEDS ORDERED: CYCL10TA25 PO (18:30)
[2022-09-22] MEDS ORDERED: KETOROLAC INJ 60 MG/2 ML VIAL IM ONE (18:30)
[2022-09-22] MEDS ORDERED: METH4TAB10 PO (18:30)
--- NOTE | 2022-09-22 18:31 | ED Hip Pain/Injury ---
General Chief Complaint: Hip/Pelvic Problems Stated Complaint: LT LEG PAIN Nursing Triage Note: PT REPORTS THE PAIN IN HER LEFT LEG IS STILL THERE FROM HER ER VISIT ON SUNDAY. PT REPORTS SHE TOOK HER LAST HYDROCODONE THAT WAS PRESCRIBED ON SUNDAY TODAY AT 1030. SHE REPORTS SHE CALLED DR SALAS OFFICE TODAY AND THE NURSE TOLD HER DR WAS NOT IN, HE WAS IN MEETINGS ALL DAY AND IF THE PAIN GOT BAD ENOUGH SHE NEEDS TO GO TO THE ER TO GET A REFILL ON THE HYDROCODONE TO GET HER BY UNTIL SUNDAY. Source: patient, RN notes reviewed, old records Exam Limitations: no limitations History of Present Illness Date Seen by Provider: Sep 22, 2022 Time Seen by Provider: 18:09 Initial Comments 47-year-old female patient with extensive medical problem including diabetes mellitus, hypertension, hyperlipidemia, fibromyalgia, chronic pain syndrome, morbid obesity presented POV with complaining of left hip pain. Patient complaining of left hip pain without trauma for the last 1 week as a constant pain that getting worse with walking and bearing weight and rated her pain 10/10. Patient denies injury, fever and chills, urinary and bowel incontinence, abdominal pain, focal weakness. Patient complaining of left lower extremity paresthesia. Patient stated she had right hip pain previously. Patient was seen in this emergency room on September 17 and had unremarkable left hip and pelvis x-ray for fracture and treated with dexamethasone and Norflex in ER and discharged home with 18 pills of hydrocodone but patient stated she took the last one this morning and unable to get hold of her primary care physician today because he was in the meeting. Patient stated her PCP referred her to orthopedic physician and she has an appointment on September 26 and advised by PCP office to come to ER to get pain medication as needed until seen by orthopedic physician. Therefore patient decided to come to ER on Sunday 6 PM and asking pain medication until Sunday. Patient had blood test on September 01 at with BUN of 9 and creatinine of 0.74. Patient stated her blood sugar was well controlled because she is watching her diet and had blood sugar of 160s. Allergies and Home Medications Allergies Coded Allergies: diphenhydramine HCl (Verified Allergy, Unknown, 10/06/11) fentanyl (Verified Allergy, Unknown, 03/04/15) latex (Verified Allergy, Unknown, 10/06/11) meperidine HCl (Verified Allergy, Unknown, 10/06/11) morphine (Verified Allergy, Unknown, 10/06/11) vancomycin (Verified Allergy, Unknown, 10/06/11) iodine (Unverified Adverse Reaction, Intermediate, rash from IV contrast, 05/19/18) clindamycin (Unverified Adverse Reaction, Unknown, 05/19/18) gabapentin (Unverified Adverse Reaction, Unknown, 05/19/18) levofloxacin (Unverified Adverse Reaction, Unknown, 05/19/18) metformin (Unverified Adverse Reaction, Unknown, 05/19/18) metoclopramide (Unverified Adverse Reaction, Unknown, 05/19/18) Patient Home Medication List Home Medication List Reviewed: Yes Amoxicillin/Potassium Clav (Augmentin 875-125 Tablet) 1 Each Tablet, 1 EACH PO BID Prescribed by: BRITTNI PLASENCIA on 05/19/18 1522 Baclofen (Baclofen) 10 Mg Tablet, 10 MG PO TID PRN for MUSCLE SPASMS Prescribed by: SEBASTIÁN COX on 02/20/20 0050 Belimumab (Benlysta) 200 Mg/1 Ml Auto.injct, (Reported) Entered as Reported by: FREDY HSU on 05/19/18 1520 Butalb/Acetaminophen/Caffeine (Pvicmjag-Tlroeebibbafq-Piza Cp) 1 Each Capsule, 1 EACH PO Q8H PRN for headache Prescribed by: KING CONN on 11/22/19 1516 Cyclobenzaprine HCl (Cyclobenzaprine HCl) 10 Mg Tablet, 10 MG PO Q8H PRN for SPASMS Prescribed by: KATIA GARCIA on 09/11/20 1100 Cyclobenzaprine HCl (Cyclobenzaprine HCl) 10 Mg Tablet, 10 MG PO Q8H PRN for SPASMS Prescribed by: Dania hinojosa on 09/22/22 1830 Desonide (Desonide) 15 Gm Oint...g., TOP BID, (Reported) Entered as Reported by: JADE KAT on 04/22/15 1009 Ergocalciferol (Vitamin D2) (Vitamin D2) 50,000 Unit Capsule, 50,000 UNITS PO WEEKLY, (Reported) Entered as Reported by: JADE KAT on 04/22/15 0837 Furosemide (Furosemide) 80 Mg Tablet, 40 MG PO BID, (Reported) Entered as Reported by: JADE KAT on 04/22/15 0837 Hydrocodone Bit/Acetaminophen (HYDROcodone/APAP 5 MG/325 MG TAB) 1 Tab Tab, 1 TAB PO Q8H PRN for PAIN-SEVERE (8-10) Prescribed by: ELENA FARMER on 12/29/20 1248 Hydrocodone Bit/Acetaminophen (HYDROcodone/APAP 5 MG/325 MG TAB) 1 Tab Tab, 1 TAB PO Q6H Prescribed by: ELENA FARMER on 09/30/21 1453 Hydrocodone/Acetaminophen (Hydrocodone-Acetamin 5-325 mg) 1 Each Tablet, 1 EACH PO Q4H Prescribed by: KATIA GARCIA on 09/11/20 1101 Hydrocodone/Acetaminophen (Hydrocodone-Acetamin 5-325 mg) 5 Mg-325 Mg Tablet, 1 TAB PO Q4H PRN for PAIN-SEVERE (8-10) Prescribed by: SEBASTIÁN COX on 11/17/21 1456 Hydrocodone/Acetaminophen (Hydrocodone-Acetamin 5-325 mg) 5 Mg-325 Mg Tablet, 1 TAB PO Q4H PRN for PAIN-MODERATE (5-7) Prescribed by: IGOR MADERA on 06/22/22 1843 Hydrocodone/Acetaminophen (Hydrocodone-Acetamin 5-325 mg) 5 Mg-325 Mg Tablet, 1 TAB PO Q4H PRN for PAIN SEVERE Prescribed by: SEBASTIÁN COX on 09/17/22 1047 Hydrocodone/Acetaminophen (Hydrocodone-Acetamin 5-325 mg) 5 Mg-325 Mg Tablet, 1 TAB PO every 8 hours PRN for PAIN-MODERATE (5-7) Prescribed by: Dania hinojosa on 09/22/22 1831 Hydroxychloroquine Sulfate (Hydroxychloroquine Sulfate) 200 Mg Tablet, 200 MG PO BID, (Reported) Entered as Reported by: JADE KAT on 04/22/15 0837 Insulin Aspart (Novolog Flexpen) 300 Units/3 Ml Solution, (Reported) Entered as Reported by: FREDY HSU on 05/19/18 1520 Insulin Glargine,Hum.rec.anlog (Lantus Solostar) 100 Unit/1 Ml Insuln.pen, 28 UNITS SC HS, (Reported) Entered as Reported by: JADE KAT on 04/22/15 1009 Insulin Glargine,Hum.rec.anlog (Duarte Rayar) 300 Unit/1 Ml Insuln.pen, (Reported) Entered as Reported by: FREDY HSU on 05/19/18 1520 Lisinopril (Lisinopril) 10 Mg Tablet, 20 MG PO BID, (Reported) Entered as Reported by: JADE KAT on 04/22/15 0837 Loratadine (Loratadine) 10 Mg Tablet, (Reported) Entered as Reported by: FREDY HSU on 05/19/18 1520 Lorazepam (Ativan) 1 Mg Tablet, 1 MG PO Q6H PRN for ANXIETY, (Reported) Entered as Reported by: RENETTA LATIF on 02/24/15 1157 Lorazepam (Lorazepam) 0.5 Mg Tablet, (Reported) Entered as Reported by: FREDY HSU on 05/19/18 1520 Metformin HCl (Metformin HCl ER) 500 Mg Tab.er.24h, (Reported) Entered as Reported by: FREDY HSU on 05/19/18 1520 Methylprednisolone (Methylprednisolone Dose Pack) 4 Mg Tab.ds.pk, 4 MG PO UD Prescribed by: Dania hinojosa on 09/22/22 1830 Mycophenolate Mofetil (Mycophenolate Mofetil) 500 Mg Tablet, PO UD, (Reported) Entered as Reported by: JADE KAT on 04/22/15 1009 Nitrofurantoin Monohyd/M-Cryst (Macrobid 100 mg Capsule) 100 Mg Capsule, 1 TAB PO BID Prescribed by: SEBASTIÁN COX on 11/17/21 1455 Ondansetron (Ondansetron Odt) 4 Mg Tab.rapdis, 4 MG PO Q8H PRN for NAUSEA, (Reported) Entered as Reported by: JDAE KAT on 04/22/15 1009 Ondansetron (Ondansetron Odt) 4 Mg Tab.rapdis, 4 MG PO TID PRN for NAUSEA/VOMITING-1ST LINE Prescribed by: BRITTNI PLASENCIA on 05/19/18 1522 Ondansetron (Ondansetron Odt) 4 Mg Tab.rapdis, 4 MG PO Q8H PRN for nausea Prescribed by: KING CONN on 11/22/19 1514 Ondansetron (Ondansetron Odt) 4 Mg Tab.rapdis, 4 MG PO Q6H PRN for N AUSEA/VOMITING Prescribed by: ELENA FARMER on 09/27/20 1720 Ondansetron (Ondansetron Odt) 4 Mg Tab.rapdis, 4 MG PO Q6H PRN for NAUSEA-1ST LINE Prescribed by: ELENA FARMER on 12/29/20 1248 Oxycodone HCl (Oxycontin) 30 Mg Tab.er.12h, 30 MG PO BID, (Reported) Entered as Reported by: JADE KAT on 04/22/15 1009 Oxycodone Hcl (Oxyir Tablet) 5 Mg Tablet, 5 MG PO Q6H PRN for PAIN, (Reported) Entered as Reported by: JADE KAT on 04/22/15 1009 Pantoprazole Sodium (Pantoprazole Sodium) 40 Mg Tablet.dr, 40 MG PO DAILY, (Reported) Entered as Reported by: GRADY CAICEDO on 03/04/15 0635 Phenazopyridine HCl (Azo Urinary Pain Relief) 99.5 Mg Tablet, 99.5 MG PO TID PRN for flank pain/urinary pain Prescribed by: SEBASTIÁN COX on 11/17/21 1455 Pravastatin Sodium (Pravastatin Sodium) 20 Mg Tablet, (Reported) Entered as Reported by: FREDY HSU on 05/19/18 1520 Rifaximin (Xifaxan) 550 Mg Tablet, (Reported) Entered as Reported by: FREDY HSU on 05/19/18 1520 Ropinirole HCl (Ropinirole HCl) 0.5 Mg Tablet, (Reported) Entered as Reported by: FREDY HSU on 05/19/18 1520 Tramadol HCl (Tramadol HCl) 50 Mg Tablet, (Reported) Entered as Reported by: FREDY HSU on 09/11/20 1056 Triamcinolone Acet (Triamcinolone Acetonide 0.1% Ointment) 15 Gm Oint, TOP BID, (Reported) Entered as Reported by: JADE KAT on 04/22/15 1009 Warfarin Sodium (Warfarin Sodium) 10 Mg Tablet, (Reported) Entered as Reported by: FREDY HSU on 05/19/18 1520 Review of Systems Constitutional: no symptoms reported EENTM: no symptoms reported Respiratory: no symptoms reported Gastrointestinal: no symptoms reported Genitourinary: no symptoms reported Musculoskeletal: see HPI Skin: no symptoms reported Psychiatric/Neurological: See HPI All Other Systems Reviewed Negative Unless Noted: Yes Past Jjwvfpv-Uiztpf-Twojvo Hx Patient Social History Tobacco Use?: No Use of E-Cig and/or Vaping dev: No Substance use?: No Alcohol Use?: No Pt feels they are or have been: No Immunizations Up To Date Influenza Vaccine Up-to-Date: Yes; Up-to-Date Seasonal Allergies Seasonal Allergies: No Past Medical History Surgery/Hospitalization HX: Back surgery x2, DDD, Lupus, DM, Fibromyalgia Surgeries: Yes (PARACENTESIS, BACK SURGERY, C/S X 2, COLONOSCOPY, LAPAROTOMY) Abdominal, Section, Gallbladder, Hysterectomy, Orthopedic, Tonsillectomy, Tubal Ligation Respiratory: Yes Asthma, Sleep Apnea Currently Using CPAP: No Currently Using BIPAP: No 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)) Atrial Fibrillation, High Cholesterol, Hypertension, Irregular Heartbeat Neurological: Yes (febrile seizures as child, hx hepatic encephalopathy) Headaches /Migraines Reproductive Disorders: Yes Female Reproductive Disorders: Menstrual Problems, Endometriosis, Ovarian Cyst [employer] History: Hysterectomy Sexually Transmitted Disease: No HIV/AIDS: No Genitourinary: Yes (CKD Stage 3, Lupus nephritis, Renal insufficiency) Renal Failure, Dialysis Gastrointestinal: Yes (CANO-(nonalcoholic steatohepatitis)) Gastroesophageal Reflux, Liver Disease/Jaundice, Pancreatitis, Irritable Bowel Musculoskeletal: Yes (Proximal myotonic myopathy) Arthritis, Fibromyalgia, Chronic Back Pain Endocrine: Yes (Hypomagnesium Hx) Diabetes, Insulin dep, Lupus HEENT: Yes (has glasses, chronic sinusitis) Loss of Vision: Bilateral Hearing Impairment: Denies Cancer: Yes (VAIN II, Hx of duodenal carcinoid) Psychosocial: Yes Anxiety, Depression Integumentary: No Recent Skin Changes Blood Disorders: No Adverse Reaction/Blood Tranf: No Family Medical History Patient reports no known family medical history. Heart Disease, Cancer, Diabetes, Hypertension Physical Exam Vital Signs Vital Signs - First Documented 09/22/22 18:05 Temp 36.6 Pulse 87 Resp 18 B/P (MAP) 151/98 (115) Pulse Ox 97 O2 Delivery Room Air Capillary Refill : Less Than 3 Seconds Height, Weight, BMI Height: 5'10.00" Weight: 300lbs. 0oz. 136.751383jp; 46.00 BMI Method:Stated General Appearance: No Apparent Distress, Obese (Morbidly obese) HEENT: PERRL/EOMI Neck: Full Range of Motion Cardiovascular: Regular Rate, Rhythm Respiratory: Chest Non Tender, Lungs Clear, Normal Breath Sounds Gastrointestinal: Normal Bowel Sounds Back: Normal Inspection, No CVA Tenderness Extremity: Normal Capillary Refill, Normal Inspection, Non Tender, No Calf Tenderness, Other (Painful range of motion of left hip) Neurologic/Psychiatric: Alert, Oriented x3, No Motor/Sensory Deficits, Other (No paresthesia of left lower extremity) Skin: Normal Color Progress/Results/Core Measures Results/Orders My Orders Orders - DANIA HINOJOSA MD Ketorolac Injection (Ketorolac Injection (09/22/22 18:30) Medications Given in ED Current Medications Medications Dose Ordered Sig/Lo Route Start Time Stop Time Status Last Admin Dose Admin Ketorolac Tromethamine 60 mg ONCE ONCE IM 09/22/22 18:30 09/22/22 18:31 DC 09/22/22 18:30 60 MG Vital Signs/I&O 09/22/22 18:05 Temp 36.6 Pulse 87 Resp 18 B/P (MAP) 151/98 (115) Pulse Ox 97 O2 Delivery Room Air Blood Pressure Mean: 115 Progress Progress Note : Progress Note 47-year-old female patient presented for the second time with complaining of left hip pain and stated she took her last hydrocodone today and needs more pain medication until seen by orthopedic physician 4 days from now. Patient had painful range of motion of left lower extremity and morbid obesity without distress. Patient her pain 10/10 and complaining of paresthesia without objective paresthesia. Patient had normal-appearing creatinine on September 01 and treated with 1 dose of Toradol and prescription for [place]# 12 and Flexeril and Medrol dose was given and advised to follow-up with primary care physician and orthopedic appointment. Patient advised to follow-up with diabetic diet and check her blood sugar carefully because of taking prednisone. Departure Impression Primary Impression: Pain of left hip joint Additional Impressions: Medication refill Morbid obesity Disposition: 01 HOME, SELF-CARE Condition: Stable Departure-Patient Inst. Decision time for Depature: 18:28 Referrals: SHRUTI CLEANING MD (PCP/Family) Primary Care Physician Patient Instructions: Opioids for Short-Term Treatment of Pain ED, Hip Pain ED Add. Discharge Instructions: Follow-up with your orthopedic appointment on September 26 Apply ice on the left hip Follow-up with your primary care physician in 2 or 3 days Return to ER as needed All discharge instructions reviewed with patient and/or family. Voiced understanding. Scripts Hydrocodone/Acetaminophen (Hydrocodone-Acetamin 5-325 mg) 5 Mg-325 Mg Tablet 1 TAB PO every 8 hours PRN for PAIN-MODERATE (5-7), #12 TAB Prov: DANIA HINOJOSA MD 09/22/22 Methylprednisolone (Methylprednisolone Dose Pack) 4 Mg Tab.ds.pk 4 MG PO UD for asthma for 6 Days, #21 PKG PER DOSE PACK INSTRUCTIONS Prov: DANIA HINOJOSA MD 09/22/22 Cyclobenzaprine HCl (Cyclobenzaprine HCl) 10 Mg Tablet 10 MG PO Q8H PRN for SPASMS, #15 TAB 0 Refills Prov: DANIA HINOJOSA MD 09/22/22 DANIA HINOJOSA MD Sep 22, 2022 18:31
[2022-09-22 18:35] VITALS: BP 151/98
== END 2022-09-22 18:35 | disposition home or self-care (01) ==
LOC: EDUNIT# 17:58 → ER FS 17:59
DX: M25.552 Pain in left hip (principal); Z76.0 Encounter for issue of repeat prescription; E66.01 Morbid (severe) obesity due to excess calories; R20.2 Paresthesia of skin; E11.22 Type 2 diabetes mellitus with diabetic chronic kidney disease; I12.9 Hypertensive chronic kidney disease with stage 1 through stage 4 chronic kidney disease, or unspecified chronic kidney disease; N18.30 Chronic kidney disease, stage 3 unspecified; Z79.4 Long term (current) use of insulin; Z99.2 Dependence on renal dialysis; Z91.040 Latex allergy status; Z68.42 Body mass index [BMI] 45.0-49.9, adult; Z88.5 Allergy status to narcotic agent
CPT/HCPCS: 99284

== ENCOUNTER → 2022-09-26 | Outpatient (CLI) | payer MEDICARE, MEDICAID ==
[~2022-09-26] MED LIST changes: +METH4TAB10 PO
--- NOTE | 2022-09-26 15:38 | Diagnostic Imaging Report ---
EXAMINATION: Lumbosacral spine four or more views. HISTORY: Severe back pain. COMPARISON: None available. FINDINGS: There is mild vertebral body height loss of L1. There is mild disc height loss at all levels of the lumbar spine. There is no pars defect. There are L4-L5 and L5-S1 degenerative changes to the facets. There has been posterior decompression of L2 and L3. IMPRESSION: 1. Mild to moderate degenerative changes in the lumbar spine. 2. Age-indeterminate compression fracture of L1 with less than 20% height loss. Dictated by: Dictated on workstation # [id number]
== END ==
LOC: ORTHO 11:15
PROVIDERS: ATTEND Orthopaedic Surgery
DX: M47.26 Other spondylosis with radiculopathy, lumbar region (principal); M51.16 Intervertebral disc disorders with radiculopathy, lumbar region; S32.019A Unspecified fracture of first lumbar vertebra, initial encounter for closed fracture; X58.XXXA Exposure to other specified factors, initial encounter
CPT/HCPCS: 72110; G0463; 99203